=== PATIENT | male | born 1940 | race Caucasian/White ===

== ENCOUNTER → 2019-09-26 14:30 | Outpatient (CLI) | payer MEDICARE, SELFPAY ==
[2019-09-27 08:50] LABS: COVID19 Sendout Not Detected (Not Detect)
== END ==
PROVIDERS: PCP Family Medicine; Visit Provider Nurse Practitioner
DX: Z01.812 Encounter for preprocedural laboratory examination (principal)
CPT/HCPCS: 87635

== ENCOUNTER → 2019-09-29 14:38 | Outpatient (CLI) | payer MEDICARE, SELFPAY ==
--- NOTE | 2019-09-29 15:57 | PM.TREADMILL ---
Cardiac Stress Test Report Referral & Results Date Patient Seen: 09/29/19 Time Patient Seen: 15:58 Requesting provider: Román Flores Indication: syncope and collapse Rest ECG: normal sinus rhythm Procedure Note: Standard Ge protocol, 8:01, 8.8 METS; excellent exercise capacity, SHANA -52%; normal hemodynamic response to exercise; no chest pain or anginal symptoms; lightheadedness at the end of peak exercise with on ECG changes and resolved immediately in recovery, no ST changes, occasional PVCs Impression: normal exercise stress test Please note: Actual ECG tracings can be found in the PACS system.
== END ==
PROVIDERS: PCP Student in an Organized Health Care Education/Training Program; Referring Provider Internal Medicine Cardiovascular Disease; Visit Provider Internal Medicine Cardiovascular Disease
DX: R55 Syncope and collapse (principal); I95.1 Orthostatic hypotension
CPT/HCPCS: 93017

== ENCOUNTER → 2020-09-24 12:58 | Outpatient (CLI) | payer MEDICARE, SELFPAY ==
[2020-09-24 15:53] LABS: COVID19 -Nasal RAPID Negative (Negative)
== END ==
PROVIDERS: PCP Student in an Organized Health Care Education/Training Program; Referring Provider Physician Assistant; Visit Provider Physician Assistant
DX: Z01.812 Encounter for preprocedural laboratory examination (principal); Z20.822 Contact with and (suspected) exposure to COVID-19
CPT/HCPCS: 87635; C9803

== ENCOUNTER 2020-09-25 06:53 | Day surgery (SDC) | payer MEDICARE, SELFPAY ==
[2020-09-25 07:18] VITALS: BP 163/90; PULSE 68; RESP 16; TEMP 36.6; O2SAT 96; BMI 25.8
[2020-09-25] MEDS: PROPARACAINE 0.5% OPHTH SOL 2 DROPS EYE-OP (07:20)
[2020-09-25] MEDS: CATARACT EYE COMPOUND (10 DROPS/SYRINGE) 3 DROPS EYE-OP (07:23)
--- NOTE | 2020-09-25 08:27 | PM.PREOP ---
Pre-operative Note Interval Note History & Physical reviewed/Exam performed by Physician: Yes Changes to H&P: No
--- NOTE | 2020-09-25 08:28 | PM.PREOP ---
Pre-operative Note Interval Note History & Physical reviewed/Exam performed by Physician: Yes Changes to H&P: No
--- NOTE | 2020-09-25 08:29 | PM.OP.1 ---
Operative Date/Time/Diagnoses Pre-op diagnosis: Nuclear cataract right eye Procedure & Clinicians Procedure: Cataract Surgery Same procedure as scheduled: Yes Surgeon: Bennie Duggan Anesthesia Type: MAC +/- and Sedation Operative Notes Procedure in detail: Patient brought to the operating suite. Tetracaine drops placed in the right eye. Patient was prepped and draped in sterile manner. Wire lid speculum was placed in the eye. Betadine drops were placed on the eye. This was irrigated. Lidocaine jelly was placed on the eye. A paracentesis port was created with a side-port blade. 0.1 mL 1% preservative free lidocaine was injected into the anterior chamber. The anterior chamber was deepened with viscoelastic. 2.6 mm keratome was used to create a temporal clear corneal incision. Cystotome and Utrata forceps were used to create continuous tear capsulorrhexis. Balanced salt solution was used to hydro dissect the nucleus. The phacoemulsification handpiece was inserted and the nucleus was removed using the stop and chop technique. The irrigation aspiration handpiece was inserted and the remaining cortex was removed. Anterior chamber was deepened with viscoelastic. An Cameron DIB00 intraocular lens with a power of 19.5 was injected into the capsular bag. Irrigation aspiration handpiece was inserted and the remaining viscoelastic was removed. Incision was hydrated with balanced salt solution and found to be leak free with pressure with Weck-Evangelina sponges. 0.1 mL Vigamox injected anterior chamber. 0.3 mL Kenalog 10 mg was injected subconjunctivally. Lid speculum was removed. The patient left the operating room in excellent condition. Complications: none Post-operative Condition: stable Disposition: same day surgery
[2020-09-25] MEDS: LIDOCAINE 2% (GLYDO) 6 ML GEL TOP (08:41)
[2020-09-25] MEDS: MOXIFLOXACIN INJ 4 MG/0.8 ML VIAL 0.5 MG EYE-OP (08:41)
[2020-09-25] MEDS: CHONDROIDTIN/SOD HYALURONATE 1.05 ML SYRINGE INTRAOCULA (08:41)
[2020-09-25] MEDS: TRIAMCINOLONE 50 MG/5 ML VIAL INJ (08:42)
[2020-09-25] MEDS: TETRACAINE 0.5% OPHTH DROPS 4 ML 2 DROPS EYE-OP (08:42)
[2020-09-25] MEDS: BALANCED SALT IRRIG SOLN NO.2 500 ML, EPINEPHrine 1 MG IRR (08:42)
[2020-09-25] MEDS: PHENYLEPHRINE/LIDOCAINE VIAL (OR) 0.2 ML EYE-OP (08:42)
[2020-09-25 09:00] VITALS: BP 153/91; PULSE 62; RESP 14; TEMP 36.1; O2SAT 95
== END 2020-09-25 09:12 | disposition home or self-care (01) ==
PROVIDERS: PCP Student in an Organized Health Care Education/Training Program; Referring Provider Student in an Organized Health Care Education/Training Program; Visit Provider Ophthalmology
PROC: (CPT 66984; principal; 2020-09-25 08:45)
DX: H25.11 Age-related nuclear cataract, right eye (principal)
CPT/HCPCS: 66984; J0171; J2250; J3010; J3301

== ENCOUNTER → 2020-10-15 13:15 | Outpatient (CLI) | payer MEDICARE, SELFPAY ==
[2020-10-15 15:47] LABS: COVID19 -Nasal RAPID Negative (Negative)
== END ==
PROVIDERS: PCP Student in an Organized Health Care Education/Training Program; Referring Provider Physician Assistant; Visit Provider Physician Assistant
DX: Z01.812 Encounter for preprocedural laboratory examination (principal); Z20.822 Contact with and (suspected) exposure to COVID-19
CPT/HCPCS: 87635; C9803

== ENCOUNTER 2020-10-16 08:55 | Day surgery (SDC) | payer MEDICARE, SELFPAY ==
[2020-10-16] MEDS: PROPARACAINE 0.5% OPHTH SOL 2 DROPS EYE-OP (09:29)
[2020-10-16 09:30] VITALS: BP 151/92; PULSE 80; RESP 16; TEMP 36.2; O2SAT 98; BMI 25.4
[2020-10-16] MEDS: CATARACT EYE COMPOUND (10 DROPS/SYRINGE) 3 DROPS EYE-OP (09:40)
--- NOTE | 2020-10-16 09:56 | PM.PREOP ---
Pre-operative Note Interval Note History & Physical reviewed/Exam performed by Physician: Yes Changes to H&P: No
--- NOTE | 2020-10-16 09:56 | PM.OP.1 ---
Operative Date/Time/Diagnoses Pre-op diagnosis: Nuclear Cataract Left eye Post-op diagnosis: same Procedure & Clinicians Same procedure as scheduled: Yes Surgeon: Bennie Duggan Anesthesia Type: MAC +/- and Sedation Operative Notes Procedure in detail: Patient brought to the operating suite. Tetracaine drops placed in the left eye. Patient was prepped and draped in sterile manner. Wire lid speculum was placed in the eye. Betadine drops were placed on the eye. This was irrigated. Lidocaine jelly was placed on the eye. A paracentesis port was created with a side-port blade. 0.1 mL 1% preservative free lidocaine was injected into the anterior chamber. The anterior chamber was deepened with viscoelastic. 2.6 mm keratome was used to create a temporal clear corneal incision. Cystotome and Utrata forceps were used to create continuous tear capsulorrhexis. Balanced salt solution was used to hydro dissect the nucleus. The phacoemulsification handpiece was inserted and the nucleus was removed using the stop and chop technique. The irrigation aspiration handpiece was inserted and the remaining cortex was removed. Anterior chamber was deepened with viscoelastic. An Cameron DIB00 intraocular lens with a power of 17.5 was injected into the capsular bag. Irrigation aspiration handpiece was inserted and the remaining viscoelastic was removed. Incision was hydrated with balanced salt solution and found to be leak free with pressure with Weck-Evangelina sponges. 0.1 mL Vigamox injected anterior chamber. 0.3 mL Kenalog 10 mg was injected subconjunctivally. Lid speculum was removed. The patient left the operating room in excellent condition. Complications: none Post-operative Condition: stable Disposition: same day surgery
[2020-10-16] MEDS: CHONDROIDTIN/SOD HYALURONATE 1.05 ML SYRINGE INTRAOCULA (10:13)
[2020-10-16] MEDS: MOXIFLOXACIN INJ 4 MG/0.8 ML VIAL 0.5 MG EYE-OP (10:13)
[2020-10-16] MEDS: PHENYLEPHRINE/LIDOCAINE VIAL (OR) 0.2 ML EYE-OP (10:13)
[2020-10-16] MEDS: LIDOCAINE 2% (GLYDO) 6 ML GEL TOP (10:13)
[2020-10-16] MEDS: BALANCED SALT IRRIG SOLN NO.2 500 ML, EPINEPHrine 1 MG IRR (10:14)
[2020-10-16] MEDS: TRIAMCINOLONE 50 MG/5 ML VIAL INJ (10:14)
[2020-10-16] MEDS: TETRACAINE 0.5% OPHTH DROPS 4 ML 2 DROPS EYE-OP (10:14)
[2020-10-16 10:31] VITALS: BP 139/82; PULSE 65; RESP 15; TEMP 36.1; O2SAT 97
== END 2020-10-16 10:48 | disposition home or self-care (01) ==
PROVIDERS: PCP Student in an Organized Health Care Education/Training Program; Referring Provider Ophthalmology; Visit Provider Ophthalmology
PROC: (CPT 66984; principal; 2020-10-16 10:45)
DX: H25.12 Age-related nuclear cataract, left eye (principal)
CPT/HCPCS: 66984; J0171; J2250; J3010; J3301

== ENCOUNTER → 2020-10-24 15:34 | Outpatient (CLI) | payer MEDICARE, SELFPAY ==
[2020-10-24 16:40] LABS: BUN Creatinine Ratio 20.8 (6-22); Blood Urea Nitrogen 22 mg/dL (9-20); Calcium 9.5 mg/dL (8.4-10.2); Carbon Dioxide 29 mmol/L (22-32); Chloride 104 mmol/L (98-107); Creatine Kinase 177 U/L (55-170); Estimated Glomerular Filt Rate > 60.0 mL/min (>60); Glucose 101 mg/dL (80-110); Magnesium 2.3 mg/dL (1.6-2.3); Potassium 4.4 mmol/L (3.4-5.1); Sodium 142 mmol/L (137-145)
[2020-10-24 16:54] LABS: HEMOLYSIS 21 (0-50)
== END ==
PROVIDERS: PCP Student in an Organized Health Care Education/Training Program; Referring Provider Student in an Organized Health Care Education/Training Program; Visit Provider Student in an Organized Health Care Education/Training Program
DX: R25.2 Cramp and spasm (principal); R55 Syncope and collapse
CPT/HCPCS: 36415; 80048; 82550; 83735

== ENCOUNTER → 2020-12-10 11:53 | Outpatient (CLI) | payer MEDICARE, SELFPAY ==
[2020-12-10 13:19] LABS: COVID19 -Nasal RAPID Negative (Negative)
== END ==
PROVIDERS: PCP Student in an Organized Health Care Education/Training Program; Referring Provider Nurse Practitioner Family; Visit Provider Nurse Practitioner Family
DX: Z01.812 Encounter for preprocedural laboratory examination (principal); Z20.822 Contact with and (suspected) exposure to COVID-19
CPT/HCPCS: 87635; C9803

== ENCOUNTER 2020-12-11 11:29 | Day surgery (SDC) | payer MEDICARE, SELFPAY ==
[2020-12-11 11:46] VITALS: BP 149/92; PULSE 78; RESP 16; TEMP 36.6; O2SAT 100; BMI 26.5
--- NOTE | 2020-12-11 12:13 | PM.PREOP ---
Pre-operative Note Interval Note History & Physical reviewed/Exam performed by Physician: Yes Changes to H&P: No
--- NOTE | 2020-12-11 12:13 | PM.OP.1 ---
Operative Date/Time/Diagnoses Pre-op diagnosis: Retained lens fragment left eye Post-op diagnosis: same Procedure & Clinicians Same procedure as scheduled: Yes Surgeon: Bennie Duggan Anesthesia Type: MAC +/- and Sedation Operative Notes Procedure in detail: Patient brought to the operating suite. Tetracaine drops placed in the left eye. Patient was prepped and draped in sterile manner. Wire lid speculum was placed in the eye. Betadine drops were placed on the eye. This was irrigated. Lidocaine jelly was placed on the eye. A paracentesis port was created with a side-port blade. The anterior chamber was deepened with viscoelastic. 2.6 mm keratome was used to create a temporal clear corneal incision. Irrigation aspiration handpiece was inserted and the lens fragment was removed. Incision was hydrated with balanced salt solution and found to be leak free with pressure with Weck-Evangelina sponges. 0.1 mL Vigamox injected anterior chamber. 0.1 mL Kenalog 10 mg was injected subconjunctivally. Lid speculum was removed. The patient left the operating room in excellent condition. Complications: none Post-operative Condition: stable Disposition: same day surgery
[2020-12-11] MEDS: MOXIFLOXACIN INJ 4 MG/0.8 ML VIAL 0.5 MG EYE-OP (12:41)
[2020-12-11] MEDS: TRIAMCINOLONE 50 MG/5 ML VIAL INJ (12:41)
[2020-12-11] MEDS: BALANCED SALT IRRIG SOLN NO.2 500 ML, EPINEPHrine 1 MG IRR (12:41)
[2020-12-11] MEDS: TETRACAINE 0.5% OPHTH DROPS 4 ML 2 DROPS EYE-OP (12:42)
[2020-12-11] MEDS: HYALURONATE SODIUM 30 MG-10 MG/ML SYRINGES 1 BOX INTRAOCULA (12:42)
[2020-12-11] MEDS: LIDOCAINE 2% (GLYDO) 6 ML GEL TOP (12:44)
[2020-12-11 12:53] VITALS: BP 118/79; PULSE 72; RESP 16; TEMP 36.6; O2SAT 95
== END 2020-12-11 13:05 | disposition home or self-care (01) ==
PROVIDERS: PCP Student in an Organized Health Care Education/Training Program; Referring Provider Ophthalmology; Visit Provider Ophthalmology
PROC: (CPT 66840; principal; 2020-12-11 13:15)
DX: H59.022 Cataract (lens) fragments in eye following cataract surgery, left eye (principal)
CPT/HCPCS: 66840; J0171; J2250; J3010; J3301

== ENCOUNTER 2023-08-13 13:46 | Emergency (ER) | payer MEDICARE, SELFPAY ==
[2023-08-13 13:48] VITALS: BP 129/76; PULSE 91; RESP 14; TEMP 36.9; O2SAT 95; BMI 26.5
--- NOTE | 2023-08-13 13:55 | DI.RAD.S_ITS ---
PROCEDURE: XR ELBOW RT MIN 3V INDICATIONS: fall,elbow injury TECHNIQUE: 3 views of the elbow were acquired. COMPARISON: None. FINDINGS: Bones: No fractures or dislocations. No suspicious bony lesions. Soft tissues: No elbow joint effusion. No suspicious soft tissue calcifications. IMPRESSION: No visualized acute fracture or dislocation. However, if clinical concern and/or pain persist, short interval imaging followup in 7-10 days is recommended, as occult injury cannot be definitively excluded. Dictated by: Minerva Torres M.D. on 08/13/2023 at 14:36 Approved by: Minerva Torres M.D. on 08/13/2023 at 14:36
--- NOTE | 2023-08-13 14:05 | ED.FALL ---
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 He was reporting right elbow pain as well as hitting his right eye against the floor. He had not lose conscious. He had not report any slurred speech, facial drooping, nausea, vomiting, weakness, or any other concerning signs or symptoms. Denies any numbness. Related Data Previous Rx's Medication Instructions Recorded cyclobenzaprine 5 mg tablet 5 mg PO ONCE PM PRN muscle spasm 07/28/23 #30 tabs escitalopram oxalate 10 mg tablet 10 mg PO DAILY #90 tabs 07/28/23 Allergies Allergy/AdvReac Type Severity Reaction Status Date / Time shellfish derived Allergy Severe anaphylatic Verified 08/13/23 14:00 [SHELLFISH DERIVED] Review of Systems <Miguel Foss PA-C - Last Filed: 08/13/23 14:56> Review of Systems Narrative: GENERAL: Denies chills, fatigue, malaise, fever, sweats. HEENT: Reports right eye orbit pain Denies sinus pain, ear pain, sore throat, difficulty swallowing, dizziness. RESPIRATORY: Denies dyspnea, cough, wheezing, hemoptysis, sputum. CARDIOVASCULAR: Denies chest pain, palpitations, orthopnea, edema, GASTROINTESTINAL: Denies nausea, vomiting, abdominal pain, diarrhea, constipation, melena. : Denies dysuria, frequency, incontinence, hematuria, urinary retention. MUSCULOSKELETAL: Reports right elbow pain SKIN: Denies rash, skin lesions, or other NEUROLOGIC: Denies weakness, headache, numbness, change in speech, confusion, seizures, incoordination. PSYCHIATRIC: No concerning psychosocial issues. 12 point review of systems is negative except for those stated above Patient History <Miguel Foss PA-C - Last Filed: 08/13/23 14:56> Medical History Depression Tear of meniscus of knee Inguinal hernia Surgical History Hx of tonsillectomy Social History household members: spouse Smoking Status: Former smoker alcohol intake: current Smoking Status: Former smoker alcohol intake frequency: holidays/special occasions only Substance Use Type: does not use Exam <JOAQUIN Zhang Last Filed: 08/13/23 14:56> Narrative Exam Narrative: GENERAL: Well-developed patient, in mild distress. HEAD: Atraumatic. Normocephalic. EYES: Pupils equal round and reactive. Extraocular motions intact. No scleral icterus. No injection or drainage. Some ecchymosis around the right eye ENT: Nose without bleeding, purulent drainage. Throat without erythema, tonsillar hypertrophy or exudate. Airway patent. NECK: Trachea midline. Non tender EXTREMITIES: Mild tenderness to palpation to the generalized right elbow NEURO: AOx3. Cranial nerves 2-12 intact SKIN: No rash or erythema of visible areas Initial Vital Signs Initial Vital Signs: Vital Signs Temperature 98.5 F 08/13/23 13:48 Pulse Rate 91 H 08/13/23 13:48 Respiratory Rate 14 08/13/23 13:48 Blood Pressure 129/76 08/13/23 13:48 Pulse Oximetry 95 08/13/23 13:48 Oxygen Delivery Method Room Air 08/13/23 13:48 <Zhane John DO - Last Filed: 08/15/23 19:14> Initial Vital Signs Initial Vital Signs: Vital Signs Temperature 98.5 F 08/13/23 13:48 Pulse Rate 91 H 08/13/23 13:48 Respiratory Rate 14 08/13/23 13:48 Blood Pressure 129/76 08/13/23 13:48 Pulse Oximetry 95 08/13/23 13:48 Oxygen Delivery Method Room Air 08/13/23 13:48 Course <Miguel Foss PA-C - Last Filed: 08/13/23 14:56> Orders Ordered: ED Orders 08/13/23 13:55 XR elbow RT min 3V Stat Vital Signs Vital signs: Vital Signs - 8 hr 08/13/23 13:48 08/13/23 15:00 Temperature 98.5 F Pulse Rate 91 H 88 Respiratory Rate 14 16 Blood Pressure 129/76 121/75 Pulse Oximetry 95 96 Oxygen Delivery Method Room Air Room Air <DO Deepika Posadas Last Filed: 08/15/23 19:14> Orders Ordered: ED Orders 08/13/23 13:55 XR elbow RT min 3V Stat Vital Signs Vital signs: Vital Signs - 8 hr 08/13/23 13:48 08/13/23 15:00 Temperature 98.5 F Pulse Rate 91 H 88 Respiratory Rate 14 16 Blood Pressure 129/76 121/75 Pulse Oximetry 95 96 Oxygen Delivery Method Room Air Room Air MDM - Fall <Miguel Foss PA-C - Last Filed: 08/13/23 14:56> Imaging Data Extremity x-ray #1: Radiologist's Impression: [address] [address] XRay Report Signed Patient: Olayinka Mclean MR#: [id number] : 1940 Acct:[id number] Age/Sex: 83 / M Date of Service: 08/13/23 Loc: ED Accession Number: [id number] Procedure: XR elbow RT min 3V Ordering Provider: Zhane John D.O. PROCEDURE: XR ELBOW RT MIN 3V INDICATIONS: fall,elbow injury TECHNIQUE: 3 views of the elbow were acquired. COMPARISON: None. FINDINGS: Bones: No fractures or dislocations. No suspicious bony lesions. Soft tissues: No elbow joint effusion. No suspicious soft tissue calcifications. IMPRESSION: No visualized acute fracture or dislocation. However, if clinical concern and/or pain persist, short interval imaging followup in 7-10 days is recommended, as occult injury cannot be definitively excluded. Dictated by: Minerva Torres M.D. on 08/13/2023 at 14:36 Approved by: Minerva Torres M.D. on 08/13/2023 at 14:36 [facility] Narrative Medical decision making narrative: ED course: This is a 83-year-old male presents to the emergency department due to mechanical ground level fall. Complaining of right elbow pain and x-ray was negative, recommend supportive care. He also did hit his head but did not lose conscious, is not on blood thinners, and had a completely normal neuro exam. Shared decision-making utilized and no head CT ordered. He had no surrounding bony tenderness around his right eye and no CT maxillofacial ordered. CC: Mechanical ground level fall Complicating co-morbidities: None Data collected from: Previous notes Medical records reviewed: Patient was not been to this ED in the past Differential considered, but not limited to: Intracranial bleed, fracture Exam documented above, pertinent findings include: Unremarkable neuro exam, right elbow tenderness to palpation but otherwise unremarkable Lab Test results independently reviewed as above. Pertinent findings: None obtained Imaging studies independently reviewed: Right elbow x-ray negative Scores Used: None MIPS Elements: None Consultations: None Treatments: None Re-evaluations: None Discussion: Discussed plan with the patient was comfortable with the plan Diagnosis: Elbow contusion Disposition: see below, along with detailed discharge instructions that have been reviewed with patient as well as indications for ED re-evaluation and additional outpatient follow up Discharge Plan Departure Patient Disposition: Home Clinical Impression: Contusion of elbow Activity Restrictions/Additional Instructions: Thank you for coming to the [facility] Emergency Department today. As we discussed your right elbow x-ray was negative for fractures. Please use ice as needed to help with the pain. Your neuro exam was also very reassuring. I suspect this is a routine ?black eye? that you have rather than any kind of intracranial bleed. Please return to the emergency department if you develop any slurred speech, weakness, numbness, nausea, vomiting, or any other concerning signs or symptoms. I hope you feel better soon. Please follow up with your primary care provider within a week if your symptoms continue. If you do not have a primary care provider please contact the [facility] Resource line at [phone]. They will ask some questions about your medical history and help you get set up with a provider in the community. Prescriptions: No Action cyclobenzaprine 5 mg tablet 5 mg PO ONCE PM PRN (Reason: muscle spasm) Qty: 30 3RF escitalopram oxalate 10 mg tablet 10 mg PO DAILY Qty: 90 2RF Referrals: Quan New DO [Primary Care Provider] - Stand Alone Forms: Patient Portal/API ED Sign-out <Zhane John DO - Last Filed: 08/15/23 19:14> Cosign ED Attending Chris Attestation: I was immediately available in the department for consultation.
[2023-08-13 15:00] VITALS: BP 121/75; PULSE 88; RESP 16; O2SAT 96
== END 2023-08-13 15:01 | disposition home or self-care (01) ==
PROVIDERS: Emergency Provider Physician Assistant Medical; PCP Family Medicine
DX: S50.01XA Contusion of right elbow, initial encounter (principal); S05.91XA Unspecified injury of right eye and orbit, initial encounter; S09.90XA Unspecified injury of head, initial encounter; W18.00XA Striking against unspecified object with subsequent fall, initial encounter
CPT/HCPCS: 73080; 99281; 99283

== ENCOUNTER → 2023-10-16 15:00 | Outpatient (CLI) | payer MEDICARE, SELFPAY ==
[2023-10-16 16:08] LABS: Add Manual Diff / Slide Review NO; Basophils Absolute Auto 0 /uL (0-100); Basophils Percent Auto 0.7 % (0-2); Eosinophils Absolute Auto 200 /uL (0-450); Eosinophils Percent Auto 3.1 % (2-4); Hematocrit 40.7 % (41-53); Hemoglobin 13.9 g/dL (13.5-17.5); Lymphocytes Absolute Auto 2300 /uL (1100-4500); Lymphocytes Percent Auto 34.5 % (25-40); Mean Corpuscular Hemoglobin 35.4 PG (26-34); Mean Corpuscular Volume 104.2 fL (80-100); Monocytes Absolute Auto 1100 /uL (0-900); Monocytes Percent Auto 16.3 % (3-14); Neutrophils Absolute Auto 3100 /uL (1500-7000); Neutrophils Percent Auto 45.4 % (50-75); Platelet Count 210 X10^3/uL (150-400); Red Blood Cell Count 3.91 X10^6/uL (4.5-5.9); Red Cell Distribution Width 15.8 % (11.6-14.8); White Blood Cell Count 6.7 X10^3/uL (4.5-11.0)
[2023-10-16 16:14] LABS: HEMOLYSIS 19 (0-50)
[2023-10-16 16:21] LABS: Alanine Aminotransferase 67 IU/L (<50); Albumin 4.6 g/dL (3.5-5.0); Albumin Globulin Ratio 1.4 (1.0-2.8); Alkaline Phosphatase 48 U/L (38-126); Aspartate Aminotransferase 51 IU/L (17-59); BUN Creatinine Ratio 15.5 (6-22); Bilirubin Total 1.2 mg/dL (0.2-1.3); Blood Urea Nitrogen 18 mg/dL (9-20); Calcium 9.2 mg/dL (8.4-10.2); Carbon Dioxide 29 mmol/L (22-32); Chloride 103 mmol/L (98-107); Estimated Glomerular Filt Rate > 60 mL/min (>60); Globulin 3.2 g/dL (1.7-4.1); Glucose 80 mg/dL (80-110); Potassium 4.6 mmol/L (3.4-5.1); Sodium 138 mmol/L (137-145); Total Protein 7.8 g/dL (6.3-8.2)
[2023-10-16 17:26] LABS: Prostate Specific Antigen Scrn 1.73 ng/mL (0.1-4.0)
== END ==
PROVIDERS: PCP Family Medicine; Referring Provider Family Medicine; Visit Provider Family Medicine
DX: Z12.5 Encounter for screening for malignant neoplasm of prostate (principal); F32.A Depression, unspecified; R25.2 Cramp and spasm
CPT/HCPCS: 36415; 80053; 85025; G0103

== ENCOUNTER 2023-11-15 13:23 | Emergency (ER) | payer MEDICARE, SELFPAY ==
[2023-11-15] VITALS (13 sets, daily range): BP systolic 124–143; BP diastolic 86–106; PULSE 67–88; RESP 12–23; TEMP 36.7; O2SAT 92–97; BMI 26.5
--- NOTE | 2023-11-15 13:36 | DI.RAD.S_ITS ---
PROCEDURE: XR CHEST 1V INDICATIONS: Possible stroke TECHNIQUE: One view of the chest was acquired. COMPARISON: None. FINDINGS: Surgical changes and devices: None. Lungs and pleura: Lungs are clear. No pleural effusions or pneumothorax. Mediastinum: Mediastinal contours appear normal. Heart size is normal. Bones and chest wall: No suspicious bony lesions. Overlying soft tissues appear unremarkable. IMPRESSION: No acute cardiopulmonary abnormality is seen. Dictated by: Jackelin Patel M.D. on 11/15/2023 at 13:27 Approved by: Jackelin Patel M.D. on 11/15/2023 at 13:27
--- NOTE | 2023-11-15 13:37 | EKG_ITS ---
[address] [address] Test Date: 2023-11-15 Pat Name: Olayinka Mclean Department: Room: Gender: Male Rn Clinical Appeals: VIK : 1940 Requested By: Order Number: [id number] Reading MD: Davey Richard MD Measurements Intervals Crystal Rate: 88 P: 57 RI: 166 QRS: 22 QRSD: 94 T: 27 QT: 392 QTc: 474 Interpretive Statements Normal sinus rhythm Electronically Signed On 11-16-2023 8:18:57 PDT by Davey Richard MD
--- NOTE | 2023-11-15 13:37 | DI.CT.S_ITS ---
PROCEDURE: CT ANGIO HEAD AND NECK INDICATIONS: htn/balance concerns TECHNIQUE: After the administration of intravenous contrast, 1 mm thick sections acquired from the aortic arch through the [place] of [place]. 3-dimensional jkkuepr-nohhzapub-dvawsqyljy (MIP) and/or volume rendering reformats were acquired of the central intracranial vasculature and neck separately. For radiation dose reduction, the following was used: automated exposure control, adjustment of mA and/or kV according to patient size. COMPARISON: None. FINDINGS: Image quality: Diagnostic. BRAIN: CSF spaces: Ventricles are normal in size and shape. Basal cisterns are patent. No extra-axial fluid collections. Brain: No significant abnormality of the brain can be seen. Skull and face: Calvarium and facial bones appear intact, without suspicious lesions. Orbits appear normal. Sinuses: Sinuses and mastoids are clear. HEAD CT ANGIOGRAPHY: Anterior circulation: Intracranial internal carotid arteries are normal in size and flow. The flow within the paired anterior cerebral arteries is normal and symmetric. The flow within the middle cerebral arteries is normal and symmetric. The anterior communicating artery is seen. No aneurysms are seen. Posterior circulation: Visualized portions of the vertebral arteries demonstrate normal caliber, and join to form a normal appearing basilar artery. Flow within the posterior cerebral arteries is normal and symmetric. No aneurysms are seen. NECK CT ANGIOGRAPHY: Carotid system: The great vessels demonstrate a conventional anatomy as they arise from the aortic arch. The origins of the common carotid arteries appear patent. The common carotid arteries demonstrate normal caliber and courses. The bifurcation regions are both widely patent. The internal carotid arteries demonstrate normal calibers and courses. Posterior circulation: The origins of the vertebral arteries both appear widely patent. The more superior extracranial portions of both vertebral arteries also demonstrate normal courses and calibers. They join to form a normal appearing basilar artery. Soft tissues: Visualized neck soft tissues demonstrate no suspicious abnormalities. Bones: No suspicious bony lesions. Visualized cervical spine appears normally aligned. IMPRESSION: No significant intracranial arterial abnormality is seen. No significant abnormality is seen within the arteries of the neck. Left apical pulmonary nodule which is mildly suspicious. Recommend follow-up chest CT in 6 months of no priors can be found to document stability. Any quantitative measurements of stenosis were performed using NASCET criteria. Dictated by: Jackelin Patel M.D. on 11/15/2023 at 13:40 Approved by: Jackelin Patel M.D. on 11/15/2023 at 13:45
--- NOTE | 2023-11-15 13:37 | DI.CT.S_ITS ---
PROCEDURE: CT HEAD/BRAIN WO CON INDICATIONS: htn/balance concerns TECHNIQUE: Noncontrast 4.5 mm thick angled axial sections acquired from the foramen magnum to the vertex, with coronal and sagittal reformats. For radiation dose reduction, the following was used: automated exposure control, adjustment of mA and/or kV according to patient size. COMPARISON: None. FINDINGS: Image quality: Diagnostic. CSF spaces: Basal cisterns are patent. No extra-axial fluid collections. The ventricles are symmetric in size and shape. Brain: No intracranial bleeds or masses. There is cerebral volume loss for age, with resultant ventricular and sulcal prominence. There are periventricular and deep white matter chronic small vessel ischemic changes. There is intracranial internal carotid artery atherosclerosis. Skull and face: Calvarium and visualized facial bones appear intact, without suspicious lesions. Sinuses: Visualized sinuses and mastoids are clear. IMPRESSION: No acute intracranial pathology. Dictated by: Jackelin Patel M.D. on 11/15/2023 at 13:39 Approved by: Jackelin Patel M.D. on 11/15/2023 at 13:40
[2023-11-15 13:47] LABS: Add Manual Diff / Slide Review NO; Basophils Absolute Auto 100 /uL (0-100); Basophils Percent Auto 0.8 % (0-2); Eosinophils Absolute Auto 200 /uL (0-450); Eosinophils Percent Auto 3.1 % (2-4); Hematocrit 40.2 % (41-53); Hemoglobin 13.8 g/dL (13.5-17.5); Lymphocytes Absolute Auto 2500 /uL (1100-4500); Mean Corpuscular HGB Conc 34.3 % (30-36); Mean Corpuscular Hemoglobin 35.4 PG (26-34); Mean Corpuscular Volume 103.1 fL (80-100); Monocytes Absolute Auto 1100 /uL (0-900); Monocytes Percent Auto 16.7 % (3-14); Neutrophils Absolute Auto 2500 /uL (1500-7000); Neutrophils Percent Auto 39.4 % (50-75); Platelet Count 202 X10^3/uL (150-400); Red Cell Distribution Width 15.5 % (11.6-14.8); White Blood Cell Count 6.3 X10^3/uL (4.5-11.0)
[2023-11-15 13:48] LABS: Prothrombin Time 11.1 SECONDS (9.4-12.5)
[2023-11-15 13:51] LABS: PTT Partial Thromboplastin Tim 30 SECONDS (25.1-36.5)
[2023-11-15 13:52] LABS: Alanine Aminotransferase 73 IU/L (<50); Albumin 4.6 g/dL (3.5-5.0); Albumin Globulin Ratio 1.6 (1.0-2.8); Alkaline Phosphatase 45 U/L (38-126); Aspartate Aminotransferase 55 IU/L (17-59); BUN Creatinine Ratio 13.3 (6-22); Bilirubin Total 1.3 mg/dL (0.2-1.3); Blood Urea Nitrogen 15 mg/dL (9-20); Calcium 9.5 mg/dL (8.4-10.2); Carbon Dioxide 26 mmol/L (22-32); Chloride 104 mmol/L (98-107); Creatine Kinase 137 U/L (55-170); Estimated Glomerular Filt Rate > 60 mL/min (>60); Globulin 2.9 g/dL (1.7-4.1); Glucose 99 mg/dL (80-110); HEMOLYSIS < 15 (0-50); Magnesium 2.3 mg/dL (1.6-2.3); Potassium 4.3 mmol/L (3.4-5.1); Sodium 137 mmol/L (137-145); Total Protein 7.5 g/dL (6.3-8.2)
[2023-11-15 14:03] LABS: Troponin I < 0.012 ng/mL (0.01-0.034)
--- NOTE | 2023-11-15 14:34 | ED.NEUROSD ---
HPI - Neuro Symptoms/Deficit General Chief Complaint: Neuro Symptoms/Deficit Stated Complaint: High blood pressure , shaky,Feels something is off Time Seen by Provider: 11/15/23 13:35 Source: patient Mode of arrival: Ambulatory History of Present Illness HPI Narrative: Patient is a 83-year-old male who reports he has no chronic illnesses but PCP notes do report he is some chronic dizziness presenting today with unstable gait. He reports that he woke up last night to urinate and felt like he was unstable on his feet but made it to the bathroom and back without difficulty. He feels like both of his feet are pretty heavy maybe his right more than his left. Nursing staff notices that he does have have some ataxia while ambulating into the emergency department. He denies any chest pain palpitations or syncopal episodes. He has no prior history of TIA or CVA. He is noted of some right facial droop but he reports is chronic. Was previously seen for elevated ALT but denies significant alcohol use. On Anticoagulants: No Related Data Previous Rx's Medication Instructions Recorded cyclobenzaprine 5 mg tablet 5 mg PO ONCE PM PRN muscle spasm 07/28/23 #30 tabs escitalopram oxalate 10 mg tablet 10 mg PO DAILY #90 tabs 07/28/23 Allergies Allergy/AdvReac Type Severity Reaction Status Date / Time shellfish derived Allergy Severe anaphylatic Verified 10/29/23 15:33 [SHELLFISH DERIVED] Review of Systems Hematologic/Lymphatic On Anticoagulants: No Patient History Medical History Depression Tear of meniscus of knee Inguinal hernia Surgical History Hx of tonsillectomy Social History household members: spouse Smoking Status: Never smoker alcohol intake: current Smoking Status: Never smoker alcohol intake frequency: holidays/special occasions only Substance Use Type: does not use Exam Initial Vital Signs Initial Vital Signs: Vital Signs Temperature 98.1 F 11/15/23 13:26 Pulse Rate 86 11/15/23 13:26 Respiratory Rate 16 11/15/23 13:26 Blood Pressure 143/106 H 11/15/23 13:26 Pulse Oximetry 93 11/15/23 13:26 Oxygen Delivery Method Room Air 11/15/23 13:26 GENERAL: Alert well-appearing 83-year-old male and in no acute distress. HEENT: Head atraumatic,EOMI, pupils reactive, mild right facial droop, moist mucous membranes CARDIOVASCULAR: Regular rate and rhythm without murmurs, rubs or gallops. RESPIRATORY: Breath sounds equal bilaterally, no wheezes rales or rhonchi. ABDOMEN: Soft, nontender. Normoactive bowel sounds all 4 quadrants. No guarding or rebound. EXTREMITIES: Normal range of motion, no clubbing or edema. Neurovascularly intact NEUROLOGICAL: Alert and oriented x4.Normal gait and speech. Cranial nerves II through XII grossly intact. Good [id number], good tmwl-ml-lesu, strength equal bilaterally, no dysarthria or aphasia, sensation in tact to soft touch bilaterally, no visual changes, no facial droop SKIN: Warm, dry, no laceration, no petechiae, no rashes or lesions. Scores NIH Stroke Scale Level of Conciousness: Alert, keenly responsive Ask month/age: Answers both questions correctly. Open/close eyes, close hand: Performs both tasks correctly Best gaze horizontal: Normal Visual cabrera: No visual loss Facial palsy: Normal symetrical movement Left arm drift: No drift for full 10 sec Right arm drift: No drift for full 10 sec Left leg drift: No drift for full 5 sec Right leg drift: No drift for full 5 sec Limb ataxia: Absent Sensory on face/arms/legs: Normal, no sensory loss Best language: No aphasia, normal Dysarthria: Normal Extinction or inattention: No abnormality Total NIH Stroke scale score: 0 Course Orders Ordered: ED Orders 11/15/23 13:34 Complete Blood Count AUTO DIFF Stat Comprehensive Metabolic Panel Stat Magnesium Stat PTT Partial Thromboplastin Jose Cruz Stat Prothrombin Time INR Stat Troponin & CK Cardiac Panel Stat 11/15/23 13:36 XR chest 1V Stat EKG-12 Lead Stat 11/15/23 13:37 CT angio head and neck Stat CT head/brain wo con Stat 11/15/23 15:06 Urine Drug Screen, Rapid Stat Discontinued Medications Aspirin (Aspirin 81 Mg Chew Tab) 324 mg PO NOW ONE Stop: 11/15/23 15:40 Last Admin: 11/15/23 15:50 Dose: 324 mg Documented By: ROHIT Ondansetron HCl (Ondansetron 4 Mg/2 Ml Inj) 4 mg IV NOW PRN PRN Reason: Nausea And Vomiting Ondansetron HCl (Ondansetron 4 Mg Odt) 4 mg SL NOW PRN PRN Reason: Nausea And Vomiting Vital Signs Vital signs: Vital Signs - 8 hr 11/15/23 13:26 11/15/23 13:30 11/15/23 13:30 Temperature 98.1 F Pulse Rate 86 88 Respiratory Rate 16 Blood Pressure 143/106 H 143/106 H Pulse Oximetry 93 Oxygen Delivery Method Room Air 11/15/23 13:45 11/15/23 14:00 11/15/23 14:15 Temperature Pulse Rate 82 78 72 Respiratory Rate 23 13 12 Blood Pressure Pulse Oximetry 94 96 93 Oxygen Delivery Method 11/15/23 14:30 11/15/23 14:45 11/15/23 15:00 Temperature Pulse Rate 67 71 71 Respiratory Rate 13 15 16 Blood Pressure Pulse Oximetry 92 92 92 Oxygen Delivery Method 11/15/23 15:15 11/15/23 15:45 11/15/23 15:50 Temperature Pulse Rate 67 69 73 Respiratory Rate 14 16 Blood Pressure Pulse Oximetry 95 95 97 Oxygen Delivery Method 11/15/23 15:52 11/15/23 15:53 Temperature Pulse Rate Respiratory Rate Blood Pressure 124/86 124/86 Pulse Oximetry Oxygen Delivery Method MDM - Neuro Symptoms/Deficit Lab Data 11/15/23 13:34 11/15/23 13:34 Labs: Lab Results 11/15/23 11/15/23 Range/Units 13:34 15:06 WBC 6.3 (4.5-11.0) X10^3/uL RBC 3.90 L (4.5-5.9) X10^6/uL Hgb 13.8 (13.5-17.5) g/dL Hct 40.2 L (41-53) % MCV 103.1 H (80-100) fL MCH 35.4 H (26-34) PG MCHC 34.3 (30-36) % RDW 15.5 H (11.6-14.8) % Plt Count 202 (150-400) X10^3/uL Neut % (Auto) 39.4 L (50-75) % Lymph % (Auto) 40.0 (25-40) % [place] % (Auto) 16.7 H (3-14) % Eos % (Auto) 3.1 (2-4) % Baso % (Auto) 0.8 (0-2) % Neut # (Auto) 2500 (5332-4319) /uL Lymph # (Auto) 2500 (1242-8435) /uL [place] # (Auto) 1100 H (0-900) /uL Eos # (Auto) 200 (0-450) /uL Baso # (Auto) 100 (0-100) /uL PT 11.1 (9.4-12.5) SECONDS INR 1.0 (0.9-1.3) APTT 30 (25.1-36.5) SECONDS Sodium 137 (137-145) mmol/L Potassium 4.3 (3.4-5.1) mmol/L Chloride 104 (98-107) mmol/L Carbon Dioxide 26 (22-32) mmol/L BUN 15 (9-20) mg/dL Creatinine 1.13 (0.66-1.25) mg/dL Estimated GFR > 60 (>60) mL/min BUN/Creatinine Ratio 13.3 (6-22) Glucose 99 (80-110) mg/dL Calcium 9.5 (8.4-10.2) mg/dL Magnesium 2.3 (1.6-2.3) mg/dL Total Bilirubin 1.3 (0.2-1.3) mg/dL AST 55 (17-59) IU/L ALT 73 H (<50) IU/L Alkaline Phosphatase 45 (38-126) U/L Total Creatine Kinase 137 (55-170) U/L Troponin I < 0.012 (0.01-0.034) ng/mL Total Protein 7.5 (6.3-8.2) g/dL Albumin 4.6 (3.5-5.0) g/dL Globulin 2.9 (1.7-4.1) g/dL Albumin/Globulin Ratio 1.6 (1.0-2.8) U Opiates 300ng/mL cut Negative (Negative) Ur Oxycodone Screen Negative (Negative) Urine Methadone Screen Negative (Negative) Ur Barbiturates Screen Negative (Negative) U Tricyclic Antidepress Positive H (Negative) Ur Phencyclidine Scrn Negative (Negative) Ur Amphetamines Screen Negative (Negative) U Methamphetamines Scrn Negative (Negative) Ur MDMA Scrn (Ecstasy) Negative (Negative) U Benzodiazepines Scrn Negative (Negative) Urine Cocaine Screen Negative (Negative) U Marijuana (THC) Screen Positive H (Negative) Urine pH Normal (Normal) Urine Specific [place] Normal (Normal) Ur Creatinine Normal (Normal) Urine Dip Bedside Urine Glucose Negative Bedside Urine Bilirubin - Negative Bedside Urine Ketone - Negative Urine Specific [place] 1.010 Bedside Urine Occult Blood - Negative Bedside Urine pH 6.5 Bedside Urine Protein - Negative Bedside Urine Urobilinogen - Negative Bedside Urine Nitrite - Negative Bedside Urine Leukocytes - Negative Esterase Imaging Data Chest x-ray: Radiologist's Impression: PROCEDURE: XR CHEST 1V INDICATIONS: Possible stroke TECHNIQUE: One view of the chest was acquired. COMPARISON: None. FINDINGS: Surgical changes and devices: None. Lungs and pleura: Lungs are clear. No pleural effusions or pneumothorax. Mediastinum: Mediastinal contours appear normal. Heart size is normal. Bones and chest wall: No suspicious bony lesions. Overlying soft tissues appear unremarkable. IMPRESSION: No acute cardiopulmonary abnormality is seen. Dictated by: Jackelin Patel M.D. on 11/15/2023 at 13:27 CT scan - head: Radiologist's Impression: PROCEDURE: CT HEAD/BRAIN WO CON INDICATIONS: htn/balance concerns TECHNIQUE: Noncontrast 4.5 mm thick angled axial sections acquired from the foramen magnum to the vertex, with coronal and sagittal reformats. For radiation dose reduction, the following was used: automated exposure control, adjustment of mA and/or kV according to patient size. COMPARISON: None. FINDINGS: Image quality: Diagnostic. CSF spaces: Basal cisterns are patent. No extra-axial fluid collections. The ventricles are symmetric in size and shape. Brain: No intracranial bleeds or masses. There is cerebral volume loss for age, with resultant ventricular and sulcal prominence. There are periventricular and deep white matter chronic small vessel ischemic changes. There is intracranial internal carotid artery atherosclerosis. Skull and face: Calvarium and visualized facial bones appear intact, without suspicious lesions. Sinuses: Visualized sinuses and mastoids are clear. IMPRESSION: No acute intracranial pathology. Dictated by: Jackelin Patel M.D. on 11/15/2023 at 13:3 CTA - brain/neck: Radiologist's Impression: PROCEDURE: CT ANGIO HEAD AND NECK INDICATIONS: htn/balance concerns TECHNIQUE: After the administration of intravenous contrast, 1 mm thick sections acquired from the aortic arch through the [place] of [place]. 3-dimensional wsqwyon-eajyozvtj-hqkvhfsisy (MIP) and/or volume rendering reformats were acquired of the central intracranial vasculature and neck separately. For radiation dose reduction, the following was used: automated exposure control, adjustment of mA and/or kV according to patient size. COMPARISON: None. FINDINGS: Image quality: Diagnostic. BRAIN: CSF spaces: Ventricles are normal in size and shape. Basal cisterns are patent. No extra-axial fluid collections. Brain: No significant abnormality of the brain can be seen. Skull and face: Calvarium and facial bones appear intact, without suspicious lesions. Orbits appear normal. Sinuses: Sinuses and mastoids are clear. HEAD CT ANGIOGRAPHY: Anterior circulation: Intracranial internal carotid arteries are normal in size and flow. The flow within the paired anterior cerebral arteries is normal and symmetric. The flow within the middle cerebral arteries is normal and symmetric. The anterior communicating artery is seen. No aneurysms are seen. Posterior circulation: Visualized portions of the vertebral arteries demonstrate normal caliber, and join to form a normal appearing basilar artery. Flow within the posterior cerebral arteries is normal and symmetric. No aneurysms are seen. NECK CT ANGIOGRAPHY: Carotid system: The great vessels demonstrate a conventional anatomy as they arise from the aortic arch. The origins of the common carotid arteries appear patent. The common carotid arteries demonstrate normal caliber and courses. The bifurcation regions are both widely patent. The internal carotid arteries demonstrate normal calibers and courses. Posterior circulation: The origins of the vertebral arteries both appear widely patent. The more superior extracranial portions of both vertebral arteries also demonstrate normal courses and calibers. They join to form a normal appearing basilar artery. Soft tissues: Visualized neck soft tissues demonstrate no suspicious abnormalities. Bones: No suspicious bony lesions. Visualized cervical spine appears normally aligned. IMPRESSION: No significant intracranial arterial abnormality is seen. No significant abnormality is seen within the arteries of the neck. Left apical pulmonary nodule which is mildly suspicious. Recommend follow-up chest CT in 6 months of no priors can be found to document stability. Any quantitative measurements of stenosis were performed using NASCET criteria. Dictated by: Jackelin Patel M.D. on 11/15/2023 at 13:40 ECG Data Attestation: I personally reviewed and interpreted this ECG as follows: Prior ECG tracings: available for review Interpretation: Normal sinus rhythm rate 88 UT interval 166 QRS [address] changes no T-wave inversions MDM Narrative Medical decision making narrative: Patient 83-year-old male presenting today with some difficulty with ambulation upon further questioning he states that he took half an edible last night which he never does. When he got up in the middle of the night difficulty ambulating it continued throughout the morning but it has now completely resolved. He has chronic right facial droop. He has no risk factors accept for age Imaging has been reviewed no intracranial hemorrhage or large vessel occlusion EKG does not show any ischemia or arrhythmia Blood work has been reviewed overall reassuring WBC 6.3 hemoglobin 13.8 hematocrit 40.2 platelets 202, sodium 1 7 potassium 4.3 chloride 104 carbon dioxide 26 BUN 15 creatinine 1.1 glucose 99, AST 55 previously 51 ALT 73 previously 67 alk-phos 45 troponin negative Patient had some difficulty ambulating felt a little lightheaded last evening initially thought to be CVA or TIA however he has NIH stroke score of 1 for chronic right facial droop he has no ataxia. I evaluated his ambulation myself at bedside he ambulated the room without any sort of imbalance or ataxia. I do suspect that his symptoms may due to his marijuana edible which is positive in his drug screen. He has an appointment with his primary care provider this week I do strongly recommend outpatient follow-up which may include MRI and an echocardiogram. We initially discussed observation however with forthcoming of marijuana edible I think this may explain his symptoms [place] Prehospital Stroke Severity Scale (CP-SSS) from [facility] [email or web address] on 11/15/2023 All calculations should be rechecked by clinician prior to use RESULT SUMMARY: 0 points LVO and NIHSS >=5 less likely. INPUTS: Conjugate gaze deviation ?> 0 = No Ask patient age and current month ?> 0 = Both correct Ask patient to close eyes and open/close hand ?> 0 = Follows both commands Instruct patient to hold arm (either or both) up for 10 seconds ?> 0 = Can do ABCD<sup>2</sup> Score for TIA from [email or web address] on 11/15/2023 All calculations should be rechecked by clinician prior to use RESULT SUMMARY: 3 points Per the validation study, 0-3 points: Low Risk
2-Day Stroke Risk: 1.0%
7-Day Stroke Risk: 1.2%
90-Day Stroke Risk: 3.1% INPUTS: Age >=60 years ?> 1 = Yes BP >=140/90 mmHg ?> 1 = Yes Clinical features of the TIA ?> 0 = Other symptoms Duration of symptoms ?> 1 = 10-59 minutes History of diabetes ?> 0 = No Discharge Plan Departure Patient Disposition: Home Clinical Impression: Adverse drug reaction Instructions: DI for Transient Ischemic Attack Activity Restrictions/Additional Instructions: *You have been diagnosed with drug reaction *What to do: At this time I do think some symptom maybe related to the marijuana. However I do recoomend you get an outpatient MRI and echo with your pcp *Continue to take medications as directed Aspirin 81 mg daily *Follow up with your primary care provider in 2-3 days or call [phone] *Return to ER if you should have recurrent inability to walk numbness tingling weakness difficulty speaking visual loss or changes or any new, worsening or concerning symptoms Prescriptions: No Action cyclobenzaprine 5 mg tablet 5 mg PO ONCE PM PRN (Reason: muscle spasm) Qty: 30 3RF escitalopram oxalate 10 mg tablet 10 mg PO DAILY Qty: 90 2RF Referrals: Quan New DO [Primary Care Provider] - Stand Alone Forms: Patient Portal/API
[2023-11-15 15:22] LABS: UR Morphine/Opiate cutoff 300 Negative (Negative); Ur Creatinine Normal (Normal); Ur Specific Gravity Normal (Normal); Urine Amphetamines Negative (Negative); Urine Barbiturates Negative (Negative); Urine Benzodiazepines Negative (Negative); Urine Cocaine Negative (Negative); Urine MDMA Negative (Negative); Urine Methadone Negative (Negative); Urine Methamphetamines Negative (Negative); Urine Oxycodone Negative (Negative); Urine Phencyclidine Negative (Negative); Urine Tetrahydrocannabinol Positive (Negative); Urine Tricyclic Antidepressant Positive (Negative); Urine pH Normal (Normal)
[2023-11-15] MEDS: ASPIRIN 81 MG CHEW TAB 324 MG PO (15:50)
== END 2023-11-15 15:57 | disposition home or self-care (01) ==
PROVIDERS: Emergency Provider Emergency Medicine; PCP Family Medicine
DX: R29.810 Facial weakness (principal); I10 Essential (primary) hypertension; T50.905A Adverse effect of unspecified drugs, medicaments and biological substances, initial encounter
CPT/HCPCS: 36415; 70450; 70496; 70498; 71045; 80053; 80305; 81003; 82550; 83735; 84484; 85025; 85610; 85730; 93005; 99285; Q9967

== ENCOUNTER 2023-11-16 07:36 | Inpatient (IN) | payer MEDICARE, SELFPAY ==
[2023-11-16] VITALS (13 sets, daily range): BP systolic 146–182; BP diastolic 85–101; PULSE 65–81; RESP 18–23; TEMP 36.2–37; O2SAT 93–98; BMI 26.5
--- NOTE | 2023-11-16 07:46 | DI.MRI.S_ITS ---
PROCEDURE: MR HEAD/BRAIN WO CON INDICATIONS: ataxia TECHNIQUE: Non-contrast axial T1 spin echo, axial T2 fast spin echo, sagittal and axial FLAIR, coronal T2 fast spin echo, axial gradient echo, axial diffusion and ADC through the brain. COMPARISON: [facility], CT, CT ANGIO HEAD AND NECK, 11/15/2023, 13:47. [facility], CT, CT HEAD/BRAIN WO CON, 11/15/2023, 13:47. [facility], CT, CT HEAD/BRAIN WO CON, 11/16/2023, 8:00. FINDINGS: Image quality: Excellent. CSF spaces: Ventricles appear symmetric in size and shape. Basal cisterns are patent. No extra-axial fluid collections. Brain: No intracranial bleeds or mass effects. There is cerebral volume loss for age. There are relatively mild, age-appropriate periventricular and deep white matter chronic small vessel ischemic changes. Brainstem appears normal. Diffusion-weighted images show acute infarct involving the left basal ganglia. Reference diffusion axial images 60 through 63 of series 5. There is associated cytotoxic edema noted on the T2 FLAIR images. No chronic ischemic insults. Normal intravascular flow voids are present. Skull and face: Calvarial bone marrow is normal in signal. Orbits are normal. Sinuses: Sinuses and mastoids are clear. IMPRESSION: 1. 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 2. Age-related volume loss and relatively mild, age-appropriate small-vessel ischemic change. Dictated by: Shan Sadler M.D. on 11/16/2023 at 11:10 Approved by: Shan Sadler M.D. on 11/16/2023 at 11:14
--- NOTE | 2023-11-16 07:46 | EKG_ITS ---
[address] [address] [address] [address] Test Date: 2023-11-16 Pat Name: Olayinka Mclean Department: Room: Gender: Male Personal Care Service Provider: LAUREN : 1940 Requested By: Order Number: [id number] Reading MD: Davey Richard MD Measurements Intervals [place] Rate: 74 P: 46 MS: 178 QRS: 12 QRSD: 98 T: 31 QT: 420 QTc: 466 Interpretive Statements Normal sinus rhythm Electronically Signed On 11-16-2023 8:19:43 PDT by Davey Richard MD
--- NOTE | 2023-11-16 07:46 | DI.CT.S_ITS ---
PROCEDURE: CT HEAD/BRAIN WO CON INDICATIONS: weakness ataxia TECHNIQUE: Noncontrast 4.5 mm thick angled axial sections acquired from the foramen magnum to the vertex, with coronal and sagittal reformats. For radiation dose reduction, the following was used: automated exposure control, adjustment of mA and/or kV according to patient size. COMPARISON: [facility], CT, CT HEAD/BRAIN WO CON, 11/15/2023, 13:47. FINDINGS: Image quality: Diagnostic. CSF spaces: Basal cisterns are patent. No extra-axial fluid collections. Ventricles are normal in size and shape. Brain: No midline shift. No intracranial masses or hemorrhage. [place]-white matter interface is normal. Skull and face: Calvarium and visualized facial bones are intact, without suspicious lesions. Sinuses: Visualized sinuses and mastoids are clear. IMPRESSION: No acute intracranial pathology. Dictated by: Shan Sadler M.D. on 11/16/2023 at 9:07 Approved by: Shan Sadelr M.D. on 11/16/2023 at 9:07
--- NOTE | 2023-11-16 07:46 | DI.RAD.S_ITS ---
PROCEDURE: XR CHEST 1V INDICATIONS: stroke TECHNIQUE: One view of the chest was acquired. COMPARISON: [facility], CR, XR CHEST 1V, 11/15/2023, 13:44. FINDINGS: Surgical changes and devices: None. Lungs and pleura: Lungs are clear. No pleural effusions or pneumothorax. Mediastinum: Mediastinal contours appear normal. Heart size is normal. Bones and chest wall: No suspicious bony lesions. Overlying soft tissues appear unremarkable. IMPRESSION: No acute cardiopulmonary abnormality is seen. Dictated by: Shan Sadler M.D. on 11/16/2023 at 9:05 Approved by: Shan Sadler M.D. on 11/16/2023 at 9:06
--- NOTE | 2023-11-16 07:52 | ED_ITS ---
HPI - Neuro Symptoms/Deficit General Chief Complaint: Neuro Symptoms/Deficit Stated Complaint: Worsening weakness, TIA yesterday Time Seen by Provider: 11/16/23 07:45 Source: patient and EMS Mode of arrival: EMS History of Present Illness HPI Narrative: Patient is 83-year-old male who presents today with ataxia. I actually saw and evaluated him yesterday for the same however his ataxia improved we thought it might be due to a marijuana gummy which he took for the 1st time however he went home and was able to get through dinner and all the nightly routines. He woke up again in the middle of the night she is the restroom any difficulty walking. It is with both legs but more the right than the left he has no weakness numbness or tingling no speech difficulty vision difficulty or weakness. On exam he has obvious ataxia and requires assistance. He denies falling. On Anticoagulants: No Related Data Previous Rx's Medication Instructions Recorded cyclobenzaprine 5 mg tablet 5 mg PO ONCE PM PRN muscle spasm 07/28/23 #30 tabs escitalopram oxalate 10 mg tablet 10 mg PO DAILY #90 tabs 07/28/23 Allergies Allergy/AdvReac Type Severity Reaction Status Date / Time shellfish derived Allergy Severe anaphylatic Verified 10/29/23 15:33 [SHELLFISH DERIVED] Review of Systems Hematologic/Lymphatic On Anticoagulants: No Patient History Medical History Depression Tear of meniscus of knee Inguinal hernia Surgical History Hx of tonsillectomy Social History household members: spouse Smoking Status: Former smoker alcohol intake: current Smoking Status: Never smoker alcohol intake frequency: holidays/special occasions only Substance Use Type: does not use Exam Initial Vital Signs Initial Vital Signs: Vital Signs Temperature 98.6 F 11/16/23 07:44 Pulse Rate 80 11/16/23 07:44 Respiratory Rate 18 11/16/23 07:44 Blood Pressure 182/101 H 11/16/23 07:44 Pulse Oximetry 97 11/16/23 07:44 Oxygen Delivery Method Room Air 11/16/23 07:44 GENERAL: Alert very pleasant 83-year-old male and in no acute distress. HEENT: Head atraumatic,EOMI, pupils reactive, face symmetric, moist mucous membranes CARDIOVASCULAR: Regular rate and rhythm without murmurs, rubs or gallops. RESPIRATORY: Breath sounds equal bilaterally, no wheezes rales or rhonchi. ABDOMEN: Soft, nontender. Normoactive bowel sounds all 4 quadrants. No guarding or rebound. EXTREMITIES: Normal range of motion, no clubbing or edema. Neurovascularly intact NEUROLOGICAL: Alert and oriented x4. Abnormal gait and speech. Cranial nerves II through XII grossly intact. Good [id number], good [id number], strength equal bilaterally, no dysarthria or aphasia, sensation in tact to soft touch bilaterally, no visual changes, no facial droop SKIN: Warm, dry, no laceration, no petechiae, no rashes or lesions. Scores NIH Stroke Scale Level of Conciousness: Alert, keenly responsive Ask month/age: Answers both questions correctly. Open/close eyes, close hand: Performs both tasks correctly Best gaze horizontal: Normal Visual cabrera: No visual loss Facial palsy: Minor paralysis, flattened nasolabial fold, asymmetry on smiling (chronic mild right facial droop) Left arm drift: No drift for full 10 sec Right arm drift: No drift for full 10 sec Left leg drift: No drift for full 5 sec Right leg drift: No drift for full 5 sec Limb ataxia: Absent Sensory on face/arms/legs: Normal, no sensory loss Best language: No aphasia, normal Dysarthria: Normal Extinction or inattention: No abnormality Total NIH Stroke scale score: 1 Course Orders Ordered: ED Orders 11/16/23 07:35 C-Reactive Protein Quant Urgent Complete Blood Count AUTO DIFF Stat Comprehensive Metabolic Panel Stat Erythrocyte Sedimentation Rate Urgent Lipase Stat Magnesium Urgent TSH w/ Reflex to FT4 Routine Troponin & CK Cardiac Panel Stat Vitamin B12 Reflex MMA if <400 Urgent 11/16/23 07:46 CT head/brain wo con Stat MR head/brain wo con Stat XR chest 1V Stat EKG-12 Lead Stat 11/16/23 08:33 Consult to Speech Therapy Evaluate & Treat 11/16/23 09:08 Consult to Occupational Therapy Evaluate & Treat Consult to Physical Therapy Evaluate & Treat 11/17/23 05:00 Complete Blood Count AUTO DIFF DAILY Comprehensive Metabolic Panel DAILY Hemoglobin A1C% w Est Avg Glu Routine Magnesium DAILY 11/18/23 05:00 Complete Blood Count AUTO DIFF DAILY Comprehensive Metabolic Panel DAILY Magnesium DAILY 11/19/23 05:00 Complete Blood Count AUTO DIFF DAILY Comprehensive Metabolic Panel DAILY Magnesium DAILY Acetaminophen (Acetaminophen 325 Mg Tablet) 650 mg PO Q6H PRN PRN Reason: Fever/Mild Pain (1-3) Enoxaparin Sodium (Enoxaparin 40 Mg/0.4 Ml Syringe) 40 mg SUBCUT DAILY IRVIN Sodium Chloride (Normal Saline 0.9%) 1,000 mls @ 75 mls/hr IV CONT IRVIN Naloxone HCl (Naloxone 0.4 Mg/Ml Vial) 0.2 mg IV Q2MIN PRN PRN Reason: Opiate Reversal Ondansetron HCl (Ondansetron 4 Mg Odt) 4 mg PO Q8HR PRN PRN Reason: Nausea And Vomiting Discontinued Medications Aspirin (Aspirin 81 Mg Chew Tab) 324 mg PO NOW ONE Stop: 11/16/23 07:47 Last Admin: 11/16/23 08:06 Dose: 324 mg Vital Signs Vital signs: Vital Signs - 8 hr 11/16/23 07:44 11/16/23 07:45 11/16/23 08:15 Temperature 98.6 F Pulse Rate 80 72 79 Respiratory Rate 18 18 18 Blood Pressure 182/101 H 182/101 H 156/92 H Pulse Oximetry 97 96 97 Oxygen Delivery Method Room Air Room Air Room Air 11/16/23 08:22 11/16/23 08:30 11/16/23 08:43 Temperature Pulse Rate 81 79 Respiratory Rate 20 23 Blood Pressure 164/88 H Pulse Oximetry 96 94 Oxygen Delivery Method 11/16/23 08:43 Temperature Pulse Rate 71 Respiratory Rate 22 Blood Pressure Pulse Oximetry 96 Oxygen Delivery Method MDM - Neuro Symptoms/Deficit Lab Data 11/16/23 07:35 11/16/23 07:35 Labs: Lab Results 11/16/23 Range/Units 07:35 WBC 5.7 (4.5-11.0) X10^3/uL RBC 3.84 L (4.5-5.9) X10^6/uL Hgb 13.8 (13.5-17.5) g/dL Hct 39.8 L (41-53) % MCV 103.7 H (80-100) fL MCH 35.9 H (26-34) PG MCHC 34.7 (30-36) % RDW 15.4 H (11.6-14.8) % Plt Count 190 (150-400) X10^3/uL Neut % (Auto) 33.2 L (50-75) % Lymph % (Auto) 46.4 H (25-40) % [place] % (Auto) 14.1 H (3-14) % Eos % (Auto) 5.5 H (2-4) % Baso % (Auto) 0.8 (0-2) % Neut # (Auto) 1900 (4091-0246) /uL Lymph # (Auto) 2600 (5872-5940) /uL [place] # (Auto) 800 (0-900) /uL Eos # (Auto) 300 (0-450) /uL Baso # (Auto) 0 (0-100) /uL ESR 11 (0-15) MM/HR Sodium 138 (137-145) mmol/L Potassium 4.3 (3.4-5.1) mmol/L Chloride 104 (98-107) mmol/L Carbon Dioxide 27 (22-32) mmol/L BUN 16 (9-20) mg/dL Creatinine 1.10 (0.66-1.25) mg/dL Estimated GFR > 60 (>60) mL/min BUN/Creatinine Ratio 14.5 (6-22) Glucose 113 H (80-110) mg/dL Calcium 9.2 (8.4-10.2) mg/dL Magnesium 2.5 H (1.6-2.3) mg/dL Total Bilirubin 1.1 (0.2-1.3) mg/dL AST 54 (17-59) IU/L ALT 71 H (<50) IU/L Alkaline Phosphatase 49 (38-126) U/L Total Creatine Kinase 144 (55-170) U/L Troponin I < 0.012 (0.01-0.034) ng/mL C-Reactive Protein < 0.5 (<1.0) mg/dL Total Protein 7.2 (6.3-8.2) g/dL Albumin 4.4 (3.5-5.0) g/dL Globulin 2.8 (1.7-4.1) g/dL Albumin/Globulin Ratio 1.6 (1.0-2.8) Lipase 179 (23-300) U/L Vitamin B12 872 (239-931) pg/mL Imaging Data CT scan - head: Radiologist's Impression: PROCEDURE: CT HEAD/BRAIN WO CON INDICATIONS: weakness ataxia TECHNIQUE: Noncontrast 4.5 mm thick angled axial sections acquired from the foramen magnum to the vertex, with coronal and sagittal reformats. For radiation dose reduction, the following was used: automated exposure control, adjustment of mA and/or kV according to patient size. COMPARISON: [facility], CT, CT HEAD/BRAIN WO CON, 11/15/2023, 13:47. FINDINGS: Image quality: Diagnostic. CSF spaces: Basal cisterns are patent. No extra-axial fluid collections. Ventricles are normal in size and shape. Brain: No midline shift. No intracranial masses or hemorrhage. Roa-white matter interface is normal. Skull and face: Calvarium and visualized facial bones are intact, without suspicious lesions. Sinuses: Visualized sinuses and mastoids are clear. IMPRESSION: No acute intracranial pathology. Dictated by: Shan Sadler M.D. on 11/16/2023 at 9:07 Chest x-ray: Radiologist's Impression: PROCEDURE: XR CHEST 1V INDICATIONS: stroke TECHNIQUE: One view of the chest was acquired. COMPARISON: [facility], CR, XR CHEST 1V, 11/15/2023, 13:44. FINDINGS: Surgical changes and devices: None. Lungs and pleura: Lungs are clear. No pleural effusions or pneumothorax. Mediastinum: Mediastinal contours appear normal. Heart size is normal. Bones and chest wall: No suspicious bony lesions. Overlying soft tissues appear unremarkable. IMPRESSION: No acute cardiopulmonary abnormality is seen. Dictated by: Shan Sadler M.D. 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 Pertinent findings: WBC 5.7, hemoglobin 13.8 hematocrit 39.8, platelets 190, sodium 138 potassium 4.3 chloride 104 carbon dioxide 27 BUN 16 creatinine 1.1 glucose 113, Mag is 2.5 ALT 71 previously 73 AST 54 troponin Independently reviewed EKG as above sinus rhythm no arrhythmia no ischemia Imaging studies independently reviewed: Head CT negative for intracranial hemorrhage CT head and neck angio was done yesterday and is negative, chest x- ray is negative Consultations: Dr. Bryant accepts to observation Treatments: Aspirin, coughed afterwards says that is normal Re-evaluations: [ ] Discussion: Patient does have isolated ataxia. MRI is scheduled for 01 11. Suspect possible CVA. Initially thought patient had swallowing issues as well as ataxia however that is chronic. Blood work is overall reassuring chronically elevated ALT for an unknown reason. He is very unsteady on his feet an unstable. Patient is not a candidate for TNK he was not a candidate yesterday either. Last known well is really unknown and he has no large vessel occlusion. Discharge Plan Departure Patient Disposition: Admitted as Observation Clinical Impression: Ataxia Admit Date/Time: 11/16/23 08:45 Admit Provider: Pierre Moreno
[2023-11-16 07:53] LABS: Add Manual Diff / Slide Review NO; Basophils Absolute Auto 0 /uL (0-100); Basophils Percent Auto 0.8 % (0-2); Eosinophils Absolute Auto 300 /uL (0-450); Eosinophils Percent Auto 5.5 % (2-4); Hematocrit 39.8 % (41-53); Hemoglobin 13.8 g/dL (13.5-17.5); Lymphocytes Absolute Auto 2600 /uL (1100-4500); Lymphocytes Percent Auto 46.4 % (25-40); Mean Corpuscular HGB Conc 34.7 % (30-36); Mean Corpuscular Hemoglobin 35.9 PG (26-34); Mean Corpuscular Volume 103.7 fL (80-100); Monocytes Absolute Auto 800 /uL (0-900); Monocytes Percent Auto 14.1 % (3-14); Neutrophils Absolute Auto 1900 /uL (1500-7000); Neutrophils Percent Auto 33.2 % (50-75); Platelet Count 190 X10^3/uL (150-400); Red Blood Cell Count 3.84 X10^6/uL (4.5-5.9); Red Cell Distribution Width 15.4 % (11.6-14.8); White Blood Cell Count 5.7 X10^3/uL (4.5-11.0)
[2023-11-16 07:59] LABS: Alanine Aminotransferase 71 IU/L (<50); Albumin 4.4 g/dL (3.5-5.0); Albumin Globulin Ratio 1.6 (1.0-2.8); Alkaline Phosphatase 49 U/L (38-126); Aspartate Aminotransferase 54 IU/L (17-59); BUN Creatinine Ratio 14.5 (6-22); Bilirubin Total 1.1 mg/dL (0.2-1.3); Blood Urea Nitrogen 16 mg/dL (9-20); Calcium 9.2 mg/dL (8.4-10.2); Carbon Dioxide 27 mmol/L (22-32); Chloride 104 mmol/L (98-107); Creatine Kinase 144 U/L (55-170); Estimated Glomerular Filt Rate > 60 mL/min (>60); Globulin 2.8 g/dL (1.7-4.1); Glucose 113 mg/dL (80-110); HEMOLYSIS < 15 (0-50); Lipase 179 U/L (23-300); Potassium 4.3 mmol/L (3.4-5.1); Sodium 138 mmol/L (137-145); Total Protein 7.2 g/dL (6.3-8.2)
[2023-11-16] MEDS: ASPIRIN 81 MG CHEW TAB 324 MG PO (08:06)
[2023-11-16 08:10] LABS: Troponin I < 0.012 ng/mL (0.01-0.034)
--- NOTE | 2023-11-16 08:26 | PC.NURSE ---
pt has chronic spasmotic dysphonia. had chewable baby asa. started to cough shortly after. Pt then reported to me that he has that condition. States he gets botox injections every [address] Keith aware.
[2023-11-16 09:00] LABS: Magnesium 2.5 mg/dL (1.6-2.3)
[2023-11-16 09:03] LABS: C-Reactive Protein Quant < 0.5 mg/dL (<1.0)
[2023-11-16 09:12] LABS: Erythrocyte Sedimentation Rate 11 MM/HR (0-15)
[2023-11-16 09:50] LABS: Vitamin B12 Reflex MMA if <400 872 pg/mL (239-931)
--- NOTE | 2023-11-16 11:40 | SLP.IPNOTE ---
FACILITY REHAB DIRECTOR attempted to initiate eval at 11:30am. Pt was being evaluated by OT/PT. FACILITY REHAB DIRECTOR team will re-attempt later in the day.
--- NOTE | 2023-11-16 11:49 | OT.IP.EVAL ---
Past Medical History (Last Reviewed 07/28/23 @ 13:43 by Quan New DO) Depression Inguinal hernia Tear of meniscus of knee Surgical History (Last Reviewed 07/28/23 @ 13:43 by Quan New DO) Hx of tonsillectomy Occupational Therapy Inpatient Evaluation/Re-Eval M1 PT/OT-IP Prior Functional Status Start: 11/16/23 10:34 Freq: NEEDED Status: Active Protocol: Document 11/16/23 12:31 CGR (Rec: 11/16/23 12:41 CGR [id number]) Medical Review Prior Functional Status Medical History Reviewed Yes Diet/Fluid Consistency Regular Communication WNLs Mobility and Gait Ind without AD Activities of Daily Living and IADL's Ind for all ADLs and IADLs except that pt has a mold cleaner that comes in once every other week. Social History Household Members none Living Arrangements House Number of Floors (Floors) Two Floors Number of Stairs To Enter/Railing? No steps to enter and a flight of steps inside, partial B rails and partial right rail assending. Home Environment Standard Height Toilet,Walk in Shower Home Equipment Shower Seat without Backrest, Hand Held Shower Employment Status Retired Additional Social History Comment Pt states his partner of 36 years in the last year and he is strugging with the adjustment. M2 OT-IP Current Condition Start: 11/16/23 12:31 Freq: Status: Active Protocol: Document 11/16/23 12:31 CGR (Rec: 11/16/23 12:41 CGR [id number]) Occupational Therapy Current Condition Current Condition Evaluation Date 11/16/23 Treatment Diagnosis MRI: Acute lacunar infarction, left basal ganglia, feet feel heavy Diagnosis Onset Date 11/16/23 M3 OT- IP Subjective and Pain Start: 11/16/23 12:31 Freq: Status: Active Protocol: Document 11/16/23 12:31 CGR (Rec: 11/16/23 12:41 R [id number]) OT- Subjective Occupational Therapy Visit Type Type Initial Evaluation Visit Start Time 11:26 Visit Stop Time 11:49 Notes Partial co-eval with P.T. OT Pain Assessment Pain When Pain Assessed At Rest Pain Present Pain Present Denied Pain M4 OT- IP ADL's Start: 11/16/23 12:31 Freq: Status: Active Protocol: Document 11/16/23 12:31 CGR (Rec: 11/16/23 12:41 CGR [id number]) OT [id number] Comments OT Self-Feeding Comments not meal time OT ADL-Grooming Comments OT Grooming Comments pt declined, performed this AM OT ADL-Oral Care Comments Oral Care Comments pt declined, performed this AM OT ADL-Dressing General Eval Lower Body Dressing Ability Independent Areas Needing Assistance Socks OT ADL-Toileting General Evaluation Toileting Ability Independent Comments OT Toileting Comments simulated seated on toilet OT ADL-Bathing Comments OT Bathing Comments not performed M5 OT- IP IADL's Start: 11/16/23 12:31 Freq: Status: Active Protocol: Document 11/16/23 12:31 CGR (Rec: 11/16/23 12:41 CGR [id number]) OT-Instrumental Activities of Daily Living Deficits IADL Deficits Identified No Deficits Home Safety Awareness Awareness of Need for Assistance at Home Good Awareness Ability to Problem Solve Emergency Able to Problem Solve Situations Medication Management Medication Management No Deficits Identified Money Management Money Management No Deficits Identified Meal Preparation Meal Preparation No Deficits Identified Tie Hacker Tie Hacker No Deficits Identified Driving Driving Comments 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 M6 OT- IP Functional Cognition Start: 11/16/23 12:31 Freq: Status: Active Protocol: Document 11/16/23 12:31 CGR (Rec: 11/16/23 12:41 CGR [id number]) Cognitive Factors Limiting Selfcare Function Cognitive Ability Level of Alertness Alert Patient Orientation Name,Age,Birthday,Month,Date, Year,Day of Week,Place, Situation Attention Span Ability Capable of Focused Attention, Capable of Sustained Attention Ability to Follow Commands Able to Follow Multi-Step Commands OT- Vision and Hearing OT- Hearing Assessment OT- Hearing Assessment Hearing Impaired,Left Ear Impaired,Use of Hearing Aids OT- Vision Assessment Vision History Cataracts Visual Acuity WFL Visual Attentiveness WFL Occular Pursuits WFL Visual Convergence WFL Vision Assessment Comments Pt has had cateract sx and now wears glasses to drive. M7 OT- IP Mobility and Balance Start: 11/16/23 12:31 Freq: Status: Active Protocol: Document 11/16/23 12:31 CGR (Rec: 11/16/23 12:41 CGR [id number]) OT- Bed Mobility Assessment Supine to Sit Supine to Sit Assist Independent Scooting Scooting to Edge of Bed Independent OT-Transfer Assessment Sit to and From Stand Sit to and from Stand Independent Transfers Transfer Ability Independent Technique Transfer Destination Bed,Chair Transfer Technique Stand Step Pivot Devices Transfer Assistive Devices Gait Belt Comments Mobility Comments Pt ambulated in the room and out of the room. Noted tripping on R foot with stairs . OT- Gait Assessment Gait Gait Assistance Required: Independent Assistive Devices Assistive Device Gait Belt OT- Balance Assessment Sitting Balance and Reactions Static Sitting Balance Ability Normal Dynamic Sitting Balance Ability Normal M8 OT- IP Objective Assessments Start: 11/16/23 12:31 Freq: Status: Active Protocol: Document 11/16/23 12:31 CGR (Rec: 11/16/23 12:41 CGR [id number]) OT Gross Range of Motion Upper Extremity Range of Motion Assessment Within Functional Limits OT Strength Upper Extremity Strength Assessment Within Functional Limits Comments Strength Comments Pt with slight RUE drift with tested but self corrected quickly. OT- Coordination Assessment Upper Extremity Finger to Nose Test Within Functional Limits Finger Tapping Test Within Functional Limits OT-Muscle Tone Assessment Muscle Tone WNL Yes OT Sensation Assessment Edema Edema Absent M9 OT- IP Assessment and Plan Start: 11/16/23 12:31 Freq: Status: Active Protocol: Document 11/16/23 12:31 CGR (Rec: 11/16/23 12:41 CGR [id number]) OT Summary Assessment and Plan Potential Rehabilitation Potential Excellent Analytic Complexity at Evaluation Low Summary Progress Towards Goals Goals Met Assessment Summary Pt presents as a low complexity evaluation s/p admit for CVA. MRI shows Acute lacunar infarction involving the left basal ganglia which aligns with the R sided drift and slight trip on the stairs when lifting the RLE. Pt is functional for all ADLs at this time. Recommend continued P.T. services for balance. No further OT needs. Frequency of Treatment Frequency Of Treatment Discharge Discharge Recommendations OT Discharge Recommendations Home,Outpatient PT Transportation Needs at Discharge Private Vehicle
--- NOTE | 2023-11-16 12:01 | PT.IIE ---
Surgical History (Last Reviewed 07/28/23 @ 13:43 by Quan New DO) Hx of tonsillectomy Medical History (Last Reviewed 07/28/23 @ 13:43 by Quan New DO) Depression Inguinal hernia Tear of meniscus of knee Physical Therapy Inpatient Evaluation/Re-Eval M1 PT/OT-IP Prior Functional Status Start: 11/16/23 10:34 Freq: NEEDED Status: Active Protocol: Document 11/16/23 11:25 MB (Rec: 11/16/23 11:53 MB [id number]) Medical Review Prior Functional Status Medical History Reviewed Yes Diet/Fluid Consistency Regular Communication WNLs Mobility and Gait I Activities of Daily Living and IADL's I Social History Household Members none Living Arrangements House Number of Floors (Floors) Two Floors Number of Stairs To Enter/Railing? No steps to enter and steps inside, partial B rails and partial right rail Home Environment Standard Height Toilet,Walk in Shower Home Equipment Shower Seat without Backrest, Hand Held Shower Employment Status Retired M2 PT-IP Current Condition Start: 11/16/23 10:34 Freq: NEEDED Status: Active Protocol: Document 11/16/23 11:25 MB (Rec: 11/16/23 11:53 MB [id number]) Physical Therapy Current Condition Current Condition Evaluation Date 11/16/23 Treatment Diagnosis CVA M3 PT-IP Subjective Start: 11/16/23 10:34 Freq: NEEDED Status: Active Protocol: Document 11/16/23 11:25 MB (Rec: 11/16/23 11:53 MB [id number]) Subjective Physical Therapy Visit Type Type Initial Evaluation Visit Start Time 11:25 Visit Stop Time 11:46 Number of MANAGER ASSET Visits 0 Physical Therapy Visit Comments Patient Comments Pt reports history of vasovagal syndrome and feelings that his legs were heavy and not right, more on the right side. Therapy Pain Assessment Pain When Pain Assessed At Rest Pain Present Pain Present Denied Pain M4 PT-IP Mobility and Gait Start: 11/16/23 10:34 Freq: NEEDED Status: Active Protocol: Document 11/16/23 11:25 MB (Rec: 11/16/23 11:53 MB [id number]) PT-Bed Mobility Assessment Rolling Type of Rolling Roll to Right Level of Assist Standby Assistance Supine to Sit Supine to Sit Standby Assistance,1 Person Assistance,Bedrails Scooting Scooting to Edge of Bed Standby Assistance PT-Transfer Assessment Sit to and From Stand Sit to and from Stand Contact Guard Assistance,1 Person Assistance,Use of Upper Extremities Equipment Transfer Assistive Device Gait Belt Orthotic/Prosthetic Devices or Brace: No Transfer Ability Level of Assist Contact Guard Assistance Comments Mobility Comments Orthostatic assessment with BP and HR in RUE: supine 164/94, 70; standing 140/87, 82; standing 1' 161/96, 79. Pt denies dizzines when up Gait Assessment Gait Gait Assistance Required: Contact Guard Assist Distance (Feet) 100 Able to Maintain Weight Bearing Status Yes During Gait Assistive Devices Assistive Device Gait Belt Orthotic/Prosthetic Devices or Brace: No Gait Deviations General Gait Pattern Decreased Feet Clearance Factors Limiting Gait Function Factors Limiting Gait Function Incoordination Comments Gait Comments Pt presents with hesitation with starting gait and mild challenge changing gait speed, pt gait trains 100'x2 with CGA and assistance at gait belt Stair Climbing Assessment Evaluation Level of Assist On Stairs Contact Guard Assistance Devices Stair Climbing Assistive Devices Left Railing,Right Railing Technique/Endurance Stair Climbing Direction Ascend and Descend Stair Climbing Technique Step Over Step Number of Steps Climbed 3 Query Text: Stair Climbing Set # Repetitions (reps) 1 Comments Stair Climbing Comments Pt scuffs right foot against step x1, self-corrects. Pt reports that right leg feels a little heavier and off compared to the left PT-Balance Assessment Sitting Balance and Reactions Static Sitting Balance Ability Normal Dynamic Sitting Balance Ability Normal Standing Balance and Reactions Static Standing Balance Ability Good Dynamic Standing Balance Ability Good Device Used None M5 PT-IP Objective Assessments Start: 11/16/23 10:34 Freq: NEEDED Status: Active Protocol: Document 11/16/23 11:25 MB (Rec: 11/16/23 12:01 MB [id number]) Orientation Orientation/Cognition Level of Alertness Alert Orientation Name,Age,Birthday,Month,Year, Place,Situation Language Function Ability No Deficits Noted Safety Awareness Understands Safety Issues Memory Description No Deficits Noted Gross Range of Motion Upper Extremity ROM Impairments Defer to OT, right arm does not swing as much with gait Lower Extremity ROM Assessment Within Functional Limits Strength Lower Extremity Strength Assessment Within Functional Limits Comments Strength Comments B LEs, strength is 5/5 in hip flexion, knee extension, ankle DF and great toe extension on evaluation date Coordination Assessment Assessment Foot Tapping Test Normal Performance Heel on Vo Test Normal Performance Coordination Comments Defer UEs to OT Sensation Assessment Sensation Gross Sensation WNL Comments Sensation Comments Defer UEs to OT Muscle Tone Muscle Tone WNL Yes M6 PT-IP Treatment Start: 11/16/23 10:34 Freq: NEEDED Status: Active Protocol: Document 11/16/23 11:25 MB (Rec: 11/16/23 12:01 MB [id number]) Physical Therapy Treatment Education Education Provided Safety M7 PT-IP Assessment and Plan Start: 11/16/23 10:34 Freq: NEEDED Status: Active Protocol: Document 11/16/23 11:25 MB (Rec: 11/16/23 12:01 MB [id number]) PT Summary Assessment and Plan Potential Rehabilitation Potential Excellent Status of Condition at Evaluation Evolving Summary Impairments Balance,Bed Mobility,Transfers ,Gait Progress Towards Goals Progressing Toward Goals Assessment Summary Pt is an 83 y/o male presenting with mild impairments in gait and stair training today, mild balance impairment. Recommend FGA balance test next treatment date and further gait and stair training and OPPT at d/c at current level. Pt just found to have stroke after PT assessment and so monitor any progression. Goals Bed Mobility Goal Independent Transfer Goal Independent Gait Goal Independent Gait Distance 100 Other Goals Pt will ascend and descend 6 steps with rail and mod I. Pt will perform WNLs on FGA to decrease fall risk. Days to Meet Goals 3 Frequency of Treatment Frequency Of Treatment Once a Day Treatment Plan Physical Therapy Treatment Plan Bed Mobility Training,Transfer Training,Gait Training, Therapeutic Exercise,Balance Retraining,Discharge Planning, Hot or Cold Pack,Neuromuscular Re-ed,Coordination Retraining Precautions Other Precautions Fall risk Weight Bearing Status Weight Bearing Status Weight Bear as Tolerated Recommendations To Nursing Amount of Assist Needed 1 Person Assist Discharge Recommendations PT Discharge Recommendations Home,Outpatient PT Transportation Needs at Discharge Private Vehicle
[2023-11-16] MEDS: ENOXAPARIN 40 MG/0.4 ML SYRINGE SUBCUT (12:15)
[2023-11-16] MEDS: SODIUM CHLORIDE 0.9% 1,000 ML 75 ML IV (12:19)
[2023-11-16 12:24] LABS: TSH w/ Reflex to FT4 2.74 uIU/mL (0.47-4.68)
--- NOTE | 2023-11-16 14:27 | ST.IPCSEOM ---
Visit Care Team Role Provider Type Quan New DO Primary Care Provider Physician Specialty: Family Practice Address: [address] [place] [address], [id number] Email: [email or web address] Darlyn Keith DO Emergency Provider Physician Specialty: Emergency Medicine Address: [address] [place] [address], [address] Email: [email or web address] Pierre Moreno DO Admit Provider Physician Attending Provider Specialty: Internal Medicine Address: [address] [place] [address], [address] Email: [email or web address] Past Medical History (Last Reviewed 07/28/23 @ 13:43 by Quan New DO) Depression (Medical) Inguinal hernia (Medical) repaired Tear of meniscus of knee (Medical) repaired Speech-Language Pathology 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 Pierre Moreno Reason for Referral CVA involving L basal ganglia Reported by Patient/Caregiver Pain/Discomfort No Other Symptoms Difficulty swallowing pills Comment RN reported isolated incident of difficulty with swallowing a large pill with liquid wash. Current Diet NPO Baseline Feeding Method Independent in self-feeding Results Pt presented with the following PO trials: thin liquids, puree, and regular textures. He demonstrated functional mastication with timely oral transit and complete oral clearance. Pharyngeal swallow appears prompt. No overt s/sx of aspiration with provided consistencies. Pt completed consecutive sips of thin liquids via cup and straw without any concerns. Pt presents with oropharyngeal swallow function within normal limits. Aspiration risk appears low. Recommend regular texture diet, thin liquids, and meds whole with liquid wash as tolerated. No further DRILL OPERATOR PNEUMATIC services indicated for dysphagia. Please re-consult if new concerns. RN and MD notified of assessment results and recommendations. The IDDSI Framework Protocol: IDDSI.1 Objective Assessment Mental Status Alert,Responsive,Cooperative Oral Integrity WFL Dentition Within normal limits Lip Function Within normal limits Observation of Lips at Rest Symmetrical Pucker Within normal limits Lip Retraction Within normal limits Alternating Pucker/Lip Retraction Within normal limits Tongue Function Within normal limits Observations of Tongue at Rest Within normal limits Tongue Protrusion Within normal limits Tongue Retraction Within normal limits Tongue Lateralization Within normal limits Jaw Function Within normal limits Observation of Jaw at Rest Within normal limits Jaw Opening Within normal limits Jaw Closing Within normal limits Jaw Lateralization Within normal limits Jaw Protrusion Within normal limits Jaw Retraction Within normal limits Hard/Soft Palate Function Within normal limits Observations of Hard/Soft Palate Within normal limits Respiratory Sufficiency Within normal limits The IDDSI Framework Protocol: IDDSI.1 Findings Swallowing Function Within normal limits Severity of Swallow Impairment Within normal limits Prognosis Good Impact on Safety and Functioning No limitations Recommendations Instrumental Assessment No Swallowing Treatment No Recommended Solids Regular (IDDSI 7) Recommended Liquids Thin (IDDSI 0) Medication Recommendations Whole Discharge Recommendations Home Education Patient/Caregiver Education Described results of evaluation,Patient expressed understanding of evaluation
--- NOTE | 2023-11-16 14:28 | ST.IPSLE ---
Visit Care Team Role Provider Type Quan New DO Primary Care Provider Physician Specialty: Family Practice Address: [address] [place] [address], [phone] Email: Darlyn Keith DO Emergency Provider Physician Specialty: Emergency Medicine Address: [address] [place] [address], [address] Email: [email or web address] Pierre Moreno DO Admit Provider Physician Attending Provider Specialty: Internal Medicine Address: [address] [place] [address], [address] Email: [email or web address] Past Medical History (Last Reviewed 07/28/23 @ 13:43 by Quan New DO) Depression (Medical) Inguinal hernia (Medical) repaired Tear of meniscus of knee (Medical) repaired Speech-Language Pathology Speech/Language Eval RADAR TESTER Adult Cognitive Linguistic Eval Start: 11/16/23 13:23 Freq: Status: Active Protocol: Document 11/16/23 13:24 SS (Rec: 11/16/23 13:45 SS [id number]) Adult Cognitive Linguistic Evaluation Session Time Visit Start Time 12:45 Visit Stop Time 13:00 Total Visit Minutes 15 Visit Information Visit Number Initial Evaluation Referral Referring Provider Dr. Pierre Moreno Reason for Referral CVA involving L basal ganglia Setting Assessment Location Acute Care Visit Type Note Type Initial evaluation Patient Information Identification Type Name Patient History Patient is an 83-year-old male who was referred to for evaluation/treatment of speech /language/cognition and swallowing function after he presented to the ED with ataxia in both legs, affecting the right more than the left. Medical history includes depression, tear of meniscus of knee, and inguinal hernia. Per ED H&P, Patient is 83- year-old male who presents today with ataxia. I actually saw and evaluated him yesterday for the same however his ataxia improved we thought it might be due to a marijuana gummy which he took for the 1st time however he went home and was able to get through dinner and all the nightly routines. He woke up again in the middle of the night she is the restroom any difficulty walking. It is with both legs but more the right than the left he has no weakness numbness or tingling no speech difficulty vision difficulty or weakness. On exam he has obvious ataxia and requires assistance. He denies falling. 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 Pt denied changes in speech, language, voice, cognition, and swallowing since CVA. Education Level College Degree Occupation Status Retired Hearing Hearing Level Normal Vision Vision Status Not Impaired Previous Therapy Previous Speech-Language Therapy No Formal Assessment Standardized Test/Screener Type [facility] Mental Status ([facility]) Administration Complete Results The [facility] Mental Status (UMS) Examination was used to obtain information regarding the patient?s cognitive abilities. The SLUMS consists of ten questions that assess delayed recall, verbal fluency, comprehension, calculations, attention, working memory, and orientation. A scored is calculated from a possible 30 points. Scores fall in one of three ranges describing a patient?s level of impairment based upon level of education. Patients who have completed high school are expected to score slightly higher on this test than those who have not. For someone with a high school education, WNL is 27-30. The SLUMS was completed on this date. Subtest scores are as follows: Orientation: 3/3 Immediate Recall: 5/5 (not calculated in total score) Numeric Calculation: 3/3 Divergent Namin/3 (total of 21) Delayed Recall: 4/5 Attention/Registration with Digit Span: 2/2 Clock Drawing (Visuospatial & Executive Functioning): 4/4 Geometric Figures: 2/2 Short Story (memory/recall): 8 /8 Total Score: 29/30 Pt demonstrated within normal limits cognitive-communication function. Skilled RADAR TESTER services targeting cognitive- communication are not warranted at this time. Please re-consult if change in function. RN and MD notified of assessment results and recommendations. Findings/Results Language Function Within normal limits Cognitive Function Within normal limits Prognosis Prognosis Good Based on Cognitive status Plan of Care Speech-Language Treatment No Patient/Caregiver Education Described results of evaluation,Patient expressed understanding of evaluation Discharge Recommendations Home
--- NOTE | 2023-11-16 15:51 | P.HP_ITS ---
History of Present Illness History of Present Illness Date Patient Seen: 11/16/23 Time Patient Seen: 12:10 Chief complaint: Worsening weakness, TIA yesterday Narrative: This is an 83 year old male with PMH of depression who presented yesterday with Right sided weakness and imbalance. Had taken a CBD gummy the prior evening, and improved so the though it was related to that. He had recurrence of imbalance, weakness, and possible R facial droop so returned to the ER. He had not improved back to baseline totally after his initial symptoms he thinks. He has been hypertensive as an outpatient but not requiring medication. He has a follow up for later this week with PCP for futher BP monitoring. In the ER he was hypertensive, but the remainder of his vitals were unremarkable. Lab evaluation was notable for macrocytosis, with normal TSH, B12, ESR/CRP and normal troponin. He was admitted for further evaluation. MR performed shortly after admission which showed a L basal ganglia infarct. [facility] Medical History Depression Tear of meniscus of knee Inguinal hernia Surgical History Hx of tonsillectomy Social History household members: none Smoking Status: Former smoker alcohol intake: current Meds Home Medications and Allergies Home Medications Medication Instructions Recorded Confirmed Type cyclobenzaprine 5 mg tablet 5 mg PO ONCE PM PRN muscle spasm 07/28/23 11/16/23 Rx #30 tabs escitalopram oxalate 10 mg tablet 10 mg PO DAILY #90 tabs 07/28/23 10/29/23 Rx Allergies Allergy/AdvReac Type Severity Reaction Status Date / Time shellfish derived Allergy Severe anaphylatic Verified 10/29/23 15:33 [SHELLFISH DERIVED] Review of Systems Review of Systems Narrative: All other systems reviewed with the patient and are negative unless otherwise stated. Exam Vital Signs (past 8 hours): - 11/16/23 08:15 11/16/23 08:22 11/16/23 08:30 Temperature Pulse Rate 79 81 79 Respiratory Rate 18 20 23 Blood Pressure 156/92 H Pulse Oximetry 97 96 94 Oxygen Delivery Method Room Air Oxygen Flow Rate 11/16/23 08:43 11/16/23 08:43 11/16/23 09:00 Temperature Pulse Rate 71 65 Respiratory Rate 22 20 Blood Pressure 164/88 H Pulse Oximetry 96 93 Oxygen Delivery Method Oxygen Flow Rate 11/16/23 09:00 11/16/23 09:20 11/16/23 09:30 Temperature 97.5 F L Pulse Rate 71 Respiratory Rate 18 Blood Pressure 153/86 H 146/88 H Pulse Oximetry 98 95 Oxygen Delivery Method Room Air Oxygen Flow Rate 0 11/16/23 13:25 Temperature 97.5 F L Pulse Rate 76 Respiratory Rate 20 Blood Pressure 153/93 H Pulse Oximetry 96 Oxygen Delivery Method Oxygen Flow Rate 0 Oxygen Delivery Method Room Air Oxygen Flow Rate 0 Narrative Exam Narrative: General:? Patient is well developed and well nourished, in no distress at this time. HEENT:? Normocephalic, atraumatic, extraocular muscles intact, oral pharynx is clear and mucous membranes are moist. Neck: supple and symmetric, trachea is midline, no cervical adenopathy. Negative for JVD Chest:? Normal AP diameter and contour without kyphoscoliosis, no tachypnea, equal chest rise bilaterally. Lungs:? CTA b/l no wheezing rhonchi or rales. Cardio:?RRR no m/r/g. Abdomen: S NT ND. No CVA tenderness. Musculoskeletal:? Muscle strength and tone are equal within normal limits, no deformity. Extremities: No edema or joint effusions. No cyanosis or clubbing. Skin:? Pale,? Warm to touch,dry and intact without rashes, ulcerations or petechiae.? Neuro:? Alert and orientated x3,? sensation to touch intact in all extremities, no gross deficits noted of cranial nerves. Psych:? Patient has a well-kept appearance, appropriate affect, mental status attitude thought context and judgment are appropriate for age. Objective ECG Impression: Normal sinus rhythm, no acute ischemia as interpreted by me Labs 11/16/23 07:35 11/16/23 07:35 Labs: Laboratory Results - last 24 hr 11/16/23 07:35 WBC 5.7 RBC 3.84 L Hgb 13.8 Hct 39.8 L MCV 103.7 H MCH 35.9 H MCHC 34.7 RDW 15.4 H Plt Count 190 Neut % (Auto) 33.2 L Lymph % (Auto) 46.4 H [place] % (Auto) 14.1 H Eos % (Auto) 5.5 H Baso % (Auto) 0.8 Neut # (Auto) 1900 Lymph # (Auto) 2600 [place] # (Auto) 800 Eos # (Auto) 300 Baso # (Auto) 0 ESR 11 Sodium 138 Potassium 4.3 Chloride 104 Carbon Dioxide 27 BUN 16 Creatinine 1.10 Estimated GFR > 60 BUN/Creatinine Ratio 14.5 Glucose 113 H Calcium 9.2 Magnesium 2.5 H Total Bilirubin 1.1 AST 54 ALT 71 H Alkaline Phosphatase 49 Total Creatine Kinase 144 Troponin I < 0.012 C-Reactive Protein < 0.5 Total Protein 7.2 Albumin 4.4 Globulin 2.8 Albumin/Globulin Ratio 1.6 Lipase 179 Vitamin B12 872 TSH 2.74 Assessment & Plan Assessment & Plan narrative: 1. CVA, acute, present on admission - continue monitoring with tele, though no prior hx of afib - MR showing L basal ganglia infarct - some waxing and waning symptoms, will continue to monitor. - PT/OT/APPAREL CUTTER evaluations ordered. - ESR and CRP unremarkable - given NIH <5, start DAPT with plavix load as well. Start statin therapy. - A1c and lipid panel ordered, TSH normal. 2., hypertension - continue to monitor, will likely need to initiate antihypertensive therapy. 3. Macrocytosis - b12 level normal. - continue outpatient workup, was reportedly started on oral supplementation after PCP recommendations. 4. Depression - continue home escitalopram Code: Full, surrogate is patient's sister DVT: Lovenox daily I have utilized all available immediate resources to obtain, update, or review the patient's current medications. Dispo: patient admitted under inpatient status. Unclear if will be able to discharge home or possible SNF, will have PT/OT evaluations. Additional history obtained via discussions with the ER provider. These discussions contributed to the creation of the above assessment and plan. I have reviewed patient's presenting documentation, labs, and imaging personally. Update: after arrival to the hospital floor, patient had worsening symptoms with NIH increasing from 0-1 to approx 5. He developed R numbness, weakness, facial droop and slurred speech though he still is able to keep his R arm and leg elevated. Have consulted tele-stroke service to ensure no acute interventions including tnk or thrombectomy recommended. Discussed with telestroke provider and currently awaiting image review. Xin held current plavix load pending above evaluation. Time-Based Coding :: [TOTAL MINUTES] spent with patient and on the chart (including review of chart, obtaining history, exam, reviewing outside data, placing orders, documenting exam and treatment plan, and counseling patient) on [DATE]. Quality MIPS - Admit I confirm the patient?s Advance Care Plan is present, Code status is documented, Surrogate decision maker is in patient?s record [If Yes, STOP here]: Yes
--- NOTE | 2023-11-16 16:20 | PC.NURSE ---
Patient arrives from ED at about 0930 this a.m. He is A&OX4, VSS, afebrile on RA. He has mild weakness in R hand he states when he writes with a pen, he can feel weakness in his R hand. R hand grasp only slightly weaker than left initially. He is able to walk up and down hankins with PT today with SBA and slight R LE weakness. He initially denies numbness to extremities, and denies dizziness. He is evaluated by PADDED BOX SEWER at bedside and cleared for diet with regular texture and thin liquids. At approximately 1500 patient states weakness increased to R hand, and drops a drink he reached for. At 1603 patient is assisted back to chair and noted RLE numbness and increased weakness dragging right leg and MD notified of NIH increase to 5. Patient had felt like words were slightly slurred and tingling/weakness around R side of his mouth.Md evaluated patient at bedside and discussed plan of care with neurologist. At 1630 he states numbness had resolved and RLE without drift and noted only slightly weak.
--- NOTE | 2023-11-16 16:34 | PC.NURSE ---
patient states MD [facility] office would have a copy of advance directives.
[2023-11-16] MEDS: CYCLOBENZAPRINE 10 MG TABLET PO (21:40)
[2023-11-16] MEDS: ATORVASTATIN 20 MG TABLET 80 MG PO (21:41)
[2023-11-17] VITALS (10 sets, daily range): BP systolic 144–172; BP diastolic 77–93; PULSE 75–82; RESP 15–17; TEMP 36.1–36.6; O2SAT 92–97
--- NOTE | 2023-11-17 00:11 | PC.NURSE ---
Addendum entered by Moni Bennett R.N. 11/17/23 06:59: 0645 update: Patient reports increased difficulty with speech and generalized weakness, still able to lift arms & legs although drifting. Patient remains AxOx4, states that his tongue feels heavier when speaking. Denies pain. Pupils are equal & reactive. BP: 166/90, HR 82, O2 95% on RA. Symptoms appear to wax and wane throughout the night. Notfied MD Jolly of findings, continuing to monitor. Addendum entered by Moni Bennett R.N. 11/17/23 03:15: 0300 assessment: Patient reports right-sided weakness similar to before, still able to lift up right arm & leg although there is a drift. Patient is AxOx4, VSS, denies pain other than chronic leg spasms. B. MD Jolly notified, continuing to monitor. Original Note: shake maker: 2100 assessment: Patient is AxOx4, NIH: 1 (ataxia in RUE), VSS. Patient reports feeling weaker on right side although able to lift up right arm & leg w/o drifting. Denies pain, dizziness, nausea, or SOB. Cont tele in place showing NSR. Flexeril given for leg spasms. 0000 assessment: Patient reports feeling numbness in left foot & leg, although can still feel sensation. Able to wiggle toes and raise left leg without drifting. Patient states that his right-sided weakness has improved. Otherwise no changes noted. Notified MD Jolly, continuing to monitor. Patient is oriented to call-light, plan of care ongoing.
[2023-11-17] MEDS: SODIUM CHLORIDE 0.9% 1,000 ML 75 ML IV (00:35)
[2023-11-17 05:06] LABS: Add Manual Diff / Slide Review NO; Basophils Absolute Auto 0 /uL (0-100); Basophils Percent Auto 0.6 % (0-2); Eosinophils Absolute Auto 200 /uL (0-450); Eosinophils Percent Auto 4.3 % (2-4); Hemoglobin 12.7 g/dL (13.5-17.5); Lymphocytes Absolute Auto 1700 /uL (1100-4500); Lymphocytes Percent Auto 31.2 % (25-40); Mean Corpuscular HGB Conc 34.3 % (30-36); Mean Corpuscular Hemoglobin 35.5 PG (26-34); Mean Corpuscular Volume 103.7 fL (80-100); Monocytes Absolute Auto 800 /uL (0-900); Monocytes Percent Auto 14.6 % (3-14); Neutrophils Absolute Auto 2700 /uL (1500-7000); Neutrophils Percent Auto 49.3 % (50-75); Platelet Count 184 X10^3/uL (150-400); Red Blood Cell Count 3.57 X10^6/uL (4.5-5.9); Red Cell Distribution Width 15.4 % (11.6-14.8); White Blood Cell Count 5.6 X10^3/uL (4.5-11.0)
[2023-11-17 05:19] LABS: Alanine Aminotransferase 72 IU/L (<50); Albumin 3.9 g/dL (3.5-5.0); Albumin Globulin Ratio 1.6 (1.0-2.8); Alkaline Phosphatase 45 U/L (38-126); Aspartate Aminotransferase 56 IU/L (17-59); BUN Creatinine Ratio 16.5 (6-22); Bilirubin Total 1.2 mg/dL (0.2-1.3); Blood Urea Nitrogen 17 mg/dL (9-20); Calcium 8.5 mg/dL (8.4-10.2); Carbon Dioxide 23 mmol/L (22-32); Chloride 108 mmol/L (98-107); Cholesterol 182 mg/dL (140-199); Estimated Glomerular Filt Rate > 60 mL/min (>60); Globulin 2.5 g/dL (1.7-4.1); Glucose 102 mg/dL (80-110); HDL Cholesterol 41 mg/dL (40-60); HEMOLYSIS < 15 (0-50); LDL Cholesterol Calculated 101 mg/dL (<100); Magnesium 2.4 mg/dL (1.6-2.3); Sodium 136 mmol/L (137-145); Total Protein 6.4 g/dL (6.3-8.2); Triglycerides 201 mg/dL (35-150)
[2023-11-17 05:53] LABS: Hemoglobin A1C% w Est Avg Glu 5.6 % (4.0-6.0)
--- NOTE | 2023-11-17 09:00 | PT.IPTN ---
Current Diagnoses Cerebral infarction, unspecified (11/16/23) Physical Therapy Treatment Note M2 PT-IP Current Condition Start: 11/16/23 10:34 Freq: NEEDED Status: Active Protocol: Document 11/16/23 11:25 MB (Rec: 11/16/23 11:53 MB [id number]) Physical Therapy Current Condition Current Condition Evaluation Date 11/16/23 Treatment Diagnosis CVA M3 PT-IP Subjective Start: 11/16/23 10:34 Freq: NEEDED Status: Active Protocol: Document 11/17/23 09:40 TS (Rec: 11/17/23 09:55 TS [id number]) Subjective Physical Therapy Visit Type Type Treatment Note Visit Start Time 09:00 Visit Stop Time 09:38 Number of ADHESIVE SPRAYER Visits 1 Physical Therapy Visit Comments Patient Comments Pt found resting in bed, reports increased R sided weakness this morning and is having more difficulty with mobility. Pt is agreeable to PT. M4 PT-IP Mobility and Gait Start: 11/16/23 10:34 Freq: NEEDED Status: Active Protocol: Document 11/17/23 09:40 TS (Rec: 11/17/23 09:55 TS [id number]) PT-Bed Mobility Assessment Supine to Sit Supine to Sit Contact Guard Assistance,1 Person Assistance,Bedrails Sit to Supine Sit to Supine Minimal Assistance,1 Person Assistance Scooting Scooting to Edge of Bed Contact Guard Assistance PT-Transfer Assessment Sit to and From Stand Sit to and from Stand Moderate Assistance,1 Person Assistance Equipment Transfer Assistive Device Gait Belt,Front Wheeled Walker Orthotic/Prosthetic Devices or Brace: No Transfers Transfer Destination Bed,Chair Transfer Technique Stand Step Pivot Transfer Ability Level of Assist Minimal Assistance,1 Person Assistance Comments Mobility Comments Supine to sit HOB elevated 45D CGA, pt is somewhat neglectful of R hand, requires cues to push on bed. STS from bed with FWW ModA with cues for BUE support pushing from EOB. He ambulated ~5' with slow step to gait and some buckling on R side, pt fatigues quickly and requires to sit on end of bed. Chair was brought closer to pt. He performed stand step pivot to chair Chris with FWW. Pt sat in chair, requested back to bed. Stand step pivot to chair with Chris and cues for sequencing. Sit to supine into bed Chris for RLE. Pt was left in bed, all needs met. Gait Assessment Gait Gait Assistance Required: Minimum Assistance,1 Person Assist Distance (Feet) 8 Able to Maintain Weight Bearing Status Yes During Gait Assistive Devices Assistive Device Gait Belt,Front Wheeled Walker Gait Deviations General Gait Pattern Antalgic,Decreased Stride Length,Decreased Feet Clearance,Step-to Gait Factors Limiting Gait Function Factors Limiting Gait Function Decreased Activity Tolerance, Decreased Strength,Poor Balance,Poor Safety Awareness PT-Balance Assessment Sitting Balance and Reactions Static Sitting Balance Ability Normal Dynamic Sitting Balance Ability Normal Standing Balance and Reactions Static Standing Balance Ability Good Dynamic Standing Balance Ability Good Device Used None M5 PT-IP Objective Assessments Start: 11/16/23 10:34 Freq: NEEDED Status: Active Protocol: Document 11/16/23 11:25 MB (Rec: 11/16/23 12:01 MB [id number]) Orientation Orientation/Cognition Level of Alertness Alert Orientation Name,Age,Birthday,Month,Year, Place,Situation Language Function Ability No Deficits Noted Safety Awareness Understands Safety Issues Memory Description No Deficits Noted Gross Range of Motion Upper Extremity ROM Impairments Defer to OT, right arm does not swing as much with gait Lower Extremity ROM Assessment Within Functional Limits Strength Lower Extremity Strength Assessment Within Functional Limits Comments Strength Comments B LEs, strength is 5/5 in hip flexion, knee extension, ankle DF and great toe extension on evaluation date Coordination Assessment Assessment Foot Tapping Test Normal Performance Heel on Vo Test Normal Performance Coordination Comments Defer UEs to OT Sensation Assessment Sensation Gross Sensation WNL Comments Sensation Comments Defer UEs to OT Muscle Tone Muscle Tone WNL Yes M6 PT-IP Treatment Start: 11/16/23 10:34 Freq: NEEDED Status: Active Protocol: Document 11/17/23 09:40 TS (Rec: 11/17/23 09:55 [id number]) Physical Therapy Treatment Education Education Provided Safety M7 PT-IP Assessment and Plan Start: 11/16/23 10:34 Freq: NEEDED Status: Active Protocol: Document 11/17/23 09:40 TS (Rec: 11/17/23 09:55 [id number]) PT Summary Assessment and Plan Potential Rehabilitation Potential Fair Summary Impairments Balance,Bed Mobility,Transfers ,Gait Progress Towards Goals Slow Progress due to Medical Issues,Slow Progress due to Activity Tolerance Assessment Summary Fantasma is making slow progress with his mobility this session . He is having increased weakness on his R side this morning. He ambulates ~5' with difficulty. He has some buckling in RLE and he quickly fatigues with gait. He requires ModA for STS from chair and bed. PT is recommending SNF vs Acute rehab at this time to improve strength and activity tolerance before d/c home. Goals Bed Mobility Goal Independent Transfer Goal Independent Gait Goal Independent Gait Distance 100 Other Goals Pt will ascend and descend 6 steps with rail and mod I. Pt will perform WNLs on FGA to decrease fall risk. Days to Meet Goals 3 Frequency of Treatment Frequency Of Treatment Once a Day Treatment Plan Physical Therapy Treatment Plan Bed Mobility Training,Transfer Training,Gait Training, Therapeutic Exercise,Balance Retraining,Discharge Planning, Hot or Cold Pack,Neuromuscular Re-ed,Coordination Retraining Precautions Other Precautions Fall risk Weight Bearing Status Weight Bearing Status Weight Bear as Tolerated Recommendations To Nursing Amount of Assist Needed 1 Person Assist Discharge Recommendations PT Discharge Recommendations SNF vs Acute Rehab Transportation Needs at Discharge Private Vehicle
[2023-11-17] MEDS: ENOXAPARIN 40 MG/0.4 ML SYRINGE SUBCUT (09:30)
[2023-11-17] MEDS: ESCITALOPRAM 10 MG TABLET PO (09:40)
[2023-11-17] MEDS: ASPIRIN EC 81 MG TABLET PO (09:50)
--- NOTE | 2023-11-17 12:28 | CM.DANOTE ---
DCP Assessment Note: Pt is a 83yo male, resident [facility], is admitted for ataxia, r/o TIA. Pt lives in an apartment, alone. Pt's Primary Care Provider is Dr. Quan New and insurance is [employer] ([facility]). Reviewed chart and team rounds for pt's medical status and initial discharge needs. DCP met w/patient at bedside; introduced self and role. Present in the room is pt's friends who are local, Fabio and Vangie. Per pt, they have been added as pt's emergency contacts. Patient was found in bed, alert and oriented, cooperative with assessment. Pt confirmed living situation, independent baseline. Pt expressed preference in a SNF in [place] who is in network of insurance. Pt has no hx of SNF Rehab. Pt agreeable to working with therapies and following their recommendations. DCP gave list from [place] website of SNF Rehabs who are in-network for pt and friends to review, DCP will return for pt preference. DCP called Julissa Den[facility] and [facility] to confirm contracted with pt's insurance, confirmed that pt's insurance is contracted (still need auth) and they have available male beds at this time. Plan: Awaiting final OT recommendation, Anticipating SNF Rehab referral. CM team will follow closely for coordination of discharge plans. ISRRAEL Varghese Discharge Planning/Care Management CM Discharge Assessment Start: 11/17/23 12:26 Freq: Status: Active Protocol: Document 11/17/23 12:26 MW (Rec: 11/17/23 12:28 MW [id number]) Discharge Planning Assessment Assigned Production Zone Leader STANTON Gomez DPFABIOLA/Assigned Designee Name Kenyetta Rivera, Sister ([place] ) Contact Information [phone] Advance Directives? Yes Advance Directives on File No History Provided By Patient Has Patient been admitted in last 30 No days? Prior Living Arrangements House Household Members none Type of transporation used prior to Drives own vehicle admit Independent with ADL's Yes Is patient alert and oriented? Yes Caregiver for Another No Patient/Family Preference Residential Facility Comment PT recommending SNF Rehab. Barriers to Discharge No Discharge Plan Residential Facility Referrals Initiated Residential Whiteboard Updated in Patient Room with Yes name and ext. # of Production Zone Leader Comment [phone] Please Provide Date Initial DC 11/17/23 Assessment Was Performed Next Review Type Continued Stay Review
--- NOTE | 2023-11-17 14:00 | OT.IPRE ---
Current Diagnoses Cerebral infarction, unspecified (11/16/23) Past Medical History (Last Reviewed 07/28/23 @ 13:43 by Quan New DO) Depression Inguinal hernia Tear of meniscus of knee Surgical History (Last Reviewed 07/28/23 @ 13:43 by Quan New DO) Hx of tonsillectomy Occupational Therapy Inpatient Evaluation/Re-Eval M1 PT/OT-IP Prior Functional Status Start: 11/16/23 12:31 Freq: NEEDED Status: Active Protocol: Document 11/17/23 14:01 [facility] (Rec: 11/17/23 14:16 [facility] [id number]) Medical Review Prior Functional Status Medical History Reviewed Yes Diet/Fluid Consistency Regular Communication WNLs Mobility and Gait Ind without AD Activities of Daily Living and IADL's Ind for all ADLs and IADLs except that pt has a kettle cleaner that comes in once every other week. Social History Household Members none Living Arrangements House Number of Floors (Floors) Two Floors Number of Stairs To Enter/Railing? No steps to enter and a flight of steps inside, partial B rails and partial right rail ascending. Home Environment Standard Height Toilet,Walk in Shower Home Equipment Shower Seat without Backrest, Hand Held Shower Employment Status Retired Additional Social History Comment Pt states his partner of 36 years in the last year and he is struggling with the adjustment. M2 OT-IP Current Condition Start: 11/16/23 12:31 Freq: Status: Active Protocol: Document 11/17/23 14:01 [facility] (Rec: 11/17/23 14:16 [facility] [id number]) Occupational Therapy Current Condition Current Condition Evaluation Date 11/17/23 Treatment Diagnosis MRI: Acute lacunar infarction, left basal ganglia, feet feel heavy Diagnosis Onset Date 11/16/23 M3 OT- IP Subjective and Pain Start: 11/16/23 12:31 Freq: Status: Active Protocol: Document 11/17/23 14:01 [facility] (Rec: 11/17/23 14:16 [facility] [id number]) OT- Subjective Occupational Therapy Visit Type Type Re-Evaluation Visit Start Time 13:05 Visit Stop Time 14:00 Occupational Therapy Visit Comments Patient Comments Pt having more difficulty with right sided weakness and OT eval orders received to re- eval as pt condition seems to have evolved. OT Pain Assessment Pain When Pain Assessed At Rest Pain Present Pain Present Denied Pain M4 OT- IP ADL's Start: 11/16/23 12:31 Freq: Status: Active Protocol: Document 11/17/23 14:01 [facility] (Rec: 11/17/23 14:16 [facility] [id number]) OT [id number] Comments OT Self-Feeding Comments Pt not able to eat with his right hand and having to use his left hand. Called the kitchen to request large handled utensils for pt to use . OT ADL-Grooming Comments OT Grooming Comments Not performed. OT ADL-Oral Care Comments Oral Care Comments Not performed. OT ADL-Dressing General Eval Lower Body Dressing Ability Maximum Assistance Areas Needing Assistance Socks Comments OT Dressing Comments Pt having difficulty to grasp his socks with his right hand and needing hand over hand assist so able to use his right hand to assist to radha his socks while sitting on the edge of the bed. OT ADL-Toileting Comments OT Toileting Comments NOt performed. OT ADL-Bathing Comments OT Bathing Comments Pt will need assist. M5 OT- IP IADL's Start: 11/16/23 12:31 Freq: Status: Active Protocol: Document 11/17/23 14:01 [facility] (Rec: 11/17/23 14:16 [facility] [id number]) OT-Instrumental Activities of Daily Living Home Safety Awareness Awareness of Need for Assistance at Home Good Awareness Ability to Problem Solve Emergency Able to Problem Solve Situations Driving Driving Concerns Identified Regarding Safety M6 OT- IP Functional Cognition Start: 11/16/23 12:31 Freq: Status: Active Protocol: Document 11/17/23 14:01 [facility] (Rec: 11/17/23 14:16 [facility] [id number]) Cognitive Factors Limiting Selfcare Function Cognitive Ability Level of Alertness Alert Patient Orientation Name,Age,Birthday,Month,Date, Year,Day of Week,Place, Situation Attention Span Ability Capable of Focused Attention, Capable of Sustained Attention Ability to Follow Commands Able to Follow Multi-Step Commands Cognitive Tests SLUMS Pt scored 30/30 which implies normal for cognition. Cognitive Comments Cognitive Assessment Comments Pt having occasional difficulty with word finding and motor planning needs for RUE and RLE. Pt realizes even though he is thinking well that physically he would be be safe to drive at this time. OT- Vision and Hearing OT- Hearing Assessment OT- Hearing Assessment Hearing Impaired,Left Ear Impaired,Use of Hearing Aids OT- Vision Assessment Vision History Cataracts Visual Acuity WFL Visual Attentiveness WFL Occular Pursuits WFL Visual Convergence WFL Visual Whitney WFL Vision Assessment Comments Pt has had cateract sx and now wears glasses to drive. M7 OT- IP Mobility and Balance Start: 11/16/23 12:31 Freq: Status: Active Protocol: Document 11/17/23 14:01 [facility] (Rec: 11/17/23 14:16 [facility] [id number]) OT- Bed Mobility Assessment Supine to Sit Supine to Sit Assist Minimal Assistance Scooting Scooting to Edge of Bed Minimal Assistance OT-Transfer Assessment Comments Mobility Comments CAMILLA to help incorporate use of right hand for bed mobility needs. Pt has right neglect and decreased proprirocption of his right side at this time in addition to increased weakness. OT- Balance Assessment Sitting Balance and Reactions Static Sitting Balance Ability Good Dynamic Sitting Balance Ability Fair M8 OT- IP Objective Assessments Start: 11/16/23 12:31 Freq: Status: Active Protocol: Document 11/17/23 14:01 [facility] (Rec: 11/17/23 14:16 [facility] [id number]) OT Gross Range of Motion Upper Extremity Range of Motion Assessment Right Impaired OT Strength Upper Extremity Strength Assessment Right Impaired Shoulder 3- Elbow 4- Forearm 4- Wrist 4- Hand 3+ Comments Strength Comments Pt having difficulty with motor control. OT- Coordination Assessment Upper Extremity Finger to Nose Test Right UE Impaired Finger Tapping Test Right UE Impaired Comments Coordination Comments Pt not able to picking crew supervisor objects or use of utensils to eat at this time. Able to issue pt theraputty to work on santa's helper and coordination. OT Sensation Assessment Comments Summary Comments INtact for light touch. M9 OT- IP Assessment and Plan Start: 11/16/23 12:31 Freq: Status: Active Protocol: Document 11/17/23 14:01 [facility] (Rec: 11/17/23 14:16 [facility] [id number]) OT Summary Assessment and Plan Potential Rehabilitation Potential Excellent Analytic Complexity at Evaluation Low Summary OT Impairments Range of Motion,Strength, Balance,Coordination, Functional Mobility,Self- Feeding,Grooming,Dressing, Toileting,Bathing,Toilet Transfers,Shower Transfers, Activity Tolerance Progress Towards Goals Slow Progress due to Medical Issues,Slow Progress due to Activity Tolerance Assessment Summary Pt's condition has evolved since OT eval resulting in RUE /RLE weakness and decreased control, decreased balance, strength, and activity tolerance. Pt still cognitively intact and scored 30/30 on the SLUMS. Pt is an excellent candidate for acute rehab at this time. Goal all based on incorporating, smooth , controlled movements with RUE/RLE. Goals Self-Feeding Goal Independent Grooming Goal Independent Dressing Goal Independent Toileting Goal Independent Bathing Goal Independent Toilet Transfer Goal Independent Shower Transfer Goal Independent Days to Meet Goals 40 Frequency of Treatment Other frequency 5x/week Treatment Plan OT Treatment Plan ADL Training,Functional Mobility,Neuromuscular Re- education,Therapeutic Exercises,Patient/Family Education,Discharge Planning Discharge Recommendations OT Discharge Recommendations Acute Rehab Transportation Needs at Discharge Private Vehicle,Wheelchair/ Cabulance
--- NOTE | 2023-11-17 15:38 | P.PN_ITS ---
Subjective Subjective Interval history: 83 M admitted with a left basal ganglia stroke. Had waxing and waning stroke symptoms overnight. Discussed with telestroke and no interventions recommended at this time. Continue asa only (no plavix given increased NIH). This morning patient has diminished movement of his R arm and leg, no numbness, and speech is intermittently improved. Exam Vital Signs (past 8 hours): - 11/17/23 08:00 11/17/23 09:00 11/17/23 12:00 Temperature 97.3 F L 97.8 F Pulse Rate 76 77 Respiratory Rate 16 15 Blood Pressure 144/77 H 157/77 H Pulse Oximetry 92 92 96 Oxygen Delivery Method Room Air Oxygen Flow Rate 0 0 11/17/23 13:00 Temperature Pulse Rate Respiratory Rate Blood Pressure Pulse Oximetry 96 Oxygen Delivery Method Room Air Oxygen Flow Rate Oxygen Delivery Method Room Air Oxygen Flow Rate 0 Narrative Exam Narrative: General:? Patient is well developed and well nourished, in no distress at this time. HEENT:? Normocephalic, atraumatic, extraocular muscles intact, oral pharynx is clear and mucous membranes are moist. Neck: supple and symmetric, trachea is midline, no cervical adenopathy. Negative for JVD Chest:? Normal AP diameter and contour without kyphoscoliosis, no tachypnea, equal chest rise bilaterally. Lungs:? CTA b/l no wheezing rhonchi or rales. Cardio:?RRR no m/r/g. Abdomen: S NT ND. No CVA tenderness. Musculoskeletal:? Muscle strength and tone are equal within normal limits, no deformity. Extremities: No edema or joint effusions. No cyanosis or clubbing. Skin:? Pale,? Warm to touch,dry and intact without rashes, ulcerations or petechiae.? Neuro:? Alert and orientated x3,? sensation to touch intact in all extremities, no gross deficits noted of cranial nerves. Mild R facial droop with smile only, mild dysarthria, R arm and R leg +4/5 strength, much weaker compared to yesterday on admit Psych:? Patient has a well-kept appearance, appropriate affect, mental status attitude thought context and judgment are appropriate for age. Objective Labs 11/17/23 04:22 11/17/23 04:22 Labs: Laboratory Results - last 24 hr 11/17/23 04:22 WBC 5.6 RBC 3.57 L Hgb 12.7 L Hct 37.0 L MCV 103.7 H MCH 35.5 H MCHC 34.3 RDW 15.4 H Plt Count 184 Neut % (Auto) 49.3 L Lymph % (Auto) 31.2 Emmons % (Auto) 14.6 H Eos % (Auto) 4.3 H Baso % (Auto) 0.6 Neut # (Auto) 2700 Lymph # (Auto) 1700 Emmons # (Auto) 800 Eos # (Auto) 200 Baso # (Auto) 0 Sodium 136 L Potassium 4.0 Chloride 108 H Carbon Dioxide 23 BUN 17 Creatinine 1.03 Estimated GFR > 60 BUN/Creatinine Ratio 16.5 Glucose 102 Hemoglobin A1c 5.6 Calcium 8.5 Magnesium 2.4 H Total Bilirubin 1.2 AST 56 ALT 72 H Alkaline Phosphatase 45 Total Protein 6.4 Albumin 3.9 Globulin 2.5 Albumin/Globulin Ratio 1.6 Triglycerides 201 H Cholesterol 182 LDL Cholesterol, Calc 101 H HDL Cholesterol 41 PFSH Medical History Depression Tear of meniscus of knee Inguinal hernia Surgical History Hx of tonsillectomy Social History household members: none Smoking Status: Former smoker alcohol intake: current Assessment & Plan Assessment & Plan narrative: 1. CVA, acute, present on admission - continue monitoring with tele, though no prior hx of afib and has had multiple prior holters without arrythmia noted. - MR showing L basal ganglia infarct - some worsening overnight, discussed with telestroke and recommended only asa and statin, no acute interventions (thrombectomy or tnk) recommended. 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 Ideally would attempt acute rehab if he can qualify. - ESR and CRP unremarkable - A1c 5.6%. and lipid panel with TG 201, TC 182, LDL 101 and HDL 41. TSH normal. Started on statin therapy. 2., hypertension - continue to monitor, with waxing and waning symptoms neurology recommended slow initiation of antihypertensive and longer permissive HTN for now. If stable symptoms for 24 hours can start antihypertensives. 3. Macrocytosis - b12 level normal. - continue outpatient workup, was reportedly started on oral supplementation after PCP recommendations. 4. Depression - continue home escitalopram Code: Full, surrogate is patient's sister DVT: Lovenox daily I have utilized all available immediate resources to obtain, update, or review the patient's current medications. Dispo: patient admitted under inpatient status. Ideally discharge to acute rehab vs SNF. Additional history obtained via discussions with the telestroke provider. These discussions contributed to the creation of the above assessment and plan. I have reviewed patient's documentation, labs, and imaging personally. Time-Based Coding :: [TOTAL MINUTES] spent with patient and on the chart (including review of chart, obtaining history, exam, reviewing outside data, placing orders, documenting exam and treatment plan, and counseling patient) on [DATE].
--- NOTE | 2023-11-17 18:07 | ST.IPDYTX ---
Visit Care Team Role Provider Type Quan New DO Primary Care Provider Physician Specialty: Family Practice Address: [address] [place] [address], [address] Email: [email or web address] DO Emergency Provider Physician Specialty: Emergency Medicine Address: [address] [place] [address], [address] Email: [email or web address] DO Admit Provider Physician Attending Provider Specialty: Internal Medicine Address: [address] [place] [address], [address] Email: [email or web address] DISTRIBUTOR Dysphagia Treatment BILL DISTRIBUTOR Dysphagia Treatment Start: 11/17/23 16:10 Freq: Status: Active Protocol: Document 11/16/23 16:11 SS (Rec: 11/17/23 18:06 SS [id number]) Dysphagia Treatment Session Time Visit Start Time 11:30 Visit Stop Time 12:01 Total Visit Minutes 31 Visit Information Visit Number 1 Setting Assessment Location Acute Care Visit Type Note Type Treatment Note Next Note Type Next Note Type Treatment Note Patient Information Identification Type Name Subjective Observations Per RN report, change in medical status noted since initial evaluation yesterday, including increased difficulty with speech and generalized weakness. Additionally, RN reported pt had demonstrated overt s/sx of aspiration inconsistently with intake of thin liquids as well as solids on this date. Pt reclined in bed upon BILL DISTRIBUTOR arrival and agreeable to treatment session . Speech and cognitive- communication informally noted to be at baseline. The IDDSI Framework Protocol: IDDSI.1 Assessment Patient Response to Treatment Good Rehab Potential Good Assessment of Improvement BILL DISTRIBUTOR facilitated discussion re: pt's observations in regards to swallowing function. Pt expressed intermittant coughing with thin liquids and solids during breakfast, though also expressed he had been reclined in bed, rather than upright. Cranial nerve exam completed with some change noted to function, though sensation intact b/l. Results indicate oral structures and functions were mildly impaired with right- sided muscle weakness and WFL coordination of the tongue in depression and retraction tasks. A mild left-sided facial droop was also observed at rest and in lip protrusion tasks. He was able to symmetrically puff his cheeks and demonstrated complete lip closure in lip protrusion and closure tasks. Range of motion of the jaw was within normal limits for rapid open and closure, but mild deviation to the left was noted when he was asked to lateralize his jaw. The pt was provided with the following consistencies: thin liquids, puree, minced and moist, and regular textures. Pt passed the 3 ounce water test. He completed single and sequential sips of thin liquids via cup and straw without any concerns. He demonstrated functional mastication with timely oral transit and complete oral clearance. Pharyngeal swallow appears prompt. No overt s/sx of aspiration with puree and regular textures, though immediate post-swallow prolonged cough noted with minced and moist texture. Aspiration risk appears moderate given intermittent overt s/sx of aspiration likely related to fluctuation in overall medical condition at this time. Recommend minced and moist texture diet, thin liquids, and meds whole with liquid wash as tolerated. Explained that patient continues to be at an overall risk of development of PNA d/t his multiple medical diagnoses, number of medications, overt s/sx of aspiration, difficulty with motor control/coordination for oral care, and compromised immune system/health status. Educated patient re: recommended safe swallow precautions to reduce the risk of aspiration, including small bites/sips, slow rate, upright positioning during PO intake, and completing oral care TID to minimize colonization of bacteria in oral cavity and promote oral hygiene. Pt expressed understanding of education and is agreeable to recommendations. If no clinical improvements are made, strongly recommend MBSS in house to further assess swallow pathophysiology . RN and MD notified of recommendations and expressed understanding. Recommendations Recommendations Downgrade Diet Order Liquids Order Thin (IDDSI 0) Diet Order Minced & Moist (IDDSI 5) Medication Recommendations Whole,One at a Time Additional Dietary Needs Single Sips,Controlled Sips Aspiration Precautions Recommended Precautions Upright at 90 Degrees,Small Bites/Sips Treatment Plan Placement Recommendation after Discharge [facility] Facility, Inpatient Rehab Facility Appropriate for Continued Therapy Yes Dysphagia Goals STG 1: Patient will utilize safe swallowing strategies in 90% of opportunities with minimal verbal cues in order to consume safest and least restrictive diet. STG 2: Patient will tolerate IDDSI 5 with no clinical s/sx of aspiration in 100% of opportunities in order to consume least restrictive diet texture. STG 3: Patient will tolerate thin liquids with no overt s/ sx of aspiration in 100% of opportunities in order to consume least restrictive diet texture. STG 4: Patient will complete MBSS to further assess swallowing pathophysiology and next steps in POC. LTG: Patient will tolerate safest and most efficient diet with no clinical s/sx of aspiration or dysphagia in 100 % of opportunities in order to consume least restrictive diet and enahnce overall comfort during functional eating and drinking.
--- NOTE | 2023-11-17 18:07 | ST.IPDYTX ---
Visit Care Team Role Provider Type Quan New DO Primary Care Provider Physician Specialty: Family Practice Address: [address] [place] [address], [address] Email: [email or web address] Darlyn Keith DO Emergency Provider Physician Specialty: Emergency Medicine Address: [address] [place] [address], [address] Email: [email or web address] Admit Provider Physician Attending Provider Specialty: Internal Medicine Address: [address] [place] [address], [address] Email: [email or web address] [email or web address] MATERNAL CHILD Dysphagia Treatment REGISTERED NURSE MATERNAL CHILD Dysphagia Treatment Start: 11/17/23 16:10 Freq: Status: Active Protocol: Document 11/16/23 16:11 SS (Rec: 11/17/23 18:06 SS [id number]) Dysphagia Treatment Session Time Visit Start Time 11:30 Visit Stop Time 12:01 Total Visit Minutes 31 Visit Information Visit Number 1 Setting Assessment Location Acute Care Visit Type Note Type Treatment Note Next Note Type Next Note Type Treatment Note Patient Information Identification Type Name Subjective Observations Per RN report, change in medical status noted since initial evaluation yesterday, including increased difficulty with speech and generalized weakness. Additionally, RN reported pt had demonstrated overt s/sx of aspiration inconsistently with intake of thin liquids as well as solids on this date. Pt reclined in bed upon REGISTERED NURSE MATERNAL CHILD arrival and agreeable to treatment session . Speech and cognitive- communication informally noted to be at baseline. The IDDSI Framework Protocol: IDDSI.1 Assessment Patient Response to Treatment Good Rehab Potential Good Assessment of Improvement REGISTERED NURSE MATERNAL CHILD facilitated discussion re: pt's observations in regards to swallowing function. Pt expressed intermittant coughing with thin liquids and solids during breakfast, though also expressed he had been reclined in bed, rather than upright. Cranial nerve exam completed with some change noted to function, though sensation intact b/l. Results indicate oral structures and functions were mildly impaired with right- sided muscle weakness and WFL coordination of the tongue in depression and retraction tasks. A mild left-sided facial droop was also observed at rest and in lip protrusion tasks. He was able to symmetrically puff his cheeks and demonstrated complete lip closure in lip protrusion and closure tasks. Range of motion of the jaw was within normal limits for rapid open and closure, but mild deviation to the left was noted when he was asked to lateralize his jaw. The pt was provided with the following consistencies: thin liquids, puree, minced and moist, and regular textures. Pt passed the 3 ounce water test. He completed single and sequential sips of thin liquids via cup and straw without any concerns. He demonstrated functional mastication with timely oral transit and complete oral clearance. Pharyngeal swallow appears prompt. No overt s/sx of aspiration with puree and regular textures, though immediate post-swallow prolonged cough noted with minced and moist texture. Aspiration risk appears moderate given intermittent overt s/sx of aspiration likely related to fluctuation in overall medical condition at this time. Recommend minced and moist texture diet, thin liquids, and meds whole with liquid wash as tolerated. Explained that patient continues to be at an overall risk of development of PNA d/t his multiple medical diagnoses, number of medications, overt s/sx of aspiration, difficulty with motor control/coordination for oral care, and compromised immune system/health status. Educated patient re: recommended safe swallow precautions to reduce the risk of aspiration, including small bites/sips, slow rate, upright positioning during PO intake, and completing oral care TID to minimize colonization of bacteria in oral cavity and promote oral hygiene. Pt expressed understanding of education and is agreeable to recommendations. If no clinical improvements are made, strongly recommend MBSS in house to further assess swallow pathophysiology . RN and MD notified of recommendations and expressed understanding. Recommendations Recommendations Downgrade Diet Order Liquids Order Thin (IDDSI 0) Diet Order Minced & Moist (IDDSI 5) Medication Recommendations Whole,One at a Time Additional Dietary Needs Single Sips,Controlled Sips Aspiration Precautions Recommended Precautions Upright at 90 Degrees,Small Bites/Sips Treatment Plan Placement Recommendation after Discharge [facility] Facility, Inpatient Rehab Facility Appropriate for Continued Therapy Yes Dysphagia Goals STG 1: Patient will utilize safe swallowing strategies in 90% of opportunities with minimal verbal cues in order to consume safest and least restrictive diet. STG 2: Patient will tolerate IDDSI 5 with no clinical s/sx of aspiration in 100% of opportunities in order to consume least restrictive diet texture. STG 3: Patient will tolerate thin liquids with no overt s/ sx of aspiration in 100% of opportunities in order to consume least restrictive diet texture. STG 4: Patient will complete MBSS to further assess swallowing pathophysiology and next steps in POC. LTG: Patient will tolerate safest and most efficient diet with no clinical s/sx of aspiration or dysphagia in 100 % of opportunities in order to consume least restrictive diet and enahnce overall comfort during functional eating and drinking.
[2023-11-17] MEDS: ATORVASTATIN 20 MG TABLET 80 MG PO (20:19)
[2023-11-17] MEDS: SODIUM CHLORIDE 0.9% FLUSH 10 ML IV (20:20)
[2023-11-17] MEDS: TRAZODONE 50 MG TABLET PO (20:20)
[2023-11-17] MEDS: CYCLOBENZAPRINE 10 MG TABLET 5 MG PO (20:23)
[2023-11-17] MEDS: ACETAMINOPHEN 325 MG TABLET 650 MG PO (23:08)
[2023-11-18] VITALS (8 sets, daily range): BP systolic 122–163; BP diastolic 70–93; PULSE 76–87; RESP 16–19; TEMP 35.9–36.4; O2SAT 93–96
--- NOTE | 2023-11-18 03:43 | PC.NURSE ---
Addendum entered by Bindu Millan R.N. 11/18/23 05:30: Patient is snoring, HR 72 SR, SpO2 >92% RA. Will allow to sleep and keep monitoring. Bed alarm on. Original Note: Head Cleaning Porter Note-At beginning of shift patient was A/Ox4, speech slightly slurred, RUE and RLE extremity weakness unchanged from previous. Trazadone and Flexaril given at HS. At 2300, patient was still awake having muscle spasms to RUE, no change in strength, Tylenol given for pain. At 0310, patient woke disoriented attempting to get out of bed. Unable to state name, age, place. Did recognize this RN as his nurse. ROSS. Slight Lt facial droop noted. Strength to arms and legs unchanged, although, he is fatigued. BP 163/93, HR 80s SR, CBG 94. On-danuta Hospitalist notified, orders received to monitor for 2 hours, if symptoms don't resolve, obtain CT without contrast.
[2023-11-18 04:00] LABS: Add Manual Diff / Slide Review NO; Basophils Absolute Auto 0 /uL (0-100); Basophils Percent Auto 0.5 % (0-2); Eosinophils Absolute Auto 300 /uL (0-450); Eosinophils Percent Auto 3.2 % (2-4); Hemoglobin 12.9 g/dL (13.5-17.5); Lymphocytes Absolute Auto 2000 /uL (1100-4500); Lymphocytes Percent Auto 24.6 % (25-40); Mean Corpuscular HGB Conc 34.9 % (30-36); Mean Corpuscular Hemoglobin 35.8 PG (26-34); Mean Corpuscular Volume 102.8 fL (80-100); Monocytes Absolute Auto 1100 /uL (0-900); Monocytes Percent Auto 14.3 % (3-14); Neutrophils Absolute Auto 4600 /uL (1500-7000); Neutrophils Percent Auto 57.4 % (50-75); Platelet Count 183 X10^3/uL (150-400); Red Cell Distribution Width 15.5 % (11.6-14.8); White Blood Cell Count 7.9 X10^3/uL (4.5-11.0)
[2023-11-18 04:17] LABS: Alanine Aminotransferase 80 IU/L (<50); Albumin 4.1 g/dL (3.5-5.0); Albumin Globulin Ratio 1.6 (1.0-2.8); Alkaline Phosphatase 43 U/L (38-126); Aspartate Aminotransferase 78 IU/L (17-59); BUN Creatinine Ratio 13.8 (6-22); Bilirubin Total 2.2 mg/dL (0.2-1.3); Blood Urea Nitrogen 13 mg/dL (9-20); Calcium 8.7 mg/dL (8.4-10.2); Carbon Dioxide 23 mmol/L (22-32); Chloride 107 mmol/L (98-107); Estimated Glomerular Filt Rate > 60 mL/min (>60); Globulin 2.6 g/dL (1.7-4.1); Glucose 102 mg/dL (80-110); HEMOLYSIS < 15 (0-50); Magnesium 2.2 mg/dL (1.6-2.3); Potassium 3.8 mmol/L (3.4-5.1); Sodium 136 mmol/L (137-145); Total Protein 6.7 g/dL (6.3-8.2)
--- NOTE | 2023-11-18 09:07 | OT.IP.TRT ---
Current Diagnoses Cerebral infarction, unspecified (11/16/23) Occupational Therapy Treatment Note M2 OT-IP Current Condition Start: 11/16/23 12:31 Freq: Status: Active Protocol: Document 11/17/23 14:01 [facility] (Rec: 11/17/23 14:16 [facility] [id number]) Occupational Therapy Current Condition Current Condition Evaluation Date 11/17/23 Treatment Diagnosis MRI: Acute lacunar infarction, left basal ganglia, feet feel heavy Diagnosis Onset Date 11/16/23 M3 OT- IP Subjective and Pain Start: 11/16/23 12:31 Freq: Status: Active Protocol: Document 11/18/23 09:07 [facility] (Rec: 11/18/23 09:17 [facility] [id number]) OT- Subjective Occupational Therapy Visit Type Type Treatment Note Visit Start Time 08:43 Visit Stop Time 09:07 Occupational Therapy Visit Comments Patient Comments Pt states had an episode last night that he was disorientated and trying to get out of bed and did not known his name, age, or place and that his right UE/LE were weaker than earlier. Pt agreed to redo the SLUMs and reassess his RUE. OT Pain Assessment Pain When Pain Assessed At Rest Pain Present Pain Present Denied Pain M6 OT- IP Functional Cognition Start: 11/16/23 12:31 Freq: Status: Active Protocol: Document 11/18/23 09:07 [facility] (Rec: 11/18/23 09:17 [facility] [id number]) Cognitive Factors Limiting Selfcare Function Cognitive Ability Level of Alertness Alert Patient Orientation Name,Age,Birthday,Month,Date, Year,Day of Week,Place, Situation Attention Span Ability Capable of Focused Attention, Capable of Sustained Attention Ability to Follow Commands Able to Follow One Step Commands Cognitive Tests SLUMS Pt scored 29/30 and able to recall 4/5 objects after time passed. Item details were changed this time on the assessment as pt able to recall information from yesterday. Cognitive Comments Cognitive Assessment Comments Pt states last night unable to get his words out and this morning appears to to be back to normal per pt cognitively. Sitting Balance and Reactions Static Sitting Balance Ability Good Dynamic Sitting Balance Ability Fair M8 OT- IP Objective Assessments Start: 11/16/23 12:31 Freq: Status: Active Protocol: Document 11/18/23 09:07 [facility] (Rec: 11/18/23 09:17 [facility] [id number]) OT Gross Range of Motion Upper Extremity Range of Motion Assessment Right Impaired OT Strength Upper Extremity Strength Assessment Right Impaired Shoulder 3- Elbow 4- Forearm 4- Wrist 4- Hand 3- Comments Strength Comments Pt's right UE weaker than yesterday and still having decreased motor control. OT- Coordination Assessment Upper Extremity Finger to Nose Test Right UE Impaired Finger Tapping Test Right UE Impaired Comments Coordination Comments Pt not able to use his right hand to eat today. Pt states last night was able to use his right hand with use of large handled utensils to eat but still with some difficulty. Today not able to use his right hand and eating with his left hand due to weakness. M9 OT- IP Assessment and Plan Start: 11/16/23 12:31 Freq: Status: Active Protocol: Document 11/18/23 09:07 [facility] (Rec: 11/18/23 09:17 [facility] [id number]) OT Summary Assessment and Plan Potential Rehabilitation Potential Good Analytic Complexity at Evaluation Low Summary OT Impairments Range of Motion,Strength, Balance,Coordination, Functional Mobility,Self- Feeding,Grooming,Dressing, Toileting,Bathing,Toilet Transfers,Shower Transfers, Activity Tolerance Progress Towards Goals Slow Progress due to Medical Issues Assessment Summary Per pt had an event last night in which he was unable to say his name,age, or place, and having weakness on his right side. Able to reassess pt's cognition and scored 29/30 on the SLUMS versus 30/30 yesterday. Pt having move weakness with RUE today versus yesterday on OT eval. Pending on pt's activity tolerance, pt would benefit from acute rehab versusu SNF. Pt is very motivated and willing to get better. Goals Self-Feeding Goal Independent Grooming Goal Independent Dressing Goal Independent Toileting Goal Independent Bathing Goal Supervision Toilet Transfer Goal Independent Shower Transfer Goal Supervision Days to Meet Goals 40 Frequency of Treatment Other frequency 5x/week Treatment Plan OT Treatment Plan ADL Training,Functional Mobility,Neuromuscular Re- education,Therapeutic Exercises,Patient/Family Education,Discharge Planning Discharge Recommendations OT Discharge Recommendations Acute Rehab,SNF vs Acute Rehab Transportation Needs at Discharge Private Vehicle,Wheelchair/ Cabulance
[2023-11-18] MEDS: ESCITALOPRAM 10 MG TABLET PO (10:11)
[2023-11-18] MEDS: SODIUM CHLORIDE 0.9% FLUSH 10 ML IV ×2 (10:12→21:14)
[2023-11-18] MEDS: ENOXAPARIN 40 MG/0.4 ML SYRINGE SUBCUT (10:12)
[2023-11-18] MEDS: ASPIRIN EC 81 MG TABLET PO (10:12)
--- NOTE | 2023-11-18 11:00 | PT.IPTN ---
Current Diagnoses Cerebral infarction, unspecified (11/16/23) Physical Therapy Treatment Note M2 PT-IP Current Condition Start: 11/16/23 10:34 Freq: NEEDED Status: Active Protocol: Document 11/16/23 11:25 MB (Rec: 11/16/23 11:53 MB [id number]) Physical Therapy Current Condition Current Condition Evaluation Date 11/16/23 Treatment Diagnosis CVA M3 PT-IP Subjective Start: 11/16/23 10:34 Freq: NEEDED Status: Active Protocol: Document 11/18/23 11:00 AB (Rec: 11/18/23 13:34 AB [id number]) Subjective Physical Therapy Visit Type Type Treatment Note Visit Start Time 11:00 Visit Stop Time 11:30 Number of BUILDING CLEANING SUPERVISOR Visits 0 Physical Therapy Visit Comments Patient Comments agreeable to do PT M4 PT-IP Mobility and Gait Start: 11/16/23 10:34 Freq: NEEDED Status: Active Protocol: Document 11/18/23 11:00 AB (Rec: 11/18/23 13:34 AB [id number]) PT-Bed Mobility Assessment Supine to Sit Supine to Sit Moderate Assistance Sit to Supine Sit to Supine Maximum Assistance PT-Transfer Assessment Sit to and From Stand Sit to and from Stand Maximum Assistance,2 Person Assistance,Use of Upper Extremities Comments Mobility Comments pt supine in bed and agreeable to do PT. pt informed PT that he was informed by nursing staff that he might have had another stroke last night. pt completed AAROM RLE. encouraged pt to use LUE and LLE during mobility. pt understood. completed supine to sit mod A and max cues on techniques. pt required increase time to complete. pt requiring min A with intial sitting balance with slight posterior trunk lean. positioned pt on EOB and positioned trunk to center . educated pt on increase body awareness and trunk positioning for balance. completed static sitting balance: with perturbations and reaching hands to PT in different directions. pt requiring CGA for balance and occasional min A to recenter body. Attempted sit to stand x 2 reps but pt unable despite max A provided. call light on to ask for assistance and no response. pt stated that he is feeling slightly lightheaded and wants to lay back in bed and stated that he is getting tired. attempted to scoot pt towards HOB but unable with max A x 1. assisted pt with sit to supine max A and cues. positioned pt in bed max A and also with use of bed controls. call light and table placed within reach. pt stated that he feels better now in supine. nurse informed. PT-Balance Assessment Sitting Balance and Reactions Static Sitting Balance Ability Fair Dynamic Sitting Balance Ability Fair M5 PT-IP Objective Assessments Start: 11/16/23 10:34 Freq: NEEDED Status: Active Protocol: Document 11/16/23 11:25 MB (Rec: 11/16/23 12:01 MB [id number]) Orientation Orientation/Cognition Level of Alertness Alert Orientation Name,Age,Birthday,Month,Year, Place,Situation Language Function Ability No Deficits Noted Safety Awareness Understands Safety Issues Memory Description No Deficits Noted Gross Range of Motion Upper Extremity ROM Impairments Defer to OT, right arm does not swing as much with gait Lower Extremity ROM Assessment Within Functional Limits Strength Lower Extremity Strength Assessment Within Functional Limits Comments Strength Comments B LEs, strength is 5/5 in hip flexion, knee extension, ankle DF and great toe extension on evaluation date Coordination Assessment Assessment Foot Tapping Test Normal Performance Heel on Vo Test Normal Performance Coordination Comments Defer UEs to OT Sensation Assessment Sensation Gross Sensation WNL Comments Sensation Comments Defer UEs to OT Muscle Tone Muscle Tone WNL Yes M6 PT-IP Treatment Start: 11/16/23 10:34 Freq: NEEDED Status: Active Protocol: Document 11/18/23 11:00 AB (Rec: 11/18/23 13:34 AB [id number]) Physical Therapy Treatment Education Education Provided Safety M7 PT-IP Assessment and Plan Start: 11/16/23 10:34 Freq: NEEDED Status: Active Protocol: Document 11/18/23 11:00 AB (Rec: 11/18/23 13:34 AB [id number]) PT Summary Assessment and Plan Potential Rehabilitation Potential Fair Summary Impairments Pain,ROM,Strength,Balance, Coordination,Sensation,Tone, Cognition,Bed Mobility, Transfers,Gait,Activity Tolerance Progress Towards Goals Slow Progress due to Medical Issues,Slow Progress - Other Assessment Summary pt requiring increase assistance today and unable to stand despite max A provided. recommending mechanical lift transfer with nursing staff at this time. pt will require 24/ assist and will benefit from SNF rehab. unable to tolerate much activity today. will continue to assess. Goals Bed Mobility Goal Minimal Assistance Transfer Goal Minimal Assistance,Front Wheeled Walker Gait Goal Minimal Assistance,Front Wheel Walker Gait Distance 25 Other Goals to improve bed mobility, transfers and ambulation using FWW SBA ~ 100 ft Days to Meet Goals 10 Frequency of Treatment Frequency Of Treatment Once a Day Treatment Plan Physical Therapy Treatment Plan Bed Mobility Training,Transfer Training,Gait Training, Therapeutic Exercise,Balance Retraining,Discharge Planning, Hot or Cold Pack,Neuromuscular Re-ed,Coordination Retraining ,Manual Therapy Precautions Other Precautions falls Recommendations To Nursing Amount of Assist Needed Mechanical Lift Discharge Recommendations PT Discharge Recommendations SNF Rehab Transportation Needs at Discharge Wheelchair/Cabulance,Stretcher /Ambulance
--- NOTE | 2023-11-18 15:38 | P.PN_ITS ---
Subjective Subjective Interval history: 83 M admitted with a left basal ganglia stroke. Again he states his weakness is worse today, overnight also noted a couple episodes of involuntary shaking of his right hand that lasted for a couple of seconds. Swallow also worsened with speech whom would like to do a MBS tomorrow. He felt a bit confused this morning, but was able to sleep with the trazodone attempted last night. Exam Vital Signs (past 8 hours): - 11/18/23 08:00 11/18/23 08:00 11/18/23 09:45 Temperature 97.6 F Pulse Rate 76 Respiratory Rate 16 Blood Pressure 151/90 H Pulse Oximetry 93 94 Oxygen Delivery Method Room Air Room Air 11/18/23 12:00 11/18/23 12:00 Temperature 97.4 F L Pulse Rate 83 Respiratory Rate 16 Blood Pressure 154/83 H Pulse Oximetry 94 96 Oxygen Delivery Method Room Air Oxygen Delivery Method Room Air Oxygen Flow Rate 0 Narrative Exam Narrative: General:? Patient is well developed and well nourished, in no distress at this time. HEENT:? Normocephalic, atraumatic, extraocular muscles intact, oral pharynx is clear and mucous membranes are moist. Neck: supple and symmetric, trachea is midline, no cervical adenopathy. Negative for JVD Chest:? Normal AP diameter and contour without kyphoscoliosis, no tachypnea, equal chest rise bilaterally. Lungs:? CTA b/l no wheezing rhonchi or rales. Cardio:?RRR no m/r/g. Abdomen: S NT ND. No CVA tenderness. Musculoskeletal:? Muscle strength and tone are equal within normal limits, no deformity. Extremities: No edema or joint effusions. No cyanosis or clubbing. Skin:? Pale,? Warm to touch,dry and intact without rashes, ulcerations or petechiae.? Neuro:? Alert and orientated x3,? sensation to touch intact in all extremities, no gross deficits noted of cranial nerves. Mild R facial droop with smile only, mild dysarthria, R arm and R leg +4/5 strength, again weaker compared to yesterday on admit Psych:? Patient has a well-kept appearance, appropriate affect, mental status attitude thought context and judgment are appropriate for age. Objective Labs 11/18/23 03:51 11/18/23 03:51 Labs: Laboratory Results - last 24 hr 11/18/23 03:51 WBC 7.9 RBC 3.60 L Hgb 12.9 L Hct 37.0 L MCV 102.8 H MCH 35.8 H MCHC 34.9 RDW 15.5 H Plt Count 183 Neut % (Auto) 57.4 Lymph % (Auto) 24.6 L Giles % (Auto) 14.3 H Eos % (Auto) 3.2 Baso % (Auto) 0.5 Neut # (Auto) 4600 Lymph # (Auto) 2000 Giles # (Auto) 1100 H Eos # (Auto) 300 Baso # (Auto) 0 Sodium 136 L Potassium 3.8 Chloride 107 Carbon Dioxide 23 BUN 13 Creatinine 0.94 Estimated GFR > 60 BUN/Creatinine Ratio 13.8 Glucose 102 Calcium 8.7 Magnesium 2.2 Total Bilirubin 2.2 H AST 78 H ALT 80 H Alkaline Phosphatase 43 Total Protein 6.7 Albumin 4.1 Globulin 2.6 Albumin/Globulin Ratio 1.6 PFSH Medical History Depression Tear of meniscus of knee Inguinal hernia Surgical History Hx of tonsillectomy Social History household members: none Smoking Status: Former smoker alcohol intake: current Assessment & Plan Assessment & Plan narrative: 1. CVA, acute, present on admission with possible metabolic encephalopathy and related focal seizure. - continue monitoring with tele, though no prior hx of afib and has had multiple prior holters without arrythmia noted. - MR showing L basal ganglia infarct - some worsening still, discussed previously with telestroke and recommended only asa and statin, no acute interventions (thrombectomy or tnk) recommended. May be a result of relative hypoperfusion as his BP improves. - PT/OT/[facility] [employer] evaluations will repeat given worsening. Ideally would attempt acute rehab if he can qualify. - ESR and CRP unremarkable - A1c 5.6%. and lipid panel with TG 201, TC 182, LDL 101 and HDL 41. TSH normal. Started on statin therapy. - possible development of small seizure activity on 11/17, if continued worsening repeat CT, started low dose keppra given high likelihood of post stroke focal seizures. - confusion may have been a result of the trazodone for sleep, or in setting of seizure / stroke. Given addition of keppra, will change trazodone to prn given it was quite effective for him. 2., hypertension - continue to monitor, with waxing and waning symptoms neurology recommended slow initiation of antihypertensive and longer permissive HTN for now. If stable symptoms for 24 hours can start antihypertensives. 3. Macrocytosis - b12 level normal. - continue outpatient workup, was reportedly started on oral supplementation after PCP recommendations. 4. Depression - continue home escitalopram 5. Elevated LFT and bilirubin - no abdominal pain, may be medication related, given mild increase continue to follow only. Repeat studies tomorrow. Code: Full, surrogate is patient's sister DVT: Lovenox daily I have utilized all available immediate resources to obtain, update, or review the patient's current medications. Dispo: patient admitted under inpatient status. Ideally discharge to acute rehab vs SNF. Additional history obtained via discussions with bedside staff, case management, PT and OT and [facility] [employer] [facility] teams. These discussions contributed to the creation of the above assessment and plan. I have reviewed patient's documentation, labs, and imaging personally. Time-Based Coding :: [TOTAL MINUTES] spent with patient and on the chart (including review of chart, obtaining history, exam, reviewing outside data, placing orders, documenting exam and treatment plan, and counseling patient) on [DATE].
[2023-11-18] MEDS: levETIRAcetam 250 MG TABLET PO ×2 (15:50→21:13)
--- NOTE | 2023-11-18 15:55 | ST.IPDYTX ---
Visit Care Team Role Provider Type Quan New DO Primary Care Provider Physician Specialty: Family Practice Address: [address] [place] [address], [id number] Email: [email or web address] Darlyn Keith DO Emergency Provider Physician Specialty: Emergency Medicine Address: [address] [place] [address], [id number] Email: [email or web address] Pierre Moreno DO Admit Provider Physician Attending Provider Specialty: Internal Medicine Address: [address] [place] [address], [id number] Email: [email or web address] [employer]VAS WORKER Dysphagia Treatment CAN[employer] WORKER Dysphagia Treatment Start: 11/17/23 16:10 Freq: Status: Active Protocol: Document 11/18/23 14:09 SS (Rec: 11/18/23 14:12 SS [id number]) Dysphagia Treatment Session Time Visit Start Time 01:15 Visit Stop Time 01:45 Total Visit Minutes 30 Visit Information Visit Number 2 Setting Assessment Location Acute Care Visit Type Note Type Treatment Note Next Note Type Next Note Type Treatment Note Patient Information Identification Type Name Subjective Observations Per RN report, change in medical status noted since treatment session yesterday. Pt woke disoriented attempting to get out of bed in middle of the night and was unable to state name, age, place. Additionally, slight L facial droop noted as well as slurred speech. RN reported that pt had no difficulty swallowing pills in puree carrier and s/ sx of aspiration were not observed during breakfast. Pt upright in bed upon CANVAS WORKER arrival and agreeable to treatment session. Per OT treatment note, SLUMS completed with no change indicated from baseline performance. However, mild dysarthria noted via informal observation. Treatment Liquids Trialed Thin (IDDSI 0) Solids Trialed Purred (IDDSI 4),Minced & Moist (IDDSI 5) Administration Type Cup Single Sip,Cup Consecutive Sips,Straw Oral Strategies Upright at 90 degrees, Controlled Bite/Sip Size Pharyngeal Strategies Sitting Upright (90 deg),Small Bites and Sips,Alternate Liquids/Solids Treatment Activities Pt with lunch tray in front of him upon CANVAS WORKER arrival. CANVAS WORKER facilitated discussion re: pt' s observations in regards to swallowing function. Pt reported right-sided dribbling when attempting to eat or drink as well as difficulty feeding self with left arm only given increased weakness on right side. He expressed intermittent coughing with solids during breakfast. He reported he has been completing oral care at least three times daily as well as being careful and only taking small bites/sips while sitting upright. Cranial nerve exam completed with change noted to function though sensation continued to be intact b/l. Mildly- moderately impaired function with right-sided muscle weakness and WFL coordination of the tongue in depression and retraction tasks. Increased left-sided facial droop was observed at rest. Pt was able to symmetrically puff his cheeks and demonstrated complete lip closure in lip protrusion and closure tasks. Range of motion of the jaw continues to be within normal limits for rapid open and closure, but increase deviation to the left during lateralization then previous session. The pt was provided with the following consistencies: thin liquids, puree, and minced and moist textures. He completed single and sequential sips of thin liquids via cup and straw without any concerns, though noted increased effort and need to concentrate during sequential sips as well as sips via straw. Oral phase is characterized by slow bolus manipulation with pt reporting increased effort, though appeared organized. Complete oral clearance. Small amount of labial escape noted with liquids. Pharyngeal phase cannot be assessed at bedside though subjectively appeared effortful and pt required 1-2 swallows per bolus at times. Pt demonstrated inconsistent s /sx of aspiration with both puree and minced and moist textures re: immeidate post- swallow strong coughing. Cough strength is judged to be strong at this time. Aspiration risk appears moderate given intermittent overt s/sx of aspiration with ongoing change to overall medical condition. Recommend continuation of minced and moist texture diet, thin liquids, and meds in puree carrier as tolerated. Reviewed education that he continues to be at an overall increased risk of development of PNA d/t his multiple medical diagnoses, number of medications, overt s/sx of aspiration, difficulty with motor control/coordination for oral care and self-feeding, and compromised immune system/ health status. Reviewed recommended safe swallow precautions to reduce the risk of aspiration. Pt with good ability to consistently implement small bites/sips, slow rate, and upright positioning during PO intake in session. He reports he has been completing oral care TID. Recommended he continue to complete oral care TID with assistance as needed to minimize colonization of bacteria in oral cavity and reduce risk of aspiration PNA. Pt expressed understanding of education and is agreeable to recommendations. Recommend MBSS in house given change to swallowing function to further assess swallowing pathophysiology in order to determine treatment plan. Further goals will be established based on MBSS results. RN and MD notified of recommendations and expressed understanding. Dr. Moreno, hospitalist, placed MBSS order . Notified dignostic imaging on this date, though MBSS may need to be completed in outpatient setting due to scheduling limitations at this time. The IDDSI Framework Protocol: IDDSI.1 Assessment Patient Response to Treatment Good Rehab Potential Good Recommendations Recommendations Continue Current Diet Liquids Order Thin (IDDSI 0) Diet Order Minced & Moist (IDDSI 5) Medication Recommendations Whole in Carrier,One at a Time Additional Dietary Needs Single Sips,No Straws,1:1 Assistance,Encourage to Self- Feed,Reminders to Use Strategies Aspiration Precautions Recommended Precautions Upright at 90 Degrees,Small Bites/Sips,Liquids from Cup Treatment Plan Placement Recommendation after Discharge Custodial Facility, Inpatient Rehab Facility Appropriate for Continued Therapy Yes Therapy Recommendations Recommend MBSS in house to further assess swallow pathophysiology. Pt would benefit from discharge to inpatient rehab setting given good prognosis for improvement and pt motivation to participate in treatment. Dysphagia Goals STG 1: Patient will utilize safe swallowing strategies in 90% of opportunities with minimal verbal cues in order to consume safest and least restrictive diet. STG 2: Patient will tolerate IDDSI 5 with no clinical s/sx of aspiration in 100% of opportunities in order to consume least restrictive diet texture. STG 3: Patient will tolerate thin liquids with no overt s/ sx of aspiration in 100% of opportunities in order to consume least restrictive diet texture. STG 4: Patient will complete MBSS to further assess swallowing pathophysiology and next steps in POC. LTG: Patient will tolerate safest and most efficient diet with no clinical s/sx of aspiration or dysphagia in 100 % of opportunities in order to consume least restrictive diet and enhance overallomfort during functional eating and drinking. Follow Up Plan Will continue to follow up.
[2023-11-18] MEDS: ATORVASTATIN 20 MG TABLET 80 MG PO (21:13)
[2023-11-19] VITALS (12 sets, daily range): BP systolic 112–171; BP diastolic 58–87; PULSE 75–87; RESP 14–20; TEMP 36.1–36.7; O2SAT 93–97
[2023-11-19] MEDS: TRAZODONE 50 MG TABLET PO (00:34)
[2023-11-19 05:07] LABS: Add Manual Diff / Slide Review NO; Basophils Absolute Auto 100 /uL (0-100); Basophils Percent Auto 0.7 % (0-2); Eosinophils Absolute Auto 400 /uL (0-450); Eosinophils Percent Auto 4.7 % (2-4); Hematocrit 38.1 % (41-53); Hemoglobin 13.2 g/dL (13.5-17.5); Lymphocytes Absolute Auto 1900 /uL (1100-4500); Lymphocytes Percent Auto 23.1 % (25-40); Mean Corpuscular HGB Conc 34.6 % (30-36); Mean Corpuscular Hemoglobin 35.8 PG (26-34); Mean Corpuscular Volume 103.5 fL (80-100); Monocytes Absolute Auto 1300 /uL (0-900); Monocytes Percent Auto 15.5 % (3-14); Neutrophils Absolute Auto 4700 /uL (1500-7000); Platelet Count 179 X10^3/uL (150-400); Red Blood Cell Count 3.68 X10^6/uL (4.5-5.9); Red Cell Distribution Width 15.7 % (11.6-14.8); White Blood Cell Count 8.4 X10^3/uL (4.5-11.0)
[2023-11-19 05:15] LABS: Alanine Aminotransferase 79 IU/L (<50); Albumin Globulin Ratio 1.5 (1.0-2.8); Alkaline Phosphatase 41 U/L (38-126); Aspartate Aminotransferase 78 IU/L (17-59); Bilirubin Total 1.9 mg/dL (0.2-1.3); Blood Urea Nitrogen 18 mg/dL (9-20); Calcium 8.9 mg/dL (8.4-10.2); Carbon Dioxide 25 mmol/L (22-32); Chloride 106 mmol/L (98-107); Estimated Glomerular Filt Rate > 60 mL/min (>60); Globulin 2.6 g/dL (1.7-4.1); Glucose 103 mg/dL (80-110); HEMOLYSIS < 15 (0-50); Magnesium 2.3 mg/dL (1.6-2.3); Sodium 136 mmol/L (137-145); Total Protein 6.6 g/dL (6.3-8.2)
[2023-11-19] MEDS: levETIRAcetam 250 MG TABLET PO ×2 (09:01→21:59)
[2023-11-19] MEDS: ESCITALOPRAM 10 MG TABLET PO (09:01)
[2023-11-19] MEDS: ASPIRIN EC 81 MG TABLET PO (09:01)
[2023-11-19] MEDS: ENOXAPARIN 40 MG/0.4 ML SYRINGE SUBCUT (09:01)
[2023-11-19] MEDS: SODIUM CHLORIDE 0.9% FLUSH 10 ML IV ×2 (09:01→22:00)
--- NOTE | 2023-11-19 12:15 | DI.CT.S_ITS ---
PROCEDURE: CT HEAD/BRAIN WO CON INDICATIONS: change in mental status TECHNIQUE: Noncontrast 4.5 mm thick angled axial sections acquired from the foramen magnum to the vertex, with coronal and sagittal reformats. For radiation dose reduction, the following was used: automated exposure control, adjustment of mA and/or kV according to patient size. COMPARISON: [facility], CT, CT HEAD/BRAIN WO CON, 11/16/2023, 8:00. [facility], CT, CT HEAD/BRAIN WO CON, 11/15/2023, 13:47. [facility], CT, CT ANGIO HEAD AND NECK, 11/15/2023, 13:47. [facility], MR, MR HEAD/BRAIN WO CON, 11/16/2023, 10:41. FINDINGS: Image quality: Diagnostic. CSF spaces: Basal cisterns are patent. No extra-axial fluid collections. The ventricles are symmetric in size and shape. Brain: There is a developing infarction within the left right lobe deep white matter, continuing into the left basal ganglia. No findings of hemorrhagic transformation can be seen. No intracranial masses. There is cerebral volume loss for age, with resultant ventricular and sulcal prominence. There are periventricular and deep white matter chronic small vessel ischemic changes. There is intracranial internal carotid artery atherosclerosis. Skull and face: Calvarium and visualized facial bones appear intact, without suspicious lesions. Sinuses: Visualized sinuses and mastoids are clear. IMPRESSION: Developing left-sided infarction. No hemorrhagic transformation can be seen. Dictated by: Ad Hayden M.D. on 11/19/2023 at 12:53 Approved by: Ad Hayden M.D. on 11/19/2023 at 12:54
--- NOTE | 2023-11-19 12:18 | PC.NURSE ---
Pt asked staff Am I going to today? This RN went to the provider right away who ordered a head CT w/o contrast.
--- NOTE | 2023-11-19 13:01 | SLP.IPNOTE ---
Treatment session attempted in the afternoon. Spoke with RN who reported change in overall condition as well as consistent coughing with thin liquids. Pt is now NPO per RN orders given decline with swallowing function with head CT ordered. Pt minimally responsive with decreased alertness noted, and session not attempted further. MBSS scheduled in-house for Thursday (11/22) at 11:00 am, which is the earliest availability. Will follow-up tomorrow pending pt status and head CT results.
--- NOTE | 2023-11-19 13:49 | CM.DPC ---
DCP Acute Rehab vs SNF Cont: Per MD, pt seems to have reversed in his progress and not improving as anticipated and CT of his brain obtained and no current bleed or medical concerns with his imaging at this time. anticipates pt likely here through the weekend if swallow test still needed and not available until Thu. ST recommending MBS which is not available until Thu11/23/23. PT/OT hopeful pt can tolerate Acute Rehab. SW spoke to pt bedside and he is able to respond appropriately and his preference remains Acute Rehab if his insurance will auth. Pt confirms his sister Kenyetta and his niece are flying in this afternoon from [place] to be bedside and assist with d/c planning. SW called [facility] Acute admissions Danielle and she confirms that currently their next available bed is 11/22 but that she could submit for insurance auth by tomorrow Thursday if pt to be here through the weekend. SW called [facility] Acute admissions and they confirm that they also are having some staffing (COVID+) issues and therefore likely no bed for a few days as well but willing to review in case something opens sooner. ADRIEN Silvestre faxed new referral for review. SW left msg for Danielle at [facility] to see if any further therapy notes or prog notes needed towards submitting auth. Plan: SW to follow closely for pt's family to arrive bedside this evening for assist in coordinating d/c plan and confirmation if [facility] is submitting auth before the weekend and backup plan of SNF ([facility] or [facility]) if Acute not an option but would need to submit for SNF auth before the weekend. STANTON Gorman
--- NOTE | 2023-11-19 14:13 | PT.IPTN ---
Current Diagnoses Cerebral infarction, unspecified (11/16/23) Physical Therapy Treatment Note M2 PT-IP Current Condition Start: 11/16/23 10:34 Freq: NEEDED Status: Active Protocol: Document 11/16/23 11:25 MB (Rec: 11/16/23 11:53 MB [id number]) Physical Therapy Current Condition Current Condition Evaluation Date 11/16/23 Treatment Diagnosis CVA M3 PT-IP Subjective Start: 11/16/23 10:34 Freq: NEEDED Status: Active Protocol: Document 11/19/23 14:44 TS (Rec: 11/19/23 14:58 TS [id number]) Subjective Physical Therapy Visit Type Type Treatment Note Visit Start Time 14:13 Visit Stop Time 14:43 Number of [employer] Visits 1 Physical Therapy Visit Comments Patient Comments Pt found resting in bed, has slurred speech, R side is weaker today. Pt is agreeable to PT. M4 PT-IP Mobility and Gait Start: 11/16/23 10:34 Freq: NEEDED Status: Active Protocol: Document 11/19/23 14:44 TS (Rec: 11/19/23 14:58 TS [id number]) PT-Bed Mobility Assessment Rolling Level of Assist Maximal Assistance,1 Person Assistance Supine to Sit Supine to Sit Maximum Assistance,2 Person Assistance Sit to Supine Sit to Supine Maximum Assistance,2 Person Assistance Scooting Scooting to Edge of Bed Moderate Assistance Scooting Up and Down in Bed Maximum Assistance PT-Transfer Assessment Comments Mobility Comments Pt performed logroll to R side with MaxA x1. Supine to sit MaxA x2, pt cued for pushing through LUE. Pt sat EOB, performed knee flex/ext with PROM on R side and practiced sitting balance. Pt initially agreed to attempt standing but he felt too fatigued and requested back to bed. Pt was brought back to bed MaxA x2. Pt was left in bed, all needs met, nursing in room. PT-Balance Assessment Sitting Balance and Reactions Static Sitting Balance Ability Fair Dynamic Sitting Balance Ability Poor Comments Other Balance Tests/Deviations/Treatment Pt maintained sitting balance : CGA/Chris, cues provided for RUE support. M5 PT-IP Objective Assessments Start: 11/16/23 10:34 Freq: NEEDED Status: Active Protocol: Document 11/16/23 11:25 MB (Rec: 11/16/23 12:01 MB [id number]) Orientation Orientation/Cognition Level of Alertness Alert Orientation Name,Age,Birthday,Month,Year, Place,Situation Language Function Ability No Deficits Noted Safety Awareness Understands Safety Issues Memory Description No Deficits Noted Gross Range of Motion Upper Extremity ROM Impairments Defer to OT, right arm does not swing as much with gait Lower Extremity ROM Assessment Within Functional Limits Strength Lower Extremity Strength Assessment Within Functional Limits Comments Strength Comments B LEs, strength is 5/5 in hip flexion, knee extension, ankle DF and great toe extension on evaluation date Coordination Assessment Assessment Foot Tapping Test Normal Performance Heel on Vo Test Normal Performance Coordination Comments Defer UEs to OT Sensation Assessment Sensation Gross Sensation WNL Comments Sensation Comments Defer UEs to OT Muscle Tone Muscle Tone WNL Yes M6 PT-IP Treatment Start: 11/16/23 10:34 Freq: NEEDED Status: Active Protocol: Document 11/19/23 14:44 TS (Rec: 11/19/23 14:58 TS [id number]) Physical Therapy Treatment Education Education Provided Safety M7 PT-IP Assessment and Plan Start: 11/16/23 10:34 Freq: NEEDED Status: Active Protocol: Document 11/19/23 14:44 TS (Rec: 11/19/23 14:58 [id number]) PT Summary Assessment and Plan Potential Rehabilitation Potential Fair Summary Impairments Pain,ROM,Strength,Balance, Coordination,Sensation,Tone, Cognition,Bed Mobility, Transfers,Gait,Activity Tolerance Progress Towards Goals Slow Progress due to Medical Issues,Slow Progress - Other Assessment Summary Fantasma is making slow progress with his mobility. He is MaxA for all bed mobility with max cues. He maintains sitting balance and midline EOB with CGA/Chris. R side continues to be weak with very little movement. PT is recommending SNF rehab at this time. Goals Bed Mobility Goal Minimal Assistance Transfer Goal Minimal Assistance,Front Wheeled Walker Gait Goal Minimal Assistance,Front Wheel Walker Gait Distance 25 Other Goals to improve bed mobility, transfers and ambulation using FWW SBA ~ 100 ft Days to Meet Goals 10 Frequency of Treatment Frequency Of Treatment Once a Day Treatment Plan Physical Therapy Treatment Plan Bed Mobility Training,Transfer Training,Gait Training, Therapeutic Exercise,Balance Retraining,Discharge Planning, Hot or Cold Pack,Neuromuscular Re-ed,Coordination Retraining ,Manual Therapy Precautions Other Precautions falls Weight Bearing Status Weight Bearing Status Weight Bear as Tolerated Recommendations To Nursing Amount of Assist Needed Mechanical Lift Discharge Recommendations PT Discharge Recommendations SNF Rehab Transportation Needs at Discharge Stretcher/Ambulance
--- NOTE | 2023-11-19 14:18 | PM.PN.1 ---
Subjective Subjective Interval history: 83 M admitted with a left basal ganglia stroke. Again he states his weakness is worse today, no shaking was noted. He is more tired. Today his face is more affected, had has even worse weakness of his R side. He told the nurses he felt like he wasn't going to make it. Given continued decline ordered CT head to rule out hemorrhagic conversion, but nothing noted. No OPTICAL INSTRUMENT ASSEMBLY SUPERVISOR available today, they would like to review swallow but not available until thursday. May qualify for acute rehab, but also not available until Thursday. Exam Vital Signs (past 8 hours): - 11/19/23 08:00 11/19/23 09:00 11/19/23 12:20 Temperature 97.4 F L 98.1 F Pulse Rate 75 79 Respiratory Rate 14 18 Blood Pressure 137/77 171/58 H Pulse Oximetry 95 94 93 Oxygen Delivery Method Room Air Oxygen Flow Rate 0 0 11/19/23 13:22 Temperature Pulse Rate Respiratory Rate Blood Pressure Pulse Oximetry 93 Oxygen Delivery Method Room Air Oxygen Flow Rate 0 Oxygen Delivery Method Room Air Oxygen Flow Rate 0 Narrative Exam Narrative: General:? Patient is well developed and well nourished, in no distress at this time. HEENT:? Normocephalic, atraumatic, extraocular muscles intact, oral pharynx is clear and mucous membranes are moist. Neck: supple and symmetric, trachea is midline, no cervical adenopathy. Negative for JVD Chest:? Normal AP diameter and contour without kyphoscoliosis, no tachypnea, equal chest rise bilaterally. Lungs:? CTA b/l no wheezing rhonchi or rales. Cardio:?RRR no m/r/g. Abdomen: S NT ND. No CVA tenderness. Musculoskeletal:? Muscle strength and tone are equal within normal limits, no deformity. Extremities: No edema or joint effusions. No cyanosis or clubbing. Skin:? Pale,? Warm to touch,dry and intact without rashes, ulcerations or petechiae.? Neuro:? Alert and orientated x3,? sensation to touch intact in all extremities, no gross deficits noted of cranial nerves. Mild R facial droop with smile only, mild dysarthria, R arm and R leg now 2-3/5 strength, again weaker compared to yesterday Psych:? Patient has a well-kept appearance, appropriate affect, mental status attitude thought context and judgment are appropriate for age. Objective Labs 11/19/23 04:38 11/19/23 04:38 Labs: Laboratory Results - last 24 hr 11/19/23 04:38 WBC 8.4 RBC 3.68 L Hgb 13.2 L Hct 38.1 L MCV 103.5 H MCH 35.8 H MCHC 34.6 RDW 15.7 H Plt Count 179 Neut % (Auto) 56.0 Lymph % (Auto) 23.1 L [place] % (Auto) 15.5 H Eos % (Auto) 4.7 H Baso % (Auto) 0.7 Neut # (Auto) 4700 Lymph # (Auto) 1900 [place] # (Auto) 1300 H Eos # (Auto) 400 Baso # (Auto) 100 Sodium 136 L Potassium 4.0 Chloride 106 Carbon Dioxide 25 BUN 18 Creatinine 1.06 Estimated GFR > 60 BUN/Creatinine Ratio 17.0 Glucose 103 Calcium 8.9 Magnesium 2.3 Total Bilirubin 1.9 H AST 78 H ALT 79 H Alkaline Phosphatase 41 Total Protein 6.6 Albumin 4.0 Globulin 2.6 Albumin/Globulin Ratio 1.5 PFSH Medical History Depression Tear of meniscus of knee Inguinal hernia Surgical History Hx of tonsillectomy Social History household members: none Smoking Status: Former smoker alcohol intake: current Assessment & Plan Assessment & Plan narrative: 1. CVA, acute, present on admission with possible metabolic encephalopathy and related focal seizure. - continue monitoring with tele, though no prior hx of afib and has had multiple prior holters without arrythmia noted. - MR showing an acute L basal ganglia infarct - Continues to decline nearly every morning since admission. Checked CT head this AM to rule out hemorrage which was negative but now showed his developing stroke. Swallow also worsening and OPTICAL INSTRUMENT ASSEMBLY SUPERVISOR would like to perform an MBS but not available until 11/22. - PT/OT/OPTICAL INSTRUMENT ASSEMBLY SUPERVISOR evaluations will repeat given worsening. Ideally would attempt acute rehab if he can qualify. - ESR and CRP unremarkable - A1c 5.6%. and lipid panel with TG 201, TC 182, LDL 101 and HDL 41. TSH normal. Started on statin therapy. - possible development of small seizure activity on 11/17. started low dose keppra given high likelihood of post stroke focal seizures. - confusion may have been a result of the trazodone for sleep, or in setting of seizure / stroke. He was quite tired this AM, changed to PRN, will reduce dose to 25 mg from 50 mg. 2., hypertension - continue to monitor, with waxing and waning symptoms neurology recommended slow initiation of antihypertensive and longer permissive HTN for now. If stable symptoms for 24 hours can start antihypertensives. 3. Macrocytosis - b12 level normal. - continue outpatient workup, was reportedly started on oral supplementation after PCP recommendations. 4. Depression - continue home escitalopram 5. Elevated LFT and bilirubin - no abdominal pain, may be medication related, given mild increase continue to follow only. Repeat studies tomorrow again but slight improvement today. Code: Full, surrogate is patient's sister DVT: Lovenox daily I have utilized all available immediate resources to obtain, update, or review the patient's current medications. Dispo: patient admitted under inpatient status. Ideally discharge to acute rehab vs SNF, likely in several more days. No barium swallow ability until Wednesday 11/22. Additional history obtained via discussions with bedside staff, case management, PT and OT teams. These discussions contributed to the creation of the above assessment and plan. I have reviewed patient's documentation, labs, and imaging personally. Time-Based Coding :: [TOTAL MINUTES] spent with patient and on the chart (including review of chart, obtaining history, exam, reviewing outside data, placing orders, documenting exam and treatment plan, and counseling patient) on [DATE].
--- NOTE | 2023-11-19 14:43 | OT.IP.TRT ---
Current Diagnoses Cerebral infarction, unspecified (11/16/23) Occupational Therapy Treatment Note M2 OT-IP Current Condition Start: 11/16/23 12:31 Freq: Status: Active Protocol: Document 11/17/23 14:01 [facility] (Rec: 11/17/23 14:16 [facility] [id number]) Occupational Therapy Current Condition Current Condition Evaluation Date 11/17/23 Treatment Diagnosis MRI: Acute lacunar infarction, left basal ganglia, feet feel heavy Diagnosis Onset Date 11/16/23 M3 OT- IP Subjective and Pain Start: 11/16/23 12:31 Freq: Status: Active Protocol: Document 11/19/23 14:49 [facility] (Rec: 11/19/23 15:03 [facility] [id number]) OT- Subjective Occupational Therapy Visit Type Type Treatment Note Visit Start Time 14:13 Visit Stop Time 14:43 Occupational Therapy Visit Comments Patient Comments Pt agreeable to try to sit to the edge of the bed. Patient/Caregiver Goals To get better. M5 OT- IP IADL's Start: 11/16/23 12:31 Freq: Status: Active Protocol: Document 11/17/23 14:01 [facility] (Rec: 11/17/23 14:16 [facility] [id number]) OT-Instrumental Activities of Daily Living Home Safety Awareness Awareness of Need for Assistance at Home Good Awareness Ability to Problem Solve Emergency Able to Problem Solve Situations Driving Driving Concerns Identified Regarding Safety M6 OT- IP Functional Cognition Start: 11/16/23 12:31 Freq: Status: Active Protocol: Document 11/19/23 14:49 [facility] (Rec: 11/19/23 15:03 [facility] [id number]) Cognitive Factors Limiting Selfcare Function Cognitive Ability Level of Alertness Alert Patient Orientation Name,Age,Birthday,Month,Date, Year,Day of Week,Place, Situation Attention Span Ability Capable of Focused Attention, Capable of Sustained Attention Ability to Follow Commands Able to Follow One Step Commands Cognitive Comments Cognitive Assessment Comments Pt able to follow commands well and participate well. Pt still able to recall SLUMS questions from the past 2 days . M7 OT- IP Mobility and Balance Start: 11/16/23 12:31 Freq: Status: Active Protocol: Document 11/19/23 14:49 [facility] (Rec: 11/19/23 15:03 [facility] [id number]) OT- Bed Mobility Assessment Supine to Sit Supine to Sit Assist Maximum Assistance,2 Person Assistance Sit to Supine Sit to Supine Assist Total Assistance,2 Person Assistance OT-Transfer Assessment Comments Mobility Comments BP supine 118/68, sitting 130/ 76 and 122/82. MAX AX 2 assist to help get his trunk upright . MAX AX 2 to assist to scoot forwards. OT- Balance Assessment Sitting Balance and Reactions Static Sitting Balance Ability Poor Dynamic Sitting Balance Ability Poor Comments Other Balance Tests/Deviations/Treatment Pt able to sit to midline : after set-up and [place] for balance and to hold his right hand in place on the bed. M8 OT- IP Objective Assessments Start: 11/16/23 12:31 Freq: Status: Active Protocol: Document 11/19/23 14:49 [facility] (Rec: 11/19/23 15:03 [facility] [id number]) OT Gross Range of Motion Upper Extremity Range of Motion Assessment Right Impaired OT Strength Upper Extremity Strength Assessment Right Impaired Shoulder 1 Elbow 1+ Forearm 1 Wrist 0 Hand 0 Comments Strength Comments Pt increased weakness in his RUE today. OT Sensation Assessment Comments Summary Comments Decreased sensation at his right shoulder and right hand. M9 OT- IP Assessment and Plan Start: 11/16/23 12:31 Freq: Status: Active Protocol: Document 11/19/23 14:49 [facility] (Rec: 11/19/23 15:03 [facility] [id number]) OT Summary Assessment and Plan Potential Rehabilitation Potential Good Analytic Complexity at Evaluation Moderate Summary OT Impairments Range of Motion,Strength, Balance,Coordination, Functional Mobility,Self- Feeding,Grooming,Dressing, Toileting,Bathing,Toilet Transfers,Shower Transfers, Activity Tolerance Progress Towards Goals Slow Progress due to Medical Issues Assessment Summary Pt per CT scan developing left sided infarction. Noted increased weakness on right side trace movement RUE. Decreased sensation in his right shoulder and hand. Pt hopefully able to do acute rehab but at this time decreased activity tolerance, and function for right side for RUE/RLE. At this time skilled rehab may be more appropriate , continue to follow and assess. Goals Self-Feeding Goal Independent Grooming Goal Independent Dressing Goal Minimal Assistance Toileting Goal Minimal Assistance Bathing Goal Moderate Assistance Toilet Transfer Goal Minimal Assistance Shower Transfer Goal Moderate Assistance Days to Meet Goals 30 Frequency of Treatment Other frequency 5x/week Treatment Plan OT Treatment Plan ADL Training,Functional Mobility,Neuromuscular Re- education,Therapeutic Exercises,Patient/Family Education,Discharge Planning Discharge Recommendations OT Discharge Recommendations SNF Rehab,SNF vs Acute Rehab Transportation Needs at Discharge Stretcher/Ambulance
[2023-11-19] MEDS: TRAZODONE 50 MG TABLET 25 MG PO (22:00)
[2023-11-19] MEDS: ATORVASTATIN 20 MG TABLET 80 MG PO (22:00)
[2023-11-20] VITALS (12 sets, daily range): BP systolic 113–138; BP diastolic 74–80; PULSE 78–92; RESP 16–18; TEMP 36.1–36.6; O2SAT 93–97
[2023-11-20] MEDS: CYCLOBENZAPRINE 10 MG TABLET 5 MG PO ×2 (00:32→20:54)
[2023-11-20] MEDS: ACETAMINOPHEN 325 MG TABLET 650 MG PO (03:54)
--- NOTE | 2023-11-20 08:10 | PM.PN.1 ---
Subjective Subjective Interval history: Interval summary: 83 M admitted with a stroke. Each morning his symptoms have progressed. He has a left basal ganglia infarct that is likely evolving. Discussed with tele-stroke and unfortunately there was nothing they could do. only recommend asa and statin. Was hopeful for acute rehab but likely snf due to worsening symptoms. Also started on keppra for probable focal seizures on his R side yesterday. Repeated head CT which showed no hemorrhage 11/18. S: He was able to swallow his medication with applesauce. He denies any shortness a breath. He was unable to move his right arm or right leg. He has a dense right hemiparesis. Exam Vital Signs (past 8 hours): - 11/20/23 01:00 11/20/23 03:10 11/20/23 05:00 Temperature 97.4 F L Pulse Rate 84 Respiratory Rate 17 Blood Pressure 123/74 Pulse Oximetry 93 95 95 Oxygen Delivery Method Room Air Room Air Oxygen Flow Rate 0 0 0 Oxygen Delivery Method Room Air Oxygen Flow Rate 0 Narrative Exam Narrative: NAD, alert and oriented. Fluent speech. Lungs are clear, normal rate and effort. Heart is regular, no murmur gallop or rub. Abdomen is soft, non distended. Extremities are free of edema. He has a dense right hemiparesis. Dysarthria. Objective Labs 11/19/23 04:38 11/19/23 04:38 [facility] Medical History Depression Tear of meniscus of knee Inguinal hernia Surgical History Hx of tonsillectomy Social History household members: none Smoking Status: Former smoker alcohol intake: current Assessment & Plan Assessment & Plan narrative: 1. CVA, acute, present on admission and related focal seizure. , present on admission and active. - continue monitoring with tele, though no prior hx of afib and has had multiple prior holters without arrythmia noted. - MR showing an acute L basal ganglia infarct - Continues to decline nearly every morning since admission. Checked CT head this AM to rule out hemorrage which was negative but now showed his developing stroke. Swallow also worsening and REHABILITATION CASE COORDINATOR would like to perform an MBS but not available until 11/22. - PT/OT/REHABILITATION CASE COORDINATOR evaluations will repeat given worsening. Ideally would attempt acute rehab if he can qualify. - ESR and CRP unremarkable - A1c 5.6%. and lipid panel with TG 201, TC 182, LDL 101 and HDL 41. TSH normal. Started on statin therapy. - possible development of small seizure activity on 11/17. started low dose keppra given high likelihood of post stroke focal seizures. - confusion may have been a result of the trazodone for sleep, or in setting of seizure / stroke. He was quite tired this AM, changed to PRN, will reduce dose to 25 mg from 50 mg. 2. Hypertension, present on admission and stable. - continue to monitor, with waxing and waning symptoms neurology recommended slow initiation of antihypertensive and longer permissive HTN for now. If stable symptoms for 24 hours can start antihypertensives. 3. Macrocytosis, present on admission and stable. - b12 level normal. - continue outpatient workup, was reportedly started on oral supplementation after PCP recommendations. 4. Depression, present on admission and stable. - continue home escitalopram 5. Elevated LFT and bilirubin, present on admission and stable. - no abdominal pain, may be medication related, given mild increase continue to follow only. Repeat studies tomorrow again but slight improvement. PLAN: -not suitable for inpatient rehab. -will look for SNF. Code: Full, surrogate is patient's sister DVT: Lovenox daily Time-Based Coding :: 20 min spent with patient and on the chart (including review of chart, obtaining history, exam, reviewing outside data, placing orders, documenting exam and treatment plan, and counseling patient) on 11/19.
[2023-11-20] MEDS: SODIUM CHLORIDE 0.9% FLUSH 10 ML IV ×2 (09:06→20:56)
[2023-11-20] MEDS: ENOXAPARIN 40 MG/0.4 ML SYRINGE SUBCUT (09:06)
[2023-11-20] MEDS: levETIRAcetam 250 MG TABLET PO ×2 (09:07→20:54)
[2023-11-20] MEDS: ESCITALOPRAM 10 MG TABLET PO (09:07)
[2023-11-20] MEDS: BACLOFEN 10 MG TABLET PO ×2 (09:07→15:32)
[2023-11-20] MEDS: ASPIRIN EC 81 MG TABLET PO (09:07)
--- NOTE | 2023-11-20 11:55 | PT.IPTN ---
Current Diagnoses Cerebral infarction, unspecified (11/16/23) Physical Therapy Treatment Note M2 PT-IP Current Condition Start: 11/16/23 10:34 Freq: NEEDED Status: Active Protocol: Document 11/16/23 11:25 [facility] (Rec: 11/16/23 11:53 MB [id number]) Physical Therapy Current Condition Current Condition Evaluation Date 11/16/23 Treatment Diagnosis CVA M3 PT-IP Subjective Start: 11/16/23 10:34 Freq: NEEDED Status: Active Protocol: Document 11/20/23 11:55 [facility] (Rec: 11/20/23 13:46 AB [id number]) Subjective Physical Therapy Visit Type Type Treatment Note Visit Start Time 11:55 Visit Stop Time 12:30 Number of EARTHMOVING PLANT OPERATOR Visits 0 Physical Therapy Visit Comments Patient Comments agreeable to do PT M4 PT-IP Mobility and Gait Start: 11/16/23 10:34 Freq: NEEDED Status: Active Protocol: Document 11/20/23 11:55 [facility] (Rec: 11/20/23 13:46 AB [id number]) PT-Bed Mobility Assessment Supine to Sit Supine to Sit Maximum Assistance,2 Person Assistance,Head of Bed Elevated Scooting Scooting to Edge of Bed Maximum Assistance PT-Transfer Assessment Sit to and From Stand Sit to and from Stand Maximum Assistance,2 Person Assistance,Use of Upper Extremities Equipment Transfer Assistive Device Gait Belt,Large Based Quad Cane Orthotic/Prosthetic Devices or Brace: No Comments Mobility Comments pt supine in bed and agreeable to do PT. co-tx conducted with OT due pt's complex level of care. BP in supine: 113/75. completed supine to sit max A x 2 and max cues. initial mod A for sitting balance on EOB. min to mod A after repositioning but with max cues for correcting body position and increase midline awareness. c/o dizziness. BP checked: 107/82. pt required max A x 1-2 for scooting to EOB. completed sit to stand max A x 2 and max cues. max A x 2 for standing balance using WBQC. hemiwalker unavailable during PT session. required RLE stabilization to prevent knee from buckling. repeated x 2. pt continues to c/o dizziness. BP: 106/82. pt requested to lay back in bed. max A x 2 for side scooting towards HOB. max A x 2 for sit to supine. positioned pt on the bed. Left pt with OT. M5 PT-IP Objective Assessments Start: 11/16/23 10:34 Freq: NEEDED Status: Active Protocol: Document 11/16/23 11:25 [facility] (Rec: 11/16/23 12:01 [facility] [id number]) Orientation Orientation/Cognition Level of Alertness Alert Orientation Name,Age,Birthday,Month,Year, Place,Situation Language Function Ability No Deficits Noted Safety Awareness Understands Safety Issues Memory Description No Deficits Noted Gross Range of Motion Upper Extremity ROM Impairments Defer to OT, right arm does not swing as much with gait Lower Extremity ROM Assessment Within Functional Limits Strength Lower Extremity Strength Assessment Within Functional Limits Comments Strength Comments B LEs, strength is 5/5 in hip flexion, knee extension, ankle DF and great toe extension on evaluation date Coordination Assessment Assessment Foot Tapping Test Normal Performance Heel on Vo Test Normal Performance Coordination Comments Defer UEs to OT Sensation Assessment Sensation Gross Sensation WNL Comments Sensation Comments Defer UEs to OT Muscle Tone Muscle Tone WNL Yes M6 PT-IP Treatment Start: 11/16/23 10:34 Freq: NEEDED Status: Active Protocol: Document 11/20/23 11:55 [facility] (Rec: 11/20/23 13:46 AB [id number]) Physical Therapy Treatment Education Education Provided Safety M7 PT-IP Assessment and Plan Start: 11/16/23 10:34 Freq: NEEDED Status: Active Protocol: Document 11/20/23 11:55 [facility] (Rec: 11/20/23 13:46 AB [id number]) PT Summary Assessment and Plan Potential Rehabilitation Potential Fair Summary Impairments Pain,ROM,Strength,Balance, Coordination,Sensation,Tone, Bed Mobility,Transfers,Gait, Activity Tolerance Progress Towards Goals Slow Progress - Other Assessment Summary pt requiring max A x 2 for bed mobility and sit to stand. pt requiring max A x 2 for standing balance and max A to stabilize RLE from buckling. pt will require SNF rehab to improve overall mobility. Goals Bed Mobility Goal Minimal Assistance Transfer Goal Minimal Assistance Gait Goal Minimal Assistance,Bud Walker Gait Distance 25 Other Goals to improve bed mobility, transfers and ambulation using FWW SBA ~ 100 ft Days to Meet Goals 10 Frequency of Treatment Frequency Of Treatment Once a Day Treatment Plan Physical Therapy Treatment Plan Bed Mobility Training,Transfer Training,Gait Training, Therapeutic Exercise,Balance Retraining,Discharge Planning, Hot or Cold Pack,Neuromuscular Re-ed,Coordination Retraining ,Manual Therapy Precautions Other Precautions falls Recommendations To Nursing Amount of Assist Needed Mechanical Lift Discharge Recommendations PT Discharge Recommendations SNF Rehab Transportation Needs at Discharge Wheelchair/Cabulance,Stretcher /Ambulance
--- NOTE | 2023-11-20 12:38 | OT.IP.TRT ---
Current Diagnoses Cerebral infarction, unspecified (11/16/23) Occupational Therapy Treatment Note M2 OT-IP Current Condition Start: 11/16/23 12:31 Freq: Status: Active Protocol: Document 11/17/23 14:01 [facility] (Rec: 11/17/23 14:16 [facility] [id number]) Occupational Therapy Current Condition Current Condition Evaluation Date 11/17/23 Treatment Diagnosis MRI: Acute lacunar infarction, left basal ganglia, feet feel heavy Diagnosis Onset Date 11/16/23 M3 OT- IP Subjective and Pain Start: 11/16/23 12:31 Freq: Status: Active Protocol: Document 11/20/23 13:01 [facility] (Rec: 11/20/23 13:17 [facility] [id number]) OT- Subjective Occupational Therapy Visit Type Type Treatment Note Visit Start Time 11:58 Visit Stop Time 12:38 Occupational Therapy Visit Comments Patient Comments Pt agreed to get up, able to work with PT due to pt's extensive needs. Spoke to nursing aid regarding pt getting SCD as pt not able to move his RLE. Hospitalist states to put in orders for SCD's Patient/Caregiver Goals TO get better. M4 OT- IP ADL's Start: 11/16/23 12:31 Freq: Status: Active Protocol: Document 11/17/23 14:01 [facility] (Rec: 11/17/23 14:16 [facility] [id number]) OT [id number] Comments OT Self-Feeding Comments Pt not able to eat with his right hand and having to use his left hand. Called the kitchen to request large handled utensils for pt to use . OT ADL-Grooming Comments OT Grooming Comments Not performed. OT ADL-Oral Care Comments Oral Care Comments Not performed. OT ADL-Dressing General Eval Lower Body Dressing Ability Maximum Assistance Areas Needing Assistance Socks Comments OT Dressing Comments Pt having difficulty to grasp his socks with his right hand and needing hand over hand assist so able to use his right hand to assist to radha his socks while sitting on the edge of the bed. OT ADL-Toileting Comments OT Toileting Comments NOt performed. OT ADL-Bathing Comments OT Bathing Comments Pt will need assist. M5 OT- IP IADL's Start: 11/16/23 12:31 Freq: Status: Active Protocol: Document 11/17/23 14:01 [facility] (Rec: 11/17/23 14:16 [facility] [id number]) OT-Instrumental Activities of Daily Living Home Safety Awareness Awareness of Need for Assistance at Home Good Awareness Ability to Problem Solve Emergency Able to Problem Solve Situations Driving Driving Concerns Identified Regarding Safety M6 OT- IP Functional Cognition Start: 11/16/23 12:31 Freq: Status: Active Protocol: Document 11/20/23 13:01 [facility] (Rec: 11/20/23 13:17 [facility] [id number]) Cognitive Factors Limiting Selfcare Function Cognitive Ability Level of Alertness Alert Cognitive Comments Cognitive Assessment Comments Pt a able to follow commands well for therapy needs. M7 OT- IP Mobility and Balance Start: 11/16/23 12:31 Freq: Status: Active Protocol: Document 11/20/23 13:01 [facility] (Rec: 11/20/23 13:17 [facility] [id number]) OT- Bed Mobility Assessment Supine to Sit Supine to Sit Assist Maximum Assistance,2 Person Assistance Sit to Supine Sit to Supine Assist Total Assistance,2 Person Assistance OT-Transfer Assessment Comments Mobility Comments BP slight drop after standing down to 107/76 and seated was 111/84, pt states feeling a little woozy. Pt needing assist to block and control his RLE and having tucked his RUE in the gait belt and assist for balance and to hold the quad cane in place so able to stand. Pt able to scoot up to the head of the bed with MAX AX 2 for positioning and balance. OT- Balance Assessment Sitting Balance and Reactions Static Sitting Balance Ability Fair Dynamic Sitting Balance Ability Poor Standing Balance and Reactions Static Standing Balance Ability Poor Comments Other Balance Tests/Deviations/Treatment Pt able to sit to midline : after positioning of his right hand on the bed. Noted increased tome in his right hand and wrist. M8 OT- IP Objective Assessments Start: 11/16/23 12:31 Freq: Status: Active Protocol: Document 11/20/23 13:01 [facility] (Rec: 11/20/23 13:17 [facility] [id number]) OT Strength Upper Extremity Strength Assessment Right Impaired Shoulder 1 Elbow 1 Forearm 1 Wrist 0 Hand 0 Comments Strength Comments Noted tone in pt's right hand and wrist today. OT-Muscle Tone Assessment Muscle Tone WNL No Comments Muscle Tone Comments 1+ in pt's right hand for tone OT Sensation Assessment Comments Summary Comments Decreased sensation at right forearm and fingertips. M9 OT- IP Assessment and Plan Start: 11/16/23 12:31 Freq: Status: Active Protocol: Document 11/20/23 13:01 [facility] (Rec: 11/20/23 13:17 [facility] [id number]) OT Summary Assessment and Plan Potential Rehabilitation Potential Good Analytic Complexity at Evaluation High Summary OT Impairments Range of Motion,Strength, Balance,Coordination, Functional Mobility,Self- Feeding,Grooming,Dressing, Toileting,Bathing,Toilet Transfers,Shower Transfers, Activity Tolerance Progress Towards Goals Progressing Toward Goals Assessment Summary Pt very motivated, pleasant and aware of his deficits. Pt now NPO and to have a NG tube placed at this time. Pt actively participating in therapy today and able to stand with MAX AX 2 with quad cane. Pt would greatly benefit from acute rehab as cognitively intact and willing and motivated to get better. However pending medical needs, may need SNF. Goals Self-Feeding Goal Independent Grooming Goal Independent Dressing Goal Minimal Assistance Toileting Goal Minimal Assistance Bathing Goal Moderate Assistance Toilet Transfer Goal Minimal Assistance Shower Transfer Goal Moderate Assistance Days to Meet Goals 30 Frequency of Treatment Other frequency 5x/week Treatment Plan OT Treatment Plan ADL Training,Functional Mobility,Neuromuscular Re- education,Therapeutic Exercises,Patient/Family Education,Discharge Planning Discharge Recommendations OT Discharge Recommendations Acute Rehab,SNF vs Acute Rehab Transportation Needs at Discharge Wheelchair/Cabulance
--- NOTE | 2023-11-20 12:48 | CM.DPC ---
DCP Continued: Reviewed EMR and team rounds for pt?s medical status. Per rounds, pt more appropriate for SNF Rehab at this time. DCP entered room, discussed the recommendations by team with patient. Patient agreeable to SNF Rehab referrals being sent to pre-discussed facilities ([facility] and [facility]). Pt requested to send referrals to both while awaiting possible barium swallow test on Thursday, no stated preference for either facility. PASRR pre-completed and with pt's facesheet. Plan: Anticipating discharge to SNF Rehab in [place] ([facility] vs. [facility]), Pending SNF acceptance. CM Team will continue to follow for coordination of discharge plans. ISRRAEL Varghese
--- NOTE | 2023-11-20 13:05 | ST.IPDYTX ---
Visit Care Team Role Provider Type Quan New DO Primary Care Provider Physician Specialty: Family Practice Address: [address] [place] [address], [id number] Email: [email or web address] Emergency Provider Physician Specialty: Emergency Medicine Address: [address] [place] [address], [id number] Email: [email or web address] Admit Provider Physician Attending Provider Specialty: Internal Medicine Address: [address] [place] [address], [id number] Email: [email or web address] [email or web address] OPERATOR Dysphagia Treatment PAPER COATING MACHINE OPERATOR Dysphagia Treatment Start: 11/17/23 16:10 Freq: Status: Active Protocol: Document 11/20/23 12:22 SS (Rec: 11/20/23 13:00 SS [id number]) Dysphagia Treatment Session Time Visit Start Time 10:45 Visit Stop Time 11:40 Total Visit Minutes 55 Visit Information Visit Number 3 Setting Assessment Location Acute Care Visit Type Note Type Treatment Note Next Note Type Next Note Type Treatment Note Patient Information Identification Type Name Subjective Observations Head CT completed yesterday showing evolving L basal ganglia infarct. RN reported that pt demonstrated delayed cough with intake of medications in puree carrier as well as coughing with no PO intake and explained she was concerned for aspiration of secretions during the night. Pt reclined in bed upon PAPER COATING MACHINE OPERATOR arrival and agreeable to treatment session. Pt's family who live out of state were at bedside and expressed they will stay at least untill Thursday. Informally, cognitive function appeared to be at baseline, though mild dysarthria remains. Treatment Liquids Trialed Ice chips,Thin (IDDSI 0) Solids Trialed Purred (IDDSI 4) Administration Type Tea Spoon,Dependent Feeding Oral Strategies Upright at 90 degrees, Controlled Bite/Sip Size Pharyngeal Strategies Sitting Upright (90 deg),Small Bites and Sips Treatment Activities Consulted RN prior to entering pt?s room. She expressed that pt has had poor appetite today. Only PO intake has been medications via puree carrier with delayed cough demonstrated per RN report. Upon arrival, pt was alert and consistently responded to questions, though appeared to be fatigued. He followed single step commands well. Assisted pt in completing oral care prior to any PO trials in order to minimize bacterial accumulation in oral cavity and reduce risk of development of aspiration PNA. Provided education on the importance of through oral care prior and after and PO intake given high aspiration risk. Pt expressed understanding. Provided the following consistencies: ice chips, water via tsp, and puree via tsp. Oral phase was characterized by slow bolus manipulation and appeared disorganized. Oral clearance was complete, though small amount of labial escape noted. Pharyngeal phase cannot be objectively assessed at bedside though subjectively appeared effortful and pt required 2-3 swallows per bolus at times. Pt demonstrated consistent s/sx of aspiration with all PO re: throat clearing and prolonged coughing. Cough strength is judged to be weak increasing aspirated related complications. Currently, he presents with indications of oropharyngeal dysphagia and aspiration risk is judged to be high. Pt does not appear safe for a PO diet at this time with exception of a free water protocol to promote oral hygiene and reduce risk of swallow strength decompensation. In house MBSS scheduled for this Thursday to further assess swallow pathophysiology. Discussed observations with pt and his family. They expressed they were agreeable to NPO status with plan for daily monitoring until MBSS can be completed. Discussed evidence in support of initiating a Free Water Protocol, including systematic review revealing that the implementation of a free water protocol did not result in increased odds of lung complications (aspiration pneumonia), provided patients did not have degenerative decline and ?reasonably intact ? cognition. Explained that pt must be sitting fully upright , have completed thorough oral care immediately prior, have supervision, and consume water only via tsp to control sip size. Pt and his family agreeable to initiation of free water protocol. Order for NPO with FWP placed. Discussed re-assessment results with RN and MD, Dr. Reed. RN expressed understanding of NPO recommendation with FWP as well as recommendation for thorough oral care 3-4 times daily. discussed current swallowing function with pt and his family and placed order for NG-tube. Notified weekend on-call PAPER COATING MACHINE OPERATOR of pt?s current swallowing function and need for monitoring. The IDDSI Framework Protocol: IDDSI.1 Assessment Patient Response to Treatment Fair Rehab Potential Fair Recommendations Recommendations Downgrade Diet Order Diet Order NPO Medication Recommendations Not Recommended by Mouth Comments NPO with exception of free water protocol. NG tube ordered by MD. Additional Dietary Needs 1:1 Supervision Aspiration Precautions Recommended Precautions Upright at 90 Degrees Additional Precautions Free water protocol: water only via tsp after oral care Treatment Plan Placement Recommendation after Discharge Usp Facility, Inpatient Rehab Facility Appropriate for Continued Therapy Yes Therapy Recommendations Recommend MBSS in house to further assess swallow pathophysiology (scheduled for Wednesday 11/22). NPO with free water protocol (water only via tsp after thorough oral care, pt must sit upright and have supervision). Recommend ongoing tx to monitor swallowing function and implement safe swallowing strategies following completion of MBSS. Dysphagia Goals STG 1: Patient will utilize safe swallowing strategies in 90% of opportunities with minimal verbal cues in order to consume safest and least restrictive diet. STG 2: Patient will tolerate IDDSI 4 (puree) with no clinical s/sx of aspiration in 100% of opportunities in order to consume least restrictive diet texture. STG 3: Patient will tolerate thin liquids with no overt s/ sx of aspiration in 100% of opportunities in order to consume least restrictive diet texture. STG 4: Patient will complete MBSS to further assess swallowing pathophysiology and next steps in POC. LTG: Patient will tolerate safest and most efficient diet with no clinical s/sx of aspiration or dysphagia in 100 % of opportunities in order to consume least restrictive diet and enhance overallomfort during functional eating and drinking.
[2023-11-20] MEDS: TETRACAINE/BENZOCAINE/BUTAMBEN (CETACAINE) BOTTLE 1 SPRAY TOP (13:15)
--- NOTE | 2023-11-20 13:22 | DI.RAD.S_ITS ---
PROCEDURE: XR CHEST 1V INDICATIONS: post dobhoff placement TECHNIQUE: One view of the chest was acquired. COMPARISON: [facility], CR, XR CHEST 1V, 11/16/2023, 7:59. [facility], CR, XR CHEST 1V, 11/15/2023, 13:44. FINDINGS: Surgical changes and devices: Weighted tip feeding tube appears folded on itself and located with the tip of the fold at the esophagogastric junction. Lungs and pleura: Lungs are clear. No pleural effusions or pneumothorax. Mediastinum: Mediastinal contours appear normal. Heart size is normal. Bones and chest wall: No suspicious bony lesions. Overlying soft tissues appear unremarkable. IMPRESSION: Feeding tube should be advanced into the gastric lumen to attempt to resolve the folding of the distal aspect of the feeding tube just proximal to the weighted tip. As discussed the fold tip is at the EG junction. Dictated by: Tang Rome M.D. on 11/20/2023 at 13:57 Approved by: Tang Rome M.D. on 11/20/2023 at 13:58
--- NOTE | 2023-11-20 14:48 | DI.RAD.S_ITS ---
PROCEDURE: XR CHEST 1V INDICATIONS: dobhoff placement - repositioned ng tube for placement TECHNIQUE: One view of the chest was acquired. COMPARISON: [facility], CR, XR CHEST 1V, 11/20/2023, 13:23. FINDINGS: Surgical changes and devices: Feeding tube in the stomach Lungs and pleura: Lungs are clear. No pleural effusions or pneumothorax. Mediastinum: Mediastinal contours appear normal. Heart size is normal. Bones and chest wall: No suspicious bony lesions. Overlying soft tissues appear unremarkable. IMPRESSION: Well-positioned feeding tube in the stomach Approved by: Sabas Moscoso M.D. on 11/20/2023 at 17:17
--- NOTE | 2023-11-20 15:04 | PC.NURSE ---
dobhoff inserted to right nare; xr done and tube advanced and secured; 2nd xr done and Dr Reed verified position; stylet removed; pt tolerated well; dobhoff secured at approx 63cm
--- NOTE | 2023-11-20 15:07 | DIET.CONS2 ---
Dietary Inpatient Consultation Note Admission Date: 11/16/2023 08:45 Pt with new dense R hemiparesis r/t stroke referred to nutrition as hospitalist ordered enteral feeding via NG due to ongoing swallowing difficulty. Pt to have MBSS on Thursday with speech therapy. Recc continuous EN via NG of formula Jevity 1.2 over 24h. Goal rate 70mL/h with 175mL free water flushes q4h. Pt high risk for aspiration with bolus or cyclic EN, plan for continuous EN at lower volume with pt HOB >30 degrees at all time. Recc starting enteral feed at 20mL/h increasing by 10mL/h q6h as tolerated until reaching goal. Goal feed and flushes provide: 2500mL fluids (30ml/kg), 2,016kcals (24kcal/kg), 93g PRO (1.3g/kg). Diet: 11/20/23 11:40 NPO Diet Diet Modifications: NPO Type: NPO Free Water Protocol Nutrition Percent Meal Consumed pt ref breakfast 11/20/23 10:00 Percent Meal Consumed 50% 11/19/23 18:00 Percent Meal Consumed 10 11/19/23 09:28 Percent Meal Consumed 100% 11/18/23 18:00 Electronically Signed by: Ai Abel 11/20/23 15:07 Clinical Diet[address] [address]
--- NOTE | 2023-11-20 18:08 | PC.NURSE ---
pt failed follow up swallow eval today via speech therapy; dobhoff inserted, verified by xr, and tube feeding started; right arm and leg remain flaccid; pt was having large muscle twitching to right arm/shoulder, that was improved with Baclofen; pt has not voided and bladder scan was done w/ 425ml in bladder; pt reports only voiding 2-3 times daily at home; Dr Reed notified; will do bladder scans and straight caths prn
[2023-11-20] MEDS: ATORVASTATIN 20 MG TABLET 80 MG PO (20:54)
[2023-11-20] MEDS: TRAZODONE 50 MG TABLET 25 MG PO (20:54)
--- NOTE | 2023-11-20 22:22 | PC.NURSE ---
Addendum entered by Shaquille Medina R.N. 11/21/23 06:40: Pt groin has excoriation on both sides of groin, barrier cream applied, Pt is incontinent of urine/bowel using brief and condom cath to prevent skin break down. Addendum entered by Shaquille Medina R.N. 11/21/23 04:16: Patient NG Feeding rate adjusted to 40mL/hr, at 0355. Pt reassessed 25 minutes later and patient tolerating well. Addendum entered by Shaquille Medina R.N. 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 Repositioning required more than q2, due to patient constantly moving in bed. Original Note: veterinary hospital shift lead At 2150 NG tube feed rate adjusted to 30mL/hr. Patient reassessed 30 minutes later and is tolerating increase well.
[2023-11-21] VITALS (10 sets, daily range): BP systolic 114–123; BP diastolic 73–77; PULSE 72–80; RESP 16–20; TEMP 36.1–36.6; O2SAT 92–96
[2023-11-21] MEDS: ACETAMINOPHEN 325 MG TABLET 650 MG PO ×2 (03:33→08:42)
[2023-11-21] MEDS: BACLOFEN 10 MG TABLET PO (03:33)
[2023-11-21 05:40] LABS: BUN Creatinine Ratio 22.3 (6-22); Blood Urea Nitrogen 23 mg/dL (9-20); Calcium 9.2 mg/dL (8.4-10.2); Carbon Dioxide 21 mmol/L (22-32); Chloride 105 mmol/L (98-107); Estimated Glomerular Filt Rate > 60 mL/min (>60); Glucose 128 mg/dL (80-110); HEMOLYSIS < 15 (0-50); Potassium 4.2 mmol/L (3.4-5.1); Sodium 135 mmol/L (137-145)
[2023-11-21 06:02] LABS: Hematocrit 41.2 % (41-53); Hemoglobin 14.3 g/dL (13.5-17.5); Mean Corpuscular HGB Conc 34.6 % (30-36); Mean Corpuscular Volume 104.1 fL (80-100); Platelet Count 179 X10^3/uL (150-400); Red Blood Cell Count 3.96 X10^6/uL (4.5-5.9); Red Cell Distribution Width 15.3 % (11.6-14.8); White Blood Cell Count 7.6 X10^3/uL (4.5-11.0)
[2023-11-21 06:05] LABS: Neutrophils Absolute Manual 5016 /uL (3000-5900); Total Cells Counted 100
[2023-11-21 06:06] LABS: RBC Morphology Normal Morphology
--- NOTE | 2023-11-21 08:21 | P.PN_ITS ---
Subjective Subjective Interval history: Interval summary: 83 M admitted with a stroke. Each morning his symptoms have progressed. He has a left basal ganglia infarct that is likely evolving. Discussed with tele-stroke and unfortunately there was nothing they could do. only recommend asa and statin. Was hopeful for acute rehab but likely snf due to worsening symptoms. Also started on keppra for probable focal seizures on his R side yesterday. Repeated head CT which showed no hemorrhage 11/18. S: He was doing well today. His right arm and leg are still weak. His speaking is more clear. He did not have a swallow re-evaluation today because he was somnolent earlier today. Exam Vital Signs (past 8 hours): - 11/21/23 01:00 11/21/23 03:00 11/21/23 05:00 Temperature 97.5 F L Pulse Rate 77 Respiratory Rate 20 Blood Pressure 115/77 Pulse Oximetry 96 93 96 Oxygen Delivery Method Room Air Room Air Oxygen Delivery Method Room Air Oxygen Flow Rate 0 Narrative Exam Narrative: NAD, alert and oriented. Fluent speech. Lungs are clear, normal rate and effort. Heart is regular, no murmur gallop or rub. Abdomen is soft, non distended. Extremities are free of edema. * Dysarthria (improved) and dense right hemiparesis. Objective Labs 11/21/23 04:30 11/21/23 04:30 Labs: Laboratory Results - last 24 hr 11/21/23 04:30 WBC 7.6 RBC 3.96 L Hgb 14.3 Hct 41.2 MCV 104.1 H MCH 36.0 H MCHC 34.6 RDW 15.3 H Plt Count 179 Total Counted 100 Seg Neutrophils % 65.0 Band Neutrophils % 1.0 L Lymphocytes % (Manual) 20.0 L Monocytes % (Manual) 11.0 Eosinophils % (Manual) 3.0 Neutrophils # (Manual) 5016 RBC Morphology Normal morphology Sodium 135 L Potassium 4.2 Chloride 105 Carbon Dioxide 21 L BUN 23 H Creatinine 1.03 Estimated GFR > 60 BUN/Creatinine Ratio 22.3 H Glucose 128 H Calcium 9.2 PFSH Medical History Depression Tear of meniscus of knee Inguinal hernia Surgical History Hx of tonsillectomy Social History household members: none Smoking Status: Former smoker alcohol intake: current Assessment & Plan Assessment & Plan narrative: 1. CVA, acute, present on admission and active. - continue monitoring with tele, though no prior hx of afib and has had multiple prior holters without arrythmia noted. - MR showing an acute L basal ganglia infarct 2. Hypertension, present on admission and stable. - monitor. . 3. Macrocytosis, present on admission and stable. - no further MARQUEZ in hospital. 4. Depression, present on admission and stable. - continue home escitalopram. 5. Elevated LFT and bilirubin, present on admission and stable. - no abdominal pain, may be medication related, given mild increase continue to follow only. Repeat studies tomorrow again but slight improvement. PLAN: -not suitable for inpatient rehab. -will look for SNF. -stop Keppra -continue enteral feeding through a nasal feeding tube, reassess his swallow on a daily basis. Modified barium swallow on Thursday. Code: Full, surrogate is patient's sister DVT: Lovenox daily Time-Based Coding :: 20 min spent with patient and on the chart (including review of chart, obtaining history, exam, reviewing outside data, placing orders, documenting exam and treatment plan, and counseling patient) on 11/20.
[2023-11-21] MEDS: ASPIRIN 81 MG CHEW TAB PO (08:40)
[2023-11-21] MEDS: SODIUM CHLORIDE 0.9% FLUSH 10 ML IV ×2 (08:42→21:25)
[2023-11-21] MEDS: ENOXAPARIN 40 MG/0.4 ML SYRINGE SUBCUT (08:42)
[2023-11-21] MEDS: ESCITALOPRAM 10 MG TABLET PO (08:42)
--- NOTE | 2023-11-21 10:30 | ST.IPDYTX ---
Visit Care Team Role Provider Type Quan New DO Primary Care Provider Physician Specialty: Family Practice Address: [address] [place] [address], [id number] Email: [email or web address] DO Emergency Provider Physician Specialty: Emergency Medicine Address: [address] [place] [address], [id number] Email: [email or web address] Moreno DO Admit Provider Physician Attending Provider Specialty: Internal Medicine Address: [address] [place] [address], [id number] Email: [email or web address] ADJUNCT INSTRUCTOR CHEMISTRY Dysphagia Treatment ADJUNCT INSTRUCTOR CHEMISTRY Dysphagia Treatment Start: 11/17/23 16:10 Freq: Status: Active Protocol: Document 11/21/23 10:10 MG (Rec: 11/21/23 10:29 MG [id number]) Dysphagia Treatment Session Time Visit Start Time 09:20 Visit Stop Time 09:45 Total Visit Minutes 25 Visit Information Visit Number 4 Setting Assessment Location Acute Care Visit Type Note Type Treatment Note Next Note Type Next Note Type Treatment Note Patient Information Identification Type Name,ID Wristband Subjective Observations Pt was resting in bed upon ADJUNCT INSTRUCTOR CHEMISTRY entry. Pt was arousable to participate but was noted to doze off frequently during treatment session. Treatment Treatment Activities Due to pt's fatigue level and inability to remain alert, no PO trials were given at this time. ADJUNCT INSTRUCTOR CHEMISTRY went over questions the pt had about upcoming MBSS . ADJUNCT INSTRUCTOR CHEMISTRY conducted oral motor examination and laryngeal palpation. Pt continues to exhibit overall weakness. Discussed oral motor exercises and conducted them with the pt. Pt was receptive to practicing with ADJUNCT INSTRUCTOR CHEMISTRY and independently throughout the day. No further questions from the pt upon ADJUNCT INSTRUCTOR CHEMISTRY exit. Debriefed with RN after treatment session. The IDDSI Framework Protocol: IDDSI.1 Assessment Patient Response to Treatment Fair Rehab Potential Fair Assessment of Improvement Pt should continue to be NPO with FWP in place. MBSS will yield more information to determine safest diet and update plan of care upon discharge. Recommendations Recommendations Continue Current Diet Liquids Order Thin (IDDSI 0) Diet Order NPO Medication Recommendations Not Recommended by Mouth Comments NPO with exception of free water protocol. NG tube ordered by MD. Additional Dietary Needs 1:1 Supervision Aspiration Precautions Recommended Precautions Upright at 90 Degrees Additional Precautions Free water protocol: water only via tsp after oral care Treatment Plan Placement Recommendation after Discharge Fpc Facility, Inpatient Rehab Facility Appropriate for Continued Therapy Yes Therapy Recommendations Recommend MBSS in house to further assess swallow pathophysiology (scheduled for Wednesday 11/22). NPO with free water protocol (water only via tsp after thorough oral care, pt must sit upright and have supervision). Recommend ongoing tx to monitor swallowing function and implement safe swallowing strategies following completion of MBSS. Dysphagia Goals STG 1: Patient will utilize safe swallowing strategies in 90% of opportunities with minimal verbal cues in order to consume safest and least restrictive diet. STG 2: Patient will tolerate IDDSI 4 (puree) with no clinical s/sx of aspiration in 100% of opportunities in order to consume least restrictive diet texture. STG 3: Patient will tolerate thin liquids with no overt s/ sx of aspiration in 100% of opportunities in order to consume least restrictive diet texture. STG 4: Patient will complete MBSS to further assess swallowing pathophysiology and next steps in POC. LTG: Patient will tolerate safest and most efficient diet with no clinical s/sx of aspiration or dysphagia in 100 % of opportunities in order to consume least restrictive diet and enhance overallomfort during functional eating and drinking. Follow Up Plan Will continue to follow up.
--- NOTE | 2023-11-21 11:17 | PT-IP ANOTE ---
Per nursing pt is not appropriate for PT at this time. Pt has been sleeping all morning and is having difficulty staying awake.
--- NOTE | 2023-11-21 11:46 | PC.NURSE ---
Addendum entered by Meenu Telles R.N. 11/21/23 18:54: tube feeding set changed at 1810. continues at 40ml/hr as pt abdomen soft but mildly distended and now complaining of gas pain. notified of the same and is agreeable to keep feed rate as it is. Original Note: tube feeding 1100 tube feeding has been running at 40ml/hr. HOB maintained at 30 degrees. abdomen mildly distended. will hold off on increasing feed rate (as goal is 70ml/hr) for now. Continue to reassess.
--- NOTE | 2023-11-21 13:45 | CM.DPNOTE ---
Addendum entered by Shavon Ivan, STANTON 11/21/23 15:41: ADD: Vani at [facility] started auth through [employer] on Thursday. Vani plans to check in with this CM team Thursday re securing this auth and admission date. Original Note: DCP Cont According to Nicole at [facility], patient appears to have an [place] of [place] plan. Insurance auth has been stalled because website/portal lists [facility] as out of network. Nicole willing to call this insurance company Thursday to investigate further, potentially ask for a one time contract (?) Meanwhile, for Vani at [facility] asking for her input. MBS scheduled Thursday, if patient fails this, goals of care conversation will be needed. Medical plan of care continues to unfold. Attempting SNF placement. Likely [facility] vs [facility]. CM team following closely. SHELLI
--- NOTE | 2023-11-21 14:30 | PT.IPTN ---
Current Diagnoses Cerebral infarction, unspecified (11/16/23) Physical Therapy Treatment Note M2 PT-IP Current Condition Start: 11/16/23 10:34 Freq: NEEDED Status: Active Protocol: Document 11/16/23 11:25 MB (Rec: 11/16/23 11:53 MB [id number]) Physical Therapy Current Condition Current Condition Evaluation Date 11/16/23 Treatment Diagnosis CVA M3 PT-IP Subjective Start: 11/16/23 10:34 Freq: NEEDED Status: Active Protocol: Document 11/21/23 14:30 AB (Rec: 11/21/23 15:31 AB [id number]) Subjective Physical Therapy Visit Type Type Treatment Note Visit Start Time 14:30 Visit Stop Time 14:57 Number of PASSPORT APPLICATION EXAMINER Visits 0 Physical Therapy Visit Comments Patient Comments agreeable to do PT M4 PT-IP Mobility and Gait Start: 11/16/23 10:34 Freq: NEEDED Status: Active Protocol: Document 11/21/23 14:30 AB (Rec: 11/21/23 15:31 AB [id number]) PT-Bed Mobility Assessment Supine to Sit Supine to Sit Maximum Assistance,1 Person Assistance,2 Person Assistance ,Head of Bed Elevated,Bedrails PT-Transfer Assessment Sit to and From Stand Sit to and from Stand Maximum Assistance,2 Person Assistance,Use of Upper Extremities Equipment Transfer Assistive Device Gait Belt,Bud Walker Orthotic/Prosthetic Devices or Brace: No Transfers Transfer Destination Chair Transfer Technique Stand Step Pivot Transfer Ability Level of Assist Maximum Assistance,2 Person Assistance,Use of Upper Extremities Comments Mobility Comments pt supine in bed. NG tube on. pt agreeable to do PT. Nurse and NAC in room to assist. pt completed supine to sit with HOB elevated max A x 1-2 and max cues. completed sit to stand from EOB max A x 2 and max cues using hemiwalker. able to stand for ~ 20 sec max A for stability and needed max A for preventing R knee from buckling. pt able to stand for ~ 3 sec with R knee stable but unable to sustain too long to prevent knee from giving out needing max A. pt also presents with slight trunk drift to the R and needs max A to reposition and max cues to correct . pt sat back on chair. agreed to transfer to chair. positioned chair towards L side of pt. pt completed sit to stand max A x2 and max cues and step transfer to chair using hemiwalker max A x 2 and max cues. max A needed to stabilize R knee. positioned pt on the chair. call light and table placed within reach. M5 PT-IP Objective Assessments Start: 11/16/23 10:34 Freq: NEEDED Status: Active Protocol: Document 11/16/23 11:25 MB (Rec: 11/16/23 12:01 MB [id number]) Orientation Orientation/Cognition Level of Alertness Alert Orientation Name,Age,Birthday,Month,Year, Place,Situation Language Function Ability No Deficits Noted Safety Awareness Understands Safety Issues Memory Description No Deficits Noted Gross Range of Motion Upper Extremity ROM Impairments Defer to OT, right arm does not swing as much with gait Lower Extremity ROM Assessment Within Functional Limits Strength Lower Extremity Strength Assessment Within Functional Limits Comments Strength Comments B LEs, strength is 5/5 in hip flexion, knee extension, ankle DF and great toe extension on evaluation date Coordination Assessment Assessment Foot Tapping Test Normal Performance Heel on Vo Test Normal Performance Coordination Comments Defer UEs to OT Sensation Assessment Sensation Gross Sensation WNL Comments Sensation Comments Defer UEs to OT Muscle Tone Muscle Tone WNL Yes M6 PT-IP Treatment Start: 11/16/23 10:34 Freq: NEEDED Status: Active Protocol: Document 11/21/23 14:30 AB (Rec: 11/21/23 15:31 AB [id number]) Physical Therapy Treatment Education Education Provided Safety M7 PT-IP Assessment and Plan Start: 11/16/23 10:34 Freq: NEEDED Status: Active Protocol: Document 11/21/23 14:30 AB (Rec: 11/21/23 15:31 AB [id number]) PT Summary Assessment and Plan Potential Rehabilitation Potential Fair Summary Impairments Pain,ROM,Strength,Balance, Coordination,Sensation,Tone, Cognition,Bed Mobility, Transfers,Gait,Activity Tolerance Progress Towards Goals Slow Progress - Other Assessment Summary pt requiring max A x 2 with sit to stand and was able to step transfer using hemiwalker to chair max A x 2 and max cues. pt continues to require max A to stabilize R knee and prevent from buckling. pt will benefit from SNF rehab to improve overall strength and mobility. Goals Bed Mobility Goal Minimal Assistance Transfer Goal Minimal Assistance Gait Goal Minimal Assistance,Bud Walker Gait Distance 25 Other Goals to improve bed mobility, transfers and ambulation using FWW SBA ~ 100 ft Days to Meet Goals 10 Frequency of Treatment Frequency Of Treatment Once a Day Treatment Plan Physical Therapy Treatment Plan Bed Mobility Training,Transfer Training,Gait Training, Therapeutic Exercise,Balance Retraining,Discharge Planning, Hot or Cold Pack,Neuromuscular Re-ed,Coordination Retraining ,Manual Therapy Precautions Other Precautions falls Recommendations To Nursing Amount of Assist Needed Mechanical Lift Discharge Recommendations PT Discharge Recommendations SNF Rehab Transportation Needs at Discharge Wheelchair/Cabulance,Stretcher /Ambulance
--- NOTE | 2023-11-21 21:01 | PC.NURSE ---
power and recovery shift engineer Patient complained of abdominal pain, patient states he has not been able to pass gas all day. MD Green notified, verbal order to stop tube feeding until 0500, abdominal xray put in for 0500 then restart feeding at 40mL/hr. And start IV fluid of NS at 75 continues.
[2023-11-21] MEDS: SODIUM CHLORIDE 0.9% 1,000 ML 75 ML IV (21:24)
[2023-11-22] VITALS (10 sets, daily range): BP systolic 131–147; BP diastolic 63–85; PULSE 70–86; RESP 14–18; TEMP 36.2–37.1; O2SAT 92–96
--- NOTE | 2023-11-22 05:00 | DI.RAD.S_ITS ---
PROCEDURE: XR KUB INDICATIONS: retention TECHNIQUE: One view of the abdomen acquired. COMPARISON: None. FINDINGS: Surgical changes and devices: Nasogastric tube appears appropriately positioned. Bowel: Bowel gas pattern is nonobstructive. Soft tissues: No suspicious abdominal calcifications. Visualized solid organ contours appear normal in size. Bones: No suspicious bony lesions. IMPRESSION: Nonobstructive bowel gas pattern. Dictated by: Micky Mckee M.D. on 11/22/2023 at 7:56 Approved by: Micky Mckee M.D. on 11/22/2023 at 7:57
--- NOTE | 2023-11-22 05:10 | PC.NURSE ---
Addendum entered by Shaquille Medina R.N. 11/22/23 06:40: Pt had a very large BM soft/pasty consistency. Pt stated much relief and was able to fall asleep immediately after having BM. Original Note: user support analyst bladder scan, showed 490mL, patient attempted to urinate. unable to , straight cath in/out and able to with drawl 425mL. Patient tolerated very well.
[2023-11-22 05:12] LABS: Hematocrit 40.4 % (41-53); Hemoglobin 14.1 g/dL (13.5-17.5); Mean Corpuscular Hemoglobin 36.3 PG (26-34); Mean Corpuscular Volume 103.7 fL (80-100); Platelet Count 194 X10^3/uL (150-400); Red Blood Cell Count 3.89 X10^6/uL (4.5-5.9); Red Cell Distribution Width 15.5 % (11.6-14.8); White Blood Cell Count 9.1 X10^3/uL (4.5-11.0)
[2023-11-22 05:17] LABS: BUN Creatinine Ratio 21.5 (6-22); Blood Urea Nitrogen 20 mg/dL (9-20); Calcium 8.7 mg/dL (8.4-10.2); Carbon Dioxide 22 mmol/L (22-32); Chloride 104 mmol/L (98-107); Estimated Glomerular Filt Rate > 60 mL/min (>60); Glucose 101 mg/dL (80-110); HEMOLYSIS 21 (0-50); Potassium 4.3 mmol/L (3.4-5.1); Sodium 136 mmol/L (137-145)
[2023-11-22 06:10] LABS: Neutrophils Absolute Manual 5187 /uL (3000-5900); Total Cells Counted 100
[2023-11-22 06:11] LABS: Macrocytosis 1+
--- NOTE | 2023-11-22 07:55 | P.PN_ITS ---
Subjective Subjective Interval history: S: A little more depressed today. No improvement of right arm and leg paresis. Speech is still slurred in about the same as yesterday. Exam Vital Signs (past 8 hours): - 11/22/23 01:00 11/22/23 03:47 11/22/23 05:00 Temperature 98.8 F Pulse Rate 70 Respiratory Rate 18 Blood Pressure 134/63 Pulse Oximetry 93 92 95 Oxygen Delivery Method Room Air Room Air Oxygen Delivery Method Room Air Oxygen Flow Rate 0 Narrative Exam Narrative: Exam Narrative: NAD, alert and oriented. Fluent speech. Lungs are clear, normal rate and effort. Heart is regular, no murmur gallop or rub. Abdomen is soft, non distended. Extremities are free of edema. * Dysarthria (improved) and dense right hemiparesis. Objective Labs 11/22/23 04:30 11/22/23 04:30 Labs: Laboratory Results - last 24 hr 11/22/23 04:30 WBC 9.1 RBC 3.89 L Hgb 14.1 Hct 40.4 L MCV 103.7 H MCH 36.3 H MCHC 35.0 RDW 15.5 H Plt Count 194 Total Counted 100 Seg Neutrophils % 54.0 Band Neutrophils % 3.0 Lymphocytes % (Manual) 27.0 Monocytes % (Manual) 13.0 H Eosinophils % (Manual) 3.0 Neutrophils # (Manual) 5187 RBC Morphology See below Macrocytosis 1+ H Sodium 136 L Potassium 4.3 Chloride 104 Carbon Dioxide 22 BUN 20 Creatinine 0.93 Estimated GFR > 60 BUN/Creatinine Ratio 21.5 Glucose 101 Calcium 8.7 PFSH Medical History Depression Tear of meniscus of knee Inguinal hernia Surgical History Hx of tonsillectomy Social History household members: none Smoking Status: Former smoker alcohol intake: current Assessment & Plan Assessment & Plan narrative: 1. CVA, acute, present on admission and active. - continue monitoring with tele, though no prior hx of afib and has had multiple prior holters without arrythmia noted. - MR showing an acute L basal ganglia infarct - persistant weakness. 2. Hypertension, present on admission and stable. - monitor. 3. Macrocytosis, present on admission and stable. - no further MARQUEZ in hospital. 4. Depression, present on admission and stable. - continue home escitalopram. 5. Elevated LFT and bilirubin, present on admission and stable. - no abdominal pain, may be medication related, given mild increase continue to follow only. Repeat studies tomorrow again but slight improvement. PLAN: -looking for SNF. -stopped Keppra 11/20. -continue enteral feeding through a nasal feeding tube, reassess his swallow on a daily basis. Modified barium swallow on Thursday. Code: Full, surrogate is patient's sister DVT: Lovenox daily Time-Based Coding :: 20 min spent with patient and on the chart (including review of chart, obtaining history, exam, reviewing outside data, placing orders, documenting exam and treatment plan, and counseling patient) on 11/21.
[2023-11-22] MEDS: ESCITALOPRAM 10 MG TABLET PO (10:26)
[2023-11-22] MEDS: ASPIRIN 81 MG CHEW TAB PO (10:26)
[2023-11-22] MEDS: TAMSULOSIN 0.4 MG CAPSULE PO (10:27)
[2023-11-22] MEDS: SODIUM CHLORIDE 0.9% FLUSH 10 ML IV ×2 (10:27→21:23)
[2023-11-22] MEDS: ENOXAPARIN 40 MG/0.4 ML SYRINGE SUBCUT (10:28)
--- NOTE | 2023-11-22 11:34 | PT.IPTN ---
Current Diagnoses Cerebral infarction, unspecified (11/16/23) Physical Therapy Treatment Note M2 PT-IP Current Condition Start: 11/16/23 10:34 Freq: NEEDED Status: Active Protocol: Document 11/16/23 11:25 MB (Rec: 11/16/23 11:53 MB [id number]) Physical Therapy Current Condition Current Condition Evaluation Date 11/16/23 Treatment Diagnosis CVA M3 PT-IP Subjective Start: 11/16/23 10:34 Freq: NEEDED Status: Active Protocol: Document 11/22/23 11:00 KS (Rec: 11/22/23 12:45 KS [id number]) Subjective Physical Therapy Visit Type Type Treatment Note Visit Start Time 11:00 Visit Stop Time 11:34 Number of QUALITY IMPROVEMENT ANALYST Visits 1 Physical Therapy Visit Comments Patient Comments agreeable to do PT Therapy Pain Assessment Pain When Pain Assessed At Rest Pain Present Pain Present Denied Pain M4 PT-IP Mobility and Gait Start: 11/16/23 10:34 Freq: NEEDED Status: Active Protocol: Document 11/22/23 11:00 KS (Rec: 11/22/23 12:45 KS [id number]) PT-Bed Mobility Assessment Supine to Sit Supine to Sit Moderate Assistance,1 Person Assistance,Head of Bed Elevated Sit to Supine Sit to Supine Moderate Assistance Scooting Scooting to Edge of Bed Moderate Assistance PT-Transfer Assessment Sit to and From Stand Sit to and from Stand Maximum Assistance,2 Person Assistance,Use of Upper Extremities Equipment Transfer Assistive Device Gait Belt,Bud Walker Orthotic/Prosthetic Devices or Brace: No Transfers Transfer Destination Bed Transfer Technique sit<>stand Transfer Ability Level of Assist Maximum Assistance,2 Person Assistance,Use of Upper Extremities Comments Mobility Comments Pt in bed w/ NG tube upon arrival. No use of RUE and RLE . Mod A for sup<>sit, pt able to use LLE to lift andpivot RLE out of bed. Mod A for scooting EOB and pt able to use handle on L to assist. BRANCH ACCOUNT MANAGER arrived for additional assistance. Max A x2 for sit<> stand, pt c/o dizziness and needed adjustment of BLE for better base of support. After seated rest break and repositioning pt denied dizziness and sit<>Stand Max A x2 again. Pt performed 3rd sit<>stand w/ FWW and stood ~ 15 seconds but only able to keep R knee from buckling for short intervals 2-3 seconds. Pt felt urge for bowel movement and required Mod A for sit<>sup/repositioning. Left w/ BRANCH ACCOUNT MANAGER. Gait Assessment Comments Gait Comments unable at this time. PT-Balance Assessment Sitting Balance and Reactions Static Sitting Balance Ability Good Dynamic Sitting Balance Ability Fair Standing Balance and Reactions Static Standing Balance Ability Poor Dynamic Standing Balance Ability Poor M5 PT-IP Objective Assessments Start: 11/16/23 10:34 Freq: NEEDED Status: Active Protocol: Document 11/16/23 11:25 MB (Rec: 11/16/23 12:01 MB [id number]) Orientation Orientation/Cognition Level of Alertness Alert Orientation Name,Age,Birthday,Month,Year, Place,Situation Language Function Ability No Deficits Noted Safety Awareness Understands Safety Issues Memory Description No Deficits Noted Gross Range of Motion Upper Extremity ROM Impairments Defer to OT, right arm does not swing as much with gait Lower Extremity ROM Assessment Within Functional Limits Strength Lower Extremity Strength Assessment Within Functional Limits Comments Strength Comments B LEs, strength is 5/5 in hip flexion, knee extension, ankle DF and great toe extension on evaluation date Coordination Assessment Assessment Foot Tapping Test Normal Performance Heel on Vo Test Normal Performance Coordination Comments Defer UEs to OT Sensation Assessment Sensation Gross Sensation WNL Comments Sensation Comments Defer UEs to OT Muscle Tone Muscle Tone WNL Yes M6 PT-IP Treatment Start: 11/16/23 10:34 Freq: NEEDED Status: Active Protocol: Document 11/22/23 11:00 KS (Rec: 11/22/23 12:45 OR [id number]) Physical Therapy Treatment Education Education Provided Safety M7 PT-IP Assessment and Plan Start: 11/16/23 10:34 Freq: NEEDED Status: Active Protocol: Document 11/22/23 11:00 KS (Rec: 11/22/23 12:45 OR [id number]) PT Summary Assessment and Plan Potential Rehabilitation Potential Fair Summary Impairments Pain,ROM,Strength,Balance, Coordination,Sensation,Tone, Cognition,Bed Mobility, Transfers,Gait,Activity Tolerance Progress Towards Goals Slow Progress - Other Assessment Summary Pt very motivated but limited by results of stroke/weakness. Required less overall assist for bed mobility today, but still requires MAx A x2 for standing balance. He can keep his R knee from buckling for 2 -3 seconds at a time, but fatigues quickly. Pt very hopeful for acute rehab and would benefit greatly. Goals Bed Mobility Goal Minimal Assistance Transfer Goal Minimal Assistance Gait Goal Minimal Assistance,Bud Walker Gait Distance 25 Other Goals to improve bed mobility, transfers and ambulation using FWW SBA ~ 100 ft Days to Meet Goals 10 Frequency of Treatment Frequency Of Treatment Once a Day Treatment Plan Physical Therapy Treatment Plan Bed Mobility Training,Transfer Training,Gait Training, Therapeutic Exercise,Balance Retraining,Discharge Planning, Hot or Cold Pack,Neuromuscular Re-ed,Coordination Retraining ,Manual Therapy Precautions Other Precautions falls Recommendations To Nursing Amount of Assist Needed Mechanical Lift Discharge Recommendations PT Discharge Recommendations SNF Rehab,Acute Rehab Transportation Needs at Discharge Wheelchair/Cabulance
--- NOTE | 2023-11-22 15:32 | CM.DPC ---
DCP Cont: Per MD, pt seemed to make a little progress today and awaiting scheduled MBS tomorrow to determine about pt's ability to swallow. Per DIRECTOR INSTRUMENTATION, pt seemed to be more alert and able to participate better today and back to recommending possible Acute Rehab pending progress with swallow tomorrow Thursday. STANTON Gorman
[2023-11-22] MEDS: ATORVASTATIN 20 MG TABLET 80 MG PO (21:24)
--- NOTE | 2023-11-22 23:29 | DI.RAD.S_ITS ---
PROCEDURE: XR CHEST 1V INDICATIONS: NGT PLACEMENT TECHNIQUE: One view of the chest was acquired. COMPARISON: [facility], CR, XR CHEST 1V, 11/20/2023, 14:50. [facility], CR, XR CHEST 1V, 11/20/2023, 13:23. FINDINGS: Surgical changes and devices: Nasogastric tube with tip projecting over the expected location of the stomach. Side port is near the GE junction and advancement is recommended. Lungs and pleura: Lungs are clear. No pleural effusions or pneumothorax. Mediastinum: Mediastinal contours appear normal. Heart size is normal. Bones and chest wall: No suspicious bony lesions. Overlying soft tissues appear unremarkable. IMPRESSION: Nasogastric tube with tip projecting over the expected location of the stomach. Side port is near the GE junction and advancement is recommended. Dictated by: Noé Castelan M.D. on 11/22/2023 at 23:44 Approved by: Noé Castelan M.D. on 11/22/2023 at 23:45
[2023-11-22] MEDS: TRAZODONE 50 MG TABLET 25 MG PO (23:57)
[2023-11-23] VITALS (10 sets, daily range): BP systolic 125–136; BP diastolic 61–86; PULSE 79–91; RESP 16–19; TEMP 36.4–37.1; O2SAT 93–95
[2023-11-23] MEDS: CYCLOBENZAPRINE 10 MG TABLET 5 MG PO ×2 (00:42→20:58)
--- NOTE | 2023-11-23 03:28 | PC.NURSE ---
dobhoff obstructed and unable to clear obstruction; Dr Jolly notified; dobhoff discontinued and 14fr nasogastric tube inserted to left nare; xr done with recommendation to advance NG tube; advanced from 63 to 70cm and secured to nose; brown gastric contents aspirated and air auscultated over abdomen; tube feeding resumed; pt given trazadone via NG per request
[2023-11-23] MEDS: ACETAMINOPHEN 325 MG TABLET 650 MG PO ×2 (03:47→20:57)
--- NOTE | 2023-11-23 07:28 | P.PN_ITS ---
Subjective Subjective Interval history: Interval summary: basal ganglia stroke with dense right hemiparesis. Complicated by dysphagia. MBS today, has Dobhoff in for enteral feeding. Update: Modified barium study went well. He was cleared for a modified diet with speech safety augmentation maneuvers. S: He is otherwise doing well. No issues overnight. He denies any dyspnea or other problems. Exam Vital Signs (past 8 hours): - 11/23/23 01:00 11/23/23 03:00 11/23/23 05:00 Temperature 98.2 F Pulse Rate 91 H Respiratory Rate 18 Blood Pressure 134/71 Pulse Oximetry 93 94 94 Oxygen Delivery Method Room Air Room Air Oxygen Delivery Method Room Air Oxygen Flow Rate 0 Narrative Exam Narrative: NAD Normal speech content. Right dense paresis and facial droop. Lungs clear and normal effort CV regular, no murmur. No edema Objective Labs 11/22/23 04:30 11/22/23 04:30 [facility] Medical History Depression Tear of meniscus of knee Inguinal hernia Surgical History Hx of tonsillectomy Social History household members: none Smoking Status: Former smoker alcohol intake: current Assessment & Plan Assessment & Plan narrative: 1. CVA, acute, present on admission and active. - continue monitoring with tele, though no prior hx of afib and has had multiple prior holters without arrythmia noted. - MR showing an acute L basal ganglia infarct 2. Dysphagia, new and improved. - he was nothing by mouth over the weekend but did well with his modified barium study today. We will discontinue his nasogastric tube and he will be using swallowing maneuvers in a dysphagia diet. 2. Hypertension, present on admission and stable. - monitor. Stable. 3. Macrocytosis, present on admission and stable. - no further evaluation in hospital. 4. Depression, present on admission and stable. - continue home escitalopram. 5. Elevated LFT and bilirubin, present on admission and stable. - no abdominal pain, may be medication related, given mild increase continue to follow only. Repeat studies tomorrow again but slight improvement. PLAN: -DC Dobhoff feeding tube. -SNF, SAMIA 1-2 days. SAMIA: 8/20-. Time-Based Coding :: 25 min spent with patient and on the chart (including review of chart, obtaining history, exam, reviewing outside data, placing orders, documenting exam and treatment plan, and counseling patient) on 11/22.
[2023-11-23] MEDS: ENOXAPARIN 40 MG/0.4 ML SYRINGE SUBCUT (08:37)
[2023-11-23] MEDS: ASPIRIN 81 MG CHEW TAB PO (08:37)
[2023-11-23] MEDS: TAMSULOSIN 0.4 MG CAPSULE PO (08:37)
[2023-11-23] MEDS: ESCITALOPRAM 10 MG TABLET PO (08:37)
[2023-11-23] MEDS: SODIUM CHLORIDE 0.9% FLUSH 10 ML IV ×2 (08:37→21:00)
[2023-11-23] MEDS: BACLOFEN 10 MG TABLET PO (08:44)
--- NOTE | 2023-11-23 12:16 | DIET.PN1 ---
Dietary Progress Note Assessment: Spoke to RN this morning, pt tolerating TF at 70 ml/hr, goal rate. Per healthcare team rounds, MBSS today w/ ST. Ht: 177.8 cm Wt: 83.915 kg (weight appears to be from 12/11/20; 86.239 kg on 10/29/23) BMI: 26.5 UBW: 86.183 kg on 07/28/23 Last BM: 11/22/23 (11/22/23 18:00) MNA: Zak Score: 15 Diet: 11/20/23 Dinner Tube Feeding Diet Diet Modifications: TF Supplement type: Jevity 1.2 danuta TF mode of delivery: Continuous Starting flow rate mL/hr: 20 Flow rate goal mL/hr: 70 Titration Schedule to reach Goal Rate: increase by 10mL/h q6h as tolerated Max total daily volume in mL: 2,500 Free fluid: 175 Free Water Frequency: Q4H Nutrition Type of Feeding Tube Dobhoff 11/22/23 14:30 Labs: RBC 3.89 X10^6/uL (4.5-5.9) L 11/22/23 04:30 Hgb 14.1 g/dL (13.5-17.5) 11/22/23 04:30 Hct 40.4 % (41-53) L 11/22/23 04:30 Creatinine 0.93 mg/dL (0.66-1.25) 11/22/23 04:30 Hemoglobin A1c 5.6 % (4.0-6.0) 11/17/23 04:22 Nutrition Diagnosis: Swallowing difficulty r/t motor/mechanical causes aeb CVA, ST recc NPO status Interventions: 1. Continue enteral nutrition as tolerated. Will f/u for MBSS results and continue to assess. EER: 2000 kcals (24 kcals/kg) 90 g protein (1.3 g/kg per CVA) Electronically Signed by: Fide Lopez 11/23/23 12:16 Clinical Dietitian [address] [address]
--- NOTE | 2023-11-23 12:40 | SLP.IPNOTE ---
Attempted to see pt at 10:30 am for treatment session, though pt asleep with RN reporting he had received a muscle relaxant shortly prior. Will follow-up later in day as schedule allows. MBSS rescheduled to 13:30 this afternoon.
--- NOTE | 2023-11-23 12:56 | CM.DPC ---
DCP SNF vs Acute Cont: Per , pt to have MBS today and continues to have NGT at this time for artificial nutrition and waiting for further PT/OT today to help determine Acute vs SNF at d/c. Per Vani at [facility], auth obtained from insurance but aware pt not yet stable for d/c and attempting to r/o Acute rehab and Vani will continue to follow and keep the SNF auth in place. Per RN, pt has not been sleeping well and with some muscle spasms and medication given made pt too sedated to participate in MBS this AM and rescheduled for 1330. PT/OT plan to co-treat this afternoon with pt to determine if pt would be able to tolerate Acute Rehab vs SNF and will update SW. SW met bedside with pt, sister/DPOA Kenyetta and pt's niece Susan [phone] and explained role and they confirm that their first preference remains Acute Inpt Rehab at d/. SW discussed that Acute would have to review to determine if he meets criteria and then his insurance would have to auth as well. They acknowledge understanding and request SW make referrals to [facility] and [facility] and confirm that if both can accept then their first preference is [facility]. SW discussed need for transport to Acute Rehab if pt is accepted and insurance approves and family flies back to [place] early Wed 11/24 AM so if pt could discharge by tomorrow then family willing to transport or close friends Jarad could likely transport as well. SW also discussed private pay cabulance and family very agreeable to this option as well and so no barriers to paying privately for cabulance if needed. SW updated that [facility] can accept and have SNF auth in case pt cannot get into Acute Rehab and they remain agreeable to this and if pt goes to SNF then they plan to hire private PT to work more with pt while at SNF. Per family request, confirmed that Acute Rehab cannot accept pt with NGT in place and if pt needing artificial nutrition temporarily due to swallow then would need PEG tube placement and then Acute could accept and pt and family remain open to this option if needed. Faxed referral to [facility] and [facility] and updated both admissions with pt situation and status and they will review and await updated PT/OT notes from today when available to help determine if they can accept pt and initiate insurance auth. Both Acute rehabs have open beds this week. STANTON Gorman
--- NOTE | 2023-11-23 13:22 | OT.IP.TRT ---
Current Diagnoses Cerebral infarction, unspecified (11/16/23) Occupational Therapy Treatment Note M2 OT-IP Current Condition Start: 11/16/23 12:31 Freq: Status: Active Protocol: Document 11/17/23 14:01 [facility] (Rec: 11/17/23 14:16 [facility] [id number]) Occupational Therapy Current Condition Current Condition Evaluation Date 11/17/23 Treatment Diagnosis MRI: Acute lacunar infarction, left basal ganglia, feet feel heavy Diagnosis Onset Date 11/16/23 M3 OT- IP Subjective and Pain Start: 11/16/23 12:31 Freq: Status: Active Protocol: Document 11/23/23 13:25 [facility] (Rec: 11/23/23 13:33 [facility] [id number]) OT- Subjective Occupational Therapy Visit Type Type Treatment Note Visit Start Time 12:59 Visit Stop Time 13:22 OT Pain Assessment Pain When Pain Assessed At Rest Pain Present Pain Present Denied Pain M4 OT- IP ADL's Start: 11/16/23 12:31 Freq: Status: Active Protocol: Document 11/17/23 14:01 [facility] (Rec: 11/17/23 14:16 [facility] [id number]) OT [id number] Comments OT Self-Feeding Comments Pt not able to eat with his right hand and having to use his left hand. Called the kitchen to request large handled utensils for pt to use . OT ADL-Grooming Comments OT Grooming Comments Not performed. OT ADL-Oral Care Comments Oral Care Comments Not performed. OT ADL-Dressing General Eval Lower Body Dressing Ability Maximum Assistance Areas Needing Assistance Socks Comments OT Dressing Comments Pt havign difficulty to grasp his socks with his right hand and needing hand over hand asisst so able to use his right hand to assist to radha his socks while sitting on the edge of the bed. OT ADL-Toileting Comments OT Toileting Comments NOt performed. OT ADL-Bathing Comments OT Bathing Comments Pt will need assist. M5 OT- IP IADL's Start: 11/16/23 12:31 Freq: Status: Active Protocol: Document 11/17/23 14:01 [facility] (Rec: 11/17/23 14:16 [facility] [id number]) OT-Instrumental Activities of Daily Living Home Safety Awareness Awareness of Need for Assistance at Home Good Awareness Ability to Problem Solve Emergency Able to Problem Solve Situations Driving Driving Concerns Identified Regarding Safety M6 OT- IP Functional Cognition Start: 11/16/23 12:31 Freq: Status: Active Protocol: Document 11/20/23 13:01 [facility] (Rec: 11/20/23 13:17 [facility] [id number]) Cognitive Factors Limiting Selfcare Function Cognitive Ability Level of Alertness Alert Cognitive Comments Cognitive Assessment Comments Pt a able to follow comands well for therapy needs. M7 OT- IP Mobility and Balance Start: 11/16/23 12:31 Freq: Status: Active Protocol: Document 11/23/23 13:25 [facility] (Rec: 11/23/23 13:33 [facility] [id number]) OT- Bed Mobility Assessment Supine to Sit Supine to Sit Assist Moderate Assistance,1 Person Assistance,Head of Bed Elevated Scooting Scooting to Edge of Bed Maximum Assistance,1 Person Assistance OT-Transfer Assessment Sit to and From Stand Sit to and from Stand Moderate Assistance,Maximum Assistance,2 Person Assistance Technique Transfer Destination Bed Devices Transfer Assistive Devices Gait Belt,Bud Walker Comments Mobility Comments Pt performed sit to stand x2. First stand ~30 seconds with mod x 2. Then rested sitting EOB and again stood with max x 2 for ~20 seconds while bed was moved up. OT- Balance Assessment Sitting Balance and Reactions Static Sitting Balance Ability Good Dynamic Sitting Balance Ability Good Comments Other Balance Tests/Deviations/Treatment Pt sat EOB for core/balance : exercises and performed trunk forward flexing x5, and lateral to R and L x5 wtih good control throughout. M8 OT- IP Objective Assessments Start: 11/16/23 12:31 Freq: Status: Active Protocol: Document 11/20/23 13:01 [facility] (Rec: 11/20/23 13:17 [facility] [id number]) OT Strength Upper Extremity Strength Assessment Right Impaired Shoulder 1 Elbow 1 Forearm 1 Wrist 0 Hand 0 Comments Strength Comments Noted tone in pt's right hand and wrist today. OT-Muscle Tone Assessment Muscle Tone WNL No Comments Muscle Tone Comments 1+ in pt's right hand for tone OT Sensation Assessment Comments Summary Comments Decreased senssation at right forearm and fingertips. M9 OT- IP Assessment and Plan Start: 11/16/23 12:31 Freq: Status: Active Protocol: Document 11/23/23 13:25 [facility] (Rec: 11/23/23 13:33 [facility] [id number]) OT Summary Assessment and Plan Potential Rehabilitation Potential Excellent Analytic Complexity at Evaluation High Summary OT Impairments Range of Motion,Strength, Balance,Coordination, Functional Mobility,Self- Feeding,Grooming,Dressing, Toileting,Bathing,Toilet Transfers,Shower Transfers, Activity Tolerance Progress Towards Goals Progressing Toward Goals Assessment Summary Pt very motivated, pleasant and aware of his deficits. Pt now NPO and to have a NG tube placed at this time. Pt actively participating in therapy today. Pt performed sitting balance and core activities sitting EOB then was able to stand with MOD then MAX X 2 with quad cane. Increased movement to the RLE. Attempted RUE therex but pt is unable to show active movement, possible trace when pt is focusing. Pt would greatly benefit form acute rehab as cognitively intact and willing and motivated to get better. Goals Self-Feeding Goal Independent Grooming Goal Independent Dressing Goal Minimal Assistance Toileting Goal Minimal Assistance Bathing Goal Moderate Assistance Toilet Transfer Goal Minimal Assistance Shower Transfer Goal Moderate Assistance Days to Meet Goals 30 Frequency of Treatment Frequency Of Treatment Discharge Other frequency 5x/week Treatment Plan OT Treatment Plan ADL Training,Functional Mobility,Neuromuscular Re- education,Therapeutic Exercises,Patient/Family Education,Discharge Planning Discharge Recommendations OT Discharge Recommendations Acute Rehab,SNF vs Acute Rehab Transportation Needs at Discharge Wheelchair/Cabulance
--- NOTE | 2023-11-23 13:30 | DI.RAD.S_ITS ---
PROCEDURE: FL BARIUM SWALLOW W SPEECH INDICATIONS: worsening swallow COMPARISON: None. TECHNIQUE: Examination was conducted in conjunction with speech pathology per standard protocol. In the lateral projection, filming was performed of the patient swallowing. AP projection filming may also be performed with patient swallowing. FINDINGS: Nasogastric tube is in place. Function: The oral propulsive phase is mildly diminished. Oral containment is sufficient. No convincing laryngotracheal penetration or aspiration. Vallecular and piriform sinus pooling. Morphology: No cricopharyngeal bar is identified. No cervical esophageal webs. No Zenker's diverticulum. No strictures. IMPRESSION: No aspiration. Please see separately dictated speech pathologist's report. Dictated by: Heraclio Carter M.D. on 11/23/2023 at 17:40 Approved by: Heraclio Carter M.D. on 11/23/2023 at 17:42
--- NOTE | 2023-11-23 13:31 | PT.IPTN ---
Current Diagnoses Cerebral infarction, unspecified (11/16/23) Physical Therapy Treatment Note M2 PT-IP Current Condition Start: 11/16/23 10:34 Freq: NEEDED Status: Active Protocol: Document 11/16/23 11:25 MB (Rec: 11/16/23 11:53 MB [id number]) Physical Therapy Current Condition Current Condition Evaluation Date 11/16/23 Treatment Diagnosis CVA M3 PT-IP Subjective Start: 11/16/23 10:34 Freq: NEEDED Status: Active Protocol: Document 11/23/23 13:10 MB (Rec: 11/23/23 13:31 MB [id number]) Subjective Physical Therapy Visit Type Type Treatment Note Visit Start Time 13:10 Visit Stop Time 13:23 Number of SENIOR CREDIT ANALYST Visits 0 Physical Therapy Visit Comments Patient Comments Pt agreeable to PT. M4 PT-IP Mobility and Gait Start: 11/16/23 10:34 Freq: NEEDED Status: Active Protocol: Document 11/23/23 13:10 MB (Rec: 11/23/23 13:31 MB [id number]) PT-Transfer Assessment Sit to and From Stand Sit to and from Stand Moderate Assistance,Maximum Assistance,2 Person Assistance ,Use of Upper Extremities Equipment Transfer Assistive Device Gait Belt,Bud Walker Orthotic/Prosthetic Devices or Brace: No Transfer Ability Level of Assist Moderate Assistance,Maximum Assistance,2 Person Assistance ,Use of Upper Extremities Comments Mobility Comments Pt sitting EOB with OT upon arrival. Pt with no active movement right hip and he requires max A to scoot right hip out to EOB. Pt's static sitting balance is good and without lean or pushing. His right eye appears mildly droopy today. Two STS with left hand support on hemiwalker. Mod A first STS and max A second STS with assist of two people. Standing balance 30 sec, then 20 sec and pt fatigued at second rep. PT-Balance Assessment Sitting Balance and Reactions Static Sitting Balance Ability Good Dynamic Sitting Balance Ability Fair Standing Balance and Reactions Static Standing Balance Ability Poor Dynamic Standing Balance Ability Poor Device Used Left hemiwalker M5 PT-IP Objective Assessments Start: 11/16/23 10:34 Freq: NEEDED Status: Active Protocol: Document 11/16/23 11:25 MB (Rec: 11/16/23 12:01 MB [id number]) Orientation Orientation/Cognition Level of Alertness Alert Orientation Name,Age,Birthday,Month,Year, Place,Situation Language Function Ability No Deficits Noted Safety Awareness Understands Safety Issues Memory Description No Deficits Noted Gross Range of Motion Upper Extremity ROM Impairments Defer to OT, right arm does not swing as much with gait Lower Extremity ROM Assessment Within Functional Limits Strength Lower Extremity Strength Assessment Within Functional Limits Comments Strength Comments B LEs, strength is 5/5 in hip flexion, knee extension, ankle DF and great toe extension on evaluation date Coordination Assessment Assessment Foot Tapping Test Normal Performance Heel on Vo Test Normal Performance Coordination Comments Defer UEs to OT Sensation Assessment Sensation Gross Sensation WNL Comments Sensation Comments Defer UEs to OT Muscle Tone Muscle Tone WNL Yes M6 PT-IP Treatment Start: 11/16/23 10:34 Freq: NEEDED Status: Active Protocol: Document 11/23/23 13:10 MB (Rec: 11/23/23 13:31 MB [id number]) Physical Therapy Treatment Education Education Provided Safety M7 PT-IP Assessment and Plan Start: 11/16/23 10:34 Freq: NEEDED Status: Active Protocol: Document 11/23/23 13:10 MB (Rec: 11/23/23 13:31 [id number]) PT Summary Assessment and Plan Potential Rehabilitation Potential Good Status of Condition at Evaluation Evolving Summary Impairments ROM,Strength,Balance, Coordination,Sensation,Tone, Bed Mobility,Transfers,Gait, Activity Tolerance Progress Towards Goals Progressing Toward Goals Assessment Summary Pt was very I at baseline and his is improving with PT after basal ganglia stroke and right hemiplegia. Better sitting, transfer and standing today. Pt will benefit from acute rehab at d/c to maximize I. Goals Bed Mobility Goal Minimal Assistance Transfer Goal Minimal Assistance Gait Goal Minimal Assistance,Bud Walker Gait Distance 25 Other Goals to improve bed mobility, transfers and ambulation using FWW SBA ~ 100 ft Days to Meet Goals 10 Frequency of Treatment Frequency Of Treatment Once a Day Treatment Plan Physical Therapy Treatment Plan Bed Mobility Training,Transfer Training,Gait Training, Therapeutic Exercise,Balance Retraining,Discharge Planning, Hot or Cold Pack,Neuromuscular Re-ed,Coordination Retraining ,Manual Therapy Precautions Other Precautions Falls, right hemiplegia, NG and PEG Recommendations To Nursing Amount of Assist Needed Mechanical Lift Discharge Recommendations PT Discharge Recommendations Acute Rehab Transportation Needs at Discharge Wheelchair/Cabulance,Stretcher /Ambulance
--- NOTE | 2023-11-23 16:05 | ST.SWALLOW ---
Visit Care Team Role Provider Type Quan New DO Primary Care Provider Physician Specialty: Family Practice Address: [address] [place] [address], [id number] Email: [email or web address] Darlyn Keith DO Emergency Provider Physician Specialty: Emergency Medicine Address: [address] [place] [address], [id number] Email: [email or web address] Pierre Moreno DO Admit Provider Physician Attending Provider Specialty: Internal Medicine Address: [address] [place] [address], [id number] Email: [email or web address] ST Modified Barium Swallow Study JAZZ MUSICIAN Modified Barium Swallow Study Start: 11/23/23 10:20 Freq: Status: Active Protocol: Document 11/23/23 14:18 LNK (Rec: 11/23/23 16:04 LNK [id number]) Modified Barium Swallow Study Total Time Visit Start Time 01:30 Visit Stop Time 02:00 Total Visit Minutes [address] Moreno Reason for Referral dysphagia ; CVA Setting Setting Acute Care Patient Information Identification Type Name,Date of ,ID Wristband Patient History Pt was admitted to on 2023 with left basal ganglia CVA. Pt initially presented with mild s/sx, which progressed from NIH 0-1 to 5. He developed R numbness, weakness, facial droop and slurred speech though he still is able to keep his R arm and leg elevated. ST assessed cognition as well as swallow. Pt demonstrated swallowing WNL initially. Pt overall swallow condition deteriorated and pt was made NPO with NG tube on 11/20/2023, pending MBSS. Subjective Observations Pt was seated in the fluoroscopy chair via Zoran lift and brought to the flouroscopy room. Directions and procedures were described for him. He indicated he understood and agreed to proceed. Patient Positioning Position View Lateral Imaging Lateral View Textures Administered Trials Presented Thin Liquid via Spoon (IDDSI 0 ),Thin Liquid via Cup (IDDSI 0 ),Thin Liquid via Straw (IDDSI 0),Soft & Bite-sized (IDDSI Barium Tablet No The IDDSI Framework Protocol: IDDSI.1 Oral Impairment Source: The Modified Barium Swallow Impairment Profile (MBSImP??) Lip Closure Escape progressing to mid-chin Tongue Control During Bolus Hold Escape to lateral buccal cavity/floor of mouth (FOM) Bolus Preparation/Mastication Disorganized chewing/mashing with solid pieces of bolus unchewed Bolus Transport/Lingual Motion Repetitive/disorganized tongue motion Oral Residue Complete oral clearance, Residue collection on oral structures Location Floor of mouth,Lateral sulci Initiation of Pharyngeal Swallow Bolus head at pyriforms Additional Oral Impairment Observations *OME indicated reduced strength and ROM for facial, labial, lingual and velar structures. *Partial lingual movement observed to right; able to perform partial lingual sweep to right *Velar asymetry noted with right side; no overt hypernasality noted *Asymetric smile; however pt was able to puff cheeks without air leakage *Dentition adequate for mastication Pharyngeal Impairment Source: The Modified Barium Swallow Impairment Profile (MBSImP??) Soft Palate Elevation No bolus between soft palate & pharyngeal wall Laryngeal Elevation Comp.sup.move.thyroid cart.w/ comp.approx.arytenoids to epiglot petiole Anterior Hyoid Excursion Partial anterior movement Epiglottic Movement Partial inversion Laryngeal Vestibular Closure Incomplete; narrow column air/ contrast in laryngeal vestibule Pharyngeal Stripping Wave Present - diminished Pharyngoesophageal Segment Opening Complete distention & complete duration; no obstruction of flow Tongue Base Retraction Wide column of contrast/air betwn tongue base & post. pharyngeal wall Pharyngeal Residue Collection of residue within/ on pharyngeal structures Location Diffuse (>3 areas) Additional Pharyngeal Impairment *Difficult to accurately Observations assess stripping of posterior pharyngeal wall and tongue base strength due to presence of NG tube *Base of tongue weakness noted *Reduction of posterior pharyngeal wall stripping noted * NG tube also interfered with complete epiglottal inversion resulting in penetration of contrast into the laryngeal vestibule *Strong reflexive cough observed which cleared the laryngeal vestibule *No aspiration observed A/P View The IDDSI Framework Protocol: IDDSI.1 A/P View Observations Additional A-P Observations AP not attempted Clinical Impressions Dysphagia Type Oral,Pharyngeal Findings Pt presented with overall improvement per nursing and ST. Pt was alert. Speech was noted to be mild-moderately dysarthric. *MBSS results indicated overall improvement from 2023 when NG tube placed. *Pt demonstrated mildly reduced coordination of oral structures for mastication and oral retention. *Pharyngeally, pt demonstrated laryngeal penetration and tongue base weakness, likely related to NG tube interference. No aspiration was observed across all trials. *Pt was able to safely tolerate thin liquids with a chin tuck and one sip at a time. Pt was able to safely masticate and tolerate a soft and bite-sized trial of peaches (strained). *Recommend diet upgrade to soft and bite-sized (IDDSI 6) and thin liquids (IDDSI 0) with chin tuck. *Pt appears to be an excellent candidate for Acute Rehab Rehabilitation Potential Excellent Patient Appropriate for Therapy Yes: Recommend Acute Rehab setting Recommendations Diet Liquids Order Thin (IDDSI 0) Diet Order Soft & Bite-sized (IDDSI 6) Medication Recommendation As Tolerated,Whole in Carrier, Crushed in Carrier Additional Dietary Needs Controlled Sips,Encourage to Self-Feed,Reminders to Use Strategies Aspiration Precautions Recommended Precautions Upright at 90 Degrees,Frequent Rest Periods,Small Bites/Sips ,Chin Tuck,Lingual Sweep,Check for Pocketing,Liquids from Cup Additional Precautions Single sips with chin tuck Treatment Plan Therapy Recommendations Oral Motor Exercises,Base of Tongue Exercises Therapy Strategy Recommendations Sitting Upright (90 deg),Chin Tuck,Check for Pocket,Liquids from Cup,Liquids from Straw, Small Bites and Sips Placement Recommendation After Discharge Inpatient Rehab Facility
[2023-11-23] MEDS: ATORVASTATIN 20 MG TABLET 80 MG PO (20:57)
[2023-11-24] VITALS (13 sets, daily range): BP systolic 106–141; BP diastolic 63–88; PULSE 75–91; RESP 16–19; TEMP 35.7–37; O2SAT 91–95
[2023-11-24] MEDS: MAGNESIUM OXIDE 400 MG TABLET PO ×2 (00:10→20:42)
[2023-11-24] MEDS: TRAZODONE 50 MG TABLET 25 MG PO (02:18)
[2023-11-24] MEDS: ENOXAPARIN 40 MG/0.4 ML SYRINGE SUBCUT (08:23)
[2023-11-24] MEDS: TAMSULOSIN 0.4 MG CAPSULE PO (08:23)
[2023-11-24] MEDS: ASPIRIN 81 MG CHEW TAB PO (08:23)
[2023-11-24] MEDS: ESCITALOPRAM 10 MG TABLET PO (08:23)
[2023-11-24] MEDS: SODIUM CHLORIDE 0.9% FLUSH 10 ML IV ×2 (08:24→20:43)
--- NOTE | 2023-11-24 10:10 | OT.IP.TRT ---
Current Diagnoses Cerebral infarction, unspecified (11/16/23) Occupational Therapy Treatment Note M2 OT-IP Current Condition Start: 11/16/23 12:31 Freq: Status: Active Protocol: Document 11/17/23 14:01 [facility] (Rec: 11/17/23 14:16 [facility] [id number]) Occupational Therapy Current Condition Current Condition Evaluation Date 11/17/23 Treatment Diagnosis MRI: Acute lacunar infarction, left basal ganglia, feet feel heavy Diagnosis Onset Date 11/16/23 M3 OT- IP Subjective and Pain Start: 11/16/23 12:31 Freq: Status: Active Protocol: Document 11/24/23 10:12 [facility] (Rec: 11/24/23 10:46 [facility] [id number]) OT- Subjective Occupational Therapy Visit Type Type Treatment Note Visit Start Time 09:10 Visit Stop Time 10:10 Occupational Therapy Visit Comments Patient Comments Pt agreed to do OT today. Patient/Caregiver Goals To do the rehab that would be the most beneficial to him. M4 OT- IP ADL's Start: 11/16/23 12:31 Freq: Status: Active Protocol: Document 11/24/23 10:12 [facility] (Rec: 11/24/23 10:46 [facility] [id number]) OT OCW-Rvfq-[place] General Evaluation Self-Feeding Ability Standby Assistance,Total Assistance Areas Needing Assistance Cutting Food,Loading Utensil, Opening Containers Comments OT Self-Feeding Comments Pt needing hand over hand assist and to support his RUE in order to use his RUE for self feeding needs. Pt needing assist for all set-up so able to eat with his left hand - which in nondominant. Pt was very mindful and aware that the correct diet was not sent up to him. OT ADL-Grooming General Evaluation Grooming Ability Maximum Assistance Areas Needing Assistance Face Washing Comments OT Grooming Comments Pt [place] assist and able to feel activation in his shoulder to assist to wash his face at this time. OT ADL-Oral Care Comments Oral Care Comments Not performed. OT ADL-Dressing General Eval Lower Body Dressing Ability Total Assistance Areas Needing Assistance Socks Comments OT Dressing Comments Works on pre-cursor to putting his socks on by sitting on the edge of the bed to midline with right hand on the bed for weight bearing and for sitting to midline. At the beginning, pt needing assist to place his right hand on the bed and heavily relies on his LUE for midline and balance. At the end of the session pt able to cross his LLE over with close SBA and slight CGA for balance to midline. Pt also able to keep his midline while seated at edge of bed while lifting his LLE up and assist with RLE so therapist able to radha socks over his feet. OT ADL-Toileting Comments OT Toileting Comments Not performed. OT ADL-Bathing Bathing Type Bathing Type Sponge Bath General Evaluation Bathing Ability Maximal Assistance Comments OT Bathing Comments [place] assist for pt able to use his RUE to wash his face and armpits. M5 OT- IP IADL's Start: 11/16/23 12:31 Freq: Status: Active Protocol: Document 11/17/23 14:01 [facility] (Rec: 11/17/23 14:16 [facility] [id number]) OT-Instrumental Activities of Daily Living Home Safety Awareness Awareness of Need for Assistance at Home Good Awareness Ability to Problem Solve Emergency Able to Problem Solve Situations Driving Driving Concerns Identified Regarding Safety M6 OT- IP Functional Cognition Start: 11/16/23 12:31 Freq: Status: Active Protocol: Document 11/24/23 10:12 [facility] (Rec: 11/24/23 10:46 [facility] [id number]) Cognitive Factors Limiting Selfcare Function Cognitive Ability Level of Alertness Alert Cognitive Comments Cognitive Assessment Comments INtact, very aware of his needs. Pt very motivated to get better. M7 OT- IP Mobility and Balance Start: 11/16/23 12:31 Freq: Status: Active Protocol: Document 11/24/23 10:12 [facility] (Rec: 11/24/23 10:46 [facility] [id number]) OT- Bed Mobility Assessment Supine to Sit Supine to Sit Assist Moderate Assistance,1 Person Assistance,Head of Bed Elevated Scooting Scooting to Edge of Bed Maximum Assistance,1 Person Assistance OT-Transfer Assessment Comments Mobility Comments MODA to help get his trunk upright and able to tell pt trying to push with his RUE to get upright. MAX AX 1 to assist to scoot his right hip forwards and still having difficulty to coordinate his movements of his right hip versus whole body. Pt feeling woozy BP stable and agreed to do more. Worked on anterior tilt to be able to scoot forwards with assist up to the head of the bed. Pt initially leaning to the left and then after practice and positioning able to gauge better of midline control and able to come up to squatting position better so able to scoot to the head of the bed. MAX A to get back into bed. Pt while in supine able to get his hips up better to assist with his positioning in bed. OT- Balance Assessment Sitting Balance and Reactions Static Sitting Balance Ability Good Dynamic Sitting Balance Ability Good Comments Other Balance Tests/Deviations/Treatment ABle to work on core : strengthening for LB dressing needs. M8 OT- IP Objective Assessments Start: 11/16/23 12:31 Freq: Status: Active Protocol: Document 11/24/23 10:12 [facility] (Rec: 11/24/23 10:46 [facility] [id number]) OT Strength Upper Extremity Strength Assessment Right Impaired Shoulder 3- Elbow 1 Forearm 1 Wrist 0 Hand 0 Comments Strength Comments More active movement with his right shoulder and today able to retract and elevate his shoulders. OT-Muscle Tone Assessment Comments Muscle Tone Comments slight increased tone in right hand. M9 OT- IP Assessment and Plan Start: 11/16/23 12:31 Freq: Status: Active Protocol: Document 11/24/23 10:12 [facility] (Rec: 11/24/23 10:46 [facility] [id number]) OT Summary Assessment and Plan Potential Rehabilitation Potential Excellent Analytic Complexity at Evaluation High Summary OT Impairments Range of Motion,Strength, Balance,Coordination, Functional Mobility,Self- Feeding,Grooming,Dressing, Toileting,Bathing,Toilet Transfers,Shower Transfers, Activity Tolerance Progress Towards Goals Progressing Toward Goals Assessment Summary Pt now off NG tube and able to eat. Pt was mindful and able to tell therapist that he feels that the straw causes him more difficulty with drinking water. Able to try without and pt able to monitor the rate better and no coughing noted. Able to touch base with nursing and [employer] OFFICER regarding pt seems to do better with small sips versus use of straw at this time. Pt able to participate in one hour of OT today and work on midline and core control so able to be precursor to LB dressing needs, use of RUE for grooming and assist to sponge off. Noted increased movement/ control in his right shoulder and activation in his elbow. Pt states now able to actively feel that his RUE is assisting in weight bearing while seated on the edge of the bed. Pt is an excellent candidate for acute rehab as pt is responding well to education and therapy session. Pt is very aware of his needs and highly motivated to get better. Pt does need rest breaks but able to tolerate the session well. Pt feels that he will just get stronger as he just started to be able to eat again as prior having NG tube placed. Pt is a excellent candidate for acute rehab as his body in responding well to therapy and will continue to need skilled intervention so able to improve with incorporation, coordination, efficiency, smoothness of his right side. It would be greatly beneficial for pt to go to acute rehab at this time as pt has great potential and great mindset to be able to recovery. Goals Self-Feeding Goal Independent Grooming Goal Independent Dressing Goal Minimal Assistance Toileting Goal Minimal Assistance Bathing Goal Moderate Assistance Toilet Transfer Goal Minimal Assistance Shower Transfer Goal Moderate Assistance OT-Other Goals Goals based on incorporation of his RUE. Days to Meet Goals 30 Frequency of Treatment Other frequency 5x/week Treatment Plan OT Treatment Plan ADL Training,Functional Mobility,Neuromuscular Re- education,Therapeutic Exercises,Patient/Family Education,Discharge Planning Discharge Recommendations OT Discharge Recommendations Acute Rehab,SNF vs Acute Rehab Transportation Needs at Discharge Wheelchair/Cabulance
--- NOTE | 2023-11-24 10:30 | PT.IPTN ---
Current Diagnoses Cerebral infarction, unspecified (11/16/23) Physical Therapy Treatment Note M2 PT-IP Current Condition Start: 11/16/23 10:34 Freq: NEEDED Status: Active Protocol: Document 11/16/23 11:25 MB (Rec: 11/16/23 11:53 MB [id number]) Physical Therapy Current Condition Current Condition Evaluation Date 11/16/23 Treatment Diagnosis CVA M3 PT-IP Subjective Start: 11/16/23 10:34 Freq: NEEDED Status: Active Protocol: Document 11/24/23 10:30 AB (Rec: 11/24/23 12:29 AB [id number]) Subjective Physical Therapy Visit Type Type Treatment Note Visit Start Time 10:30 Visit Stop Time 11:16 Number of THERMITE WELDER Visits 0 Physical Therapy Visit Comments Patient Comments agreeable to do PT; stated that he is tired today M4 PT-IP Mobility and Gait Start: 11/16/23 10:34 Freq: NEEDED Status: Active Protocol: Document 11/24/23 10:30 AB (Rec: 11/24/23 12:29 AB [id number]) PT-Bed Mobility Assessment Supine to Sit Supine to Sit Moderate Assistance,Maximum Assistance,Head of Bed Elevated,Bedrails PT-Transfer Assessment Sit to and From Stand Sit to and from Stand Maximum Assistance,2 Person Assistance,Use of Upper Extremities Equipment Transfer Assistive Device Gait Belt,Bud Walker Orthotic/Prosthetic Devices or Brace: No Transfers Transfer Destination Chair Transfer Technique Stand Pivot Transfer Ability Level of Assist Maximum Assistance,2 Person Assistance,Use of Upper Extremities Comments Mobility Comments pt supine in bed and agreeable to do PT. completed AAROM on RLE. pt able to complete heel slide with assist; able to keep RLE in hooklying position with occasional assist to prevent RLE from falling to the side. pt completed supine to sit mod to max A and max cues. able to sit on EOB SBA to occaional CGA for positioning. completed sit to stand from EOB max A x 2 and stand pivot transfer using hemiwalker max A x 2 and max cues. needed assist to stabilize RLE and to move RLE during transfers. positioned pt on the chair. completed knee extension but only able to move ~ 2-3 inches up but not consistent. facilitation techniques conducted to activate R quads. also attempted towel slides using RLE. pt needed rests breaks in between tasks. completed sit to partial stand with midway hold in partial squat position and pt only able to hold 5 sec needing max A to maintain position and RLe positioning to be able to push and use RLE for sit to partial stand. pt used hemiwalker for transfer. pt stated that he is tired and becoming dizzy and refused further activities. repositioning pt on chair. initially wants to go back to bed but encouraged to stay on the chair and agreed. no c/o dizziness afterwards. call light and table placed within reach. M5 PT-IP Objective Assessments Start: 11/16/23 10:34 Freq: NEEDED Status: Active Protocol: Document 11/16/23 11:25 MB (Rec: 11/16/23 12:01 MB [id number]) Orientation Orientation/Cognition Level of Alertness Alert Orientation Name,Age,Birthday,Month,Year, Place,Situation Language Function Ability No Deficits Noted Safety Awareness Understands Safety Issues Memory Description No Deficits Noted Gross Range of Motion Upper Extremity ROM Impairments Defer to OT, right arm does not swing as much with gait Lower Extremity ROM Assessment Within Functional Limits Strength Lower Extremity Strength Assessment Within Functional Limits Comments Strength Comments B LEs, strength is 5/5 in hip flexion, knee extension, ankle DF and great toe extension on evaluation date Coordination Assessment Assessment Foot Tapping Test Normal Performance Heel on Vo Test Normal Performance Coordination Comments Defer UEs to OT Sensation Assessment Sensation Gross Sensation WNL Comments Sensation Comments Defer UEs to OT Muscle Tone Muscle Tone WNL Yes M6 PT-IP Treatment Start: 11/16/23 10:34 Freq: NEEDED Status: Active Protocol: Document 11/24/23 10:30 AB (Rec: 11/24/23 12:29 AB [id number]) Physical Therapy Treatment Education Education Provided Safety Other Treatments Other Treatment Performed pls refer to mobility section for details M7 PT-IP Assessment and Plan Start: 11/16/23 10:34 Freq: NEEDED Status: Active Protocol: Document 11/24/23 10:30 AB (Rec: 11/24/23 12:29 AB [id number]) PT Summary Assessment and Plan Potential Rehabilitation Potential Fair Summary Impairments ROM,Strength,Balance, Coordination,Sensation,Tone, Cognition,Bed Mobility, Transfers,Gait,Activity Tolerance Progress Towards Goals Slow Progress due to Activity Tolerance,Slow Progress - Other Assessment Summary pt improving slowly with mobility but continues to require max A x 2 for stand pivot transfer using hemiwalker. pt needing rests breaks in between tasks and continues to have decrease activity tolerance. pt improving with ability to move RLE but continues to be weak and buckling during standing. Pt will benefit from further PT: SNF vs acute rehab Goals Bed Mobility Goal Minimal Assistance Transfer Goal Minimal Assistance Gait Goal Minimal Assistance,Bud Walker Gait Distance 25 Other Goals to improve bed mobility, transfers and ambulation using FWW SBA ~ 100 ft Days to Meet Goals 10 Frequency of Treatment Frequency Of Treatment Once a Day Treatment Plan Physical Therapy Treatment Plan Bed Mobility Training,Transfer Training,Gait Training, Therapeutic Exercise,Balance Retraining,Discharge Planning, Hot or Cold Pack,Neuromuscular Re-ed,Coordination Retraining ,Manual Therapy Recommendations To Nursing Amount of Assist Needed Mechanical Lift Discharge Recommendations PT Discharge Recommendations SNF vs Acute Rehab Transportation Needs at Discharge Wheelchair/Cabulance
--- NOTE | 2023-11-24 11:42 | DIET.PN1 ---
Dietary Progress Note Assessment: Pt off tube feeds, eating orally per diet orders from ST. Garcia RN, pt eating breakfast this morning. Will monitor po intakes and support meals with ONS as tolerated. Ht: 177.8 cm Wt: 83.915 kg BMI: 26.5 Last BM: 11/22/23 (11/22/23 18:00) MNA: Zak Score: 17 Diet: 11/23/23 Dinner Dysphagia Diet Diet Modifications: Chin Tuck Food Texture: Level 6-Soft & Bite-sized Liquid Consistency: Level 0 - Thin Nutrition Percent Meal Consumed 10 11/23/23 17:40 Type of Feeding Tube Dobhoff 11/22/23 14:30 Labs: RBC 3.89 X10^6/uL (4.5-5.9) L 11/22/23 04:30 Hgb 14.1 g/dL (13.5-17.5) 11/22/23 04:30 Hct 40.4 % (41-53) L 11/22/23 04:30 Creatinine 0.93 mg/dL (0.66-1.25) 11/22/23 04:30 Hemoglobin A1c 5.6 % (4.0-6.0) 11/17/23 04:22 Electronically Signed by: Fide Lopez 11/24/23 11:42 Clinical Dietitian [address] [id number]
--- NOTE | 2023-11-24 14:28 | ST.IPDYTX ---
Visit Care Team Role Provider Type Quan New DO Primary Care Provider Physician Specialty: Family Practice Address: [address] [place] [address], [id number] Email: [email or web address] Darlyn Keith DO Emergency Provider Physician Specialty: Emergency Medicine Address: [address] [place] [address], [id number] Email: [email or web address] Moreno DO Admit Provider Physician Attending Provider Specialty: Internal Medicine Address: [address] [place] [address], [id number] Email: [email or web address] SCENERY BUILDER Dysphagia Treatment SCENERY BUILDER Dysphagia Treatment Start: 11/17/23 16:10 Freq: Status: Active Protocol: Document 11/24/23 14:07 SS (Rec: 11/24/23 14:27 SS [id number]) Dysphagia Treatment Session Time Visit Start Time 13:35 Visit Stop Time 14:05 Total Visit Minutes 30 Visit Information Visit Number 5 Setting Assessment Location Acute Care Visit Type Note Type Treatment Note Next Note Type Next Note Type Treatment Note Patient Information Identification Type Name,ID Wristband Subjective Observations Pt wassitting upright in armchair upon SCENERY BUILDER arrival. He was alert and motivated to participate in session. Family members present during session. Treatment Liquids Trialed Thin (IDDSI 0) Solids Trialed Purred (IDDSI 4),Soft & Bite- sized (IDDSI 6) Administration Type Tea Spoon,Cup Single Sip,Straw ,Self-Feeding Oral Strategies Upright at 90 degrees, Controlled Bite/Sip Size Pharyngeal Strategies Sitting Upright (90 deg), Effortful Swallow,Small Bites and Sips Treatment Activities SCENERY BUILDER provided education re: normal swallow anatomy and physiology and the results of the MBSS. Utilized a visual diagram to improve pt's understanding. He expressed understanding re: results. Reviewed recommendations for soft and bite-sized diet texture, thin liquids, and crushed medications in puree carrier. Educated pt re: recommended safe swallow precautions to reduce the risk of aspiration, including small bites/sips, slow rate, upright positioning during PO intake, limiting distractions, and avoiding talking while eating. Pt verbalized understanding. Additionally, reviewed importance of thorough oral care TID to minimize risk of aspiration PNA and colonization of oral pathogens . Facilitated discussion re: pt' s swallowing in the past day. Pt reported occasional reflexive coughing with thin liquids, though occuring with less frequency when sitting upright and taking small single sips via cup edge. He reported increased appetite as well as ability to self-feed. Introduced rehabilitative exercises on this date to target oropharyngeal dysphagia characterized by base of tongue weakness and reduced stripping of posterior pharyngeal wall as visualized on MBSS for improved swallowing safety and efficiency. Instructed patient in the Effortful Swallow to improve tongue to palate contact, base of tongue retraction, hyolaryngeal elevation and excursion, pharyngeal constriction, and opening of the upper esophageal sphincter for improved swallowing safety and efficiency. Provided education re: form and goal of the exercise for decreased pharyngeal residue. Bolus-driven effortful swallows completed with the following consistencies: 5 ml thin: 9/10 successful swallows; average of 1 swallow per bolus. Strong reflexive post-swallow cough x1. 5 ml puree: 10/10 successful swallows; average of 1 swallow per bolus. No s/sx of aspiration noted. Patient benefited from clinician cueing and modeling during the exercise to slow his rate and press his tongue against the roof of his mouth. SCENERY BUILDER provided education in utilizing 2 swallows if needed , however, patient completed most trials with 1 swallow, though he did express the feeling of residue occasionally. Utilized visual diagram on this date to explain how residue could build and the impotence of clearing materials prior to taking another bite. SCENERY BUILDER to continue education re: utilizing multiple swallows to clear residue if needed in following sessions. Reviewed HEP at the conclusion of the session, with patient verbalizing understanding. HEP Recommendation: effortful swallow 30-50 reps with thin liquid, NTL, and/or puree. Patient participated well in the treatment session on this date. Extensive education re: MBSS results, recommendations, and rehabilitative exercises provided. Patient expressed understanding and motivation to participate in HEP. Plan for patient to implement HEP and report back progress in the following session. The IDDSI Framework Protocol: IDDSI.1 Assessment Patient Response to Treatment Excellent Rehab Potential Excellent Assessment of Improvement Pt demonstrates increased swallowing safety and efficiency with soft and bite- sized diet texture and thin liquids. He would benefit from continued participation in rehabilitative exercises in order to return to consumption of regular textures and thin liquids with minimal to no overt s/sx of aspiration. Recommendations Recommendations Continue Current Diet Liquids Order Thin (IDDSI 0) Diet Order Soft & Bite-sized (IDDSI 6) Medication Recommendations Crushed in Carrier Comments NPO with exception of free water protocol. NG tube ordered by MD. Additional Dietary Needs Single Sips,Controlled Sips,No Straws,Encourage to Self-Feed ,Reminders to Use Strategies Aspiration Precautions Recommended Precautions Upright at 90 Degrees,Small Bites/Sips,Chin Tuck,Liquids from Cup Additional Precautions Single sips with chin tuck Treatment Plan Placement Recommendation after Discharge Inpatient Rehab Facility Appropriate for Continued Therapy Yes Therapy Recommendations Recommend ongoing tx to monitor swallowing function and implement rehabilitative exercises on to target improved swallowing safety and efficiency Dysphagia Goals STG 1: Patient will utilize safe swallowing strategies in 90% of opportunities with minimal verbal cues in order to consume safest and least restrictive diet. STG 2: Patient will tolerate IDDSI 7 (regular) with no clinical s/sx of aspiration in 100% of opportunities in order to consume least restrictive diet texture. STG 3: Patient will tolerate thin liquids with no overt s/ sx of aspiration in 100% of opportunities in order to consume least restrictive diet texture. LTG: Patient will tolerate safest and most efficient diet with no clinical s/sx of aspiration or dysphagia in 100 % of opportunities in order to consume least restrictive diet and enhance overallomfort during functional eating and drinking. Follow Up Plan Will continue to follow up.
--- NOTE | 2023-11-24 14:46 | CM.DPC ---
DCP Acute Inpt Rehab Cont: SW requested PT/OT to prioritize pt for today and SW faxed updated PT/OT note from today and MBS/ST note from yesterday to both [facility] and [facility] and called both admissions and requested review to determine if they could accept. Return call from Adilson at [facility] and he confirms that due to pt's progress today he feels they can justify submitting insurance auth for Acute Rehab but need family to confirm they have a plan for 24/7 care for pt for one month post discharge from their facility. SHMUEL met bedside with pt, sister, and niece and updated on above and they confirm preference remains [facility] and that between family and local friends they can commit to 24/7 for pt at d/c from rehab and that pt had already toured [facility] for possible Respite Stay if needed and they would cover the cost of this if pt needing more than family can provide. SW and family updated Adilson via phone and he is awaiting confirmation from their Supervisor Twisting Department that pt is accepted and then he will submit insurance auth. SHMUEL called Vani at [facility] and updated on above and she will submit for auth to be switched to Acute Inpt Rehab auth but will continue to follow and accept pt if Acute Rehab denied. Pt and family confirm their preference for transport to [facility] would be private pay cabulance and SW provided estimated quote from [facility] for around $330 and family aware it could be a little more and only an estimate and they confirm they are agreeable to privately paying this cost. Plan: SW to follow for confirmation [facility] accepts and then they will submit auth today towards plan of d/c to Acute Rehab via [facility] transport cabulance private pay. STANTON Gorman
--- NOTE | 2023-11-24 17:12 | PM.PN.1 ---
Subjective Subjective Interval history: Interval summary: Cleared for diet with speech. Attempting to get approval for acute rehab. He waxes and wanes but has been stable / slowly improving. Keppra was stopped, no jerky movements noted last night. Baclofen made him very sleepy yesterday. Exam Vital Signs (past 8 hours): - 11/24/23 12:00 11/24/23 13:00 11/24/23 16:00 Temperature 98.1 F 98.6 F Pulse Rate 88 77 Respiratory Rate 16 16 Blood Pressure 106/63 110/73 Pulse Oximetry 91 95 94 Oxygen Delivery Method Room Air Oxygen Flow Rate 0 0 0 Oxygen Delivery Method Room Air Oxygen Flow Rate 0 Narrative Exam Narrative: NAD Normal speech content. Right dense paresis and facial droop. Lungs clear and normal effort CV regular, no murmur. No edema Objective Labs 11/22/23 04:30 11/22/23 04:30 [facility] Medical History Depression Tear of meniscus of knee Inguinal hernia Surgical History Hx of tonsillectomy Social History household members: none Smoking Status: Former smoker alcohol intake: current Assessment & Plan Assessment & Plan narrative: 1. CVA, acute, present on admission and active. - continue monitoring with tele, though no prior hx of afib and has had multiple prior holters without arrythmia noted. - MR showing an acute L basal ganglia infarct 2. Dysphagia, new and improved. - he was nothing by mouth over the weekend but did well with his modified barium study. Now on soft diet with thin liquids though need to follow chin tuck recommendations. 2. Hypertension, present on admission and stable. - monitor. Stable. 3. Macrocytosis, present on admission and stable. - no further evaluation in hospital. 4. Depression, present on admission and stable. - continue home escitalopram. 5. Elevated LFT and bilirubin, present on admission and stable. - no abdominal pain, may be medication related, given mild increase continue to follow only. Repeat studies tomorrow again but slight improvement. PLAN: - repeat CMP tomorrow to confirm improving LFTs. Otherwise plan for acute rehab with backup SNF if not approved. Code: DNR, surrogate is sister, and power of attalyssa Jewell Time-Based Coding :: [TOTAL MINUTES] spent with patient and on the chart (including review of chart, obtaining history, exam, reviewing outside data, placing orders, documenting exam and treatment plan, and counseling patient) on [DATE].
[2023-11-24] MEDS: BACLOFEN 10 MG TABLET PO (20:42)
[2023-11-24] MEDS: ATORVASTATIN 20 MG TABLET 80 MG PO (20:42)
[2023-11-24] MEDS: ACETAMINOPHEN 325 MG TABLET 650 MG PO (23:48)
[2023-11-24] MEDS: CYCLOBENZAPRINE 10 MG TABLET 5 MG PO (23:49)
[2023-11-25] VITALS (14 sets, daily range): BP systolic 108–140; BP diastolic 63–97; PULSE 68–108; RESP 14–18; TEMP 36–37.7; O2SAT 94–100
[2023-11-25] MEDS: TRAZODONE 50 MG TABLET 25 MG PO ×2 (02:05→20:37)
[2023-11-25] MEDS: TETRACAINE/BENZOCAINE/BUTAMBEN (CETACAINE) BOTTLE 1 SPRAY TOP (02:16)
[2023-11-25] MEDS: diazePAM 10 MG/2 ML SYRINGE 2 MG IV (02:55)
--- NOTE | 2023-11-25 05:08 | PC.NURSE ---
Pt was given meds in pudding and applesauce per diet however it seems that he is still aspirating based on continual coughing. Fine crackles in lung bases. Required 1-2L NC overnight. Throat spray seemed to help. Pt was also extremely restless and moaning in regards to restless legs. He was given baclofen, flexeril, tyelnol, and trazadone to help rest without any effect. Got a one time order for 2 mg Valium which allowed pt to rest comfortably for several hours.
[2023-11-25 06:03] LABS: Alanine Aminotransferase 86 IU/L (<50); Albumin Globulin Ratio 1.3 (1.0-2.8); Alkaline Phosphatase 42 U/L (38-126); Aspartate Aminotransferase 68 IU/L (17-59); BUN Creatinine Ratio 26.5 (6-22); Bilirubin Total 1.4 mg/dL (0.2-1.3); Blood Urea Nitrogen 26 mg/dL (9-20); Calcium 8.7 mg/dL (8.4-10.2); Carbon Dioxide 26 mmol/L (22-32); Chloride 99 mmol/L (98-107); Estimated Glomerular Filt Rate > 60 mL/min (>60); Globulin 3.1 g/dL (1.7-4.1); Glucose 97 mg/dL (80-110); HEMOLYSIS < 15 (0-50); Sodium 134 mmol/L (137-145); Total Protein 7.1 g/dL (6.3-8.2)
[2023-11-25] MEDS: ASPIRIN 81 MG CHEW TAB PO (09:39)
[2023-11-25] MEDS: ESCITALOPRAM 10 MG TABLET PO (09:39)
[2023-11-25] MEDS: TAMSULOSIN 0.4 MG CAPSULE PO (09:39)
[2023-11-25] MEDS: ENOXAPARIN 40 MG/0.4 ML SYRINGE SUBCUT (09:39)
[2023-11-25] MEDS: MAGNESIUM OXIDE 400 MG TABLET PO ×2 (09:39→20:38)
[2023-11-25] MEDS: SODIUM CHLORIDE 0.9% FLUSH 10 ML IV ×2 (09:40→22:20)
--- NOTE | 2023-11-25 10:15 | PT.IPTN ---
Current Diagnoses Cerebral infarction, unspecified (11/16/23) Physical Therapy Treatment Note M2 PT-IP Current Condition Start: 11/16/23 10:34 Freq: NEEDED Status: Active Protocol: Document 11/16/23 11:25 MB (Rec: 11/16/23 11:53 MB [id number]) Physical Therapy Current Condition Current Condition Evaluation Date 11/16/23 Treatment Diagnosis CVA M3 PT-IP Subjective Start: 11/16/23 10:34 Freq: NEEDED Status: Active Protocol: Document 11/25/23 10:45 TS (Rec: 11/25/23 10:58 TS [id number]) Subjective Physical Therapy Visit Type Type Treatment Note Visit Start Time 10:15 Visit Stop Time 10:44 Notes Orthostatics- 133/79 supine, 137/85 sitting, standing 108/ 88. Number of FUEL RETROFITTING TECHNICIAN Visits 1 Physical Therapy Visit Comments Patient Comments Pt found resting in bed, reports not feeling well today and had difficulty eating his breakfast. Pt is agreeable to PT. M4 PT-IP Mobility and Gait Start: 11/16/23 10:34 Freq: NEEDED Status: Active Protocol: Document 11/25/23 10:45 TS (Rec: 11/25/23 10:58 TS [id number]) PT-Bed Mobility Assessment Rolling Type of Rolling Roll to Right Level of Assist Maximal Assistance,1 Person Assistance Supine to Sit Supine to Sit Maximum Assistance,1 Person Assistance Sit to Supine Sit to Supine Maximum Assistance,2 Person Assistance Scooting Scooting to Edge of Bed Maximum Assistance Scooting Up and Down in Bed Maximum Assistance PT-Transfer Assessment Sit to and From Stand Sit to and from Stand Maximum Assistance,2 Person Assistance,Use of Upper Extremities Equipment Transfer Assistive Device Gait Belt,Bud Walker Orthotic/Prosthetic Devices or Brace: No Comments Mobility Comments BP in supine 133/79. Logroll to R side MaxA x1, pt required cues for handrails. Supine to sit MaxA x1 for uprighting trunk, pt maintained sitting balance with single UE support . BP in sitting 137/85. Pt had x1LOB in sitting when scooting to EOB. STS x3 MaxA x2 with hemiwalker, pt requires blocking of R knee. BP in standing 108/88, pt reports some nausea, required back to bed. Sit to supine MaxA x2. Pt was left with nursing tending to needs. Gait Assessment Comments Gait Comments unable PT-Balance Assessment Sitting Balance and Reactions Static Sitting Balance Ability Fair Dynamic Sitting Balance Ability Fair Standing Balance and Reactions Static Standing Balance Ability Poor Dynamic Standing Balance Ability Poor Device Used Left hemiwalker M5 PT-IP Objective Assessments Start: 11/16/23 10:34 Freq: NEEDED Status: Active Protocol: Document 11/16/23 11:25 MB (Rec: 11/16/23 12:01 MB [id number]) Orientation Orientation/Cognition Level of Alertness Alert Orientation Name,Age,Birthday,Month,Year, Place,Situation Language Function Ability No Deficits Noted Safety Awareness Understands Safety Issues Memory Description No Deficits Noted Gross Range of Motion Upper Extremity ROM Impairments Defer to OT, right arm does not swing as much with gait Lower Extremity ROM Assessment Within Functional Limits Strength Lower Extremity Strength Assessment Within Functional Limits Comments Strength Comments B LEs, strength is 5/5 in hip flexion, knee extension, ankle DF and great toe extension on evaluation date Coordination Assessment Assessment Foot Tapping Test Normal Performance Heel on Vo Test Normal Performance Coordination Comments Defer UEs to OT Sensation Assessment Sensation Gross Sensation WNL Comments Sensation Comments Defer UEs to OT Muscle Tone Muscle Tone WNL Yes M6 PT-IP Treatment Start: 11/16/23 10:34 Freq: NEEDED Status: Active Protocol: Document 11/25/23 10:45 TS (Rec: 11/25/23 10:58 TS [id number]) Physical Therapy Treatment Education Education Provided Safety M7 PT-IP Assessment and Plan Start: 11/16/23 10:34 Freq: NEEDED Status: Active Protocol: Document 11/25/23 10:45 TS (Rec: 11/25/23 10:58 TS [id number]) PT Summary Assessment and Plan Potential Rehabilitation Potential Fair Summary Impairments ROM,Strength,Balance, Coordination,Sensation,Tone, Cognition,Bed Mobility, Transfers,Gait,Activity Tolerance Progress Towards Goals Slow Progress due to Activity Tolerance,Slow Progress - Other Assessment Summary Fantasma continues to make slow progress with his mobility. He requires MaxA x1-2PA for all mobility. He continues to have some slurred speech and RUE seems most impacted by his stroke. RLE shows some improvement in mobility. He has some dizziness/ lightheadedness in standing for BP. He did not transfer to chair this session due to fatigue and poor balance. PT continues to recommend acute vs SNF rehab. Goals Bed Mobility Goal Minimal Assistance Transfer Goal Minimal Assistance Gait Goal Minimal Assistance,Bud Walker Gait Distance 25 Other Goals to improve bed mobility, transfers and ambulation using FWW SBA ~ 100 ft Days to Meet Goals 10 Frequency of Treatment Frequency Of Treatment Once a Day Treatment Plan Physical Therapy Treatment Plan Bed Mobility Training,Transfer Training,Gait Training, Therapeutic Exercise,Balance Retraining,Discharge Planning, Hot or Cold Pack,Neuromuscular Re-ed,Coordination Retraining ,Manual Therapy Precautions Other Precautions Falls, right hemiplegia, Recommendations To Nursing Amount of Assist Needed Mechanical Lift Discharge Recommendations PT Discharge Recommendations SNF vs Acute Rehab Transportation Needs at Discharge Wheelchair/Cabulance
--- NOTE | 2023-11-25 11:54 | CM.DPNOTE ---
Addendum entered by STANTON Jang 11/25/23 15:34: TELEPHONE SOLICITOR SUPERVISOR updated Vani at [facility], she reports auth is good until 11/29. WIll check in on DCP updates tomorrow SL Original Note: DCP Note TELEPHONE SOLICITOR SUPERVISOR reviewed EMR. Per Adilson at [facility] Acute Inpt Rehab, need 48HR JUN, 11/23 PN, and orthostatics. TELEPHONE SOLICITOR SUPERVISOR faxed those and today's PT treatment note. Per Adilson, their medical parasitologist reports unable to accept due to orthostatics. Willing to re-review tomorrow. TELEPHONE SOLICITOR SUPERVISOR updated provider. TELEPHONE SOLICITOR SUPERVISOR met with pt, family, and family Best via phone. Updated them on barriers to acceptance and plan moving forward. In agreement with plan, in agreement with [facility] transport. In agreement with [facility] and [facility] as backup plans. ADRIEN Nirmala kindly agreed to send initial ref information to [facility] for review. TELEPHONE SOLICITOR SUPERVISOR left a vm with Aziza from [facility] updating on situation. P: acute inpt rehab when able to get accepting facility, transport via [facility], and ins auth pending. Backup plan at [facility]. CM team will continue to follow closely. STANTON Jang
[2023-11-25] MEDS: SODIUM CHLORIDE 0.9% 500 ML 1000 ML IV (13:02)
--- NOTE | 2023-11-25 13:17 | PC.NURSE ---
Pt continues to cough after taking anything by mouth. Contacted speech therapy to come and re-evaluate Pt. Held lunch tray.
--- NOTE | 2023-11-25 13:52 | P.PN_ITS ---
Subjective Subjective Interval history: Interval summary: Feels a bit more weak today. He was orthostatic with PT. Ordered for 500 cc bolus. He also did a bit worse with speech therapy today. Exam Vital Signs (past 8 hours): - 11/25/23 08:00 11/25/23 09:00 11/25/23 10:45 Temperature Pulse Rate 69 Pulse Rate [Orthostatic Lying] 84 Pulse Rate [Orthostatic Sitting] 94 H Pulse Rate [Orthostatic Standing] 108 H Respiratory Rate 14 Blood Pressure 127/74 Blood Pressure [Orthostatic Lying] 133/97 H Blood Pressure [Orthostatic Sitting] 137/85 Blood Pressure [Orthostatic Standing] 108/88 Pulse Oximetry 97 96 Oxygen Delivery Method Nasal Cannula Oxygen Flow Rate 2 2 11/25/23 12:00 11/25/23 13:00 Temperature 97.9 F Pulse Rate 81 Pulse Rate [Orthostatic Lying] Pulse Rate [Orthostatic Sitting] Pulse Rate [Orthostatic Standing] Respiratory Rate 16 Blood Pressure 119/63 Blood Pressure [Orthostatic Lying] Blood Pressure [Orthostatic Sitting] Blood Pressure [Orthostatic Standing] Pulse Oximetry 94 94 Oxygen Delivery Method Room Air Oxygen Flow Rate 0 Fraction of Inspired Oxygen 28 SaO2/FiO2 Ratio 339 Oxygen Delivery Method Room Air Oxygen Flow Rate 0 Narrative Exam Narrative: NAD Normal speech content. Right dense paresis and facial droop. Lungs clear and normal effort CV regular, no murmur. No edema Objective Labs 11/22/23 04:30 11/25/23 04:25 Labs: Laboratory Results - last 24 hr 11/25/23 04:25 Sodium 134 L Potassium 4.0 Chloride 99 Carbon Dioxide 26 BUN 26 H Creatinine 0.98 Estimated GFR > 60 BUN/Creatinine Ratio 26.5 H Glucose 97 Calcium 8.7 Total Bilirubin 1.4 H AST 68 H ALT 86 H Alkaline Phosphatase 42 Total Protein 7.1 Albumin 4.0 Globulin 3.1 Albumin/Globulin Ratio 1.3 PFSH Medical History Depression Tear of meniscus of knee Inguinal hernia Surgical History Hx of tonsillectomy Social History household members: none Smoking Status: Former smoker alcohol intake: current Assessment & Plan Assessment & Plan narrative: 1. CVA, acute, present on admission and active. - continue monitoring with tele, though no prior hx of afib and has had multiple prior holters without arrythmia noted. - MR showing an acute L basal ganglia infarct - continue asa and statin therapy. 2. Dysphagia, new and improved. - he was nothing by mouth over the weekend but did well with his modified barium study. Now on soft diet with thin liquids though need to follow chin tuck recommendations. - discussed with speech pathologist today, they are continuing to monitor, re- discussed with patient techniques to reduce aspiration risk. 2. Hypertension, present on admission and stable. - continue monitor. Stable and controlled. 3. Macrocytosis, present on admission and stable. - no further evaluation in hospital. 4. Depression, present on admission and stable. - continue home escitalopram. 5. Elevated LFT and bilirubin, present on admission and stable. - no abdominal pain, may be medication related, given mild increase continue to follow only. Repeat studies today again with improvement. 6. Orthostatic hypotension - give 500 cc bolus, check orthostatics qshift. Consider midodrine depending on response to fluids. Dispo: - Otherwise plan for acute rehab with backup SNF if not approved. Acute rehab would like improved orthostatic prior to re-review. Code: DNR, surrogate is sister, and nicky Jewell Time-Based Coding :: [TOTAL MINUTES] spent with patient and on the chart (including review of chart, obtaining history, exam, reviewing outside data, placing orders, documenting exam and treatment plan, and counseling patient) on [DATE].
--- NOTE | 2023-11-25 14:47 | OT.IP.TRT ---
Current Diagnoses Cerebral infarction, unspecified (11/16/23) Occupational Therapy Treatment Note M2 OT-IP Current Condition Start: 11/16/23 12:31 Freq: Status: Active Protocol: Document 11/17/23 14:01 [facility] (Rec: 11/17/23 14:16 [facility] [id number]) Occupational Therapy Current Condition Current Condition Evaluation Date 11/17/23 Treatment Diagnosis MRI: Acute lacunar infarction, left basal ganglia, feet feel heavy Diagnosis Onset Date 11/16/23 M3 OT- IP Subjective and Pain Start: 11/16/23 12:31 Freq: Status: Active Protocol: Document 11/25/23 14:33 JASON (Rec: 11/25/23 14:47 JASON [id number]) OT- Subjective Occupational Therapy Visit Type Type Treatment Note Visit Start Time 10:55 Visit Stop Time 11:30 Occupational Therapy Visit Comments Patient Comments Pt reported being tired and having a difficult night, but agreed to participate in therapy Patient/Caregiver Goals Pt is eager to go to rehab for continued therapy. OT Pain Assessment Pain When Pain Assessed At Rest Pain Present Pain Present Denied Pain M5 OT- IP IADL's Start: 11/16/23 12:31 Freq: Status: Active Protocol: Document 11/17/23 14:01 [facility] (Rec: 11/17/23 14:16 [facility] [id number]) OT-Instrumental Activities of Daily Living Home Safety Awareness Awareness of Need for Assistance at Home Good Awareness Ability to Problem Solve Emergency Able to Problem Solve Situations Driving Driving Concerns Identified Regarding Safety M6 OT- IP Functional Cognition Start: 11/16/23 12:31 Freq: Status: Active Protocol: Document 11/24/23 10:12 [facility] (Rec: 11/24/23 10:46 [facility] [id number]) Cognitive Factors Limiting Selfcare Function Cognitive Ability Level of Alertness Alert Cognitive Comments Cognitive Assessment Comments INtact, very aware of his needs. Pt very motivated to get better. M7 OT- IP Mobility and Balance Start: 11/16/23 12:31 Freq: Status: Active Protocol: Document 11/25/23 14:33 JASON (Rec: 11/25/23 14:47 JASON [id number]) OT- Bed Mobility Assessment Supine to Sit Supine to Sit Assist Moderate Assistance,1 Person Assistance,Head of Bed Elevated Scooting Scooting to Edge of Bed Moderate Assistance,1 Person Assistance OT-Transfer Assessment Comments Mobility Comments Logroll to R side Mod A x1. Supine to sit MaxA x1 for uprighting trunk, pt maintained sitting balance with single UE support. Pt declined sit<>stand due to not feeling well. Pt performs sit >supine with Max A x1. Sit to supine MaxA x2.Pt moves to midline of the bed with min A. OT- Balance Assessment Sitting Balance and Reactions Static Sitting Balance Ability Good Dynamic Sitting Balance Ability Good Comments Other Balance Tests/Deviations/Treatment Pt sat EOB for core/balance : exercises. Pt performs trunk forward and backward leaning x 10 reps and lateral to R and to L x 10 reps while OT maintains R hand on mattress for WB. Pt with good control throughout. Pt performs SROM for shoulder abd/add with min vcs from OT for approximately 20 reps maintaining good EOB balance. M8 OT- IP Objective Assessments Start: 11/16/23 12:31 Freq: Status: Active Protocol: Document 11/25/23 14:33 JASON (Rec: 11/25/23 14:47 [facility] [id number]) OT Strength Upper Extremity Strength Assessment Right Impaired Shoulder 3- Elbow 1 Forearm 1 Wrist 0 Hand 0 Comments Strength Comments In reclined position, pt assisted in small shoulder abd and add while OT supported the weight of his UE M9 OT- IP Assessment and Plan Start: 11/16/23 12:31 Freq: Status: Active Protocol: Document 11/25/23 14:33 JASON (Rec: 11/25/23 14:47 [facility] [id number]) OT Summary Assessment and Plan Potential Rehabilitation Potential Excellent Analytic Complexity at Evaluation High Summary OT Impairments Range of Motion,Strength, Balance,Coordination, Functional Mobility,Self- Feeding,Grooming,Dressing, Toileting,Bathing,Toilet Transfers,Shower Transfers, Activity Tolerance Progress Towards Goals Progressing Toward Goals Assessment Summary Pt was eager to participate in OT, despite reporting that he had a difficult night and was feeling tired today. Pt had some activation of shoulder abd/add in gravity decreased position. Pt tolerated extended EOB activity to improve overall activity tolerance and core strength. Pt performs weight shifting tasks and weight bearing while EOB with good overall balance. This is a good precursor for EOB ADLs. Pt is an excellent candidate for acute rehab as pt is responding well to education and therapy session. Pt is very aware of his needs and highly motivated to get better. Pt remains appropriate for skilled OT services, cont per established POC. Pt left reclined in bed, with HOB at 30 degrees, and all needs met and in reach. Goals Self-Feeding Goal Independent Grooming Goal Independent Dressing Goal Minimal Assistance Toileting Goal Minimal Assistance Bathing Goal Moderate Assistance Toilet Transfer Goal Minimal Assistance Shower Transfer Goal Moderate Assistance OT-Other Goals Golas based on incorporation of his RUE. Frequency of Treatment Frequency Of Treatment Once a Day Other frequency 5x/week Treatment Plan OT Treatment Plan ADL Training,Functional Mobility,Neuromuscular Re- education,Therapeutic Exercises,Patient/Family Education,Discharge Planning Discharge Recommendations OT Discharge Recommendations Acute Rehab,SNF vs Acute Rehab Transportation Needs at Discharge Wheelchair/Cabulance
--- NOTE | 2023-11-25 14:58 | ST.IPDYTX ---
Visit Care Team Role Provider Type Quan New DO Primary Care Provider Physician Specialty: Family Practice Address: [address] [place] [address], [id number] Email: [email or web address] Darlyn Keith DO Emergency Provider Physician Specialty: Emergency Medicine Address: [address] [place] [address], [id number] Email: [email or web address] Pierre Moreno DO Admit Provider Physician Attending Provider Specialty: Internal Medicine Address: [address] [place] [address], [address] Email: [email or web address] [facility] Dysphagia Treatment [facility] Dysphagia Treatment Start: 11/17/23 16:10 Freq: Status: Active Protocol: Document 11/25/23 14:36 SS (Rec: 11/25/23 14:57 SS [id number]) Dysphagia Treatment Session Time Visit Start Time 13:25 Visit Stop Time 13:56 Total Visit Minutes 31 Visit Information Visit Number 6 Setting Assessment Location Acute Care Visit Type Note Type Treatment Note Next Note Type Next Note Type Treatment Note Patient Information Identification Type Name,ID Wristband Subjective Observations Pt was sitting upright in bed upon [facility] arrival. He was alert and motivated to participate in session. Family member present during session. Treatment Liquids Trialed Ice chips,Thin (IDDSI 0) Solids Trialed Purred (IDDSI 4),Soft & Bite- sized (IDDSI 6) Administration Type Tea Spoon,Cup Single Sip,Self- Feeding Oral Strategies Upright at 90 degrees, Controlled Bite/Sip Size Pharyngeal Strategies Sitting Upright (90 deg),Chin Tuck,Effortful Swallow,Small Bites and Sips Treatment Activities Per RN, report pt with increased coughing on both solids and liquids since attempting breakfast this morning, with lunch tray held until [facility] session. Pt explained that he was using recommended safe swallow precautions to reduce the risk of aspiration, including small bites/sips, slow rate, upright positioning, and chin tuck, though without decrease in overt s/sx of aspiration. As pt expressed he had not completed oral care on this date, provided set-up assist for oral care. Reviewed importance of thorough oral care TID to minimize risk of aspiration PNA and colonization of oral pathogens . Pt expressed understanding of education. [facility] provided the following consistencies: thin liquids, ice chips, puree, and soft and bite-sized textures. Oral phase was characterized by slow bolus manipulation and appeared disorganized. Pharyngeal phase cannot be objectively assessed at bedside though subjectively appeared timely. Pt demonstrated consistent s/sx of aspiration with thin liquids only re: reflexive coughing. Provided education and modeling of use of chin tuck and effortful swallow. Pt demonstrated no overt s/sx of aspiration given use of these compensatory strategies. No overt s/sx of aspiration noted with ice chips and solids. Recommended continuation of soft and bite-sized diet and crushed medications in puree carrier with ongoing use of strategies as educated. Recommend pt consistently utilize chin tuck and effortful swallow during single small sips of thin liquids. Pt agreeable to recommendations. Will continue to follow up. If no clinical improvements are made, recommend MBSS in house to re- assess swallow pathophysiology given observations at bedside . Reviewed HEP at the conclusion of the session, with patient verbalizing understanding and expressing he has been completing 30 effortful swallows with puree textures every day. HEP Recommendation: effortful swallow 30-50 reps with thin liquid and/or puree. Pt participated well in the treatment session on this date . Plan for pt to implement use of chin tuck and effortful swallow when drinking thin liquids. Recommend MBSS to re- assess pathophysiology if no clinical improvements made in next session. RN and MD notified of current swallowing function as well as recommended compensatory strategies and TID oral care. Continued recommending acute rehab discharge location vs. SNF. The IDDSI Framework Protocol: IDDSI.1 Assessment Patient Response to Treatment Fair Rehab Potential Fair Assessment of Improvement Pt demonstrates reduced swallowing safety and efficiency with soft and bite- sized diet texture and thin liquids on this date, though with reduction in s/sx of aspiration given use of trained strategies. He would benefit from continued participation in rehabilitative exercises in order to return to consumption of regular textures and thin liquids with minimal to no overt s/sx of aspiration. Recommendations Recommendations Continue Current Diet Liquids Order Thin (IDDSI 0) Diet Order Soft & Bite-sized (IDDSI 6) Medication Recommendations Crushed in Carrier Additional Dietary Needs Single Sips,Controlled Sips,No Straws,1:1 Supervision, Encourage to Self-Feed, Reminders to Use Strategies Aspiration Precautions Recommended Precautions Upright at 90 Degrees,Small Bites/Sips,Chin Tuck,Liquids from Cup Additional Precautions Single sips with chin tuck Treatment Plan Placement Recommendation after Discharge Inpatient Rehab Facility Appropriate for Continued Therapy Yes Therapy Recommendations Recommend ongoing tx to monitor swallowing function and implement rehabilitative exercises on to target improved swallowing safety and efficiency. Dysphagia Goals STG 1: Patient will utilize safe swallowing strategies in 90% of opportunities with minimal verbal cues in order to consume safest and least restrictive diet. STG 2: Patient will tolerate IDDSI 6 (soft and bite-sized) with no clinical s/sx of aspiration in 100% of opportunities in order to consume least restrictive diet texture. STG 3: Patient will tolerate thin liquids with no overt s/ sx of aspiration in 100% of opportunities in order to consume least restrictive diet texture. LTG: Patient will tolerate safest and most efficient diet with no clinical s/sx of aspiration or dysphagia in 100 % of opportunities in order to consume least restrictive diet and enhance overallomfort during functional eating and drinking. Follow Up Plan Will continue to follow up.
[2023-11-25] MEDS: ATORVASTATIN 20 MG TABLET 80 MG PO (20:37)
[2023-11-25] MEDS: CYCLOBENZAPRINE 10 MG TABLET 5 MG PO (20:38)
[2023-11-26] VITALS (8 sets, daily range): BP systolic 68–136; BP diastolic 51–78; PULSE 73–93; RESP 16–20; TEMP 36.4–36.8; O2SAT 92–94
[2023-11-26] MEDS: ACETAMINOPHEN 325 MG TABLET 650 MG PO (00:15)
[2023-11-26] MEDS: BACLOFEN 10 MG TABLET PO ×2 (00:15→20:57)
[2023-11-26] MEDS: TETRACAINE/BENZOCAINE/BUTAMBEN (CETACAINE) BOTTLE 1 SPRAY TOP (02:49)
[2023-11-26 08:01] LABS: Alanine Aminotransferase 73 IU/L (<50); Albumin Globulin Ratio 1.4 (1.0-2.8); Alkaline Phosphatase 44 U/L (38-126); Aspartate Aminotransferase 59 IU/L (17-59); BUN Creatinine Ratio 25.8 (6-22); Bilirubin Total 1.4 mg/dL (0.2-1.3); Blood Urea Nitrogen 24 mg/dL (9-20); Calcium 8.6 mg/dL (8.4-10.2); Carbon Dioxide 22 mmol/L (22-32); Chloride 103 mmol/L (98-107); Estimated Glomerular Filt Rate > 60 mL/min (>60); Globulin 2.8 g/dL (1.7-4.1); Glucose 96 mg/dL (80-110); HEMOLYSIS 15 (0-50); Potassium 4.1 mmol/L (3.4-5.1); Sodium 135 mmol/L (137-145); Total Protein 6.8 g/dL (6.3-8.2)
--- NOTE | 2023-11-26 09:00 | PT.IPTN ---
Current Diagnoses Cerebral infarction, unspecified (11/16/23) Physical Therapy Treatment Note M2 PT-IP Current Condition Start: 11/16/23 10:34 Freq: NEEDED Status: Active Protocol: Document 11/16/23 11:25 MB (Rec: 11/16/23 11:53 MB [id number]) Physical Therapy Current Condition Current Condition Evaluation Date 11/16/23 Treatment Diagnosis CVA M3 PT-IP Subjective Start: 11/16/23 10:34 Freq: NEEDED Status: Active Protocol: Document 11/26/23 09:24 TS (Rec: 11/26/23 09:41 TS [id number]) Subjective Physical Therapy Visit Type Type Treatment Note Visit Start Time 09:00 Visit Stop Time 09:24 Number of FRENCH TEACHER Visits 2 Physical Therapy Visit Comments Patient Comments Pt found resting in bed, continues to have little movement in R side, he is agreeable to PT. M4 PT-IP Mobility and Gait Start: 11/16/23 10:34 Freq: NEEDED Status: Active Protocol: Document 11/26/23 09:24 TS (Rec: 11/26/23 09:41 TS [id number]) PT-Bed Mobility Assessment Supine to Sit Supine to Sit Maximum Assistance,1 Person Assistance Scooting Scooting to Edge of Bed Maximum Assistance PT-Transfer Assessment Sit to and From Stand Sit to and from Stand Maximum Assistance,2 Person Assistance,Use of Upper Extremities Equipment Transfer Assistive Device Gait Belt,Bud Walker Orthotic/Prosthetic Devices or Brace: No Transfers Transfer Destination Chair Transfer Technique Stand Pivot Transfer Ability Level of Assist Maximum Assistance,2 Person Assistance,Use of Upper Extremities Comments Mobility Comments BP in supine 133/78. Supine to sit MaxA x1 with cues for use of handrail. Pt sat EOB with no UE support, BP in sitting 129/65, pt reports some dizziness. STS with hemiwalker MaxA x2, pt requires blocking of R foot. Pt became more lightheaded in standing, BP in standing 68/51, pt required to sit back EOB. He agreed to transfer to the chair. Stand pivot to chair with no AD MaxA x1. Pt was left in chair, all needs met. Gait Assessment Comments Gait Comments unable PT-Balance Assessment Sitting Balance and Reactions Static Sitting Balance Ability Good Dynamic Sitting Balance Ability Good Standing Balance and Reactions Static Standing Balance Ability Poor Dynamic Standing Balance Ability Poor Device Used Left hemiwalker M5 PT-IP Objective Assessments Start: 11/16/23 10:34 Freq: NEEDED Status: Active Protocol: Document 11/16/23 11:25 MB (Rec: 11/16/23 12:01 MB [id number]) Orientation Orientation/Cognition Level of Alertness Alert Orientation Name,Age,Birthday,Month,Year, Place,Situation Language Function Ability No Deficits Noted Safety Awareness Understands Safety Issues Memory Description No Deficits Noted Gross Range of Motion Upper Extremity ROM Impairments Defer to OT, right arm does not swing as much with gait Lower Extremity ROM Assessment Within Functional Limits Strength Lower Extremity Strength Assessment Within Functional Limits Comments Strength Comments B LEs, strength is 5/5 in hip flexion, knee extension, ankle DF and great toe extension on evaluation date Coordination Assessment Assessment Foot Tapping Test Normal Performance Heel on Vo Test Normal Performance Coordination Comments Defer UEs to OT Sensation Assessment Sensation Gross Sensation WNL Comments Sensation Comments Defer UEs to OT Muscle Tone Muscle Tone WNL Yes M6 PT-IP Treatment Start: 11/16/23 10:34 Freq: NEEDED Status: Active Protocol: Document 11/26/23 09:24 TS (Rec: 11/26/23 09:41 TS [id number]) Physical Therapy Treatment Education Education Provided Safety M7 PT-IP Assessment and Plan Start: 11/16/23 10:34 Freq: NEEDED Status: Active Protocol: Document 11/26/23 09:24 TS (Rec: 11/26/23 09:41 TS [id number]) PT Summary Assessment and Plan Potential Rehabilitation Potential Fair Summary Impairments ROM,Strength,Balance, Coordination,Sensation,Tone, Cognition,Bed Mobility, Transfers,Gait,Activity Tolerance Progress Towards Goals Slow Progress due to Activity Tolerance,Slow Progress - Other Assessment Summary Fantasma continues to make slow progress with his mobility. He continues to have weakness and little movement of R side especially with RUE. He requires MaxA for bed mobility and for STS with hemiwalker. He did not progress to ambulation this morning. He continues to have symptoms of dizziness/lightheadedness in sitting and standing. PT continues to recommend SNF vs Acute. Pt's activity tolerance is low at this time but he is motivated to participate. Goals Bed Mobility Goal Minimal Assistance Transfer Goal Minimal Assistance Gait Goal Minimal Assistance,Bud Walker Gait Distance 25 Other Goals to improve bed mobility, transfers and ambulation using FWW SBA ~ 100 ft Days to Meet Goals 10 Frequency of Treatment Frequency Of Treatment Once a Day Treatment Plan Physical Therapy Treatment Plan Bed Mobility Training,Transfer Training,Gait Training, Therapeutic Exercise,Balance Retraining,Discharge Planning, Hot or Cold Pack,Neuromuscular Re-ed,Coordination Retraining ,Manual Therapy Precautions Other Precautions Falls, right hemiplegia, Recommendations To Nursing Amount of Assist Needed Mechanical Lift Discharge Recommendations PT Discharge Recommendations SNF vs Acute Rehab Transportation Needs at Discharge Wheelchair/Cabulance
[2023-11-26] MEDS: MAGNESIUM OXIDE 400 MG TABLET PO ×2 (09:55→20:43)
[2023-11-26] MEDS: ESCITALOPRAM 10 MG TABLET PO (09:55)
[2023-11-26] MEDS: SODIUM CHLORIDE 0.9% FLUSH 10 ML IV ×2 (09:55→20:43)
[2023-11-26] MEDS: ENOXAPARIN 40 MG/0.4 ML SYRINGE SUBCUT (09:55)
[2023-11-26] MEDS: ASPIRIN 81 MG CHEW TAB PO (09:55)
[2023-11-26] MEDS: MIDODRINE HCL 5 MG TABLET PO ×3 (10:47→18:14)
--- NOTE | 2023-11-26 13:15 | DI.RAD.S_ITS ---
PROCEDURE: XR CHEST 1V INDICATIONS: low BP, poss aspiration (recent CVA) TECHNIQUE: One view of the chest was acquired. COMPARISON: [facility], CR, XR CHEST 1V, 11/22/2023, 23:30. FINDINGS: Surgical changes and devices: None. Lungs and pleura: Lungs are clear. No pleural effusions or pneumothorax. Mediastinum: Mediastinal contours appear normal. Heart size is prominent. Bones and chest wall: No suspicious bony lesions. Overlying soft tissues appear unremarkable. IMPRESSION: No acute pulmonary process. Dictated by: Minerva Torres M.D. on 11/26/2023 at 16:46 Approved by: Minerva Torres M.D. on 11/26/2023 at 16:46
--- NOTE | 2023-11-26 13:17 | P.PN_ITS ---
Subjective Subjective Interval history: Interval summary: Still orthostatic, continues to feel weak. Started midodrine this morning. Will also check UA and CXR to rule out possible infection contributing to weakness. Swallow is a bit worse likely due to diffuse worsening weakness reported. Exam Vital Signs (past 8 hours): - 11/26/23 08:00 11/26/23 09:00 11/26/23 09:00 Temperature 97.9 F Pulse Rate 78 Respiratory Rate 16 Blood Pressure 136/75 Blood Pressure [Orthostatic Lying] 133/78 Blood Pressure [Orthostatic Sitting] 129/65 Blood Pressure [Orthostatic Standing] 68/51 L Pulse Oximetry 92 Oxygen Delivery Method Room Air Oxygen Flow Rate 0 11/26/23 12:00 Temperature 97.8 F Pulse Rate 93 H Respiratory Rate 20 Blood Pressure 111/65 Blood Pressure [Orthostatic Lying] Blood Pressure [Orthostatic Sitting] Blood Pressure [Orthostatic Standing] Pulse Oximetry 93 Oxygen Delivery Method Oxygen Flow Rate Fraction of Inspired Oxygen 28 SaO2/FiO2 Ratio 339 Oxygen Delivery Method Room Air Oxygen Flow Rate 0 Narrative Exam Narrative: NAD Normal speech content. Right dense paresis and facial droop. Lungs clear and normal effort CV regular, no murmur. No edema Affect is very flat today Objective Labs 11/22/23 04:30 11/26/23 07:15 Labs: Laboratory Results - last 24 hr 11/26/23 07:15 Sodium 135 L Potassium 4.1 Chloride 103 Carbon Dioxide 22 BUN 24 H Creatinine 0.93 Estimated GFR > 60 BUN/Creatinine Ratio 25.8 H Glucose 96 Calcium 8.6 Total Bilirubin 1.4 H AST 59 ALT 73 H Alkaline Phosphatase 44 Total Protein 6.8 Albumin 4.0 Globulin 2.8 Albumin/Globulin Ratio 1.4 PFSH Medical History Depression Tear of meniscus of knee Inguinal hernia Surgical History Hx of tonsillectomy Social History household members: none Smoking Status: Former smoker alcohol intake: current Assessment & Plan Assessment & Plan narrative: 1. CVA, acute, present on admission and active. - stopped tele as no events had occurred during his hospital stay, no arrythmia was detected. - MR showing an acute L basal ganglia infarct - continue asa and statin therapy. - continue PT/ OT / Speech therapies. 2. Dysphagia, ne - he was nothing by mouth over the weekend but did well with his modified barium study. Now on soft diet with thin liquids though need to follow chin tuelida recommendations. - discussed with speech pathologist today, they are continuing to monitor, re- discussed with patient techniques to reduce aspiration risk. 2. Hypertension, present on admission and stable. - continue monitor. Stable and controlled. 3. Macrocytosis, present on admission and stable. - no further evaluation in hospital. 4. Depression, present on admission and stable. - continue home escitalopram. 5. Elevated LFT and bilirubin, present on admission and stable. - no abdominal pain, may be medication related, given mild increase continue to follow only. Repeat studies today again with improvement. 6. Orthostatic hypotension - given 500 cc bolus, continue check orthostatics qshift. Consider midodrine depending on response to fluids. - will add midodrine TID today for persistent positive orthostatics today - will rule out contributing infectious etiology with UA and chest xray as well. Had stopped daily CBC but will recheck again tomorrow AM to make sure no leukocytosis as well. Dispo: - Otherwise plan for acute rehab with backup SNF if not approved. Acute rehab would like improved orthostatic prior to re-review. Will see after above evaluation if his orthostatics improve. Likely 1-2 more days. Code: DNR, surrogate is sister, and ivy of gwyn [place] Discussed with case management, PT/OT/GRANULATOR OPERATOR providers today to formulate the above assessment and plan. Time-Based Coding :: [TOTAL MINUTES] spent with patient and on the chart (including review of chart, obtaining history, exam, reviewing outside data, placing orders, documenting exam and treatment plan, and counseling patient) on [DATE].
--- NOTE | 2023-11-26 13:22 | SLP.IPNOTE ---
Addendum entered and electronically signed by Heidy Thornton 11/26/23 16:02: Session attempted again at 16:00. RN reported pt has slept most of the day. Attempted to wake pt with voice and gentle tap on shoulder, though he continued to sleep. Plan to follow-up tomorrow. Original Note: Session attempted at 13:15. Pt expressed he was feeling very tired and politely declined participation, stating he wanted to return to sleep. Per verbal RN report, pt with low blood pressure today. She reported observing x2 instances of coughing, though no consistent overt s/sx of aspiration with PO intake. Plan to follow up later in afternoon if schedule allows and pt is more alert.
--- NOTE | 2023-11-26 15:15 | OT.IP.TRT ---
Current Diagnoses Cerebral infarction, unspecified (11/16/23) Occupational Therapy Treatment Note M2 OT-IP Current Condition Start: 11/16/23 12:31 Freq: Status: Active Protocol: Document 11/17/23 14:01 [facility] (Rec: 11/17/23 14:16 [facility] [id number]) Occupational Therapy Current Condition Current Condition Evaluation Date 11/17/23 Treatment Diagnosis MRI: Acute lacunar infarction, left basal ganglia, feet feel heavy Diagnosis Onset Date 11/16/23 M3 OT- IP Subjective and Pain Start: 11/16/23 12:31 Freq: Status: Active Protocol: Document 11/26/23 15:15 [facility] (Rec: 11/26/23 15:27 [facility] [id number]) OT- Subjective Occupational Therapy Visit Type Type Treatment Note Visit Start Time 14:55 Visit Stop Time 15:15 Occupational Therapy Visit Comments Patient Comments Pt very tired and states not moving as well today but agreed to try OT. Patient/Caregiver Goals Pt is eager to go to rehab for continued therapy. M4 OT- IP ADL's Start: 11/16/23 12:31 Freq: Status: Active Protocol: Document 11/26/23 15:16 [facility] (Rec: 11/26/23 15:25 [facility] [id number]) OT ADL-Oral Care General Eval Oral Care Ability Standby Assistance Areas of Assistance Brushing Teeth,Retrieving/Set- Up of Items Comments Oral Care Comments Pt not able to use his RUE for needs and use of left hand today for oral care needs. OT ADL-Dressing General Eval Lower Body Dressing Ability Total Assistance Areas Needing Assistance Socks OT ADL-Bathing Bathing Type Bathing Type Sponge Bath Comments OT Bathing Comments SPonge bath or use of rolling shower chair more appropriate at this time. M5 OT- IP IADL's Start: 11/16/23 12:31 Freq: Status: Active Protocol: Document 11/17/23 14:01 [facility] (Rec: 11/17/23 14:16 [facility] [id number]) OT-Instrumental Activities of Daily Living Home Safety Awareness Awareness of Need for Assistance at Home Good Awareness Ability to Problem Solve Emergency Able to Problem Solve Situations Driving Driving Concerns Identified Regarding Safety M6 OT- IP Functional Cognition Start: 11/16/23 12:31 Freq: Status: Active Protocol: Document 11/26/23 15:16 [facility] (Rec: 11/26/23 15:25 [facility] [id number]) Cognitive Factors Limiting Selfcare Function Cognitive Ability Level of Alertness Alert Patient Orientation Name,Age,Birthday,Month,Date, Year,Day of Week,Place, Situation Attention Span Ability Capable of Focused Attention, Capable of Sustained Attention Cognitive Comments Cognitive Assessment Comments Pt intact and aware today that he is not moving as well in hypotensive and orthostatic today 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 M9 OT- IP Assessment and Plan Start: 11/16/23 12:31 Freq: Status: Active Protocol: Document 11/26/23 15:16 [facility] (Rec: 11/26/23 15:25 [facility] [id number]) OT Summary Assessment and Plan Potential Rehabilitation Potential Good Analytic Complexity at Evaluation High Summary OT Impairments Range of Motion,Strength, Balance,Coordination, Functional Mobility,Self- Feeding,Grooming,Dressing, Toileting,Bathing,Toilet Transfers,Shower Transfers, Activity Tolerance Assessment Summary Pt not feeling well today and still able to participate in therapy but very tired and having orthostatic reading today. Pt right shoulder now trace movements versus 3-/5 a couple days ago. Pt ideally to go to acute rehab however at this time may be more appropriate for skilled rehab. Goals Self-Feeding Goal Independent Grooming Goal Independent Dressing Goal Minimal Assistance Toileting Goal Minimal Assistance Bathing Goal Moderate Assistance Toilet Transfer Goal Minimal Assistance Shower Transfer Goal Moderate Assistance OT-Other Goals Goals based on incorporation of his RUE. Frequency of Treatment Other frequency 5x/week Treatment Plan OT Treatment Plan ADL Training,Functional Mobility,Neuromuscular Re- education,Therapeutic Exercises,Patient/Family Education,Discharge Planning Discharge Recommendations OT Discharge Recommendations SNF vs Acute Rehab Transportation Needs at Discharge Wheelchair/Cabulance,Stretcher /Ambulance
--- NOTE | 2023-11-26 15:25 | CM.DPNOTE ---
DCP Note STEAM CLEANER reviewed EMR. STEAM CLEANER spoke with Aziza from [facility] able [place] pt Thursday vs Sat, auth pending now. Faxed over additional referral information for auth. STEAM CLEANER updated Adilson from [facility] on alternative accepting facility, Adilson canceled referral. STEAM CLEANER updated Vani at [facility], agreed to hold onto referral as backup in case ins does not auth inpt rehab. STEAM CLEANER updated provider/RN on accepting facility. STEAM CLEANER updated pt in room. In agreement with plan. STEAM CLEANER updated sister/POMere Kumari (p [phone]). In agreement with plan as well. Agreed to update family Best on this skin diving teacher behalf. P: discharge to [facility] pending medical stability and ins auth. Transport via [employer] private pay. CM team will continue to follow closely. STANTON Jang
[2023-11-26 17:49] LABS: Appearance Urine UA CLEAR; Bilirubin Urine UA NEGATIVE (NEGATIVE); Color Urine UA YELLOW; Glucose Urine UA NEGATIVE (Negative); Ketones Urine UA TRACE (NEGATIVE); Leukocyte Esterase Urine UA TRACE (NEGATIVE); Nitrite Urine UA NEGATIVE (Negative); Occult Blood Urine UA TRACE-INTACT (Negative); Protein Urine UA 1+ (Negative); Specific Gravity Urine UA >=1.030 (1.000-1.035)
[2023-11-26 18:00] LABS: Amorphous Sediment Urine 1+; Bacteria Urine Many (>30); Culture Indicated Urine Specimen Cultured; RBC Urine None Seen (0-5/HPF); Squamous Epithelial Cell Urine None Seen (0-5/HPF); Urine Volume 10mL (spun); WBC Urine 5-10/HPF (0-5/HPF)
[2023-11-26] MEDS: cefTRIAXone 1,000 MG in SODIUM CHLORIDE 0.9% 100 ML 200 MG IV (18:51)
[2023-11-26] MEDS: ATORVASTATIN 20 MG TABLET 80 MG PO (20:43)
[2023-11-26] MEDS: CYCLOBENZAPRINE 10 MG TABLET 5 MG PO (20:57)
[2023-11-26] MEDS: TRAZODONE 50 MG TABLET 25 MG PO (20:57)
[2023-11-27] VITALS: BP 111/56; PULSE 74; RESP 19; TEMP 36; O2SAT 94
[2023-11-27 04:00] VITALS: BP 106/51; PULSE 74; RESP 19; TEMP 35.7; O2SAT 93
[2023-11-27 04:44] LABS: Add Manual Diff / Slide Review NO; Basophils Absolute Auto 100 /uL (0-100); Basophils Percent Auto 1.2 % (0-2); Eosinophils Absolute Auto 200 /uL (0-450); Eosinophils Percent Auto 1.5 % (2-4); Hematocrit 38.1 % (41-53); Hemoglobin 13.1 g/dL (13.5-17.5); Lymphocytes Absolute Auto 1700 /uL (1100-4500); Lymphocytes Percent Auto 15.3 % (25-40); Mean Corpuscular HGB Conc 34.5 % (30-36); Mean Corpuscular Hemoglobin 35.5 PG (26-34); Mean Corpuscular Volume 103.2 fL (80-100); Monocytes Absolute Auto 1900 /uL (0-900); Monocytes Percent Auto 17.1 % (3-14); Neutrophils Absolute Auto 7100 /uL (1500-7000); Neutrophils Percent Auto 64.9 % (50-75); Platelet Count 245 X10^3/uL (150-400); Red Blood Cell Count 3.69 X10^6/uL (4.5-5.9); Red Cell Distribution Width 15.7 % (11.6-14.8)
[2023-11-27 05:02] LABS: Alanine Aminotransferase 63 IU/L (<50); Albumin 3.9 g/dL (3.5-5.0); Albumin Globulin Ratio 1.3 (1.0-2.8); Alkaline Phosphatase 45 U/L (38-126); Aspartate Aminotransferase 50 IU/L (17-59); BUN Creatinine Ratio 27.4 (6-22); Bilirubin Total 1.1 mg/dL (0.2-1.3); Blood Urea Nitrogen 26 mg/dL (9-20); Calcium 8.6 mg/dL (8.4-10.2); Carbon Dioxide 23 mmol/L (22-32); Chloride 103 mmol/L (98-107); Estimated Glomerular Filt Rate > 60 mL/min (>60); Glucose 100 mg/dL (80-110); HEMOLYSIS < 15 (0-50); Potassium 4.2 mmol/L (3.4-5.1); Sodium 136 mmol/L (137-145); Total Protein 6.9 g/dL (6.3-8.2)
[2023-11-27] MEDS: MIDODRINE HCL 5 MG TABLET PO ×3 (06:41→18:26)
[2023-11-27 08:00] VITALS: BP 143/87; PULSE 103; RESP 16
--- NOTE | 2023-11-27 08:53 | PT.IPTN ---
Current Diagnoses Cerebral infarction, unspecified (11/16/23) Physical Therapy Treatment Note M2 PT-IP Current Condition Start: 11/16/23 10:34 Freq: NEEDED Status: Active Protocol: Document 11/16/23 11:25 MB (Rec: 11/16/23 11:53 MB [id number]) Physical Therapy Current Condition Current Condition Evaluation Date 11/16/23 Treatment Diagnosis CVA M3 PT-IP Subjective Start: 11/16/23 10:34 Freq: NEEDED Status: Active Protocol: Document 11/27/23 09:48 TS (Rec: 11/27/23 10:08 TS [id number]) Subjective Physical Therapy Visit Type Type Treatment Note Visit Start Time 08:53 Visit Stop Time 09:40 Number of [facility] Visits 3 Physical Therapy Visit Comments Patient Comments Pt found resting in bed, reports feeling well rested today. He is agreeable to PT. M4 PT-IP Mobility and Gait Start: 11/16/23 10:34 Freq: NEEDED Status: Active Protocol: Document 11/27/23 09:48 TS (Rec: 11/27/23 10:08 TS [id number]) PT-Bed Mobility Assessment Supine to Sit Supine to Sit Maximum Assistance,1 Person Assistance Scooting Scooting to Edge of Bed Maximum Assistance PT-Transfer Assessment Sit to and From Stand Sit to and from Stand Maximum Assistance,2 Person Assistance,Use of Upper Extremities Equipment Transfer Assistive Device Gait Belt,Bud Walker Orthotic/Prosthetic Devices or Brace: No Transfers Transfer Destination Chair Transfer Technique Stand Pivot Transfer Ability Level of Assist Maximum Assistance,2 Person Assistance,Use of Upper Extremities Comments Mobility Comments BP in supine 140/82. Pt performed heel slides, ankle pumps PROM on R side and shoulder flex PROM on R side. Supine to sit MaxA x2 for uprighting trunk. He sat EOB, BP in sitting 143/87, pt denies any lightheadedness. Pt sat EOB for brushing of teeth and sponge bath with OT. STS x1 with hemiwalker MaxA x2, pt could not complete BP in standing do to dizziness. BP back in sitting 113/83. Pt agreed to get to chair. Stand pivot to chair MaxA x2 with no AD. PT was left in chair, all needs met. Gait Assessment Comments Gait Comments unable PT-Balance Assessment Sitting Balance and Reactions Static Sitting Balance Ability Good Dynamic Sitting Balance Ability Fair Standing Balance and Reactions Static Standing Balance Ability Poor Dynamic Standing Balance Ability Poor Device Used Left hemiwalker M5 PT-IP Objective Assessments Start: 11/16/23 10:34 Freq: NEEDED Status: Active Protocol: Document 11/16/23 11:25 MB (Rec: 11/16/23 12:01 MB [id number]) Orientation Orientation/Cognition Level of Alertness Alert Orientation Name,Age,Birthday,Month,Year, Place,Situation Language Function Ability No Deficits Noted Safety Awareness Understands Safety Issues Memory Description No Deficits Noted Gross Range of Motion Upper Extremity ROM Impairments Defer to OT, right arm does not swing as much with gait Lower Extremity ROM Assessment Within Functional Limits Strength Lower Extremity Strength Assessment Within Functional Limits Comments Strength Comments B LEs, strength is 5/5 in hip flexion, knee extension, ankle DF and great toe extension on evaluation date Coordination Assessment Assessment Foot Tapping Test Normal Performance Heel on Vo Test Normal Performance Coordination Comments Defer UEs to OT Sensation Assessment Sensation Gross Sensation WNL Comments Sensation Comments Defer UEs to OT Muscle Tone Muscle Tone WNL Yes M6 PT-IP Treatment Start: 11/16/23 10:34 Freq: NEEDED Status: Active Protocol: Document 11/27/23 09:48 TS (Rec: 11/27/23 10:08 TS [id number]) Physical Therapy Treatment Education Education Provided Safety M7 PT-IP Assessment and Plan Start: 11/16/23 10:34 Freq: NEEDED Status: Active Protocol: Document 11/27/23 09:48 TS (Rec: 11/27/23 10:08 TS [id number]) PT Summary Assessment and Plan Potential Rehabilitation Potential Fair Summary Impairments ROM,Strength,Balance, Coordination,Sensation,Tone, Cognition,Bed Mobility, Transfers,Gait,Activity Tolerance Progress Towards Goals Slow Progress due to Activity Tolerance,Slow Progress - Other Assessment Summary Pt continues to make slow progress with his mobility. He continues to have R sided weakness with little ability to move his limbs. He continues to require MaxA for most mobility. He sits EOB SBA with some minor cues for midline. He is unable to progress to gait today, requires stand pivots to chair . PT continues to recommend SNF vs Acute. Goals Bed Mobility Goal Minimal Assistance Transfer Goal Minimal Assistance Gait Goal Minimal Assistance,Bud Walker Gait Distance 25 Other Goals to improve bed mobility, transfers and ambulation using FWW SBA ~ 100 ft Days to Meet Goals 10 Frequency of Treatment Frequency Of Treatment Once a Day Treatment Plan Physical Therapy Treatment Plan Bed Mobility Training,Transfer Training,Gait Training, Therapeutic Exercise,Balance Retraining,Discharge Planning, Hot or Cold Pack,Neuromuscular Re-ed,Coordination Retraining ,Manual Therapy Precautions Other Precautions Falls, right hemiplegia, Recommendations To Nursing Amount of Assist Needed Mechanical Lift Discharge Recommendations PT Discharge Recommendations SNF vs Acute Rehab Transportation Needs at Discharge Wheelchair/Cabulance
[2023-11-27] MEDS: ESCITALOPRAM 10 MG TABLET PO (08:56)
[2023-11-27] MEDS: ASPIRIN 81 MG CHEW TAB PO (08:57)
[2023-11-27] MEDS: TAMSULOSIN 0.4 MG CAPSULE PO (08:57)
[2023-11-27] MEDS: SODIUM CHLORIDE 0.9% FLUSH 10 ML IV ×2 (08:57→20:42)
[2023-11-27] MEDS: MAGNESIUM OXIDE 400 MG TABLET PO ×2 (08:57→20:39)
[2023-11-27] MEDS: ENOXAPARIN 40 MG/0.4 ML SYRINGE SUBCUT (08:57)
--- NOTE | 2023-11-27 09:00 | OT.IP.TRT ---
Current Diagnoses Cerebral infarction, unspecified (11/16/23) Occupational Therapy Treatment Note M2 OT-IP Current Condition Start: 11/16/23 12:31 Freq: Status: Active Protocol: Document 11/17/23 14:01 [facility] (Rec: 11/17/23 14:16 [facility] [id number]) Occupational Therapy Current Condition Current Condition Evaluation Date 11/17/23 Treatment Diagnosis MRI: Acute lacunar infarction, left basal ganglia, feet feel heavy Diagnosis Onset Date 11/16/23 M3 OT- IP Subjective and Pain Start: 11/16/23 12:31 Freq: Status: Active Protocol: Document 11/27/23 11:50 [facility] (Rec: 11/27/23 12:03 [facility] [id number]) OT- Subjective Occupational Therapy Visit Type Type Treatment Note Visit Start Time 09:00 Visit Stop Time 09:43 Occupational Therapy Visit Comments Patient Comments Pt agreed to get up. Patient/Caregiver Goals To go home. OT Pain Assessment Pain When Pain Assessed At Rest Pain Present Pain Present Denied Pain M4 OT- IP ADL's Start: 11/16/23 12:31 Freq: Status: Active Protocol: Document 11/27/23 11:50 [facility] (Rec: 11/27/23 12:03 [facility] [id number]) OT ADL-Grooming Comments OT Grooming Comments Pt able to sit on the edge of the bed with weight bearing on his right hand. OT ADL-Oral Care Comments Oral Care Comments Able to do with left hands while sitting at the edge of the bed with weight bearing to right hand. OT ADL-Dressing General Eval Upper Body Dressing Ability Maximum Assistance Lower Body Dressing Ability Total Assistance Areas Needing Assistance Socks Comments OT Dressing Comments Pt able to do shoulder extension to get his right hand out of the gown. OT ADL-Bathing Bathing Type Bathing Type Sponge Bath Comments OT Bathing Comments [place] assist with right hand to be able to wash under his armpits. M5 OT- IP IADL's Start: 11/16/23 12:31 Freq: Status: Active Protocol: Document 11/17/23 14:01 [facility] (Rec: 11/17/23 14:16 [facility] [id number]) OT-Instrumental Activities of Daily Living Home Safety Awareness Awareness of Need for Assistance at Home Good Awareness Ability to Problem Solve Emergency Able to Problem Solve Situations Driving Driving Concerns Identified Regarding Safety M6 OT- IP Functional Cognition Start: 11/16/23 12:31 Freq: Status: Active Protocol: Document 11/27/23 11:50 [facility] (Rec: 11/27/23 12:03 [facility] [id number]) Cognitive Factors Limiting Selfcare Function Cognitive Comments Cognitive Assessment Comments Intact and motivated to get better. M7 OT- IP Mobility and Balance Start: 11/16/23 12:31 Freq: Status: Active Protocol: Document 11/27/23 11:50 [facility] (Rec: 11/27/23 12:03 [facility] [id number]) OT- Bed Mobility Assessment Supine to Sit Supine to Sit Assist Maximum Assistance,1 Person Assistance,Head of Bed Elevated Scooting Scooting to Edge of Bed Maximum Assistance,2 Person Assistance OT-Transfer Assessment Sit to and From Stand Sit to and from Stand Maximum Assistance,2 Person Assistance Transfers Transfer Ability Maximum Assistance,2 Person Assistance Technique Transfer Destination Bed,Chair Transfer Technique Stand Step Pivot Devices Transfer Assistive Devices None,Gait Belt Comments Mobility Comments MAX to assist to help get his RLE to the edge of the bed and trunk upright. MAXAx2 to stand and assist to hold his RUE and to block his right knee so able to stand. BP supine 140/82, sitting 143/87, and after standing dropped to 113/83 and feeling very woozy . OT- Balance Assessment Sitting Balance and Reactions Static Sitting Balance Ability Good Dynamic Sitting Balance Ability Fair Standing Balance and Reactions Static Standing Balance Ability Poor Dynamic Standing Balance Ability Poor M8 OT- IP Objective Assessments Start: 11/16/23 12:31 Freq: Status: Active Protocol: Document 11/27/23 11:50 [facility] (Rec: 11/27/23 12:03 [facility] [id number]) OT Strength Upper Extremity Strength Assessment Right Impaired Shoulder 3- Elbow 1+ Forearm 1 M9 OT- IP Assessment and Plan Start: 11/16/23 12:31 Freq: Status: Active Protocol: Document 11/27/23 11:50 [facility] (Rec: 11/27/23 12:03 [facility] [id number]) OT Summary Assessment and Plan Potential Rehabilitation Potential Excellent Analytic Complexity at Evaluation High Summary OT Impairments Range of Motion,Strength, Balance,Coordination, Functional Mobility,Self- Feeding,Grooming,Dressing, Toileting,Bathing,Toilet Transfers,Shower Transfers, Activity Tolerance Progress Towards Goals Progressing Toward Goals Assessment Summary Pt feeling better today and able to sit on the edge of the bed with right hand weight bearing for balance while doing grooming and sponging off with left hand. Pt able to transfer with MAX AX 2 and noted more activation on his RLE while transferring today. Pt still a little orthostatic while standing but quickly recovers after sitting back down. Pt will greatly benefit from acute rehab. Goals Self-Feeding Goal Independent Grooming Goal Independent Dressing Goal Minimal Assistance Toileting Goal Minimal Assistance Bathing Goal Moderate Assistance Toilet Transfer Goal Minimal Assistance Shower Transfer Goal Moderate Assistance OT-Other Goals Goals based on incorporation of his RUE. Frequency of Treatment Other frequency 5x/week Treatment Plan OT Treatment Plan ADL Training,Functional Mobility,Neuromuscular Re- education,Therapeutic Exercises,Patient/Family Education,Discharge Planning Discharge Recommendations OT Discharge Recommendations Acute Rehab Transportation Needs at Discharge Wheelchair/Cabulance
[2023-11-27 09:56] VITALS: BP 113/83; BP 120/78; BP 143/87; PULSE 103; PULSE 109; PULSE 119
--- NOTE | 2023-11-27 11:38 | ST.IPDYTX ---
Visit Care Team Role Provider Type Quan New DO Primary Care Provider Physician Specialty: Family Practice Address: [address] [place] [address], [id number] Email: [email or web address] Darlyn Keith DO Emergency Provider Physician Specialty: Emergency Medicine Address: [address] [place] [address], [id number] Email: [email or web address] Moreno DO Admit Provider Physician Attending Provider Specialty: Internal Medicine Address: [address] [place] [address], [address] Email: [email or web address] Dysphagia Treatment [employer] Dysphagia Treatment Start: 11/17/23 16:10 Freq: Status: Active Protocol: Document 11/27/23 10:51 SS (Rec: 11/27/23 11:01 SS [id number]) Dysphagia Treatment Session Time Visit Start Time 10:10 Visit Stop Time 10:42 Total Visit Minutes 32 Visit Information Visit Number 7 Insurance Information [facility] Setting Assessment Location Acute Care Visit Type Note Type Treatment Note Next Note Type Next Note Type Treatment Note Patient Information Identification Type Name,ID Wristband Subjective Observations Pt was sitting upright in armchair upon MANAGER [employer] arrival. He was alert and motivated to participate in session. He expressed he felt less fatigued than yesterday and stated he had slept well. Facilitated discussion re: swallowing since previous session. Pt expressed that he has noted increased need to cough phlegm today. Additionally, he noted no difficulty with swallowing, though had difficulty chewing his pancakes this morning, attributing it to overall fatigue and weakness. Treatment Liquids Trialed Ice chips,Thin (IDDSI 0) Solids Trialed Purred (IDDSI 4),Soft & Bite- sized (IDDSI 6) Administration Type Tea Spoon,Cup Single Sip,Self- Feeding Oral Strategies Upright at 90 degrees, Controlled Bite/Sip Size Pharyngeal Strategies Sitting Upright (90 deg),Chin Tuck,Effortful Swallow,Small Bites and Sips Treatment Activities Per RN verbal report, occasional coughing noted, though not with PO intake. Pt reported that has noticed occasional coughing with SB6 textures, though very occasionally. He reported no difficulty with thin liquids or ice chips. Reviewed education re: safe swallowing strategies and thorough oral care. Pt with good recall of prior education and reported he has been completing oral care consistently and utilizing strategies, though decreased appetite continues. [employer] provided the following consistencies: thin liquids, ice chips, puree, and soft and bite-sized textures. Oral phase was characterized by slow bolus manipulation and appeared disorganized, though functional. Pharyngeal phase cannot be objectively assessed at bedside though subjectively appeared timely. Pt demonstrated single instance of reflexive cough with ice chips. delayed cough noted with soft and bite-sized texture about 20 seconds post -swallow, though pt expressed that he had phlegm buildup. Given education re: diet levels and pt report of increased fatigue with mastication, recommended diet downgrade to minced and moist for ease of mastication and increased PO intake. Continued recommending thin liquids and crushed medications in puree carrier with ongoing use of strategies as educated. Pt agreeable to recommendations. Will continue to follow up, though pt likely to discharge to [facility] today or Thursday. Pt participated well in the treatment session on this date . Recommend ongoing treatment for swallowing at next level of care to increase swallowing safety and efficiency while advancing diet. RN notified of current swallowing function as well as recommended compensatory strategies. Continued recommending SNF vs. acute care. The IDDSI Framework Protocol: IDDSI.1 Assessment Patient Response to Treatment Good Rehab Potential Good Assessment of Improvement Pt demonstrates increased overall swallowing safety and efficiency, though decreased ability to consume SB6 diet secondary to fatigue and weakness. Diet downgrade to MM5 completed. He would benefit from continued participation in rehabilitative treatment at the next level of care in order to return to consumption of regular textures and thin liquids with no overt s/sx of aspiration. Recommendations Recommendations Downgrade Diet Order Liquids Order Thin (IDDSI 0) Diet Order Minced & Moist (IDDSI 5) Medication Recommendations Crushed in Carrier Comments NPO with exception of free water protocol. NG tube ordered by . Additional Dietary Needs Single Sips,Controlled Sips,No Straws,1:1 Supervision, Encourage to Self-Feed, Reminders to Use Strategies Aspiration Precautions Recommended Precautions Upright at 90 Degrees,Small Bites/Sips,Chin Tuck,Liquids from Cup Additional Precautions Single sips with chin tuck Treatment Plan Placement Recommendation after Discharge Correction Facility, Inpatient Rehab Facility Appropriate for Continued Therapy Yes Therapy Recommendations Recommend ongoing tx to monitor swallowing function and implement rehabilitative exercises on to target improved swallowing safety and efficiency. Dysphagia Goals STG 1: Patient will utilize safe swallowing strategies in 90% of opportunities with minimal verbal cues in order to consume safest and least restrictive diet. MET. STG 2: Patient will tolerate IDDSI 6 (soft and bite-sized) with no clinical s/sx of aspiration in 100% of opportunities in order to consume least restrictive diet texture. CONTINUE GOAL. STG 3: Patient will tolerate thin liquids with no overt s/ sx of aspiration in 100% of opportunities in order to consume least restrictive diet texture. CONTINUE GOAL. LTG: Patient will tolerate safest and most efficient diet with no clinical s/sx of aspiration or dysphagia in 100 % of opportunities in order to consume least restrictive diet and enhance overallomfort during functional eating and drinking. CONTINUE GOAL. Follow Up Plan Will continue to follow up pending discharge plan.
--- NOTE | 2023-11-27 12:33 | CM.DPNOTE ---
Addendum entered by STANTON Jang 11/27/23 15:11: From Aziza at [facility], ins had intent to deny inpt acute rehab treatment. Dr. Oh very graciously agreed to complete peer to peer review. Per Adriano, inpt acute rehab approved. AIRCRAFT ENGINE SPECIALIST updated Aziza. Per pt, not able to get ahold of anyone from [facility] for payment. AIRCRAFT ENGINE SPECIALIST spoke with Missy at [facility], no contact from pt or family. With pt's permission, gave [facility] friend Vangie's number to confirm payment. AIRCRAFT ENGINE SPECIALIST spoke with friend Vangie (p [phone]) she confirmed she was able to pay. P: dc tomorrow to [facility]. [facility] transport for 11am. CM team will continue to follow clsoely. SL Original Note: DCP Note AIRCRAFT ENGINE SPECIALIST reviewed EMR. Per Aziza at [facility], auth remains pending. Likely get this afternoon. Proceed with planning as if dc tomorrow, Sat. RN report number is [phone]. Requested report be given before pt leaves. ADRIEN Silvestre called [facility] transport and scheduled for 11am Thursday. AIRCRAFT ENGINE SPECIALIST met with pt and family Vangie in room. In agreement with plan. Gave phone number to call to pay for transport, Vangie agreed to assist. Vangie agreed to call and update sister/additional family. AIRCRAFT ENGINE SPECIALIST answered questions to best of ability. AIRCRAFT ENGINE SPECIALIST updated RN and provider. In agreement with plan. P: dc tomorrow to [facility], auth pending. [facility] transport for 11am. CM team will continue to follow closely. STANTON Jang
--- NOTE | 2023-11-27 13:19 | DIET.PN1 ---
Dietary Progress Note Assessment: Met w/ pt at bedside. Addressed and coordinated pt's meal preferences with unit host/kitchen. Pt reports normal appetite before admission to hospital. Has noticed decrease in po intakes during admission. Recorded po intakes avg <50% for last 3-4 days. Reports UBW 180-187 lb. Is tolerating Ensure/protein supplements. Lunch tray at visit had empty cup of Ensure and 1/4 of protein smoothie gone. Had ice cream shake from [employer] brought in with lunch tray that was 90% consumed. Per BONE DRIER OPERATOR diet order from level 6 to 5 -minced and moist today. Note reviewed, minced and moist may help improve po intakes d/t fatigue and weakness. NFPE performed (limited to face only): -mild loss temporalis -moderate loss buccal and orbital fat pads Ht: 177.8 cm Wt: 83.915 kg (weight appears to be from 12/11/20; 86.239 kg on 10/29/23) BMI: 26.5 UBW: 86.183 kg on 07/28/23 Last BM: 11/22/23 (11/22/23 18:00) MNA: Zak Score: 17 Diet: 11/27/23 Lunch Dysphagia Diet Diet Modifications: Food Texture: Level 5 - Minced & Moist Liquid Consistency: Level 0 - Thin Nutrition Percent Meal Consumed 25% 11/26/23 18:00 Percent Meal Consumed 50% 11/26/23 17:59 Percent Meal Consumed 25% 11/26/23 08:00 Labs: RBC 3.69 X10^6/uL (4.5-5.9) L 11/27/23 04:22 Hgb 13.1 g/dL (13.5-17.5) L 11/27/23 04:22 Hct 38.1 % (41-53) L 11/27/23 04:22 Creatinine 0.95 mg/dL (0.66-1.25) 11/27/23 04:22 Hemoglobin A1c 5.6 % (4.0-6.0) 11/17/23 04:22 Nutrition Diagnosis: Inadequate energy intake r/t difficulty swallowing aeb recorded oral intakes <50% for 3-4 days, dysphagia diet Interventions: 1. ONS- changed to Enlive over Original for increased kcal/protein, ONS/protein supplement TID 2. Coordinated with unit host for pt preferences EER: 2000 kcals (24 kcals/kg) 90 g protein (1.3 g/kg per CVA) Monitoring/Evaluations: po intakes Electronically Signed by: Fide Lopez 11/27/23 13:19 Clinical Dietitian [address] [address]
--- NOTE | 2023-11-27 14:10 | PM.PN.1 ---
Subjective Subjective Date Patient Seen: 11/27/23 Time Patient Seen: 09:10 Interval history: The patient has no complaints. He notes persistent severe right-sided weakness. He is anticipating discharge to inpatient rehabilitation tomorrow. Exam Vital Signs (past 8 hours): - 11/27/23 07:00 11/27/23 08:00 11/27/23 09:56 Pulse Rate 103 H Pulse Rate [Orthostatic Lying] 103 H Pulse Rate [Orthostatic Sitting] 109 H Pulse Rate [Orthostatic Standing] 119 H Respiratory Rate 16 Blood Pressure 143/87 H Blood Pressure [Orthostatic Lying] 143/87 H Blood Pressure [Orthostatic Sitting] 120/78 Blood Pressure [Orthostatic Standing] 113/83 Oxygen Delivery Method Room Air Fraction of Inspired Oxygen 28 SaO2/FiO2 Ratio 339 Oxygen Delivery Method Room Air Oxygen Flow Rate 0 Narrative Exam Narrative: NAD Normal speech content. Right dense paresis and facial droop. Lungs clear and normal effort CV regular, no murmur. No edema Affect is improved and more interactive today. Objective Labs 11/27/23 04:22 11/27/23 04:22 Labs: Laboratory Results - last 24 hr 11/26/23 11/27/23 17:36 04:22 WBC 11.0 RBC 3.69 L Hgb 13.1 L Hct 38.1 L MCV 103.2 H MCH 35.5 H MCHC 34.5 RDW 15.7 H Plt Count 245 Neut % (Auto) 64.9 Lymph % (Auto) 15.3 L [place] % (Auto) 17.1 H Eos % (Auto) 1.5 L Baso % (Auto) 1.2 Neut # (Auto) 7100 H Lymph # (Auto) 1700 [place] # (Auto) 1900 H Eos # (Auto) 200 Baso # (Auto) 100 Sodium 136 L Potassium 4.2 Chloride 103 Carbon Dioxide 23 BUN 26 H Creatinine 0.95 Estimated GFR > 60 BUN/Creatinine Ratio 27.4 H Glucose 100 Calcium 8.6 Total Bilirubin 1.1 AST 50 ALT 63 H Alkaline Phosphatase 45 Total Protein 6.9 Albumin 3.9 Globulin 3.0 Albumin/Globulin Ratio 1.3 Urine Color Yellow Urine Appearance Clear Urine pH 6.0 Ur Specific [place] >=1.030 H Urine Protein 1+ H Urine Glucose (UA) Negative Urine Ketones Trace H Urine Occult Blood Trace-intact Urine Nitrate Negative Urine Bilirubin Negative Urine Urobilinogen 1.0 Ur Leukocyte Esterase Trace H Urine RBC None seen Urine WBC 5-10/hpf H Ur Squamous Epith Cells None seen Amorphous Sediment 1+ Urine Bacteria Many (>30) H Ur Culture Indicated? Specimen cultured Vol Urine Centrifuged 10ml (spun) [facility] Medical History Depression Tear of meniscus of knee Inguinal hernia Surgical History Hx of tonsillectomy Social History household members: none Smoking Status: Former smoker alcohol intake: current Assessment & Plan Assessment & Plan narrative: 1. CVA, acute, present on admission and active. - stopped tele as no events had occurred during his hospital stay, no arrythmia was detected. - MR showing an acute L basal ganglia infarct - continue asa and statin therapy. - continue PT/ OT / Speech therapies. - anticipate discharge to inpatient rehabilitation tomorrow 2. Dysphagia, - he was nothing by mouth over the weekend but did well with his modified barium study. Now on soft diet with thin liquids though need to follow chin tuck recommendations. - speech pathologist continuing to monitor, discussed with patient techniques to reduce aspiration risk. 2. Hypertension, present on admission and stable. - continue monitor. Stable and controlled. 3. Macrocytosis, present on admission and stable. - no further evaluation in hospital. 4. Depression, present on admission and stable. - continue home escitalopram. 5. Elevated LFT and bilirubin, present on admission and stable. - no abdominal pain, may be medication related, given mild increase continue to follow only. Repeat studies today again and almost normal. 6. Orthostatic hypotension - continue midodrine TID today for persistent positive orthostatics - ruled out contributing infectious etiology with normal UA, WBC and chest xray Dispo: - Otherwise plan for acute rehab likely tomorrow. Code: DNR, surrogate is sister, and power of litigation attorney associate Best Discussed with case management, PT/OT/ONLINE MARKETER providers today to formulate the above assessment and plan. Time-Based Coding :: [TOTAL MINUTES] spent with patient and on the chart (including review of chart, obtaining history, exam, reviewing outside data, placing orders, documenting exam and treatment plan, and counseling patient) on [DATE]. PROFEE Charge codes Subsequent inpatient/observation care: 49917
[2023-11-27 15:30] VITALS: BP 133/78; PULSE 86; RESP 16; TEMP 36; O2SAT 97
[2023-11-27] MEDS: cefTRIAXone 1,000 MG in SODIUM CHLORIDE 0.9% 100 ML 200 MG IV (18:26)
[2023-11-27 19:00] VITALS: BP 141/88; PULSE 87; RESP 18; TEMP 36.3; O2SAT 98
[2023-11-27] MEDS: ATORVASTATIN 20 MG TABLET 80 MG PO (20:39)
[2023-11-27] MEDS: TRAZODONE 50 MG TABLET 25 MG PO (20:40)
[2023-11-27] MEDS: CYCLOBENZAPRINE 10 MG TABLET 5 MG PO (20:42)
[2023-11-27] MEDS: BACLOFEN 10 MG TABLET PO (22:55)
[2023-11-28] VITALS: BP 110/67; PULSE 78; RESP 13; TEMP 36.2; O2SAT 95
[2023-11-28 04:00] VITALS: BP 100/65; PULSE 78; RESP 17; TEMP 35.7; O2SAT 94
[2023-11-28 04:55] LABS: Add Manual Diff / Slide Review NO; Basophils Absolute Auto 100 /uL (0-100); Basophils Percent Auto 0.6 % (0-2); Eosinophils Absolute Auto 300 /uL (0-450); Eosinophils Percent Auto 2.5 % (2-4); Hematocrit 36.6 % (41-53); Hemoglobin 12.7 g/dL (13.5-17.5); Lymphocytes Absolute Auto 1700 /uL (1100-4500); Mean Corpuscular HGB Conc 34.7 % (30-36); Mean Corpuscular Hemoglobin 35.2 PG (26-34); Mean Corpuscular Volume 101.6 fL (80-100); Monocytes Absolute Auto 1800 /uL (0-900); Monocytes Percent Auto 17.1 % (3-14); Neutrophils Absolute Auto 6600 /uL (1500-7000); Neutrophils Percent Auto 63.8 % (50-75); Platelet Count 263 X10^3/uL (150-400); Red Cell Distribution Width 15.4 % (11.6-14.8); White Blood Cell Count 10.3 X10^3/uL (4.5-11.0)
[2023-11-28] MEDS: MIDODRINE HCL 5 MG TABLET PO (06:32)
[2023-11-28 07:56] VITALS: BP 113/64; PULSE 79; RESP 16; TEMP 36.2; O2SAT 92
[2023-11-28] MEDS: ASPIRIN 81 MG CHEW TAB PO (08:22)
[2023-11-28] MEDS: MAGNESIUM OXIDE 400 MG TABLET PO (08:22)
[2023-11-28] MEDS: ENOXAPARIN 40 MG/0.4 ML SYRINGE SUBCUT (08:22)
[2023-11-28] MEDS: BISACODYL 10 MG SUPP PR (08:23)
[2023-11-28] MEDS: TAMSULOSIN 0.4 MG CAPSULE PO (08:23)
[2023-11-28] MEDS: ESCITALOPRAM 10 MG TABLET PO (08:23)
--- NOTE | 2023-11-28 08:51 | PM.DS.1 ---
History of Present Illness History of Present Illness Date Patient Seen: 11/28/23 Time Patient Seen: 08:00 Date of Onset of Symptoms: 11/14/23 Chief complaint: Worsening weakness, TIA yesterday Narrative: This is an 83 year old male with PMH of depression who presented yesterday with Right sided weakness and imbalance. Had taken a CBD gummy the prior evening, and improved so the though it was related to that. He had recurrence of imbalance, weakness, and possible R facial droop so returned to the ER. He had not improved back to baseline totally after his initial symptoms he thinks. He has been hypertensive as an outpatient but not requiring medication. He has a follow up for later this week with PCP for futher BP monitoring. In the ER he was hypertensive, but the remainder of his vitals were unremarkable. Lab evaluation was notable for macrocytosis, with normal TSH, B12, ESR/CRP and normal troponin. He was admitted for further evaluation. MR performed shortly after admission which showed a L basal ganglia infarct. Discharge Providers Provider Date of admission: 11/16/23 08:45 Discharge Date: 11/28/23 Primary care physician: Quan New DO Consults: 11/16/23 08:33 Consult to Speech Therapy Evaluate & Treat Comment: Physician Instructions: Evaluate and treat 11/16/23 09:08 Consult to Occupational Therapy Evaluate & Treat Comment: Physician Instructions: Evaluate and treat Consult to Physical Therapy Evaluate & Treat Comment: Physician Instructions: Evaluate and Treat 11/17/23 11:52 Consult to Occupational Therapy Evaluate & Treat Comment: Physician Instructions: Evaluate and treat 11/20/23 12:02 Consult to Dietitian, Adult Routine Comment: Reason For Exam: tube feed 11/20/23 12:04 Consult to Dietitian, Adult Routine Comment: npo for failed swallow eval s/p cva Reason For Exam: tube feeding 11/23/23 11:04 Consult to Physical Therapy Evaluate & Treat Comment: OOB as tolerated Physician Instructions: Evaluate and Treat 11/23/23 15:05 Consult to Physical Therapy Evaluate & Treat Comment: Physician Instructions: Evaluate and Treat Discharge provider: Jon Oh MD Summary Hospital Course Discharge Diagnosis: 1. Acute left basal ganglia cerebrovascular accident 2. Hypertension, resolved 3. Orthostatics hypotension, likely due to autonomic insufficiency from stroke 4. Dysphagia due to stroke 5. Dense right hemiparesis due to stroke 6. Depression 7. Abnormal liver function tests, resolved 8. Macrocytosis with negative workup 9. Left apical pulmonary nodule incidentally noted on 11/15/2023 head/neck CT angiography, with 6 month follow-up chest CT advised Hospital Course: The patient was admitted for further management evaluation. MRI of brain showed an acute left basal ganglia infarct. He was monitor on telemetry with no evidence of arrhythmias. He was started on aspirin and high-intensity statin therapy. Physical, Occupational and speech therapy services provided care throughout the hospitalization. He was initially maintained on nothing by mouth status with tube feeds though performed well on a modified barium swallow study and diet was advanced. He experienced orthostatic hypotension and was started on midodrine 3 times daily, with negative infectious workup including white blood count, urinalysis and chest x-ray. Case management worked with the patient toward the goal of intensive inpatient rehabilitation. Arrangements were made for transfer to a facility that could provide these services at the time of discharge. no other issues arose. MBSS 11/23/2023: Findings Pt presented with overall improvement per nursing and ST. Pt was alert. Speech was noted to be mild-moderately dysarthric. *MBSS results indicated overall improvement from 2023 when NG tube placed. *Pt demonstrated mildly reduced coordination of oral structures for mastication and oral retention. *Pharyngeally, pt demonstrated laryngeal penetration and tongue base weakness, likely related to NG tube interference. No aspiration was observed across all trials. *Pt was able to safely tolerate thin liquids with a chin tuck and one sip at a time. Pt was able to safely masticate and tolerate a soft and bite-sized trial of peaches (strained). *Recommend diet upgrade to soft and bite-sized (IDDSI 6) and thin liquids (IDDSI 0) with chin tuck. *Pt appears to be an excellent candidate for Acute Rehab Status at Discharge Cognitive/behavioral status at discharge: oriented Functional status at discharge: bed bound Overall status at discharge: patient is not back to baseline Time Spent with Patient Time spent: Greater than 30 minutes Exam Vital Signs (past 8 hours): - 11/28/23 04:00 11/28/23 07:56 Temperature 96.3 F L 97.1 F L Pulse Rate 78 79 Respiratory Rate 17 16 Blood Pressure 100/65 113/64 Pulse Oximetry 94 92 Oxygen Flow Rate 0 0 Fraction of Inspired Oxygen 28 SaO2/FiO2 Ratio 339 Oxygen Delivery Method Room Air Oxygen Flow Rate 0 Narrative Exam Narrative: NAD Normal speech content. Right dense paresis and facial droop. Lungs clear and normal effort CV regular, no murmur. No edema Affect is improved and interactive. Objective Imaging Multiple:: Radiologist's impression: Chest x-ray 11/15/2023: No acute cardiopulmonary abnormality is seen. Head CT 11/15/2023: No acute intracranial pathology. Head and neck CTA 11/15/2023: No significant intracranial arterial abnormality is seen. No significant abnormality is seen within the arteries of the neck. Left apical pulmonary nodule which is mildly suspicious. Recommend follow-up chest CT in 6 months of no priors can be found to document stability. Brain MRI 11/16/2023: 1. 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 2. Age-related volume loss and relatively mild, age-appropriate small-vessel ischemic change. Chest x-ray 11/16/2023: No acute cardiopulmonary abnormality is seen. Head CT 11/16/2023: No acute intracranial pathology. Head CT 11/19/2023: Developing left-sided infarction. There is a developing infarction within the left right lobe deep white matter, continuing into the left basal ganglia. No hemorrhagic transformation can be seen. Chest x-ray 11/20/2023: Feeding tube should be advanced into the gastric lumen to attempt to resolve the folding of the distal aspect of the feeding tube just proximal to the weighted tip. As discussed the fold tip is at the EG junction. Chest x-ray 11/20/2023: Well-positioned feeding tube in the stomach KUB x-ray 11/22/2023: Nonobstructive bowel gas pattern. Chest x-ray 11/22/2023: Nasogastric tube with tip projecting over the expected location of the stomach. Side port is near the GE junction and advancement is recommended. Modified barium swallow 11/23/2023: No aspiration. Please see separately dictated speech pathologist's report. Chest x-ray 11/26/2023: No acute pulmonary process. Labs 11/28/23 04:23 11/27/23 04:22 Labs: Laboratory Results - last 24 hr 11/28/23 04:23 WBC 10.3 RBC 3.60 L Hgb 12.7 L Hct 36.6 L MCV 101.6 H MCH 35.2 H MCHC 34.7 RDW 15.4 H Plt Count 263 Neut % (Auto) 63.8 Lymph % (Auto) 16.0 L [place] % (Auto) 17.1 H Eos % (Auto) 2.5 Baso % (Auto) 0.6 Neut # (Auto) 6600 Lymph # (Auto) 1700 [place] # (Auto) 1800 H Eos # (Auto) 300 Baso # (Auto) 100 PFSH Medical History Depression Tear of meniscus of knee Inguinal hernia Surgical History Hx of tonsillectomy Social History household members: none Smoking Status: Former smoker alcohol intake: current Discharge Plan Discharge Plan Patient Disposition: Xfer Inpatient Rehab Other facility: [facility] rehabilitation Consult as needed: Dental, Hearing, Mental health, Podiatry and Vision Discharge orders & Medications Discharge Orders: Discharge (Order); Ordered 11/28/23 Ordered By: Jon Oh Prescriptions: New acetaminophen 325 mg Tablet 650 mg PO Q6H PRN (Reason: Fever/Mild Pain (1-3)) Qty: 30 0RF trazodone 50 mg Tablet 25 mg PO BEDTIME PRN (Reason: insomnia) Qty: 30 0RF Cetacaine Anesthetic 2-2-14 % Liquid 1 applic topical PRN PRN (Reason: Sore Throat) Qty: 14 0RF magnesium oxide 400 mg (241.3 mg magnesium) Tablet 400 mg PO BID Qty: 60 0RF baclofen 10 mg Tablet 10 mg PO BEDTIME PRN (Reason: leg spasm) Qty: 30 0RF midodrine 5 mg Tablet 5 mg PO 0600,1200,1800 Qty: 90 0RF aspirin 81 mg capsule 81 mg PO DAILY Qty: 30 0RF enoxaparin [Lovenox] 40 mg/0.4 mL Syringe 40 mg SUBCUT DAILY Qty: 30 0RF tamsulosin [Flomax] 0.4 mg Capsule 0.4 mg PO DAILY Qty: 30 0RF atorvastatin 80 mg tablet 80 mg PO BEDTIME Qty: 30 0RF Continued cyclobenzaprine 5 mg tablet 5 mg PO ONCE PM PRN (Reason: muscle spasm) Qty: 30 3RF escitalopram oxalate [Lexapro] 10 mg tablet 10 mg PO DAILY Follow up/Referrals: Quan New, [Primary Care Provider] - Diet/Activity/Treatments Diet: Low-sodium and Low-cholesterol Liquid consistency: Normal/Thin Food texture: Soft Special Rehabilitation Services Rehab type: Physical therapy, Occupational therapy and Speech therapy Discharge Data Primary Care Provider: Quan New Quality Stroke Contraindication Not Initiating IV-Tpa: Not indicated Onset of Symptoms Date: 11/14/23 Symptom Onset Unknown: Yes Contraindication Antithromb by Day Two: Not indicated Reason for No Anticoagulant at DC: Not indicated Rehab Services Assessed: Stroke rehabilitation MIPS - Admit I confirm the patient?s Advance Care Plan is present, Code status is documented, Surrogate decision maker is in patient?s record [If Yes, STOP here]: Yes MIPS - Meds 'Current medications' to include all prescriptions, [id number] products, herbals, cannabis/cannabidiol products, and vitamin/mineral/dietary (nutritional) supplements. I have utilized all available resources to obtain, update, or review the patient?s current medications. [If Yes, STOP here]: Yes MIPS - DC The patient has a history of heart transplant or Left Ventricular Assist Device (LVAD). If yes, STOP here.: No The patient has current or prior documentation of left ventricular ejection fraction (LVEF) less than or equal to 40%, or moderate or severely depressed left ventricular systolic function.: No A. The patient was prescribed or already taking an Angiotensin-Converting Enzyme (WILLIAMS) Inhibitor, or Angiotensin Receptor Guerita (ARB).: No B. The patient was prescribed or already taking a beta-guerita. [If Yes to Both A & B, STOP here]: No Patient not prescribed/taking WILLIAMS or ARB, no reason given.: No Patient not prescribed/taking beta-guerita, no reason given.: No PROFEE Charge Codes Discharge inpatient/observation: [id number]
--- NOTE | 2023-11-28 09:20 | PT.IPTN ---
Current Diagnoses Cerebral infarction, unspecified (11/16/23) Physical Therapy Treatment Note M2 PT-IP Current Condition Start: 11/16/23 10:34 Freq: NEEDED Status: Active Protocol: Document 11/16/23 11:25 MB (Rec: 11/16/23 11:53 MB [id number]) Physical Therapy Current Condition Current Condition Evaluation Date 11/16/23 Treatment Diagnosis CVA M3 PT-IP Subjective Start: 11/16/23 10:34 Freq: NEEDED Status: Active Protocol: Document 11/28/23 09:53 TS (Rec: 11/28/23 10:04 TS [id number]) Subjective Physical Therapy Visit Type Type Treatment Note Visit Start Time 09:20 Visit Stop Time 09:53 Number of DATA TECHNICIAN Visits 4 Physical Therapy Visit Comments Patient Comments Pt found resting in bed, he is agreeable to PT. M4 PT-IP Mobility and Gait Start: 11/16/23 10:34 Freq: NEEDED Status: Active Protocol: Document 11/28/23 09:53 TS (Rec: 11/28/23 10:04 TS [id number]) PT-Bed Mobility Assessment Supine to Sit Supine to Sit Maximum Assistance,1 Person Assistance Scooting Scooting to Edge of Bed Maximum Assistance PT-Transfer Assessment Sit to and From Stand Sit to and from Stand Maximum Assistance,1 Person Assistance Equipment Transfer Assistive Device None,Gait Belt,Bud Walker Orthotic/Prosthetic Devices or Brace: No Transfers Transfer Destination Chair Transfer Technique Stand Pivot Transfer Ability Level of Assist Maximum Assistance,2 Person Assistance,Use of Upper Extremities Comments Mobility Comments Pt performed heel slides and ankle pumps prior to mobility. Supine to sit MaxA x1 for uprighting trunk and RLE assist. Pt sits EOB maintaining midline. Stand pivot to commode MaxA with no AD. Pt attempted to have a bowel movement but was unsuccessful. Stand pivot to chair with no AD MaxA x1. Pt was left in chair, nursing tending to needs. Gait Assessment Comments Gait Comments unable PT-Balance Assessment Sitting Balance and Reactions Static Sitting Balance Ability Good Dynamic Sitting Balance Ability Fair Standing Balance and Reactions Static Standing Balance Ability Poor Dynamic Standing Balance Ability Poor Device Used Left hemiwalker M5 PT-IP Objective Assessments Start: 11/16/23 10:34 Freq: NEEDED Status: Active Protocol: Document 11/16/23 11:25 MB (Rec: 11/16/23 12:01 MB [id number]) Orientation Orientation/Cognition Level of Alertness Alert Orientation Name,Age,Birthday,Month,Year, Place,Situation Language Function Ability No Deficits Noted Safety Awareness Understands Safety Issues Memory Description No Deficits Noted Gross Range of Motion Upper Extremity ROM Impairments Defer to OT, right arm does not swing as much with gait Lower Extremity ROM Assessment Within Functional Limits Strength Lower Extremity Strength Assessment Within Functional Limits Comments Strength Comments B LEs, strength is 5/5 in hip flexion, knee extension, ankle DF and great toe extension on evaluation date Coordination Assessment Assessment Foot Tapping Test Normal Performance Heel on Vo Test Normal Performance Coordination Comments Defer UEs to OT Sensation Assessment Sensation Gross Sensation WNL Comments Sensation Comments Defer UEs to OT Muscle Tone Muscle Tone WNL Yes M6 PT-IP Treatment Start: 11/16/23 10:34 Freq: NEEDED Status: Active Protocol: Document 11/28/23 09:53 TS (Rec: 11/28/23 10:04 TS [id number]) Physical Therapy Treatment Education Education Provided Safety M7 PT-IP Assessment and Plan Start: 11/16/23 10:34 Freq: NEEDED Status: Active Protocol: Document 11/28/23 09:53 TS (Rec: 11/28/23 10:04 TS [id number]) PT Summary Assessment and Plan Potential Rehabilitation Potential Fair Summary Impairments ROM,Strength,Balance, Coordination,Sensation,Tone, Cognition,Bed Mobility, Transfers,Gait,Activity Tolerance Progress Towards Goals Slow Progress due to Activity Tolerance,Slow Progress - Other Assessment Summary Fantasma continues to make slow progress with his mobility. He continues to have significant R sided weakness. He requires MaxA 1-2PA for all mobility. He continues to have have lightheadedness in standing. PT continues to recommend SNF vs Acute. Goals Bed Mobility Goal Minimal Assistance Transfer Goal Minimal Assistance Gait Goal Minimal Assistance,Bud Walker Gait Distance 25 Other Goals to improve bed mobility, transfers and ambulation using FWW SBA ~ 100 ft Days to Meet Goals 10 Frequency of Treatment Frequency Of Treatment Once a Day Treatment Plan Physical Therapy Treatment Plan Bed Mobility Training,Transfer Training,Gait Training, Therapeutic Exercise,Balance Retraining,Discharge Planning, Hot or Cold Pack,Neuromuscular Re-ed,Coordination Retraining ,Manual Therapy Precautions Other Precautions Falls, right hemiplegia, Recommendations To Nursing Amount of Assist Needed Mechanical Lift Discharge Recommendations PT Discharge Recommendations SNF vs Acute Rehab Transportation Needs at Discharge Wheelchair/Cabulance
--- NOTE | 2023-11-28 11:01 | CM.DPNOTE ---
Addendum entered by STANTON Jang 11/28/23 12:41: Add to previous note: INSURANCE CLAIMS SPECIALIST notified Vani at [facility] that pt discharged to [facility]. Appreciative of update. SL Original Note: DCP Note INSURANCE CLAIMS SPECIALIST reviewed EMR. Per hospitalist, cleared to dc to [facility] today. INSURANCE CLAIMS SPECIALIST spoke with Aziza at [facility], cleared to take him. only need dc sum and med list, asked they were faxed and sent in a physical packet. INSURANCE CLAIMS SPECIALIST gave RN report number. RN called report around 10am. INSURANCE CLAIMS SPECIALIST met with pt in room. In agreement with plan. Deny other CM needs. INSURANCE CLAIMS SPECIALIST placed signed med list, dc summary, and other dc packet in red fold. INSURANCE CLAIMS SPECIALIST faxed signed med list and dc sum to [facility]. P: dc today at 11am via [facility] transport. No other CM needs at this time. CM team will continue to follow as needed STANTON Jang
--- NOTE | 2023-11-28 11:23 | PC.NURSE ---
Pt A/O denies any discomfort. Continues sw/ right sided arm and leg weakness w/ some right sided facial droop noted. Today pt able to move right leg. D/C to rehab today. Transportation here at 1100 to take to Rehab. Pt escorted by staff via W/C to waiting vehicle. D/C in stable condition.
== END 2023-11-28 11:20 | DRG 64 ==
LOC: ED 07:46 → AC 09:10
PROVIDERS: Hospitalist; Admitting Provider Internal Medicine; Emergency Provider Emergency Medicine; PCP Family Medicine; Visit Provider Internal Medicine
DX: I63.9 Cerebral infarction, unspecified (principal); G93.41 Metabolic encephalopathy; G81.91 Hemiplegia, unspecified affecting right dominant side; R29.810 Facial weakness; I10 Essential (primary) hypertension; T50.905A Adverse effect of unspecified drugs, medicaments and biological substances, initial encounter; D75.89 Other specified diseases of blood and blood-forming organs; F32.A Depression, unspecified; R47.81 Slurred speech; R29.701 NIHSS score 1; R29.705 NIHSS score 5; R56.9 Unspecified convulsions; R74.01 Elevation of levels of liver transaminase levels; E80.6 Other disorders of bilirubin metabolism; R13.10 Dysphagia, unspecified; I95.1 Orthostatic hypotension; R91.1 Solitary pulmonary nodule; Z87.891 Personal history of nicotine dependence
CPT/HCPCS: 36415; 70450; 70496; 70498; 70551; 71045; 74018; 74230; 80048; 80053; 80061; 80305; 81001; 81003; 82550; 82607; 83036; 83690; 83735; 84443; 84484; 85025; 85610; 85651; 85730; 86140; 87077; 87086; 87186; 92507; 92526; 92610; 92611; 93005; 93010; 94760; 97110; 97116; 97129; 97161; 97165; 97166; 97530; 97535; 99284; 99285; J0696; J1650; J3360; Q9967

== ENCOUNTER 2024-02-12 16:31 | Inpatient (IN) | payer MEDICARE, SELFPAY ==
[2023-11-16 09:25] VITALS: BMI 26.5
[2024-02-12] VITALS (18 sets, daily range): BP systolic 104–132; BP diastolic 57–73; PULSE 77–97; RESP 11–40; TEMP 37.2–38.5; O2SAT 89–95; BMI 26.4
--- NOTE | 2024-02-12 16:35 | DI.RAD.S_ITS ---
PROCEDURE: XR CHEST 1V INDICATIONS: Shortness of breath TECHNIQUE: One view of the chest was acquired. COMPARISON: [facility], , XR CHEST 1V, 11/26/2023, 13:15. FINDINGS: Surgical changes and devices: None. Lungs and pleura: Lungs are mildly hyperinflated and hyperlucent clear. No pleural effusions or pneumothorax. Mediastinum: Mediastinal contours appear normal. Heart size is normal. Bones and chest wall: No suspicious bony lesions. Overlying soft tissues appear unremarkable. IMPRESSION: No acute cardiopulmonary abnormality is seen. Chronic findings of mild emphysema. Dictated by: Deidre Gibson M.D. on 02/12/2024 at 17:04 Approved by: Deidre Gibson M.D. on 02/12/2024 at 17:05
--- NOTE | 2024-02-12 16:44 | EKG_ITS ---
[address] [address] Test Date: 2024-02-12 Pat Name: Olayinka Mclean Department: [facility] Room: Gender: Male Digital Assistant: CLAIRE : 1940 Requested By: Order Number: [id number] Reading MD: Davey Richard MD Measurements Intervals [place] Rate: 93 P: 26 [place]: 176 QRS: 36 QRSD: 90 T: 55 QT: 370 QTc: 460 Interpretive Statements Normal sinus rhythm Septal infarct , age undetermined Electronically Signed On 02-12-2024 16:51:04 PST by Davey Richard MD
[2024-02-12 17:01] LABS: Add Manual Diff / Slide Review NO; Basophils Absolute Auto 0 /uL (0-100); Basophils Percent Auto 0.1 % (0-2); Eosinophils Absolute Auto 100 /uL (0-450); Eosinophils Percent Auto 0.6 % (2-4); Hematocrit 40.4 % (41-53); Hemoglobin 13.6 g/dL (13.5-17.5); Lymphocytes Absolute Auto 1300 /uL (1100-4500); Lymphocytes Percent Auto 6.8 % (25-40); Mean Corpuscular HGB Conc 33.7 % (30-36); Mean Corpuscular Hemoglobin 35.1 PG (26-34); Mean Corpuscular Volume 104.1 fL (80-100); Monocytes Absolute Auto 1400 /uL (0-900); Monocytes Percent Auto 6.9 % (3-14); Neutrophils Absolute Auto 17000 /uL (1500-7000); Neutrophils Percent Auto 85.6 % (50-75); Platelet Count 207 X10^3/uL (150-400); Red Blood Cell Count 3.88 X10^6/uL (4.5-5.9); Red Cell Distribution Width 15.5 % (11.6-14.8); White Blood Cell Count 19.9 X10^3/uL (4.5-11.0)
[2024-02-12 17:10] LABS: INR 1.1 (0.9-1.3); Prothrombin Time 12.3 SECONDS (9.4-12.5)
[2024-02-12 17:13] LABS: Lactate (Lactic Acid) 2.7 mmol/L (0.7-2.1)
[2024-02-12 17:14] LABS: Alanine Aminotransferase 28 IU/L (<50); Albumin 4.4 g/dL (3.5-5.0); Albumin Globulin Ratio 1.6 (1.0-2.8); Alkaline Phosphatase 67 U/L (38-126); Aspartate Aminotransferase 36 IU/L (17-59); BUN Creatinine Ratio 20.2 (6-22); Bilirubin Total 1.8 mg/dL (0.2-1.3); Blood Urea Nitrogen 19 mg/dL (9-20); Calcium 9.2 mg/dL (8.4-10.2); Carbon Dioxide 24 mmol/L (22-32); Chloride 103 mmol/L (98-107); Estimated Glomerular Filt Rate > 60 mL/min (>60); Globulin 2.8 g/dL (1.7-4.1); Glucose 109 mg/dL (80-110); HEMOLYSIS < 15 (0-50); Sodium 137 mmol/L (137-145); Total Protein 7.2 g/dL (6.3-8.2)
[2024-02-12 17:26] LABS: NT-proBNP (BNP-Adult 18+) 320 pg/mL (<450); Troponin I < 0.012 ng/mL (0.01-0.034)
[2024-02-12 17:50] LABS: Adenovirus Not Detected (Not Detect); B. parapertussis Not Detected (Not Detecte); Bordetella pertussis Not Detected (Not Detect); Chlamydophila pneumoniae Not Detected (Not Detect); Coronavirus 229E Not Detected (Not Detect); Coronavirus HKU1 Not Detected (Not Detect); Coronavirus NL 63 Not Detected (Not Detect); Coronavirus OC43 Not Detected (Not Detect); Human Metapneumovirus Not Detected (Not Detect); Human Rhinovirus/Enterovirus Not Detected (Not Detect); Influenza A Not Detected (Not Detect); Influenza B Not Detected (Not Detect); Mycoplasma pneumoniae Not Detected (Not Detect); Parainfluenza Virus 1 Not Detected (Not Detect); Parainfluenza Virus 2 Not Detected (Not Detect); Parainfluenza Virus 3 Not Detected (Not Detect); Parainfluenza Virus 4 Not Detected (Not Detect); Respiratory Syncytial Virus Not Detected (Not Detect); SARS- CoV-2 Not Detected (Not Detecte)
[2024-02-12 18:28] LABS: Procalcitonin 0.097 ng/mL (<0.5)
[2024-02-12 18:33] LABS: Reflexed Lactate in 2 Hours Y
--- NOTE | 2024-02-12 18:40 | ED_ITS ---
HPI - SOB/Dyspnea General Chief Complaint: Shortness of Breath/Dyspnea Stated Complaint: Shaky, Cold, Cough Time Seen by Provider: 02/12/24 18:40 Source: patient and EMS Mode of arrival: EMS History of Present Illness HPI Narrative: Patient is a 84-year-old male history hyperlipidemia comes into the ED from home for evaluation of multiple complaints. Patient recently had a stroke approximately 3 months ago has been at rehab doing fine, states that he recently transitioned to normal food, however presents with his family for evaluation of flu-like symptoms, cough and shortness of breath. At time of evaluation patient requiring 2 L nasal cannula he is coughing but is protecting his airway. Patient does not require oxygen at baseline. According to family they visited him today and he was complaining of body aches, cough shortness of breath. Patient denies any recent trauma or falls. Not on any blood thinners. States that he may or may not have drank/8 something that might have ?gone down the wrong tube. Related Data Previous Rx's Medication Instructions Recorded cyclobenzaprine 5 mg tablet 5 mg PO ONCE PM PRN muscle spasm 12/09/23 #30 tabs acetaminophen 325 mg tablet 650 mg (2 x 325 mg) PO Q6H PRN 01/07/24 Fever/Mild Pain (1-3) #30 tabs aspirin 81 mg capsule 81 mg PO DAILY #30 caps 01/07/24 atorvastatin 80 mg tablet 80 mg PO BEDTIME #30 tabs 01/07/24 baclofen 10 mg tablet 10 mg PO BEDTIME PRN leg spasm #30 01/07/24 tabs [id number]-brgzchwydc 2 1 applic topical PRN PRN Sore 01/07/24 %-2 %-14 % topical liquid Throat #14 grams (Cetacaine Anesthetic) magnesium oxide 400 mg (241.3 mg 400 mg PO BID #60 tabs 01/07/24 magnesium) tablet midodrine 5 mg tablet 5 mg PO 0600,1200,1800 #90 tabs 01/07/24 tamsulosin 0.4 mg capsule (Flomax) 0.4 mg PO DAILY #30 caps 01/07/24 escitalopram oxalate 10 mg tablet 10 mg PO DAILY #90 tabs 01/11/24 (Lexapro) trazodone 50 mg tablet 50 mg PO BEDTIME PRN insomnia #30 01/21/24 tabs Allergies Allergy/AdvReac Type Severity Reaction Status Date / Time shellfish derived Allergy Severe anaphylatic Verified 10/29/23 15:33 [SHELLFISH DERIVED] Review of Systems Review of Systems Narrative: General: Positive chills, fever, myalgias HEENT: Denies headache, eye drainage, eye irritation, head trauma, sore throat, voice change Cardiovascular: Denies any chest pain, palpitations, shortness of breath, tachycardia Respiratory: Positive cough GI/: Denies any abdominal pain, nausea, vomiting, diarrhea, bright red blood per rectum, melanotic stools, urinary frequency, urinary retention, dysuria, hematuria MSK: Denies any joint pain, muscle pains, swelling Skin: Denies any rashes, lesions, discoloration Neuro: Denies any headache, lightheadedness, dizziness, fainting, weakness Psych: Denies SI/HI Patient History Medical History (Updated 02/10/24 @ 09:54 by Quan New DO) BPH (benign prostatic hyperplasia) Insomnia Depression Tear of meniscus of knee Inguinal hernia Surgical History Hx of tonsillectomy Social History household members: none Smoking Status: Former smoker alcohol intake: current Smoking Status: Former smoker alcohol intake frequency: a few times a month Substance Use Type: does not use Exam Narrative Exam Narrative: General: Cooperative, comfortable, well-developed, not in acute distress HEENT: Normocephalic, atraumatic, PERRLA, normal sclera, eyelids normal, Neck: Active full range of motion, atraumatic Chest: Normal to inspection, negative crepitus, no overlying erythema ecchymosis Respiratory: Patient requiring 2 L nasal cannula, coughing, however patient is speaking in full sentences protecting airway but does appear slightly dyspneic with conversation Cardiology: Regular rate rhythm negative gallop, murmur, rubs GI/: Normal to inspection, soft, nonrigid, no tenderness to palpation, exam deferred MSK: Full range of active range of motion of all 4 extremities, atraumatic Skin: No rashes lesions noted Neuro: Alert awake oriented x3, moves all 4 extremities spontaneously, cranial nerves intact, able to answer all questions appropriately follows commands appropriately Psych: Cooperative, negative suicidal or homicidal ideations Initial Vital Signs Initial Vital Signs: Vital Signs Temperature 98.9 F 02/12/24 16:34 Pulse Rate 93 H 02/12/24 16:34 Respiratory Rate 28 H 02/12/24 16:34 Blood Pressure 132/73 02/12/24 16:34 Pulse Oximetry 89 L 02/12/24 16:34 Oxygen Delivery Method Room Air 02/12/24 16:34 Course Orders Ordered: ED Orders 02/12/24 16:35 XR chest 1V Stat EKG-12 Lead Stat Measure peak expiratory flow ONCE RT Consult Eval and Treat NOW 02/12/24 16:37 Respiratory Panel (Film Array) Stat 02/12/24 16:49 Complete Blood Count AUTO DIFF Stat Comprehensive Metabolic Panel Stat Lactate (Lactic Acid) Stat NT-proBNP (BNP-Adult 18+) Stat Prothrombin Time INR Stat Troponin I Stat 02/12/24 17:42 Procalcitonin Stat 02/12/24 17:50 Blood Culture Stat Sodium Chloride (Normal Saline 0.9%) 1,000 mls @ 500 mls/hr IV BOLUS ONE Stop: 02/12/24 20:48 Last Admin: 02/12/24 19:00 Dose: 500 mls/hr Documented By: SONYA Vancomycin HCl (Vancomycin) 1,000 mg in 200 mls @ 200 mls/hr IV NOW ONE Stop: 02/12/24 19:48 Discontinued Medications Piperacillin Sod/Tazobactam (Sod 4.5 gm/ Sodium Chloride) 100 mls @ 200 mls/hr IV NOW ONE Stop: 02/12/24 18:50 Last Admin: 02/12/24 19:01 Dose: 200 mls/hr Documented By: SONYA Vital Signs Vital signs: Vital Signs - 8 hr 02/12/24 16:34 02/12/24 16:36 02/12/24 16:36 Temperature 98.9 F Pulse Rate 93 H 95 H Respiratory Rate 28 H 32 H Blood Pressure 132/73 132/73 Pulse Oximetry 89 L 93 Oxygen Delivery Method Room Air Nasal Cannula Oxygen Flow Rate 2 02/12/24 16:50 02/12/24 16:50 02/12/24 17:00 Temperature Pulse Rate 92 H Respiratory Rate 25 H Blood Pressure 123/68 108/65 Pulse Oximetry 94 Oxygen Delivery Method Nasal Cannula Oxygen Flow Rate 2 02/12/24 17:00 02/12/24 17:11 02/12/24 17:11 Temperature Pulse Rate 92 H 91 H Respiratory Rate 28 H 22 Blood Pressure 120/66 Pulse Oximetry 93 91 Oxygen Delivery Method Nasal Cannula Oxygen Flow Rate 2 02/12/24 17:20 02/12/24 17:20 02/12/24 17:30 Temperature Pulse Rate 93 H 97 H Respiratory Rate 11 L 22 Blood Pressure 114/63 Pulse Oximetry 92 92 Oxygen Delivery Method Nasal Cannula Oxygen Flow Rate 2 02/12/24 17:30 02/12/24 18:00 02/12/24 18:09 Temperature 101.3 F H Pulse Rate 94 H Respiratory Rate 23 Blood Pressure 104/60 Pulse Oximetry Oxygen Delivery Method Nasal Cannula Oxygen Flow Rate 2 02/12/24 18:30 02/12/24 19:00 Temperature Pulse Rate 92 H 90 Respiratory Rate 40 H 25 H Blood Pressure Pulse Oximetry 94 93 Oxygen Delivery Method Oxygen Flow Rate MDM - SOB/Dyspnea Differential Diagnosis Differential diagnosis: Likely congestive heart failure, community acquired pneumonia, asthma with exacerbation and other (COVID, flu, electrolyte abnormality) Lab Data 02/12/24 16:49 02/12/24 16:49 Labs: Lab Results 02/12/24 02/12/24 02/12/24 Range/Units 16:37 16:49 17:42 WBC 19.9 H (4.5-11.0) X10^3/uL RBC 3.88 L (4.5-5.9) X10^6/uL Hgb 13.6 (13.5-17.5) g/dL Hct 40.4 L (41-53) % MCV 104.1 H (80-100) fL MCH 35.1 H (26-34) PG MCHC 33.7 (30-36) % RDW 15.5 H (11.6-14.8) % Plt Count 207 (150-400) X10^3/uL Neut % (Auto) 85.6 H (50-75) % Lymph % (Auto) 6.8 L (25-40) % [place] % (Auto) 6.9 (3-14) % Eos % (Auto) 0.6 L (2-4) % Baso % (Auto) 0.1 (0-2) % Neut # (Auto) 55575 H (5128-0588) /uL Lymph # (Auto) 1300 (5197-6152) /uL [place] # (Auto) 1400 H (0-900) /uL Eos # (Auto) 100 (0-450) /uL Baso # (Auto) 0 (0-100) /uL PT 12.3 (9.4-12.5) SECONDS INR 1.1 (0.9-1.3) Sodium 137 (137-145) mmol/L Potassium 4.0 (3.4-5.1) mmol/L Chloride 103 (98-107) mmol/L Carbon Dioxide 24 (22-32) mmol/L BUN 19 (9-20) mg/dL Creatinine 0.94 (0.66-1.25) mg/dL Estimated GFR > 60 (>60) mL/min BUN/Creatinine Ratio 20.2 (6-22) Glucose 109 (80-110) mg/dL Lactate 2.7 H (0.7-2.1) mmol/L Calcium 9.2 (8.4-10.2) mg/dL Total Bilirubin 1.8 H (0.2-1.3) mg/dL AST 36 (17-59) IU/L ALT 28 (<50) IU/L Alkaline Phosphatase 67 (38-126) U/L Troponin I < 0.012 (0.01-0.034) ng/mL NT-Pro-B Natriuret Pep 320 (<450) pg/mL Total Protein 7.2 (6.3-8.2) g/dL Albumin 4.4 (3.5-5.0) g/dL Globulin 2.8 (1.7-4.1) g/dL Albumin/Globulin Ratio 1.6 (1.0-2.8) Procalcitonin 0.097 (<0.5) ng/mL Chlamy pneumoniae PCR Not detected (Not Detect) Adenovirus (PCR) Not detected (Not Detect) B. pertussis DNA (PCR) Not detected (Not Detect) B.parapertussis DNA PCR Not detected (Not Detecte) Coronavirus OC43 (PCR) Not detected (Not Detect) Coronavirus HKU1 (PCR) Not detected (Not Detect) Coronavirus 229E (PCR) Not detected (Not Detect) SARS-CoV-2 (PCR) Not detected (Not Detecte) Coronavirus NL63 (PCR) Not detected (Not Detect) Human Metapneumovir PCR Not detected (Not Detect) Influenza Type A (PCR) Not detected (Not Detect) Influenza Type B (PCR) Not detected (Not Detect) M. pneumoniae (PCR) Not detected (Not Detect) Parainfluenza 1 (PCR) Not detected (Not Detect) Parainfluenza 2 (PCR) Not detected (Not Detect) Parainfluenza 3 (PCR) Not detected (Not Detect) Parainfluenza 4 (PCR) Not detected (Not Detect) RSV (PCR) Not detected (Not Detect) Entero/Rhino (PCR) Not detected (Not Detect) 02/12/24 Range/Units 19:01 WBC (4.5-11.0) X10^3/uL RBC (4.5-5.9) X10^6/uL Hgb (13.5-17.5) g/dL Hct (41-53) % MCV (80-100) fL MCH (26-34) PG MCHC (30-36) % RDW (11.6-14.8) % Plt Count (150-400) X10^3/uL Neut % (Auto) (50-75) % Lymph % (Auto) (25-40) % [place] % (Auto) (3-14) % Eos % (Auto) (2-4) % Baso % (Auto) (0-2) % Neut # (Auto) (5941-7844) /uL Lymph # (Auto) (1176-8651) /uL [place] # (Auto) (0-900) /uL Eos # (Auto) (0-450) /uL Baso # (Auto) (0-100) /uL PT (9.4-12.5) SECONDS INR (0.9-1.3) Sodium (137-145) mmol/L Potassium (3.4-5.1) mmol/L Chloride (98-107) mmol/L Carbon Dioxide (22-32) mmol/L BUN (9-20) mg/dL Creatinine (0.66-1.25) mg/dL Estimated GFR (>60) mL/min BUN/Creatinine Ratio (6-22) Glucose (80-110) mg/dL Lactate 1.0 (0.7-2.1) mmol/L Calcium (8.4-10.2) mg/dL Total Bilirubin (0.2-1.3) mg/dL AST (17-59) IU/L ALT (<50) IU/L Alkaline Phosphatase (38-126) U/L Troponin I (0.01-0.034) ng/mL NT-Pro-B Natriuret Pep (<450) pg/mL Total Protein (6.3-8.2) g/dL Albumin (3.5-5.0) g/dL Globulin (1.7-4.1) g/dL Albumin/Globulin Ratio (1.0-2.8) Procalcitonin (<0.5) ng/mL Chlamy pneumoniae PCR (Not Detect) Adenovirus (PCR) (Not Detect) B. pertussis DNA (PCR) (Not Detect) B.parapertussis DNA PCR (Not Detecte) Coronavirus OC43 (PCR) (Not Detect) Coronavirus HKU1 (PCR) (Not Detect) Coronavirus 229E (PCR) (Not Detect) SARS-CoV-2 (PCR) (Not Detecte) Coronavirus NL63 (PCR) (Not Detect) Human Metapneumovir PCR (Not Detect) Influenza Type A (PCR) (Not Detect) Influenza Type B (PCR) (Not Detect) M. pneumoniae (PCR) (Not Detect) Parainfluenza 1 (PCR) (Not Detect) Parainfluenza 2 (PCR) (Not Detect) Parainfluenza 3 (PCR) (Not Detect) Parainfluenza 4 (PCR) (Not Detect) RSV (PCR) (Not Detect) Entero/Rhino (PCR) (Not Detect) Imaging Data Chest x-ray: Radiologist's Impression: [address] [address] XRay Report Signed Patient: Olayinka Mclean MR#: [id number] : 1940 Acct:[id number] Age/Sex: 84 / M Date of Service: 02/12/24 Loc: ED Accession Number: [id number] Procedure: XR chest 1V Ordering Provider: Zhane John D.O. PROCEDURE: XR CHEST 1V INDICATIONS: Shortness of breath TECHNIQUE: One view of the chest was acquired. COMPARISON: [facility], CR, XR CHEST 1V, 11/26/2023, 13:15. FINDINGS: Surgical changes and devices: None. Lungs and pleura: Lungs are mildly hyperinflated and hyperlucent clear. No pleural effusions or pneumothorax. Mediastinum: Mediastinal contours appear normal. Heart size is normal. Bones and chest wall: No suspicious bony lesions. Overlying soft tissues appear unremarkable. IMPRESSION: No acute cardiopulmonary abnormality is seen. Chronic findings of mild emphysema. ECG Data Interpretation: EKG interpreted ED physician, sinus at 93 beats per minute, QTC 460, normal axis, nonspecific ST changes, no STEMI MDM Narrative Medical decision making narrative: Patient is a 84-year-old male history of recent CVA with right-sided residual deficits, hyperlipidemia, presents to the ED for flu-like symptoms, cough, shortness of breath. Patient is from rehab center, states he was recently transitioned to normal food, states he may have eaten/drink something that went down the wrong tube, states that family visited him he was complaining of muscle aches cough shortness of breath. Patient requiring 2 L nasal cannula here in the emergency department which is new for him. Lab work is remarkable for a leukocytosis of 19.9, patient with elevated lactate of 2.7. Patient's presentation as well as physical exam most likely secondary to aspiration pneumonia. Patient will be given broad-spectrum antibiotics, given new requirement of oxygen and meeting sepsis criteria patient will be admitted. 1940: The patient's management plan was discussed Dr. Mcgill, who agrees to admit the patient to their service and assumes care of this patient at this time. Full admission orders will be placed by the primary team. Discharge Plan Departure Prescriptions: No Action cyclobenzaprine 5 mg tablet 5 mg PO ONCE PM PRN (Reason: muscle spasm) Qty: 30 3RF midodrine 5 mg tablet 5 mg PO 0600,1200,1800 Qty: 90 0RF acetaminophen 325 mg tablet 650 mg PO Q6H PRN (Reason: Fever/Mild Pain (1-3)) Qty: 30 0RF atorvastatin 80 mg tablet 80 mg PO BEDTIME Qty: 30 0RF aspirin 81 mg capsule 81 mg PO DAILY Qty: 30 0RF baclofen 10 mg tablet 10 mg PO BEDTIME PRN (Reason: leg spasm) Qty: 30 0RF Cetacaine Anesthetic 2-2-14 % liquid 1 applic topical PRN PRN (Reason: Sore Throat) Qty: 14 0RF magnesium oxide 400 mg (241.3 mg magnesium) tablet 400 mg PO BID Qty: 60 0RF tamsulosin [Flomax] 0.4 mg capsule 0.4 mg PO DAILY Qty: 30 0RF escitalopram oxalate [Lexapro] 10 mg tablet 10 mg PO DAILY Qty: 90 2RF trazodone 50 mg tablet 50 mg PO BEDTIME PRN (Reason: insomnia) Qty: 30 0RF Referrals: Quan New DO [Primary Care Provider] -
[2024-02-12] MEDS: SODIUM CHLORIDE 0.9% 1,000 ML 500 ML IV (19:00)
[2024-02-12] MEDS: PIPERACILLIN/TAZO 4.5 GM in SODIUM CHLORIDE 0.9% 100 ML IV (19:01)
--- NOTE | 2024-02-12 19:55 | PC.NURSE ---
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
[2024-02-12] MEDS: VANCOMYCIN 1,000 MG/200 ML PIGGYBACK 200 MG IV (20:19)
--- NOTE | 2024-02-12 20:30 | PM.HP.1 ---
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 CXR non-revealing. He was on regular diet, thin liquids, but it seems that he aspirated while drinking. Started on Zosyn and admitted with aspiration pneumonia and acute hypoxemic respiratory failure, as he requires 2 L of oxygen to maintain saturation above 90%. [facility] Medical History BPH (benign prostatic hyperplasia) Insomnia Depression Tear of meniscus of knee Inguinal hernia Surgical History Hx of tonsillectomy Social History household members: none Smoking Status: Former smoker alcohol intake: current Meds Home Medications and Allergies Home Medications Medication Instructions Recorded Confirmed Type aspirin 81 mg capsule 81 mg PO DAILY #30 caps 01/07/24 02/12/24 Rx atorvastatin 80 mg tablet 80 mg PO BEDTIME #30 tabs 01/07/24 02/12/24 Rx magnesium oxide 400 mg (241.3 mg 400 mg PO BID #60 tabs 01/07/24 02/12/24 Rx magnesium) tablet midodrine 5 mg tablet 5 mg PO 0600,1200,1800 #90 tabs 01/07/24 02/12/24 Rx tamsulosin 0.4 mg capsule (Flomax) 0.4 mg PO DAILY #30 caps 01/07/24 02/12/24 Rx escitalopram oxalate 10 mg tablet 10 mg PO DAILY #90 tabs 01/11/24 02/12/24 Rx (Lexapro) Allergies Allergy/AdvReac Type Severity Reaction Status Date / Time shellfish derived Allergy Severe anaphylatic Verified 10/29/23 15:33 [SHELLFISH DERIVED] Review of Systems Constitutional Comments: fever, chills, generalized weakness Cardiovascular Comments: w/o chest pain or palpitations Respiratory Comments: cough Genitourinary Comments: w/o dysuria Neurologic Comments: severe right arm weakness, improved right leg strength Psychiatric Comments: insomnia Exam Vital Signs (past 8 hours): - 02/12/24 16:34 02/12/24 16:36 02/12/24 16:36 Temperature 98.9 F Pulse Rate 93 H 95 H Respiratory Rate 28 H 32 H Blood Pressure 132/73 132/73 Pulse Oximetry 89 L 93 Oxygen Delivery Method Room Air Nasal Cannula Oxygen Flow Rate 2 02/12/24 16:50 02/12/24 16:50 02/12/24 17:00 Temperature Pulse Rate 92 H Respiratory Rate 25 H Blood Pressure 123/68 108/65 Pulse Oximetry 94 Oxygen Delivery Method Nasal Cannula Oxygen Flow Rate 2 02/12/24 17:00 02/12/24 17:11 02/12/24 17:11 Temperature Pulse Rate 92 H 91 H Respiratory Rate 28 H 22 Blood Pressure 120/66 Pulse Oximetry 93 91 Oxygen Delivery Method Nasal Cannula Oxygen Flow Rate 2 02/12/24 17:20 02/12/24 17:20 02/12/24 17:30 Temperature Pulse Rate 93 H 97 H Respiratory Rate 11 L 22 Blood Pressure 114/63 Pulse Oximetry 92 92 Oxygen Delivery Method Nasal Cannula Oxygen Flow Rate 2 02/12/24 17:30 02/12/24 18:00 02/12/24 18:09 Temperature 101.3 F H Pulse Rate 94 H Respiratory Rate 23 Blood Pressure 104/60 Pulse Oximetry Oxygen Delivery Method Nasal Cannula Oxygen Flow Rate 2 02/12/24 18:30 02/12/24 19:00 02/12/24 19:12 Temperature Pulse Rate 92 H 90 86 Respiratory Rate 40 H 25 H 23 Blood Pressure Pulse Oximetry 94 93 93 Oxygen Delivery Method Oxygen Flow Rate 02/12/24 19:12 02/12/24 19:20 02/12/24 19:20 Temperature Pulse Rate 87 Respiratory Rate 21 Blood Pressure 115/61 116/60 Pulse Oximetry 93 Oxygen Delivery Method Oxygen Flow Rate 02/12/24 19:30 02/12/24 19:30 02/12/24 19:40 Temperature Pulse Rate 87 Respiratory Rate 24 Blood Pressure 108/58 L 111/57 L Pulse Oximetry 94 Oxygen Delivery Method Oxygen Flow Rate 02/12/24 19:40 02/12/24 19:50 02/12/24 19:50 Temperature Pulse Rate 83 83 Respiratory Rate 21 24 Blood Pressure 113/57 L Pulse Oximetry 93 94 Oxygen Delivery Method Oxygen Flow Rate Oxygen Delivery Method Nasal Cannula Oxygen Flow Rate 2 Const Other: in no distress HENMT Other: normocephalic, O2 via NC Eyes Other: eomi, equal pupils Neck Other: supple Resp Other: crackles over right base Cardio Other: RRR, w/o murmurs Neuro Other: Rt arm weakness 3/5, Rt leg weakness 3+/4/5, dysphagia Extrem Other: not swollen Psych Other: lucid, appropriate mood and affect Objective ECG Impression: NSR, w/o acute ischemic or arrhythmic changes Labs 02/12/24 16:49 02/12/24 16:49 Labs: Laboratory Results - last 24 hr 02/12/24 02/12/24 02/12/24 16:37 16:49 17:42 WBC 19.9 H RBC 3.88 L Hgb 13.6 Hct 40.4 L MCV 104.1 H MCH 35.1 H MCHC 33.7 RDW 15.5 H Plt Count 207 Neut % (Auto) 85.6 H Lymph % (Auto) 6.8 L [place] % (Auto) 6.9 Eos % (Auto) 0.6 L Baso % (Auto) 0.1 Neut # (Auto) 20807 H Lymph # (Auto) 1300 [place] # (Auto) 1400 H Eos # (Auto) 100 Baso # (Auto) 0 PT 12.3 INR 1.1 Sodium 137 Potassium 4.0 Chloride 103 Carbon Dioxide 24 BUN 19 Creatinine 0.94 Estimated GFR > 60 BUN/Creatinine Ratio 20.2 Glucose 109 Lactate 2.7 H Calcium 9.2 Total Bilirubin 1.8 H AST 36 ALT 28 Alkaline Phosphatase 67 Troponin I < 0.012 NT-Pro-B Natriuret Pep 320 Total Protein 7.2 Albumin 4.4 Globulin 2.8 Albumin/Globulin Ratio 1.6 Procalcitonin 0.097 Chlamy pneumoniae PCR Not detected Adenovirus (PCR) Not detected B. pertussis DNA (PCR) Not detected B.parapertussis DNA PCR Not detected Coronavirus OC43 (PCR) Not detected Coronavirus HKU1 (PCR) Not detected Coronavirus 229E (PCR) Not detected SARS-CoV-2 (PCR) Not detected Coronavirus NL63 (PCR) Not detected Human Metapneumovir PCR Not detected Influenza Type A (PCR) Not detected Influenza Type B (PCR) Not detected M. pneumoniae (PCR) Not detected Parainfluenza 1 (PCR) Not detected Parainfluenza 2 (PCR) Not detected Parainfluenza 3 (PCR) Not detected Parainfluenza 4 (PCR) Not detected RSV (PCR) Not detected Entero/Rhino (PCR) Not detected 02/12/24 19:01 WBC RBC Hgb Hct MCV MCH MCHC RDW Plt Count Neut % (Auto) Lymph % (Auto) [place] % (Auto) Eos % (Auto) Baso % (Auto) Neut # (Auto) Lymph # (Auto) [place] # (Auto) Eos # (Auto) Baso # (Auto) PT INR Sodium Potassium Chloride Carbon Dioxide BUN Creatinine Estimated GFR BUN/Creatinine Ratio Glucose Lactate 1.0 Calcium Total Bilirubin AST ALT Alkaline Phosphatase Troponin I NT-Pro-B Natriuret Pep Total Protein Albumin Globulin Albumin/Globulin Ratio Procalcitonin Chlamy pneumoniae PCR Adenovirus (PCR) B. pertussis DNA (PCR) B.parapertussis DNA PCR Coronavirus OC43 (PCR) Coronavirus HKU1 (PCR) Coronavirus 229E (PCR) SARS-CoV-2 (PCR) Coronavirus NL63 (PCR) Human Metapneumovir PCR Influenza Type A (PCR) Influenza Type B (PCR) M. pneumoniae (PCR) Parainfluenza 1 (PCR) Parainfluenza 2 (PCR) Parainfluenza 3 (PCR) Parainfluenza 4 (PCR) RSV (PCR) Entero/Rhino (PCR) Assessment & Plan Assessment and plan (1) Aspiration pneumonia: Qualifiers: Aspiration pneumonia type: unspecified Laterality: unspecified laterality Lung location: unspecified part of lung Qualified Code(s): J69.0 - Pneumonitis due to inhalation of food and vomit Status: Acute (2) Acute hypoxic respiratory failure: Status: Acute (3) History of stroke with residual effects: Status: Acute (4) BPH (benign prostatic hyperplasia): Qualifiers: Lower urinary tract symptom presence: symptoms present Lower urinary tract symptom detail: nocturia Qualified Code(s): N40.1 - Benign prostatic hyperplasia with lower urinary tract symptoms; R35.1 - Nocturia Status: Acute (5) Depression: Qualifiers: Depression Type: major depressive disorder Major depression recurrence: recurrent Active/Remission status: currently active Major depression episode severity: mild Qualified Code(s): 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 Mucinex. PRN albuterol. Acute Hypoxemic Respiratory Failure - oxygen prn Recent Lt MCA Ischemic Stroke / Rt Hemiparesis / Dysphagia / HLD - most recent echocardiogram - 12/14/2023 in [facility] - essentially completely normal apart from mild MR, there was no evidence of A-fib or LVO. - he was on 3 weeks of DAPT, now on ASA and high intensity statin. - not hypertensive, he was having difficulties with orthostatic hypotension after the stroke - getting PT/OT in SNF with improved Rt leg strength so able to walk with a walker, still severe Rt arm weakness and apparently ongoing dysphagia / aspiration - ASA, statin BPH - Flomax Depression - Lexapro Insomnia - Trazodone prn DVT prophylaxis - Lovenox Disposition - SNF in 2-3 days Time-Based Coding :: [TOTAL MINUTES] spent with patient and on the chart (including review of chart, obtaining history, exam, reviewing outside data, placing orders, documenting exam and treatment plan, and counseling patient) on [DATE].
[2024-02-12] MEDS: ATORVASTATIN 20 MG TABLET 80 MG PO (21:11)
[2024-02-12] MEDS: guaiFENesin ER 600 MG TAB PO (21:11)
--- NOTE | 2024-02-12 21:36 | PC.NURSE ---
PULLED TO BED BY SHEET,RIGHT SIDE WEAK ,PT STATES RIGHT ARM MOVING A LITTLE,RIGHT LEG WORKING PRETTY WELL. HAS BEEN IN REHAB [facility] RECOVERING. COUGHING, STATES USING THE URINAL AT NIGHT.BOLUS 1L FROM ER COMPLETED, ASLO COMPLETED VANCO.CALL LIGHT IN HAND.
[2024-02-12 22:54] LABS: Acinetobacter calcoa-baumannii Not Detected (Not Detect); Bacteroides fragilis Not Detected (Not Detect); Candida albicans Not Detected (Not Detect); Candida auris Not Detected (Not Detect); Candida glabrata Not Detected (Not Detect); Candida krusei Not Detected (Not Detect); Candida parapsilosis Not Detected (Not Detect); Candida tropicalis Not Detected (Not Detect); Cryptococcus neoformans/gatti Not Detected (Not Detect); Enterobacter cloacae complex Not Detected (Not Detect); Enterobacterales Not Detected (Not Detect); Enterococcus faecalis Not Detected (Not Detect); Enterococcus faecium Not Detected (Not Detect); Haemophilus influenzae Not Detected (Not Detect); Klebsiella aerogenes Not Detected (Not Detect); Listeria monocytogenes Not Detected (Not Detect); Neisseria meningitidis Not Detected (Not Detect); Proteus species Not Detected (Not Detect); Pseudomonas aeruginosa Not Detected (Not Detect); Salmonella species Not Detected (Not Detect); Serratia marcescens Not Detected (Not Detect); Staphylococcus epidermidis Not Detected (Not Detect); Staphylococcus lugdunensis Not Detected (Not Detect); Staphylococcus species Not Detected (Not Detect); Stenotrophomonas maltophilia Not Detected (Not Detect); Streptococcus agalactiae (Gr B Not Detected (Not Detect); Streptococcus pneumonia Not Detected (Not Detect); Streptococcus pyogenes (Gr A) Not Detected (Not Detect); Streptococcus species Not Detected (Not Detect)
[2024-02-12] MEDS: TRAZODONE 50 MG TABLET 100 MG PO (23:04)
[2024-02-13] MEDS: BACLOFEN 10 MG TABLET PO ×2 (01:19→21:18)
[2024-02-13] MEDS: ACETAMINOPHEN 325 MG TABLET 975 MG PO (04:15)
[2024-02-13 05:28] LABS: Add Manual Diff / Slide Review NO; Basophils Absolute Auto 0 /uL (0-100); Basophils Percent Auto 0.2 % (0-2); Eosinophils Absolute Auto 0 /uL (0-450); Eosinophils Percent Auto 0.1 % (2-4); Hemoglobin 11.7 g/dL (13.5-17.5); Lymphocytes Absolute Auto 1300 /uL (1100-4500); Lymphocytes Percent Auto 9.1 % (25-40); Mean Corpuscular HGB Conc 33.6 % (30-36); Mean Corpuscular Hemoglobin 34.7 PG (26-34); Mean Corpuscular Volume 103.5 fL (80-100); Monocytes Absolute Auto 1500 /uL (0-900); Monocytes Percent Auto 10.3 % (3-14); Neutrophils Absolute Auto 11800 /uL (1500-7000); Neutrophils Percent Auto 80.3 % (50-75); Platelet Count 172 X10^3/uL (150-400); Red Blood Cell Count 3.38 X10^6/uL (4.5-5.9); Red Cell Distribution Width 15.8 % (11.6-14.8); White Blood Cell Count 14.6 X10^3/uL (4.5-11.0)
[2024-02-13 05:32] LABS: BUN Creatinine Ratio 16.8 (6-22); Blood Urea Nitrogen 18 mg/dL (9-20); Calcium 8.4 mg/dL (8.4-10.2); Carbon Dioxide 24 mmol/L (22-32); Chloride 104 mmol/L (98-107); Estimated Glomerular Filt Rate > 60 mL/min (>60); Glucose 99 mg/dL (80-110); HEMOLYSIS < 15 (0-50); Potassium 3.7 mmol/L (3.4-5.1); Sodium 135 mmol/L (137-145)
[2024-02-13] MEDS: PIPERACILLIN/TAZO 4.5 GM in SODIUM CHLORIDE 0.9% 100 ML IV (06:16)
--- NOTE | 2024-02-13 08:09 | P.PN_ITS ---
Subjective Subjective Interval history: Summary: 84 y/o with PMH of recent ischemic Lt MCA stroke with Rt hemiparesis, facial droop and dysphagia, presented from SNF with fever, chills, malaise, generalized weakness, with leukocytosis, left shift, elevated lactate. CXR was non-revealing. He was on regular diet, thin liquids, but it seems that he aspirated while drinking. Started on Zosyn and admitted with aspiration pneumonia and acute hypoxemic respiratory failure, as he requires 2 L of oxygen to maintain saturation above 90%. He was feeling fine yesterday until he developed rigors and AMS. He also notes some diarrhea yesterday. He was had 3-4 diarrheal episodes this morning. S: Feels better, no confusion. No chest pain, he does have a dry cough which is new. He denies dyspnea, or abdominal pain. No nausea. His concerns are restless legs syndrome and insomnia. Exam Vital Signs (past 8 hours): Fraction of Inspired Oxygen 28 SaO2/FiO2 Ratio 339 Oxygen Delivery Method Nasal Cannula Oxygen Flow Rate 2 Narrative Exam Narrative: NAD, alert and oriented. Fluent speech. Lungs are clear, normal rate and effort. Heart is regular, no murmur gallop or rub. Abdomen is soft, non distended. Extremities are free of edema. Right arm is paretic, but he can lift it up off from the gurney. Objective Imaging Chest x-ray: Radiologist's impression: No acute infiltrates. Labs 02/13/24 04:10 02/13/24 04:10 Labs: Laboratory Results - last 24 hr 02/12/24 02/12/24 02/12/24 16:37 16:49 17:42 WBC 19.9 H RBC 3.88 L Hgb 13.6 Hct 40.4 L MCV 104.1 H MCH 35.1 H MCHC 33.7 RDW 15.5 H Plt Count 207 Neut % (Auto) 85.6 H Lymph % (Auto) 6.8 L [place] % (Auto) 6.9 Eos % (Auto) 0.6 L Baso % (Auto) 0.1 Neut # (Auto) 24259 H Lymph # (Auto) 1300 [place] # (Auto) 1400 H Eos # (Auto) 100 Baso # (Auto) 0 PT 12.3 INR 1.1 Sodium 137 Potassium 4.0 Chloride 103 Carbon Dioxide 24 BUN 19 Creatinine 0.94 Estimated GFR > 60 BUN/Creatinine Ratio 20.2 Glucose 109 Lactate 2.7 H Calcium 9.2 Total Bilirubin 1.8 H AST 36 ALT 28 Alkaline Phosphatase 67 Troponin I < 0.012 NT-Pro-B Natriuret Pep 320 Total Protein 7.2 Albumin 4.4 Globulin 2.8 Albumin/Globulin Ratio 1.6 Procalcitonin 0.097 A.calcoaceticus-baumannii cmplx PCR Chlamy pneumoniae PCR Not detected Adenovirus (PCR) Not detected Bacteroides fragilis B. pertussis DNA (PCR) Not detected B.parapertussis DNA PCR Not detected [place]ia albicans (PCR) Kenia auris (PCR) C. glabrata (PCR) C. krusei (PCR) C. parapsilosis (PCR) C. tropicalis (PCR) Coronavirus OC43 (PCR) Not detected Coronavirus HKU1 (PCR) Not detected Coronavirus 229E (PCR) Not detected SARS-CoV-2 (PCR) Not detected Coronavirus NL63 (PCR) Not detected C. neoform/gattii (PCR) Enterobacterales (PCR) E. cloacae complex PCR Enterococc faecalis PCR Enterococc faecium PCR E. coli (PCR) H. influenzae (PCR) Human Metapneumovir PCR Not detected Influenza Type A (PCR) Not detected Influenza Type B (PCR) Not detected Klebsiella aerogenes (PCR) Klebsiella oxytoca PCR Klebsiella pneumoniae List. monocytogenes PCR M. pneumoniae (PCR) Not detected N. meningitidis (PCR) Parainfluenza 1 (PCR) Not detected Parainfluenza 2 (PCR) Not detected Parainfluenza 3 (PCR) Not detected Parainfluenza 4 (PCR) Not detected Proteus species (PCR) RSV (PCR) Not detected Entero/Rhino (PCR) Not detected Salmonella spp. (PCR) Serratia marcescens PCR Staphylococcus sp PCR Staph aureus (PCR) mecA/C & MREJ Resist Gene mecA/C-Methicil Resis Gene mcr-1 Colistin Res Gene PCR Staph epidermidis (PCR) Staph lugdunensis PCR S. maltophilia (PCR) Streptococcus sp PCR Group A Strep (PCR) Strep agalactiae (PCR) Strep pneumoniae (PCR) P. aeruginosa (PCR) Beltran/B-Vanco Res Genes blaIMP Car res Gene PCR KPC-Carbap Res Gene PCR blaNDM Car Res Gene PCR OXA-48 Carbapenem Resis Gene (PCR) blaVIM Car Res Gene PCR CTX-M Gene Resistance (PCR) 02/12/24 02/12/24 02/13/24 19:01 21:43 04:10 WBC 14.6 H RBC 3.38 L Hgb 11.7 L Hct 35.0 L MCV 103.5 H MCH 34.7 H MCHC 33.6 RDW 15.8 H Plt Count 172 Neut % (Auto) 80.3 H Lymph % (Auto) 9.1 L [place] % (Auto) 10.3 Eos % (Auto) 0.1 L Baso % (Auto) 0.2 Neut # (Auto) 23725 H Lymph # (Auto) 1300 [place] # (Auto) 1500 H Eos # (Auto) 0 Baso # (Auto) 0 PT INR Sodium 135 L Potassium 3.7 Chloride 104 Carbon Dioxide 24 BUN 18 Creatinine 1.07 Estimated GFR > 60 BUN/Creatinine Ratio 16.8 Glucose 99 Lactate 1.0 Calcium 8.4 Total Bilirubin AST ALT Alkaline Phosphatase Troponin I NT-Pro-B Natriuret Pep Total Protein Albumin Globulin Albumin/Globulin Ratio Procalcitonin A.calcoaceticus-baumannii cmplx PCR Not detected Chlamy pneumoniae PCR Adenovirus (PCR) Bacteroides fragilis Not detected B. pertussis DNA (PCR) B.parapertussis DNA PCR Kenia albicans (PCR) Not detected Kenia auris (PCR) Not detected C. glabrata (PCR) Not detected C. krusei (PCR) Not detected C. parapsilosis (PCR) Not detected C. tropicalis (PCR) Not detected Coronavirus OC43 (PCR) Coronavirus HKU1 (PCR) Coronavirus 229E (PCR) SARS-CoV-2 (PCR) Coronavirus NL63 (PCR) C. neoform/gattii (PCR) Not detected Enterobacterales (PCR) Not detected E. cloacae complex PCR Not detected Enterococc faecalis PCR Not detected Enterococc faecium PCR Not detected E. coli (PCR) Not detected H. influenzae (PCR) Not detected Human Metapneumovir PCR Influenza Type A (PCR) Influenza Type B (PCR) Klebsiella aerogenes (PCR) Not detected Klebsiella oxytoca PCR Not detected Klebsiella pneumoniae Not detected List. monocytogenes PCR Not detected M. pneumoniae (PCR) N. meningitidis (PCR) Not detected Parainfluenza 1 (PCR) Parainfluenza 2 (PCR) Parainfluenza 3 (PCR) Parainfluenza 4 (PCR) Proteus species (PCR) Not detected RSV (PCR) Entero/Rhino (PCR) Salmonella spp. (PCR) Not detected Serratia marcescens PCR Not detected Staphylococcus sp PCR Not detected Staph aureus (PCR) Not detected mecA/C & MREJ Resist Gene Not applicable mecA/C-Methicil Resis Gene Not applicable mcr-1 Colistin Res Gene PCR Not applicable Staph epidermidis (PCR) Not detected Staph lugdunensis PCR Not detected S. maltophilia (PCR) Not detected Streptococcus sp PCR Not detected Group A Strep (PCR) Not detected Strep agalactiae (PCR) Not detected Strep pneumoniae (PCR) Not detected P. aeruginosa (PCR) Not detected Beltran/B-Vanco Res Genes Not applicable blaIMP Car res Gene PCR Not applicable KPC-Carbap Res Gene PCR Not applicable blaNDM Car Res Gene PCR Not applicable OXA-48 Carbapenem Resis Gene (PCR) Not applicable blaVIM Car Res Gene PCR Not applicable CTX-M Gene Resistance (PCR) Not applicable [facility] Medical History BPH (benign prostatic hyperplasia) Insomnia Depression Tear of meniscus of knee Inguinal hernia Surgical History Hx of tonsillectomy Social History household members: none Smoking Status: Former smoker alcohol intake: current Assessment & Plan Assessment & Plan narrative: Aspiration Pneumonia, present on admission and active. - covered with Zosyn and vancomycin in the ER, continue with Zosyn. Mucinex. PRN albuterol. Acute Hypoxemic Respiratory Failure, present on admission and active. - oxygen prn Recent Lt MCA Ischemic Stroke / Rt Hemiparesis / Dysphagia / HLD, present on admission and active. - most recent echocardiogram - 12/14/2023 in [facility] - essentially completely normal apart from mild MR, there was no evidence of A-fib or LVO. - he was on 3 weeks of DAPT, now on ASA and high intensity statin. - not hypertensive, he was having difficulties with orthostatic hypotension after the stroke - getting PT/OT in SNF with improved Rt leg strength so able to walk with a walker, still severe Rt arm weakness and apparently ongoing dysphagia / aspiration - ASA, statin BPH, present on admission and active. - Flomax Depression, present on admission and active. - Lexapro Insomnia, present on admission and active. - Trazodone prn Restless legs, present on admission and active. PLAN: -continue Abx , stop vancomycin. -evaluate swallow. Speech feels he was doing all right and we will follow clinically. -wean oxygen as able. -follow up blood cultures. -stool PCR. -ropinirole trial. DVT prophylaxis - Lovenox Disposition - SNF in 2-3 days Time-Based Coding :: [TOTAL MINUTES] spent with patient and on the chart (including review of chart, obtaining history, exam, reviewing outside data, placing orders, documenting exam and treatment plan, and counseling patient) on [DATE].
[2024-02-13] MEDS: ESCITALOPRAM 10 MG TABLET PO (08:47)
[2024-02-13] MEDS: guaiFENesin ER 600 MG TAB PO ×2 (08:47→21:17)
[2024-02-13] MEDS: TAMSULOSIN 0.4 MG CAPSULE PO (08:47)
[2024-02-13] MEDS: ASPIRIN 81 MG CHEW TAB PO (08:47)
[2024-02-13] MEDS: ENOXAPARIN 40 MG/0.4 ML SYRINGE SUBCUT (08:47)
[2024-02-13 10:00] VITALS: O2SAT 93
--- NOTE | 2024-02-13 11:08 | ST.IPCSEOM ---
Visit Care Team Role Provider Type Quan New DO Primary Care Provider Physician Specialty: Family Practice Address: [address] [place] [address], [phone] Email: [email or web address] Pierre Garvey DO Emergency Provider Physician Referring Provider Specialty: Emergency Medicine Address: [address] [place] [address], [id number] Fax: Email: [email or web address] Darius Acosta MD Admit Provider Physician Attending Provider Specialty: Internal Medicine Address: [address] [place] [address], [facility] Email: [email or web address] Current Diagnoses Hyperlipidemia, unspecified (02/12/24) Major depressive disorder, recurrent, mild (02/12/24) Primary insomnia (02/12/24) Unspecified sequelae of cerebral infarction (02/12/24) Pneumonitis due to inhalation of food and vomit (02/12/24) Acute respiratory failure with hypoxia (02/12/24) Benign prostatic hyperplasia with lower urinary tract symptoms (02/12/24) Nocturia (02/12/24) Past Medical History (Last Reviewed 02/13/24 @ 08:10 by Garret Reed MD) BPH (benign prostatic hyperplasia) (Medical) Depression (Medical) Inguinal hernia (Medical) repaired Insomnia (Medical) Tear of meniscus of knee (Medical) repaired Speech-Language Pathology Swallow 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 BOARD WORKER Clinical Swallow Evaluation Start: 02/13/24 10:13 Freq: Status: Active Protocol: Document 02/13/24 10:29 MG (Rec: 02/13/24 11:08 MG [id number]) Clinical Swallow Evaluation Session Time Visit Start Time 09:25 Visit Stop Time 09:55 Visit Information Visit Number Initial Evaluation Setting Assessment Location Acute Care Visit Type Note Type Initial evaluation Next Note Type Next Note Type Treatment Note Patient Information Identification Type Name,Wristband History Per H&P: 84 y/o with PMH of recent ischemic Lt MCA stroke with Rt hemiparesis, facial droop and dysphagia, presented from SNF with fever, chills, malaise, generalized weakness, with leukocytosis, left shift , elevated lactate. CXR non- revealing. He was on regular diet, thin liquids, but it seems that he aspirated while drinking. Started on Zosyn and admitted with aspiration pneumonia and acute hypoxemic respiratory failure, as he requires 2 L of oxygen to maintain saturation above 90%. Of note - the pt was admitted in November of this year for a stroke and a MBSS was completed at that time which recommended the pt be on a thin liquid (0) and soft and bite sized (6) diet. Pt then went to [facility] for rehab and worked with a speech therapist there. Pt does not currently see a speech therapist at this time. Pt reports he has no dietary restrictions at his current residence of [facility] but is aware of foods that are harder for him to eat (i.e., chicken that is overcooked). Pt notes that he has had an unintentional weight loss of 18 pounds. 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 Subjective Observations Pt was sitting upright in bed with meal tray presented upon BOARD WORKER entry. Nurse and PAPERHANGER SUPERVISOR present after providing care for the pt. Per nurse, the pt took all medication in single pills with water; no overt aspiration or choking noted. Nurse reports intermittent coughing prior to PO trials. Pt is agreeable to speech evaluation and compliant in therapeutic activities. Reported by Patient/Caregiver Current Diet Easy to Chew (IDDSI 7) Baseline Feeding Method Independent in self-feeding The IDDSI Framework Protocol: IDDSI.1 Objective Assessment Mental Status Responsive,Cooperative, Lethargic Oral Integrity WFL Dentition Within normal limits Lip Function Mild impairment Observation of Lips at Rest Right sided weakness/Drooping Pucker Within normal limits Lip Retraction Within normal limits Alternating Pucker/Lip Retraction Within normal limits Tongue Function Mild impairment Observations of Tongue at Rest Within normal limits Tongue Protrusion Within normal limits Tongue Retraction Within normal limits Tongue Lateralization Reduced strength Jaw Function Within normal limits Observation of Jaw at Rest Within normal limits Jaw Opening Within normal limits Jaw Closing Within normal limits Jaw Lateralization Within normal limits Jaw Protrusion Within normal limits Jaw Retraction Within normal limits Hard/Soft Palate Function Within normal limits Observations of Hard/Soft Palate Within normal limits Comment Overall pt presents with some weakness in the oral structure . Very mild right sided weakness noted. Pt followed all directions without difficulty. Of note - the pt reported to this BOARD WORKER specific exercises he does (i.e., lip puckering/retracting) every day from his previous speech therapy. Food and Liquid Trials Position During Assessment Upright (90 degrees) Liquids Trialed Ice chips,Thin (IDDSI 0) Solid Trials Minced & Moist (IDDSI 5),Soft & Bite-sized (IDDSI 6),Easy to Chew (IDDSI 7) Administration Type Straw,Self-feeding Oral Impairment Mildly impaired Oral Phase Comments Pt consumed brazilian toast, oatmeal and milk. Mild oral residue noted after solid trials but cleared with a liquid wash. No pocketing noted at this time. Pt did perform a chin tuck when requested to. Mastication time was within normal limits. Pharyngeal Phase Comments Laryngeal palpation indicated hyolaryngeal movement and anterior hyoid excursion that was within functional limits at this time. Coughing was present prior to PO trials per nurse and intermittently during PO trials of solids and liquids with this BOARD WORKER. Pt reported to this BOARD WORKER that he does not feel like the solids/ liquids were going the wrong way but that the pneumonia was irritating his cough. Pt reports he does not usually cough while eating/drinking. Spontaneous double swallow was noted on some trials of solids. Fatigue/Endurance Mild fatigue Comment Pt only consumed a ~10 bites of the meal before stating he was feeling full and tired. Oral trials were stopped due to pt fatigue and request to be done. Strategies Attempted Chin tuck,Effortful swallow, Other Response/Comments Pt reports to use a chin tuck when eating which he learned from his previous speech therapists. BOARD WORKER required to prompt him to utilize during meal intermittently. No coughing was noted on chin tuck trials. The IDDSI Framework Protocol: IDDSI.1 Findings Swallowing Function Oropharyngeal phase dysphagia Severity of Swallow Impairment Mildly impaired Contributing Factors to Swallow Reduced alertness or attention Impairment ,Reduced oral strength/ coordination/sensation, Impaired oral-pharyngeal transport,Delayed swallow initiation,Reduced laryngeal excursion Prognosis Good Based on Cognitive status,Other ( comment) Comment Pt continues to have some weaknesses noted which could impact swallowing abilities at this time. Pt appears to be following through with exercises and strategies which will help his functioning and is able to report what he is able to consume safely which is beneficial to overall rehab potential. Recommend diet downgrade in order to help the pt consume more meals to build strength and is more in line with MBSS recommendations . Impact on Safety and Functioning Risk for aspiration,Risk for inadequate nutrition/hydration Recommendations Instrumental Assessment Yes Swallowing Treatment Yes Frequency 1x daily upon hospital stay Recommended Solids Soft & Bite-sized (IDDSI 6) Recommended Liquids Thin (IDDSI 0) Other Recommendations Given the pt's medical history , a repeat MBSS may be warranted if the pt has a change in abilities and/or pnemonia does not appear to be resolving with medication. Safety Precautions/Swallowing Feed only when alert,Reduce Recommendations distractions,Remain upright ( 90 degrees) during all oral intake,Needs verbal cues to use recommended strategies, Small bites and sips when eating,Slow rate; swallow between bites,Multiple swallows,Alternate liquids and solids Medication Recommendations One at a Time Discharge Recommendations Home Referrals Recommended Referrals Dietary Education Patient/Caregiver Education Described results of evaluation,Patient expressed understanding of evaluation, Patient expressed agreement with goals & treatment plans, Patient expressed understanding of safety precautions,Patient expressed understanding of feeding recommendations Goals Short-term Goals STG 1: Patient will utilize safe swallowing strategies in 90% of opportunities with minimal verbal cues in order to consume safest and least restrictive diet. STG 2: Patient will tolerate IDDSI 7 (easy to chew)with no clinical s/sx of aspiration in 100% of opportunities in order to consume least restrictive diet texture. STG 3: Patient will tolerate thin liquids with no overt s/ sx of aspiration in 100% of opportunities in order to consume least restrictive diet texture. Long-term Goals LTG: Patient will tolerate safest and most efficient diet with no clinical s/sx of aspiration or dysphagia in 100 % of opportunities in order to consume least restrictive diet and enhance overall comfort during functional eating and drinking.
[2024-02-13 12:00] VITALS: BP 102/62; PULSE 65; RESP 18; TEMP 36.3; O2SAT 96
[2024-02-13 12:23] LABS: Adenovirus F 40/41 Not Detected (Not Detect); Astrovirus Not Detected (Not Detect); Campylobacter Not Detected (Not Detect); Clostridium difficile toxin AB Not Detected (Not Detect); Cryptosporidium Not Detected (Not Detect); Cyclospora cayetanensis Not Detected (Not Detect); Entamoeba histolytica Not Detected (Not Detect); Enteroaggregative E.coli Not Detected (Not Detect); Enteropathogenic E.coli Not Detected (Not Detect); Enterotoxigenic E.coli It/st Not Detected (Not Detect); Giardia lamblia Not Detected (Not Detect); Norovirus GI/GII Not Detected (Not Detect); Plesiomonsa shigelloides Not Detected (Not Detect); Rotavirus A Not Detected (Not Detect); Salmonella Not Detected (Not Detect); Sapovirus Not Detected (Not Detect); Shiga-like toxin-prod E.coli Not Detected (Not Detect); Shigella/Enteroinvasive E.coli Not Detected (Not Detect); Vibrio Not Detected (Not Detect); Vibrio cholerae Not Detected (Not Detect); Yersinia enterocolitica Not Detected (Not Detect)
--- NOTE | 2024-02-13 12:41 | CM.DPNOTE ---
Patient aphasic s/p stroke, permission given to speak with his next of kin listed. Left VM with Kenyetta Rivera and nichele Davis [phone]. Notes states patient transferred from rehab, but unclear where he was prior to admission. Will need f/u. Patient has Lan Kahn. PABLO Pozo
[2024-02-13] MEDS: ROPINIROLE 0.25 MG TABLET PO ×2 (14:32→21:17)
[2024-02-13] MEDS: PIPERACILLIN/TAZO 3.375 GM in SODIUM CHLORIDE 0.9% 100 ML IV ×2 (14:32→22:25)
[2024-02-13] MEDS: LOPERAMIDE 2 MG CAPSULE PO ×2 (14:32→16:34)
--- NOTE | 2024-02-13 17:40 | PC.NURSE ---
GI: 4 liquid bm's today. MD Reed made aware. See orders for gi panel and then later immodium. Received 2 dose of immodium, so far no firther loose stools this shift.
[2024-02-13 20:00] VITALS: BP 119/65; PULSE 59; RESP 14; TEMP 36.5; O2SAT 95
[2024-02-13] MEDS: TRAZODONE 50 MG TABLET 100 MG PO (21:18)
[2024-02-13] MEDS: ATORVASTATIN 20 MG TABLET 80 MG PO (21:18)
[2024-02-14 00:52] LABS: Appearance Urine UA CLEAR; Bilirubin Urine UA NEGATIVE (NEGATIVE); Color Urine UA YELLOW; Glucose Urine UA NEGATIVE (Negative); Ketones Urine UA TRACE (NEGATIVE); Leukocyte Esterase Urine UA NEGATIVE (NEGATIVE); Nitrite Urine UA NEGATIVE (Negative); Occult Blood Urine UA NEGATIVE (Negative); Protein Urine UA NEGATIVE (Negative); Specific Gravity Urine UA 1.025 (1.000-1.035); Urobilinogen Urine UA 0.2 E.U./dL (0.2); pH Urine UA 5.5 (4.5-8.0)
[2024-02-14 00:55] LABS: Urine Volume 10mL (spun)
[2024-02-14 00:59] LABS: RBC Urine 0-1/HPF (0-5/HPF); Squamous Epithelial Cell Urine 0-1 /HPF (0-5/HPF); WBC Urine 0-1/HPF (0-5/HPF)
[2024-02-14 01:00] LABS: Bacteria Urine Occasional (0-1); Culture Indicated Urine Cult Not Indicated
[2024-02-14] MEDS: PIPERACILLIN/TAZO 3.375 GM in SODIUM CHLORIDE 0.9% 100 ML IV ×3 (06:17→22:37)
--- NOTE | 2024-02-14 07:34 | PM.PN.1 ---
Subjective Subjective Interval history: Recap: Summary: 84 y/o with PMH of recent ischemic Lt MCA stroke with Rt hemiparesis, facial droop and dysphagia, presented from SNF with fever, chills, malaise, generalized weakness, with leukocytosis, left shift, elevated lactate. CXR was non-revealing. He was on regular diet, thin liquids, but it seems that he aspirated while drinking. Started on Zosyn and admitted with aspiration pneumonia and acute hypoxemic respiratory failure, as he requires 2 L of oxygen to maintain saturation above 90%. 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 He also notes some diarrhea yesterday. He was had 3-4 diarrheal episodes this morning. S: He feels improved today, but is very sleepy. He slept most of the morning in his just waking up this afternoon. He does have 2 positive blood cultures with Gram-positive cocci. No fevers overnight. Exam Vital Signs (past 8 hours): Fraction of Inspired Oxygen 28 SaO2/FiO2 Ratio 339 Oxygen Delivery Method Nasal Cannula Oxygen Flow Rate 1.5 Narrative Exam Narrative: NAD, alert and oriented. Fluent speech. Lungs are wheezy and rhonchorous, normal rate and effort. Heart is regular, no murmur gallop or rub. Abdomen is soft, non distended. Extremities are free of edema. Paretic right upper extremity Objective Imaging Chest x-ray: Radiologist's impression: Negative. Labs 02/13/24 04:10 02/13/24 04:10 Labs: Laboratory Results - last 24 hr 02/13/24 02/14/24 09:30 00:40 Urine Color Yellow Urine Appearance Clear Urine pH 5.5 Ur Specific [place] 1.025 Urine Protein Negative Urine Glucose (UA) Negative Urine Ketones Trace H Urine Occult Blood Negative Urine Nitrate Negative Urine Bilirubin Negative Urine Urobilinogen 0.2 Ur Leukocyte Esterase Negative Urine RBC 0-1/hpf Urine WBC 0-1/hpf Ur Squamous Epith Cells 0-1 /hpf Urine Bacteria Occasional (0-1) D Ur Culture Indicated? Cult not indicated Vol Urine Centrifuged 10ml (spun) Stl C. cayetanensis PCR Not detected Stool Rotavirus (PCR) Not detected Stool Adenovirus (PCR) Not detected Stool Astrovirus (PCR) Not detected Stool Cryptosporidium PCR Not detected Stl E.coli Shiga Tox PCR Not detected St Sh/Enteroin Ecoli PCR Not detected Stl Enterotoxigenic E PCR Not detected Stool EPEC (PCR) Not detected Stl E. histolytica PCR Not detected Stool Giardia Lamblia PCR Not detected Stool Sapovirus (PCR) Not detected Stl P. shigelloides PCR Not detected St Y.enterocolitica PCR Not detected Stool Vibrio (PCR) Not detected Stl Vibrio cholerae PCR Not detected Stl Enteroaggr Ecoli PCR Not detected Stl Norovirus GI/GII PCR Not detected Campylobacter (PCR) Not detected C. difficile Tox (PCR) Not detected Salmonella (PCR) Not detected PFSH Medical History BPH (benign prostatic hyperplasia) Insomnia Depression Tear of meniscus of knee Inguinal hernia Surgical History Hx of tonsillectomy Social History household members: none Smoking Status: Former smoker alcohol intake: current Assessment & Plan Assessment & Plan narrative: 1. Aspiration Pneumonia, present on admission and active. - covered with Zosyn and vancomycin in the ER, continue with Zosyn. Mucinex. PRN albuterol. 2. GPC bacteremia, new and active. 3. Acute Hypoxemic Respiratory Failure, present on admission and resolved. - oxygen prn 4. Recent Lt MCA Ischemic Stroke / Rt Hemiparesis / Dysphagia / HLD, present on admission and active. - getting PT/OT in SNF with improved Rt leg strength so able to walk with a walker, still severe Rt arm weakness and apparently ongoing dysphagia / aspiration - ASA, statin 5. BPH, present on admission and active. - Flomax 6. Depression, present on admission and active. - Lexapro 7. Insomnia, present on admission and active. - Trazodone prn 8. Restless legs, present on admission and active. 9. Sepsis secondary to pneumonia. Initial pulse 95, respiratory rate 28, WBC 19.9. Patient was hypoxemic with respiratory failure. Present on admission any improved. PLAN: -continue Abx (Zosyn) , RESTART VANCO. -evaluated swallow. Speech feels he was doing all right and we will follow clinically. -follow up blood cultures for final ID and sensitivity. -ropinirole trial. Blood cx POS (2/2 GPC), stool pcr and resp pcr negative. SAMIA: 01/15, POPPY Chavez. Time-Based Coding :: [TOTAL MINUTES] spent with patient and on the chart (including review of chart, obtaining history, exam, reviewing outside data, placing orders, documenting exam and treatment plan, and counseling patient) on [DATE].
[2024-02-14 08:00] VITALS: BP 133/83; PULSE 63; RESP 14; TEMP 36.1; O2SAT 95
[2024-02-14] MEDS: guaiFENesin ER 600 MG TAB PO ×2 (08:18→20:53)
[2024-02-14] MEDS: ESCITALOPRAM 10 MG TABLET PO (08:18)
[2024-02-14] MEDS: TAMSULOSIN 0.4 MG CAPSULE PO (08:18)
[2024-02-14] MEDS: ASPIRIN 81 MG CHEW TAB PO (08:18)
[2024-02-14] MEDS: ENOXAPARIN 40 MG/0.4 ML SYRINGE SUBCUT (08:18)
[2024-02-14] MEDS: ROPINIROLE 0.25 MG TABLET PO ×2 (08:18→20:53)
[2024-02-14 09:53] VITALS: O2SAT 92
--- NOTE | 2024-02-14 13:16 | PT.IIE ---
Current Diagnoses Hyperlipidemia, unspecified (02/12/24) Major depressive disorder, recurrent, mild (02/12/24) Primary insomnia (02/12/24) Unspecified sequelae of cerebral infarction (02/12/24) Pneumonitis due to inhalation of food and vomit (02/12/24) Acute respiratory failure with hypoxia (02/12/24) Benign prostatic hyperplasia with lower urinary tract symptoms (02/12/24) Nocturia (02/12/24) Surgical History (Last Reviewed 02/13/24 @ 08:10 by Garret Reed MD) Hx of tonsillectomy Medical History (Last Reviewed 02/13/24 @ 08:10 by Garret Reed MD) BPH (benign prostatic hyperplasia) Depression Inguinal hernia Insomnia Tear of meniscus of knee Physical Therapy Inpatient Evaluation/Re-Eval M1 PT/OT-IP Prior Functional Status Start: 02/14/24 12:33 Freq: NEEDED Status: Active Protocol: Document 02/14/24 12:35 MB (Rec: 02/14/24 13:16 MB [id number]) Medical Review Prior Functional Status Medical History Reviewed Yes Communication Unsure baseline diet after stroke, adm with aspiration PNA, communicates needs well Mobility and Gait D/cd to [facility] area in [facility] after stroke 11/14/23. Pt d/cd to acute rehab and then transitioned to [place] with HH. He reports mod I with w/c, transferred I, stood at hallway rail and walked in hallway with rail Activities of Daily Living and IADL's I dressing and superv bathing, expected to be cleared for I this week and to transition to therapy services at [facility] Social History Household Members none Living Arrangements Assisted Living Number of Stairs To Enter/Railing? Accessible access at [facility] Home Environment Standard Height Toilet,Walk in Shower Home Equipment Four Wheel Walker,Manual Wheelchair,Raised Toilet Seat w/Armrests,Shower Seat without Backrest,Hand Held Shower, Grab Bars In Shower Employment Status Retired Additional Social History Comment Did not use the armrest connector over commode d/t right arm weakness M2 PT-IP Current Condition Start: 02/14/24 12:33 Freq: NEEDED Status: Active Protocol: Document 02/14/24 12:35 MB (Rec: 02/14/24 13:16 MB [id number]) Physical Therapy Current Condition Current Condition Evaluation Date 02/14/24 Treatment Diagnosis Aspiration PNA M3 PT-IP Subjective Start: 02/14/24 12:33 Freq: NEEDED Status: Active Protocol: Document 02/14/24 12:35 MB (Rec: 02/14/24 13:16 [id number]) Subjective Physical Therapy Visit Type Type Initial Evaluation Visit Start Time 12:35 Visit Stop Time 12:55 Number of HOT STAMP OPERATOR Visits 0 Physical Therapy Visit Comments Patient Comments Pt states he does feel weaker. Therapy Pain Assessment Pain When Pain Assessed At Rest Pain Present Pain Present Denied Pain M4 PT-IP Mobility and Gait Start: 02/14/24 12:33 Freq: NEEDED Status: Active Protocol: Document 02/14/24 12:35 MB (Rec: 02/14/24 13:16 [id number]) PT-Bed Mobility Assessment Rolling Type of Rolling Roll to Right Level of Assist Contact Guard Assistance Supine to Sit Supine to Sit Contact Guard Assistance,Head of Bed Elevated,Bedrails Scooting Scooting to Edge of Bed Contact Guard Assistance PT-Transfer Assessment Sit to and From Stand Sit to and from Stand Minimal Assistance,1 Person Assistance,Use of Upper Extremities Equipment Transfer Assistive Device Gait Belt,Front Wheeled Walker Orthotic/Prosthetic Devices or Brace: No Transfers Transfer Destination Chair Transfer Technique Stepping Transfer Ability Level of Assist Moderate Assistance,1 Person Assistance,Use of Upper Extremities Comments Mobility Comments O2 sats on RA remain 93% in sitting and only drop once when up and recover to 93%. PT holds right hand on RW for STS and pt pushes up with left hand and small steps to chair , pt reports AFO at [facility], step-to steps with foot drop on the right Gait Assessment Gait Gait Assistance Required: Moderate Assistance,1 Person Assist Distance (Feet) 2 Able to Maintain Weight Bearing Status Yes During Gait Assistive Devices Assistive Device Gait Belt,Front Wheeled Walker Orthotic/Prosthetic Devices or Brace: No Gait Deviations General Gait Pattern Decreased Stride Length, Decreased Feet Clearance, Flexed Trunk,Narrow Based Gait ,Step-to Gait Factors Limiting Gait Function Factors Limiting Gait Function Abnormal Tonal Influences, Decreased Strength, Incoordination,Limited Range of Motion,Poor Balance Comments Gait Comments See comments under mobility PT-Balance Assessment Sitting Balance and Reactions Static Sitting Balance Ability Good Dynamic Sitting Balance Ability Fair Standing Balance and Reactions Static Standing Balance Ability Fair Dynamic Standing Balance Ability Fair Device Used RW M5 PT-IP Objective Assessments Start: 02/14/24 12:33 Freq: NEEDED Status: Active Protocol: Document 02/14/24 12:35 MB (Rec: 02/14/24 13:16 [id number]) Orientation Orientation/Cognition Level of Alertness Alert Orientation Name,Age,Birthday,Month,Date, Year,Day of Week,Place, Situation Language Function Ability No Deficits Noted Safety Awareness Understands Safety Issues Memory Description No Deficits Noted Gross Range of Motion Upper Extremity ROM Assessment Right Impaired Impairments Defer to OT Lower Extremity ROM Assessment Right Impaired Impairments Functional foot drop, limited toe and ankle movement and knee movement also impaired Strength Upper Extremity Strength Assessment Right Impaired Lower Extremity Strength Assessment Right Impaired Comments Strength Comments MMT deferred and functional foot drop on the right Coordination Assessment Gross Coordination Gross Coordination Impaired Sensation Assessment Comments Sensation Comments Mild decreased awareness right UE as far as proprioception today Muscle Tone Muscle Tone WNL No Comments Muscle Tone Comments Mild tension tone right PFs M7 PT-IP Assessment and Plan Start: 02/14/24 12:33 Freq: NEEDED Status: Active Protocol: Document 02/14/24 12:35 MB (Rec: 02/14/24 13:16 [id number]) PT Summary Assessment and Plan Potential Rehabilitation Potential Good Status of Condition at Evaluation Evolving Summary Impairments ROM,Strength,Balance, Coordination,Sensation,Tone, Bed Mobility,Transfers,Gait, Activity Tolerance Progress Towards Goals Progressing Toward Goals Assessment Summary Pt is a gentleman presenting with right sided weakness s/p stroke in November of 2023. He was adm with aspiration PNA. O2 sats on RA remain 93% at rest in sitting and only drop with transfer and redonning of pulse ox with quick recovery to 93%. Pt requires CGA for bed mobility, min A for transfer and mod A to step with RW to the chair. He reports feeling weaker this adm but he is not far from his recent baseline at [facility] where he was transferring. [facility] with HHPT vs SNF at this time. Goals Bed Mobility Goal Independent Transfer Goal Standby Assistance,Front Wheeled Walker Gait Goal Standby Assistance,Front Wheel Walker Gait Distance 25 Other Goals Pt will perform w/c<>bed<> toilet with mod I. Days to Meet Goals 5 Frequency of Treatment Frequency Of Treatment Once a Day Treatment Plan Physical Therapy Treatment Plan Bed Mobility Training,Transfer Training,Gait Training, Therapeutic Exercise,Balance Retraining,Discharge Planning, Hot or Cold Pack,Neuromuscular Re-ed,Coordination Retraining ,Manual Therapy Precautions Other Precautions R hemiplegia, functional foot drop on the right foot Recommendations To Nursing Amount of Assist Needed 1 Person Assist Discharge Recommendations PT Discharge Recommendations Home vs SNF Other Discharge Recommendations Return to [facility] with HHPT vs SNF Transportation Needs at Discharge Private Vehicle,Wheelchair/ Cabulance
--- NOTE | 2024-02-14 14:54 | PC.NURSE ---
patient has not had any urine output since midnight of 02/13. Bladder scan shows 365mL, Patient was helped up to BSC to aid in some urinary output. Pt had 350mL out. Provider is aware, awaiting response at this time
--- NOTE | 2024-02-14 15:12 | CM.DPNOTE ---
DCP Cont Reviewed chart. Patient discussed in multidisciplinary rounds. PT ordered and recommending Home w/HHPT Met w/patient and his sister Kenyetta (visiting from [place]), reviewed discharge plan. Patient confirms that he has a condo in [place] that he hopes to eventually return to. Patient had been living alone in this condo before his stroke. He discharged from to [facility], eventually discharged from [facility] to [facility] while he awaited a bed at [facility]. Patient does not plan on living at [facility] indefinitely though plans to discharge to [facility] with resumption of [facility] services upon discharge. Plan: Discharge back to [facility] is anticipated, with resumption of [facility] HH (new order required?), therapies have cleared patient for this plan. CM team following closely for coordination. SHELLI
[2024-02-14] MEDS: SODIUM CHLORIDE 0.9% 1,000 ML 100 ML IV (15:57)
[2024-02-14 16:47] VITALS: BP 122/75; PULSE 60; RESP 15; TEMP 36.6; O2SAT 95
[2024-02-14] MEDS: VANCOMYCIN 2,000 MG/400 ML PIGGYBACK 200 MG IV (18:30)
[2024-02-14] MEDS: LOPERAMIDE 2 MG CAPSULE PO (18:54)
[2024-02-14 20:00] VITALS: BP 124/69; PULSE 72; RESP 18; TEMP 36.6; O2SAT 95
[2024-02-14] MEDS: ATORVASTATIN 20 MG TABLET 80 MG PO (20:53)
[2024-02-15] MEDS: PIPERACILLIN/TAZO 3.375 GM in SODIUM CHLORIDE 0.9% 100 ML IV ×3 (05:36→23:24)
[2024-02-15 06:05] LABS: BUN Creatinine Ratio 17.4 (6-22); Blood Urea Nitrogen 16 mg/dL (9-20); Calcium 8.4 mg/dL (8.4-10.2); Carbon Dioxide 24 mmol/L (22-32); Chloride 108 mmol/L (98-107); Estimated Glomerular Filt Rate > 60 mL/min (>60); Glucose 85 mg/dL (80-110); HEMOLYSIS < 15 (0-50); Potassium 3.8 mmol/L (3.4-5.1); Sodium 138 mmol/L (137-145)
--- NOTE | 2024-02-15 07:33 | PM.PN.1 ---
Subjective Subjective Interval history: Summary: 84 y/o with PMH of recent ischemic Lt MCA stroke with Rt hemiparesis, facial droop and dysphagia, presented from SNF with fever, chills, malaise, generalized weakness, with leukocytosis, left shift, elevated lactate. CXR was non-revealing. He was on regular diet, thin liquids, but it seems that he aspirated while drinking. Started on Zosyn and admitted with aspiration pneumonia and acute hypoxemic respiratory failure, as he requires 2 L of oxygen to maintain saturation above 90%. 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 He also notes some diarrhea yesterday. He was had 3-4 diarrheal episodes this02/12. Positive blood culture 02/13. Subjective: He feels better today. Minimal cough. He did well with speech therapy. More energized, no fevers overnight. No nausea or pain issues. He denies any dyspnea. Blood culture sensitivities and final ID are pending. Exam Vital Signs (past 8 hours): Fraction of Inspired Oxygen 28 SaO2/FiO2 Ratio 339 Oxygen Delivery Method Nasal Cannula Oxygen Flow Rate 0 Narrative Exam Narrative: NAD, alert and oriented. Fluent speech. Lungs are clear, normal rate and effort. Heart is regular, no murmur gallop or rub. Abdomen is soft, non distended. Extremities are free of edema. Right arm paresis Objective Labs 02/15/24 05:35 02/15/24 05:35 Labs: Laboratory Results - last 24 hr 02/15/24 05:35 Sodium 138 Potassium 3.8 Chloride 108 H Carbon Dioxide 24 BUN 16 Creatinine 0.92 Estimated GFR > 60 BUN/Creatinine Ratio 17.4 Glucose 85 Calcium 8.4 [facility] Medical History BPH (benign prostatic hyperplasia) Insomnia Depression Tear of meniscus of knee Inguinal hernia Surgical History Hx of tonsillectomy Social History household members: none Smoking Status: Former smoker alcohol intake: current Assessment & Plan Assessment & Plan narrative: 1. Aspiration Pneumonia, present on admission and imroved. - covered with Zosyn and vancomycin in the ER, continue with Zosyn. Mucinex. PRN albuterol. 2. GPC bacteremia, new and active. - vanco and await cultures. 3. Acute Hypoxemic Respiratory Failure, present on admission and resolved. - off O2. 4. Recent Lt MCA Ischemic Stroke / Rt Hemiparesis / Dysphagia / HLD, present on admission and active. - getting PT/OT in SNF with improved Rt leg strength so able to walk with a walker, still severe Rt arm weakness and apparently ongoing dysphagia / aspiration - ASA, statin - physical strength is good, did well with physical therapy. 5. BPH, present on admission and active. - Flomax 6. Depression, present on admission and active. - Lexapro 7. Insomnia, present on admission and active. - Trazodone prn 8. Restless legs, present on admission and active. 9. Sepsis secondary to pneumonia. Initial pulse 95, respiratory rate 28, WBC 19.9. Patient was hypoxemic with respiratory failure. Present on admission any improved. PLAN: -continue Abx (Zosyn) , RESTARTED VANCO. -evaluated swallow. Speech feels he was doing all right and we will follow clinically. -follow up blood cultures for final ID and sensitivity. -ropinirole trial. Second set of blood cultures today to prove sterility. He is clinically improved and we are waiting for final cultures to her post so we can make an antibiotic plan. Blood cx POS (2/2 GPC), stool pcr and resp pcr negative. SAMIA: 01/16, POPPY Chavez. Time-Based Coding :: [TOTAL MINUTES] spent with patient and on the chart (including review of chart, obtaining history, exam, reviewing outside data, placing orders, documenting exam and treatment plan, and counseling patient) on [DATE].
[2024-02-15 07:48] LABS: Hemoglobin 11.8 g/dL (13.5-17.5); Mean Corpuscular HGB Conc 33.7 % (30-36); Mean Corpuscular Hemoglobin 34.7 PG (26-34); Mean Corpuscular Volume 103.2 fL (80-100); Platelet Count 170 X10^3/uL (150-400); Red Blood Cell Count 3.39 X10^6/uL (4.5-5.9); Red Cell Distribution Width 15.6 % (11.6-14.8); White Blood Cell Count 6.4 X10^3/uL (4.5-11.0)
--- NOTE | 2024-02-15 08:14 | PT.IPTN ---
Current Diagnoses Hyperlipidemia, unspecified (02/12/24) Major depressive disorder, recurrent, mild (02/12/24) Primary insomnia (02/12/24) Unspecified sequelae of cerebral infarction (02/12/24) Pneumonitis due to inhalation of food and vomit (02/12/24) Acute respiratory failure with hypoxia (02/12/24) Benign prostatic hyperplasia with lower urinary tract symptoms (02/12/24) Nocturia (02/12/24) Bacteremia (02/12/24) Physical Therapy Treatment Note M2 PT-IP Current Condition Start: 02/14/24 12:33 Freq: NEEDED Status: Active Protocol: Document 02/15/24 07:45 SP (Rec: 02/15/24 10:47 SP [id number]) Physical Therapy Current Condition Current Condition Evaluation Date 02/14/24 Treatment Diagnosis Aspiration PNA M3 PT-IP Subjective Start: 02/14/24 12:33 Freq: NEEDED Status: Active Protocol: Document 02/15/24 07:45 SP (Rec: 02/15/24 10:47 SP [id number]) Subjective Physical Therapy Visit Type Type Treatment Note Visit Start Time 07:45 Visit Stop Time 08:14 Notes Vitals L UE automoated: supine: BP 133/73 HR 65 SaO2 93% RA post mobility: BP 149/85 HR 69 SaO2 94% onRA Number of ARCHEOLOGY FACULTY MEMBER Visits 1 Physical Therapy Visit Comments Patient Comments 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 Therapy Pain Assessment Pain When Pain Assessed During Mobility Pain Present Pain Present Denied Pain M4 PT-IP Mobility and Gait Start: 02/14/24 12:33 Freq: NEEDED Status: Active Protocol: Document 02/15/24 07:45 SP (Rec: 02/15/24 10:47 SP [id number]) PT-Bed Mobility Assessment Rolling Type of Rolling Roll to Right Level of Assist Standby Assistance Supine to Sit Supine to Sit Contact Guard Assistance, Minimal Assistance,1 Person Assistance,Head of Bed Elevated Scooting Scooting to Edge of Bed Standby Assistance PT-Transfer Assessment Sit to and From Stand Sit to and from Stand Contact Guard Assistance, Minimal Assistance,1 Person Assistance,Use of Upper Extremities Equipment Transfer Assistive Device Gait Belt,Front Wheeled Walker Orthotic/Prosthetic Devices or Brace: No Transfers Transfer Destination Chair Transfer Technique pt walking in room /c FWW Transfer Ability Level of Assist Contact Guard Assistance, Minimal Assistance,1 Person Assistance,Use of Upper Extremities Comments Mobility Comments Pt stable vitals throughout tx , see above. Pt required Min A pull from ARCHEOLOGY FACULTY MEMBER hand transition to semi reclined to Sit. Max A don socks and B sneakers with RLE AFO. CG-Min A STS and gait around room /c FWW, assist for wt shift at times for RLE foot clearance and slight sway, IV pole mgt. Gait around room 30 ft, trialed 4WW but to fast and Pt couldn' t manage brake onR so discussed continue use FWW at this time. Pt was up in chair before left. Call light in reach before left. Gait Assessment Gait Gait Assistance Required: Contact Guard Assist,Minimum Assistance,1 Person Assist Distance (Feet) 30 Able to Maintain Weight Bearing Status Yes During Gait Assistive Devices Assistive Device Gait Belt,Front Wheeled Walker Orthotic/Prosthetic Devices or Brace: No Gait Deviations General Gait Pattern Antalgic,Decreased Stride Length,Decreased Feet Clearance,Narrow Based Gait, Step-to Gait Factors Limiting Gait Function Factors Limiting Gait Function Abnormal Tonal Influences, Decreased Strength, Incoordination,Limited Range of Motion,Poor Balance Comments Gait Comments step to gait lead RLE, assist trunk stability during RLE swing phase when needed. Stair Climbing Assessment Comments Stair Climbing Comments no stairs need to assess. PT-Balance Assessment Sitting Balance and Reactions Static Sitting Balance Ability Normal Dynamic Sitting Balance Ability Good Standing Balance and Reactions Static Standing Balance Ability Good Dynamic Standing Balance Ability Fair Device Used FWW M5 PT-IP Objective Assessments Start: 02/14/24 12:33 Freq: NEEDED Status: Active Protocol: Document 02/14/24 12:35 MB (Rec: 02/14/24 13:16 MB [id number]) Orientation Orientation/Cognition Level of Alertness Alert Orientation Name,Age,Birthday,Month,Date, Year,Day of Week,Place, Situation Language Function Ability No Deficits Noted Safety Awareness Understands Safety Issues Memory Description No Deficits Noted Gross Range of Motion Upper Extremity ROM Assessment Right Impaired Impairments Defer to OT Lower Extremity ROM Assessment Right Impaired Impairments Functional foot drop, limited toe and ankle movement and knee movement also impaired Strength Upper Extremity Strength Assessment Right Impaired Lower Extremity Strength Assessment Right Impaired Comments Strength Comments MMT deferred and functional foot drop on the right Coordination Assessment Gross Coordination Gross Coordination Impaired Sensation Assessment Comments Sensation Comments Mild decreased awareness right UE as far as proprioception today Muscle Tone Muscle Tone WNL No Comments Muscle Tone Comments Mild tension tone right PFs M7 PT-IP Assessment and Plan Start: 02/14/24 12:33 Freq: NEEDED Status: Active Protocol: Document 02/15/24 07:45 SP (Rec: 02/15/24 10:47 SP [id number]) PT Summary Assessment and Plan Potential Rehabilitation Potential Good Status of Condition at Evaluation Evolving Summary Impairments ROM,Strength,Balance, Coordination,Sensation,Tone, Bed Mobility,Transfers,Gait, Activity Tolerance Progress Towards Goals Progressing Toward Goals Assessment Summary Pt requires Min A completed trunk right full sit from semireclined. CG- Min during transfers and gait using FWW 30 ft at this time most stable , little sway support at trunk for stability support during swing phase RLE. Discussed with pt, nurse and care mgt recommend SNF vs acute Rehab get stronger for increased independence before return to assisted living at [facility] due to Min A when needed for all mobility and use of FWW at this time. Pt agreeableto recommendation. Goals Bed Mobility Goal Independent Transfer Goal Standby Assistance,Front Wheeled Walker Gait Goal Standby Assistance,Front Wheel Walker Gait Distance 25 Other Goals Pt will perform w/c<>bed<> toilet with mod I. Days to Meet Goals 5 Frequency of Treatment Frequency Of Treatment Once a Day Treatment Plan Physical Therapy Treatment Plan Bed Mobility Training,Transfer Training,Gait Training, Therapeutic Exercise,Balance Retraining,Discharge Planning, Hot or Cold Pack,Neuromuscular Re-ed,Coordination Retraining ,Manual Therapy Other Recommendations and Next Treatment Continue further gait /c FWW, Focus progres 4WW when safe, able. Balance activities. STS for strength. Precautions Other Precautions R hemiplegia, functional foot drop on the right foot Recommendations To Nursing Amount of Assist Needed 1 Person Assist Discharge Recommendations PT Discharge Recommendations SNF Rehab,Home vs SNF Other Discharge Recommendations SNF for strength and increase mobililty I before returnto [facility] Transportation Needs at Discharge Private Vehicle,Wheelchair/ Cabulance
[2024-02-15] MEDS: TAMSULOSIN 0.4 MG CAPSULE PO (08:39)
[2024-02-15] MEDS: LACTOBACILLUS ACIDOPHILUS TABLET 1 EACH PO (08:39)
[2024-02-15] MEDS: guaiFENesin ER 600 MG TAB PO ×2 (08:40→21:36)
[2024-02-15] MEDS: ESCITALOPRAM 10 MG TABLET PO (08:40)
[2024-02-15] MEDS: ROPINIROLE 0.25 MG TABLET PO ×2 (08:40→21:36)
[2024-02-15] MEDS: ENOXAPARIN 40 MG/0.4 ML SYRINGE SUBCUT (08:40)
[2024-02-15] MEDS: ASPIRIN 81 MG CHEW TAB PO (08:40)
--- NOTE | 2024-02-15 09:20 | DIET.CONS ---
Dietary Consultation Note Admission Date: 02/12/2024 19:50 Assessment: 84 y M admitted for aspiration pneumonia. RD screened for low MNA score. PMH of Lt MCA ischemic stroke, rt hemiparesis, dysphagia. Met w/ pt at bedside. Reports normal appetite and eating meals provided at [facility] 3x/day before admission, but decreased appetite during hospitalization. Has been drinking 1 ensure daily during admission - only tolerating 1 over the entire day. UBW of 180-187 lb. Weight noted at admission 183 lb. NFPE performed- -mild muscle loss temporalis -suspected to be age related -mild subcutaneous fat loss buccal and orbital fat pads -no significant losses in deltoid, clavicle region, interosseous, or triceps Ht: 177.8 cm Wt: 83.37 kg BMI: 26.4 UBW: 86.239 kg on 10/29/23 (-3% weight loss in 3.5 months, non-severe) Last BM: 02/14/24 (02/14/24 18:43) MNA: 8 Zak Score: 20 Diet: 02/13/24 Lunch Dysphagia Diet Diet Modifications: Food Texture: Level 6-Soft & Bite-sized Liquid Consistency: Level 0 - Thin Nutrition Percent Meal Consumed 50% 02/15/24 08:48 Percent Meal Consumed 100% 02/14/24 18:00 Percent Meal Consumed 10 02/14/24 09:11 Percent Meal Consumed 25% 02/13/24 18:00 Percent Meal Consumed 25% 02/13/24 13:23 Labs: RBC 3.39 X10^6/uL (4.5-5.9) L 02/15/24 05:35 Hgb 11.8 g/dL (13.5-17.5) L 02/15/24 05:35 Hct 35.0 % (41-53) L 02/15/24 05:35 Creatinine 0.92 mg/dL (0.66-1.25) 02/15/24 05:35 Lactate 1.0 mmol/L (0.7-2.1) 02/12/24 19:01 NT-Pro-B Natriuret Pep 320 pg/mL (<450) 02/12/24 16:49 Nutrition Diagnosis: Inadequate oral intake r/t decreased appetite aeb recorded PO intakes average <50% Interventions: -Daily ONS to Enlive vanilla over original EER: [id number] kcals (23-25 kcals/kg per BMI) 80 g protein (1 g/kg per age) Monitoring/Evaluations: PO intakes Electronically Signed by: Fide Lopez 02/15/24 09:20 Clinical Dietitian [address] [address]
--- NOTE | 2024-02-15 10:08 | OT.IP.EVAL ---
Current Diagnoses Hyperlipidemia, unspecified (02/12/24) Major depressive disorder, recurrent, mild (02/12/24) Primary insomnia (02/12/24) Unspecified sequelae of cerebral infarction (02/12/24) Pneumonitis due to inhalation of food and vomit (02/12/24) Acute respiratory failure with hypoxia (02/12/24) Benign prostatic hyperplasia with lower urinary tract symptoms (02/12/24) Nocturia (02/12/24) Bacteremia (02/12/24) Past Medical History (Last Reviewed 02/15/24 @ 07:34 by Garret Reed MD) BPH (benign prostatic hyperplasia) Depression Inguinal hernia Insomnia Tear of meniscus of knee Surgical History (Last Reviewed 02/15/24 @ 07:34 by Garret Reed MD) Hx of tonsillectomy Occupational Therapy Inpatient Evaluation/Re-Eval M1 PT/OT-IP Prior Functional Status Start: 02/14/24 12:33 Freq: NEEDED Status: Active Protocol: Document 02/15/24 10:14 CGR (Rec: 02/15/24 10:31 CGR [id number]) Medical Review Prior Functional Status Medical History Reviewed Yes Communication Unsure baseline diet after stroke, adm with aspiration PNA, communicates needs well Mobility and Gait D/cd to [facility] area in [facility] after stroke 11/14/23. Pt d/cd to acute rehab and then transitioned to [place] with HH. He reports mod I with w/c, transferred I, stood at hallway rail and walked in hallway with rail Activities of Daily Living and IADL's I dressing and superv bathing, expected to be cleared for I this week and to transition to therapy services at [facility] Social History Household Members none Living Arrangements Assisted Living Number of Stairs To Enter/Railing? Accessible access at [facility] Home Environment Standard Height Toilet,Walk in Shower Home Equipment Four Wheel Walker,Manual Wheelchair,Raised Toilet Seat w/Armrests,Shower Seat without Backrest,Hand Held Shower, Grab Bars In Shower Employment Status Retired Additional Social History Comment Did not use the armrest connector over commode d/t right arm weakness M2 OT-IP Current Condition Start: 02/15/24 10:14 Freq: Status: Active Protocol: Document 02/15/24 10:14 CGR (Rec: 02/15/24 10:31 CGR [id number]) Occupational Therapy Current Condition Current Condition Evaluation Date 02/15/24 Treatment Diagnosis aspiration PNA, Hypoxia, recent L MCA CVA Diagnosis Onset Date 02/12/24 M3 OT- IP Subjective and Pain Start: 02/15/24 10:14 Freq: Status: Active Protocol: Document 02/15/24 10:14 CGR (Rec: 02/15/24 10:31 CGR [id number]) OT- Subjective Occupational Therapy Visit Type Type Initial Evaluation Visit Start Time 09:29 Visit Stop Time 10:08 Notes Pt requesting to get up to bathroom OT Pain Assessment Pain When Pain Assessed At Rest Pain Present Pain Present Denied Pain M4 OT- IP ADL's Start: 02/15/24 10:14 Freq: Status: Active Protocol: Document 02/15/24 10:14 CGR (Rec: 02/15/24 10:31 CGR [id number]) OT [id number] Comments OT Self-Feeding Comments not meal time OT ADL-Grooming Comments OT Grooming Comments not performed OT ADL-Oral Care Comments Oral Care Comments not performed OT ADL-Dressing Comments OT Dressing Comments not performed OT ADL-Toileting General Evaluation Toileting Ability Standby Assistance Comments OT Toileting Comments Pt had diarrhea seated on toielt and performed his own pericare but was given wet wipes. OT ADL-Bathing Comments OT Bathing Comments not performed M5 OT- IP IADL's Start: 02/15/24 10:14 Freq: Status: Active Protocol: Document 02/15/24 10:14 CGR (Rec: 02/15/24 10:31 CGR [id number]) OT-Instrumental Activities of Daily Living Deficits IADL Deficits Identified No Deficits Home Safety Awareness Awareness of Need for Assistance at Home Good Awareness Ability to Problem Solve Emergency Able to Problem Solve Situations Medication Management Medication Management Caregiver Administers Money Management Money Management Caregiver Provides Assistance Meal Preparation Meal Preparation Caregiver Provides Assist Agricultural Appraiser Agricultural Appraiser Caregiver Provides Assist Driving Driving Comments Pt does not drive at this time . M6 OT- IP Functional Cognition Start: 02/15/24 10:14 Freq: Status: Active Protocol: Document 02/15/24 10:14 CGR (Rec: 02/15/24 10:31 CGR [id number]) Cognitive Factors Limiting Selfcare Function Cognitive Ability Level of Alertness Alert Patient Orientation Name,Age,Birthday,Month,Date, Year,Day of Week,Place, Situation Attention Span Ability Capable of Focused Attention, Capable of Sustained Attention Ability to Follow Commands Able to Follow Multi-Step Commands OT- Vision and Hearing OT- Hearing Assessment OT- Hearing Assessment WFL OT- Vision Assessment Visual Acuity Glasses All The Time Visual Attentiveness WFL Occular Pursuits WFL Visual Convergence WFL M7 OT- IP Mobility and Balance Start: 02/15/24 10:14 Freq: Status: Active Protocol: Document 02/15/24 10:14 CGR (Rec: 02/15/24 10:31 CGR [id number]) OT-Transfer Assessment Sit to and From Stand Sit to and from Stand Minimal Assistance Transfers Transfer Ability Minimal Assistance Technique Transfer Destination Chair,Toilet Transfer Technique Stand Step Pivot Devices Transfer Assistive Devices Gait Belt,Front Wheeled Walker Comments Mobility Comments Pt stood from chair and ambualted to toielt for BM. Pt also urinated into urinal for urine sample, nusing notified . OT- Gait Assessment Gait Gait Assistance Required: Minimum Assistance Assistive Devices Assistive Device Gait Belt,Front Wheeled Walker OT- Balance Assessment Sitting Balance and Reactions Static Sitting Balance Ability Good Dynamic Sitting Balance Ability Good M8 OT- IP Objective Assessments Start: 02/15/24 10:14 Freq: Status: Active Protocol: Document 02/15/24 10:14 CGR (Rec: 02/15/24 10:31 CGR [id number]) OT Gross Range of Motion Upper Extremity Range of Motion Assessment Right Impaired OT Strength Comments Strength Comments R shld 1+/5, arm, 3-/5, forearm 3-/5, hand 3+/5 fx but 2/5 ext. LUE 5/5 OT- Coordination Assessment Upper Extremity Finger to Nose Test Right UE Impaired Finger Tapping Test Right UE Impaired OT-Muscle Tone Assessment Muscle Tone WNL No Muscle Tone Location Right Upper Extremity Type of Tone Hypotonicity Severity of Tone Mild Comments Muscle Tone Comments cogwheeling with wrist ext OT Sensation Assessment Edema Edema Present Edema Comments R hand edema present, educated on the lymphatic system and ways to decrease edema. M9 OT- IP Assessment and Plan Start: 02/15/24 10:14 Freq: Status: Active Protocol: Document 02/15/24 10:14 CGR (Rec: 02/15/24 10:31 CGR [id number]) OT Summary Assessment and Plan Potential Rehabilitation Potential Excellent Analytic Complexity at Evaluation Moderate Summary OT Impairments Range of Motion,Strength, Balance,Coordination,Tone, Functional Cognition, Functional Mobility,Grooming, Dressing,Toileting,Bathing, Toilet Transfers,Shower Transfers,Activity Tolerance Progress Towards Goals Progressing Toward Goals Assessment Summary Pt presents as a moderate complexity evaluation s/p admit for aspiration PNA. Pt has recent hx of CVA and is still making improvements. Pt is requesting to return to [facility] with increased assist and states that except for the diarrhea, he was able to get as much assist as he is currently getting from the hospital staff. He would like to avoid returning to SNF. Pt is likely safe to return to [facility] with increased assist when medically stable. Goals Grooming Goal Independent Dressing Goal Independent Toileting Goal Independent Bathing Goal Independent Toilet Transfer Goal Independent Shower Transfer Goal Independent Days to Meet Goals 15 Frequency of Treatment Frequency Of Treatment Once a Day Treatment Plan OT Treatment Plan ADL Training,Functional Mobility,Neuromuscular Re- education,Therapeutic Exercises,Patient/Family Education,Discharge Planning Other Treatment Recommendations and Next Shower Treatment Focus Discharge Recommendations OT Discharge Recommendations Home with 24/7 Assist Available Other Discharge Recommendations Home being [facility] Transportation Needs at Discharge Private Vehicle
[2024-02-15 10:17] LABS: Urine Volume 10mL (spun)
[2024-02-15 10:22] LABS: Bacteria Urine None Seen; Culture Indicated Urine Cult Not Indicated; RBC Urine None Seen (0-5/HPF); Squamous Epithelial Cell Urine None Seen (0-5/HPF); WBC Urine None Seen (0-5/HPF)
--- NOTE | 2024-02-15 11:03 | CM.DPC ---
Addendum entered by STANTON Gorman 02/15/24 11:26: ADD: Spoke to Val at [facility] and updated on pt status and she will review to confirm if pt d/c on PO meds that they can accept him back. Val states she will be out of the office Tues and Wed this week but will have her staff aware of pt status by end of today. SHMUEL confirmed with [facility] that if pt discharges back to Assisted rather than SNF and if pt discharges prior to 02/20/24 then they only need Resumption Orders. If pt discharges after 02/20/24 then they would need new referral and new F2F and orders. BF Original Note: [facility] vs SNF Per MD, pt making some progress but still waiting for cultures to return to determine PO vs IV antibiotics at discharge which would impact pt's discharge needs and destination. Per OT/PT, pt could benefit from daily SNF rehab but also feel pt could likely d/c back to [facility] with assist as this is pt's preference still and pt would like to avoid SNF if possible. SHMUEL faxed clinicals to both [facility] Val to review to confirm pt can return if on PO meds and also to [facility] in case SNF needed as they had accepted pt and his insurance a couple months ago when admitted for Stroke but pt went to Acute Stroke Rehab instead. Plan: SW to follow closely for cultures to determine PO vs IV at discharge which would determine return to Assisted vs SNF at discharge. STANTON Gorman
[2024-02-15] MEDS: LOPERAMIDE 2 MG CAPSULE PO (11:47)
--- NOTE | 2024-02-15 13:34 | ST.IPDYTX ---
Visit Care Team Role Provider Type Quan New DO Primary Care Provider Physician Specialty: Family Practice Address: [address] [place] [address], [phone] Email: [email or web address] DO Emergency Provider Physician Referring Provider Specialty: Emergency Medicine Address: [address] [place] [address], [phone] Fax: Email: [email or web address] Darius Acosta MD Admit Provider Physician Attending Provider Specialty: Internal Medicine Address: [address] [place] [address], [phone] Email: [email or web address] SHIP'S MASTER Dysphagia Treatment SHIP'S MASTER Dysphagia Treatment Start: 02/15/24 12:39 Freq: Status: Active Protocol: Document 02/15/24 12:39 CG (Rec: 02/15/24 12:48 CG [id number]) Dysphagia Treatment Session Time Visit Start Time 11:40 Visit Stop Time 12:00 Total Visit Minutes 20 Visit Information Visit Number 2 Insurance Information [facility] Setting Assessment Location Acute Care Patient Information Subjective Observations Pt was sitting upright in hospital chair. Per nurse, the pt took all medication in single pills with applesauce earlier with no s/sx aspiration. Nurse reports no significant coughing noted with PO intake. Pt had water and Ensure, both with straws, on table at his chair. Pt reported intermittent difficulty with water, but not every time. SWIFT TENDER brought tray into pt room partway through session, and pt lunch of mac and cheese and cut-up green beans were used for PO trials of solids. Treatment Liquids Trialed Thin (IDDSI 0),Mildly Thick ( IDDSI 2) Solids Trialed Soft & Bite-sized (IDDSI 6) Administration Type Cup Single Sip,Straw,Self- Feeding Oral Strategies Upright at 90 degrees, Controlled Bite/Sip Size Pharyngeal Strategies Sitting Upright (90 deg),Chin Tuck,Small Bites and Sips Treatment Activities PO trials of water, Ensure, macaroni, and green benas. Observed PO trial of meds presented by RN (whole in applesauce). 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 The IDDSI Framework Protocol: IDDSI.1 Assessment Patient Response to Treatment Good Assessment of Improvement Pt demonstrated immediate cough on initial sip of water via large straw with hospital cup. He stated that he occasionally has trouble with water. Straw was removed and pt completed trials of water via cup sip x5, which did not result in any overt s/sx aspiration apparently related to the swallow. Pt did demonstrate intermittent cough throughout session 2/ PNA. Pt demonstrated independent use of chin tuck throughout PO trials. PO trials of Ensure (mildly thick liquids/IDDSI 2) and soft/bite sized solids ( macaroni, chopped green beans) demonstrated no overt s/sx aspiration. 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 Wells in [place]. He states he has not had this done since the summer. SHIP'S MASTER advised this may have contributed to recent aspiration event and recommend ENT visit [facility] for updated Botox if needed. Pt believes he was forgetting to utilize chin tuck strategy at [facility]. 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 SHIP'S MASTER discussed how either of these, along with spasmodic dysphonia, may all have contributed to pt aspirating and developing PNA. As long as pt consistently utilizes strategies (chin tuck, no straw, reduce distractions), he is able to swallow safely. Recommend d/c on current diet and follow with ST at next level of care to ensure carryover of safe swallow strategies. Additionally, recommend pt follow up with ENT for updated Botox for spasmodic dysphonia if needed. Recommendations Recommendations Continue Current Diet Liquids Order Thin (IDDSI 0) Diet Order Soft & Bite-sized (IDDSI 6) Medication Recommendations One at a Time Comments New precaution: No straws Additional Dietary Needs Single Sips,Controlled Sips,No Straws,1:1 Supervision, Encourage to Self-Feed, Reminders to Use Strategies Aspiration Precautions Additional Precautions Single sips with chin tuck, no straws, reduce distraction Treatment Plan Placement Recommendation after Discharge [facility]dc Facility, Inpatient Rehab Facility Appropriate for Continued Therapy Yes Therapy Recommendations Recommend monitoring for compliance with and carrover of swallow precautions. Pt is able to tolerate meds PO, so dysphagia is not a barrier to discharge at this time. Continue precautions: chin tuck, no straws, reduce distractions. 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 Dysphagia Goals STG 1: Patient will utilize safe swallowing strategies in 90% of opportunities with minimal verbal cues in order to consume safest and least restrictive diet. MET. STG 2: Patient will tolerate IDDSI 6 (soft and bite-sized) with no clinical s/sx of aspiration in 100% of opportunities in order to consume least restrictive diet texture. CONTINUE GOAL. STG 3: Patient will tolerate thin liquids with no overt s/ sx of aspiration in 100% of opportunities in order to consume least restrictive diet texture. CONTINUE GOAL. LTG: Patient will tolerate safest and most efficient diet with no clinical s/sx of aspiration or dysphagia in 100 % of opportunities in order to consume least restrictive diet and enhance overallomfort during functional eating and drinking. CONTINUE GOAL. Follow Up Plan Will continue to follow up pending discharge plan.
[2024-02-15 19:00] VITALS: BP 120/67; PULSE 84; RESP 18; TEMP 36.7; O2SAT 95
[2024-02-15] MEDS: VANCOMYCIN 1,500 MG/300 ML PIGGYBACK 200 MG IV (21:24)
[2024-02-15] MEDS: BACLOFEN 10 MG TABLET PO (21:36)
[2024-02-15] MEDS: ATORVASTATIN 20 MG TABLET 80 MG PO (21:36)
[2024-02-15] MEDS: TRAZODONE 50 MG TABLET 100 MG PO (21:36)
[2024-02-16] MEDS: PIPERACILLIN/TAZO 3.375 GM in SODIUM CHLORIDE 0.9% 100 ML IV (06:17)
[2024-02-16 07:00] VITALS: BP 123/61; PULSE 63; RESP 17; TEMP 36.6; O2SAT 93
[2024-02-16 07:02] LABS: Hematocrit 34.9 % (41-53); Mean Corpuscular HGB Conc 34.4 % (30-36); Mean Corpuscular Hemoglobin 35.5 PG (26-34); Mean Corpuscular Volume 103.2 fL (80-100); Platelet Count 185 X10^3/uL (150-400); Red Blood Cell Count 3.38 X10^6/uL (4.5-5.9); Red Cell Distribution Width 15.9 % (11.6-14.8); White Blood Cell Count 5.8 X10^3/uL (4.5-11.0)
--- NOTE | 2024-02-16 07:11 | PM.PN.1 ---
Subjective Subjective Interval history: S: Exam Vital Signs (past 8 hours): Fraction of Inspired Oxygen 28 SaO2/FiO2 Ratio 339 Oxygen Delivery Method Nasal Cannula Oxygen Flow Rate 0 Narrative Exam Narrative: NAD, alert and oriented. Fluent speech. Lungs are clear, normal rate and effort. Heart is regular, no murmur gallop or rub. Abdomen is soft, non distended. Extremities are free of edema. Objective Labs 02/16/24 06:20 02/15/24 05:35 Labs: Laboratory Results - last 24 hr 02/15/24 02/15/24 02/16/24 05:35 09:45 06:20 WBC 6.4 5.8 RBC 3.39 L 3.38 L Hgb 11.8 L 12.0 L Hct 35.0 L 34.9 L MCV 103.2 H 103.2 H MCH 34.7 H 35.5 H MCHC 33.7 34.4 RDW 15.6 H 15.9 H Plt Count 170 185 Urine RBC None seen Urine WBC None seen Ur Squamous Epith Cells None seen Urine Bacteria None seen Ur Culture Indicated? Cult not indicated Vol Urine Centrifuged 10ml (spun) PFSH Medical History BPH (benign prostatic hyperplasia) Insomnia Depression Tear of meniscus of knee Inguinal hernia Surgical History Hx of tonsillectomy Social History household members: none Smoking Status: Former smoker alcohol intake: current Assessment & Plan Assessment & Plan narrative: 1. Aspiration Pneumonia, present on admission and imroved. - covered with Zosyn and vancomycin in the ER, continue with Zosyn. Mucinex. PRN albuterol. 2. GPC bacteremia, new and active. - vanco and await cultures. 3. Acute Hypoxemic Respiratory Failure, present on admission and resolved. - off O2. 4. Recent Lt MCA Ischemic Stroke / Rt Hemiparesis / Dysphagia / HLD, present on admission and active. - getting PT/OT in SNF with improved Rt leg strength so able to walk with a walker, still severe Rt arm weakness and apparently ongoing dysphagia / aspiration - ASA, statin - physical strength is good, did well with physical therapy. 5. BPH, present on admission and active. - Flomax 6. Depression, present on admission and active. - Lexapro 7. Insomnia, present on admission and active. - Trazodone prn 8. Restless legs, present on admission and active. 9. Sepsis secondary to pneumonia. Initial pulse 95, respiratory rate 28, WBC 19.9. Patient was hypoxemic with respiratory failure. Present on admission any improved. Time-Based Coding :: [TOTAL MINUTES] spent with patient and on the chart (including review of chart, obtaining history, exam, reviewing outside data, placing orders, documenting exam and treatment plan, and counseling patient) on [DATE].
[2024-02-16 07:19] LABS: BUN Creatinine Ratio 13.7 (6-22); Blood Urea Nitrogen 13 mg/dL (9-20); Calcium 8.8 mg/dL (8.4-10.2); Carbon Dioxide 24 mmol/L (22-32); Chloride 110 mmol/L (98-107); Estimated Glomerular Filt Rate > 60 mL/min (>60); Glucose 86 mg/dL (80-110); HEMOLYSIS 26 (0-50); Potassium 3.7 mmol/L (3.4-5.1); Sodium 138 mmol/L (137-145)
[2024-02-16] MEDS: ROPINIROLE 0.25 MG TABLET PO (09:22)
[2024-02-16] MEDS: ESCITALOPRAM 10 MG TABLET PO (09:22)
[2024-02-16] MEDS: LACTOBACILLUS ACIDOPHILUS TABLET 1 EACH PO (09:22)
[2024-02-16] MEDS: ASPIRIN 81 MG CHEW TAB PO (09:22)
[2024-02-16] MEDS: TAMSULOSIN 0.4 MG CAPSULE PO (09:22)
[2024-02-16] MEDS: ENOXAPARIN 40 MG/0.4 ML SYRINGE SUBCUT (09:22)
[2024-02-16] MEDS: guaiFENesin ER 600 MG TAB PO (09:22)
--- NOTE | 2024-02-16 10:33 | PT.IPTN ---
Current Diagnoses Hyperlipidemia, unspecified (02/12/24) Major depressive disorder, recurrent, mild (02/12/24) Primary insomnia (02/12/24) Unspecified sequelae of cerebral infarction (02/12/24) Pneumonitis due to inhalation of food and vomit (02/12/24) Acute respiratory failure with hypoxia (02/12/24) Benign prostatic hyperplasia with lower urinary tract symptoms (02/12/24) Nocturia (02/12/24) Bacteremia (02/12/24) Physical Therapy Treatment Note M2 PT-IP Current Condition Start: 02/14/24 12:33 Freq: NEEDED Status: Active Protocol: Document 02/15/24 07:45 SP (Rec: 02/15/24 10:47 SP [id number]) Physical Therapy Current Condition Current Condition Evaluation Date 02/14/24 Treatment Diagnosis Aspiration PNA M3 PT-IP Subjective Start: 02/14/24 12:33 Freq: NEEDED Status: Active Protocol: Document 02/16/24 11:16 TS (Rec: 02/16/24 11:27 TS [id number]) Subjective Physical Therapy Visit Type Type Treatment Note Visit Start Time 10:33 Visit Stop Time 11:00 Number of GROUNDS FOREMAN Visits 2 Physical Therapy Visit Comments Patient Comments Pt continues to have R sided weakness, especially in RUE. He is agreeable to PT. M4 PT-IP Mobility and Gait Start: 02/14/24 12:33 Freq: NEEDED Status: Active Protocol: Document 02/16/24 11:16 TS (Rec: 02/16/24 11:27 TS [id number]) PT-Bed Mobility Assessment Supine to Sit Supine to Sit Standby Assistance,1 Person Assistance,Head of Bed Elevated Scooting Scooting to Edge of Bed Standby Assistance PT-Transfer Assessment Sit to and From Stand Sit to and from Stand Contact Guard Assistance, Minimal Assistance,1 Person Assistance Equipment Transfer Assistive Device Gait Belt,Front Wheeled Walker Orthotic/Prosthetic Devices or Brace: No Comments Mobility Comments Supine to sit SBA with HOB elevated. STS with FWW CGa/ Chris, pt places RUE on FWW, has a slight posterior lean coming into standing. He ambulates in the room ~50'SBA with FWW, has some lightheadedness. Pt ambulates back to the chair, performs knee flex/ext and seated march . Pt recalls exercises for RUE . Pt was left in the chair, all needs met. Gait Assessment Gait Gait Assistance Required: Standby Assistance,Contact Guard Assist Distance (Feet) 50 Able to Maintain Weight Bearing Status Yes During Gait Assistive Devices Assistive Device Gait Belt,Front Wheeled Walker Gait Deviations General Gait Pattern Antalgic,Decreased Stride Length,Decreased Feet Clearance,Narrow Based Gait, Step-to Gait Factors Limiting Gait Function Factors Limiting Gait Function Abnormal Tonal Influences, Decreased Strength, Incoordination,Limited Range of Motion,Poor Balance PT-Balance Assessment Sitting Balance and Reactions Static Sitting Balance Ability Good Dynamic Sitting Balance Ability Good Standing Balance and Reactions Static Standing Balance Ability Good Dynamic Standing Balance Ability Fair Device Used FWW M5 PT-IP Objective Assessments Start: 02/14/24 12:33 Freq: NEEDED Status: Active Protocol: Document 02/14/24 12:35 MB (Rec: 02/14/24 13:16 MB [id number]) Orientation Orientation/Cognition Level of Alertness Alert Orientation Name,Age,Birthday,Month,Date, Year,Day of Week,Place, Situation Language Function Ability No Deficits Noted Safety Awareness Understands Safety Issues Memory Description No Deficits Noted Gross Range of Motion Upper Extremity ROM Assessment Right Impaired Impairments Defer to OT Lower Extremity ROM Assessment Right Impaired Impairments Functional foot drop, limited toe and ankle movement and knee movement also impaired Strength Upper Extremity Strength Assessment Right Impaired Lower Extremity Strength Assessment Right Impaired Comments Strength Comments MMT deferred and functional foot drop on the right Coordination Assessment Gross Coordination Gross Coordination Impaired Sensation Assessment Comments Sensation Comments Mild decreased awareness right UE as far as proprioception today Muscle Tone Muscle Tone WNL No Comments Muscle Tone Comments Mild tension tone right PFs M7 PT-IP Assessment and Plan Start: 02/14/24 12:33 Freq: NEEDED Status: Active Protocol: Document 02/16/24 11:16 TS (Rec: 02/16/24 11:27 TS [id number]) PT Summary Assessment and Plan Potential Rehabilitation Potential Good Summary Impairments ROM,Strength,Balance, Coordination,Sensation,Tone, Bed Mobility,Transfers,Gait, Activity Tolerance Progress Towards Goals Progressing Toward Goals Assessment Summary Fantasma is making some progress with his mobility. He ambulates ~50's in the SBA/CG with FWW. He performs all bed mobility. He has difficulty with his balance coming into standing this session. He braces of the bakc of legs against to bed for balance. He had some lightheadedness with ambulation. PT is recommending Home vs SNF. He couldn't benefit from daily PT before rturngint ot [facility]. If he is to go home he may need some light assistance with his mobility. Goals Bed Mobility Goal Independent Transfer Goal Standby Assistance,Front Wheeled Walker Gait Goal Standby Assistance,Front Wheel Walker Gait Distance 25 Other Goals Pt will perform w/c<>bed<> toilet with mod I. Days to Meet Goals 5 Frequency of Treatment Frequency Of Treatment Once a Day Treatment Plan Physical Therapy Treatment Plan Bed Mobility Training,Transfer Training,Gait Training, Therapeutic Exercise,Balance Retraining,Discharge Planning, Hot or Cold Pack,Neuromuscular Re-ed,Coordination Retraining ,Manual Therapy Precautions Other Precautions R hemiplegia, functional foot drop on the right foot Recommendations To Nursing Amount of Assist Needed 1 Person Assist Discharge Recommendations PT Discharge Recommendations Home vs SNF Other Discharge Recommendations SNF for strength and increase mobililty I before returnto [facility] Transportation Needs at Discharge Private Vehicle,Wheelchair/ Cabulance
--- NOTE | 2024-02-16 11:47 | ST.IPDYTX ---
Visit Care Team Role Provider Type Quan New DO Primary Care Provider Physician Specialty: Family Practice Address: [address] [place] [address], [phone] Email: [email or web address] Pierre Garvey DO Emergency Provider Physician Referring Provider Specialty: Emergency Medicine Address: [address] [place] [address], [address] Fax: Email: [email or web address] Darius Acosta MD Admit Provider Physician Attending Provider Specialty: Internal Medicine Address: [address] [place] [address], [address] Email: [email or web address] PROCUREMENT ANALYST Dysphagia Treatment PROCUREMENT ANALYST Dysphagia Treatment Start: 02/15/24 12:39 Freq: Status: Active Protocol: Document 02/16/24 11:36 CG (Rec: 02/16/24 11:47 CG [id number]) Dysphagia Treatment Session Time Visit Start Time 11:07 Visit Stop Time 11:37 Total Visit Minutes 30 Visit Information Visit Number 3 Insurance Information [facility] Setting Assessment Location Acute Care Patient Information Subjective Observations Pt was sitting upright in hospital chair after working with PT. Per nurse, the pt took all medication this morning without difficulty and no coughing was noted with breakfast. Pt had water present on his table, and had independently removed the straw. 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 Treatment Liquids Trialed Thin (IDDSI 0) Solids Trialed Soft & Bite-sized (IDDSI 6) Administration Type Cup Single Sip,Straw,Self- Feeding Oral Strategies Upright at 90 degrees, Controlled Bite/Sip Size Pharyngeal Strategies Sitting Upright (90 deg),Chin Tuck,Small Bites and Sips Treatment Activities PO trials of water and chewy granola bar. Reviewed safe swallow strategies to check for pt understanding. Discussed strategies to relieve bolus sensation and discussed gentle throat clear technique (exhale + throat clear) to reduce vocal fold irritation with throat clear. PROCUREMENT ANALYST consulted with MD re discharge plan and recommendations. The IDDSI Framework Protocol: IDDSI.1 Assessment Patient Response to Treatment Good Assessment of Improvement Pt demonstrated intermittent cough throughout session, including before PO trials were initiated, unrelated to aspiration/dysphagia (likely 2 / PNA). During PO trials of water and chewy bar, pt demonstrated independent use of chin tuck, small bites/sips , and no straws. Upon PROCUREMENT ANALYST probes, pt was able to state 4 out of 5 compensatory strategies independently (chin tuck, small bites/sips, concetrate/reduce distractions , use effortful swallow). He was able to recall additional precaution (no straws) given min cues from PROCUREMENT ANALYST. Carryover knowledge of compensatory strategies/precautions is excellent. Pt did need one min verbal cue to remember not to talk while eating during trials of chewy bar. PROCUREMENT ANALYST and pt further discussed strategies to reduce social distractions during meals. No overt s/sx aspiration across trials, though silent aspiration cannot be ruled out without an instrumental assessment. Continue to recommend pt d/c on current diet, continue swallow precautions, and follow with ST upon discharge. Additionally, recommend pt follow up with ENT. Given complaints of bolus sensation, recommend PCP order a follow- up MBS on an outpatient basis, though non-emergent. PROCUREMENT ANALYST communicated these recommendations to hospitalist , Dr. Garret Reed. Recommendations Recommendations Continue Current Diet Liquids Order Thin (IDDSI 0) Diet Order Soft & Bite-sized (IDDSI 6) Medication Recommendations One at a Time Comments New precaution: No straws Additional Dietary Needs Single Sips,Controlled Sips,No Straws,1:1 Supervision, Encourage to Self-Feed, Reminders to Use Strategies Aspiration Precautions Additional Precautions Single sips with chin tuck, no straws, reduce distraction Treatment Plan Placement Recommendation after Discharge Assisted Facility, Inpatient Rehab Facility Appropriate for Continued Therapy Yes Therapy Recommendations D/c on current diet of thin liquids (IDDSI 0) and soft/ bite sized solids (IDDSI 6). Continue precautions: chin tuck, no straws, reduce distractions, small bites, effortful swallow. 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 Recommend follow up with PCP re ordering outpatient MBS to re-assess current swallow function, though not emergent. Dysphagia Goals STG 1: Patient will utilize safe swallowing strategies in 90% of opportunities with minimal verbal cues in order to consume safest and least restrictive diet. MET. STG 2: Patient will tolerate IDDSI 6 (soft and bite-sized) with no clinical s/sx of aspiration in 100% of opportunities in order to consume least restrictive diet texture. CONTINUE GOAL. STG 3: Patient will tolerate thin liquids with no overt s/ sx of aspiration in 100% of opportunities in order to consume least restrictive diet texture. CONTINUE GOAL. LTG: Patient will tolerate safest and most efficient diet with no clinical s/sx of aspiration or dysphagia in 100 % of opportunities in order to consume least restrictive diet and enhance overallomfort during functional eating and drinking. CONTINUE GOAL.
--- NOTE | 2024-02-16 12:01 | PM.DS.1 ---
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 CXR non-revealing. He was on regular diet, thin liquids, but it seems that he aspirated while drinking. Started on Zosyn and admitted with aspiration pneumonia and acute hypoxemic respiratory failure, as he requires 2 L of oxygen to maintain saturation above 90%. Discharge Providers Provider Date of admission: 02/12/24 19:50 Discharge Date: 02/16/24 Primary care physician: Quan New DO Consults: 02/12/24 19:59 Consult to Speech Therapy Evaluate & Treat Comment: recent Lt basal ganglia CVA, neurogenic dysphagia Physician Instructions: Evaluate and treat 02/14/24 12:25 Consult to Occupational Therapy Evaluate & Treat Comment: Physician Instructions: Evaluate and treat Consult to Physical Therapy Evaluate & Treat Comment: Physician Instructions: Evaluate and Treat Discharge provider: Garret Reed MD Summary Hospital Course Discharge Diagnosis: 1. Aspiration Pneumonia, present on admission and imroved. 2. Acute Hypoxemic Respiratory Failure, present on admission and resolved. 3. Recent Lt MCA Ischemic Stroke / Rt Hemiparesis / Dysphagia / HLD, present on admission and active. 4. BPH, present on admission and active. 5. Depression, present on admission and active. 6. Insomnia, present on admission and active. 7. Restless legs, present on admission and active. 8. Sepsis secondary to pneumonia. Initial pulse 95, respiratory rate 28, WBC 19.9. Patient was hypoxemic with respiratory failure. Present on admission any improved. Hospital Course: He was admitted with rigors and acute hypoxic respiratory failure with concern for aspiration pneumonia. He was treated with empiric antibiotics. Initially blood cultures posted as to for 2 with Gram-positive cocci and he was covered vancomycin. Ultimately it was learned that this result was an air and these were negative. Did improve with antibiotics for his aspiration pneumonia, did have some initial diarrhea which is related to antibiotics possibly. He did request treatment for his chronic restless legs and insomnia which is refractory to melatonin and trazodone. He was started on ropinirole in the hospital and will be given a small supply of Ambien 5 mg HS at discharge. He was seen by therapy in the day of discharge in his at his baseline and felt to be stable for resumption of his care at assisted living. Status at Discharge Cognitive/behavioral status at discharge: oriented Functional status at discharge: uses cane/walker Overall status at discharge: patient is back to baseline Time Spent with Patient Time spent: Greater than 30 minutes Exam Vital Signs (past 8 hours): - 02/16/24 07:00 Temperature 97.8 F Pulse Rate 63 Respiratory Rate 17 Blood Pressure 123/61 Pulse Oximetry 93 Oxygen Flow Rate 0 Fraction of Inspired Oxygen 28 SaO2/FiO2 Ratio 339 Oxygen Delivery Method Nasal Cannula Oxygen Flow Rate 0 Narrative Exam Narrative: NAD, alert and oriented. Fluent speech. Lungs are clear, normal rate and effort. Heart is regular, no murmur gallop or rub. Abdomen is soft, non distended. Extremities are free of edema. Right arm paresis. Objective Imaging Chest x-ray: Radiologist's impression: No acute infiltrates. Labs 02/16/24 06:20 02/16/24 06:20 Labs: Laboratory Results - last 24 hr 02/16/24 06:20 WBC 5.8 RBC 3.38 L Hgb 12.0 L Hct 34.9 L MCV 103.2 H MCH 35.5 H MCHC 34.4 RDW 15.9 H Plt Count 185 Sodium 138 Potassium 3.7 Chloride 110 H Carbon Dioxide 24 BUN 13 Creatinine 0.95 Estimated GFR > 60 BUN/Creatinine Ratio 13.7 Glucose 86 Calcium 8.8 PFSH Medical History BPH (benign prostatic hyperplasia) Insomnia Depression Tear of meniscus of knee Inguinal hernia Surgical History Hx of tonsillectomy Social History household members: none Smoking Status: Former smoker alcohol intake: current Discharge Assessment & Plan Assessment and Plan Assessment: 1. Aspiration Pneumonia, present on admission and imroved. 2. Acute Hypoxemic Respiratory Failure, present on admission and resolved. 3. Sepsis secondary to pneumonia. Initial pulse 95, respiratory rate 28, WBC 19.9. Patient was hypoxemic with respiratory failure. Present on admission any improved. Plan of Treatment: Returned to [facility]. He will be on Augmentin for 5 additional days, as given allopurinol for a month, and Ambien #15 (5mg)o use as needed HS for sleep. PCP within the next 1 week. Discharge Plan Discharge Plan Patient Disposition: Assisted Living Other facility: [facility] Provider Discharge Comment: Stable for discharge, improved and off oxygen. Discharge orders & Medications Discharge Orders: Discharge (Order); Ordered 02/16/24 Ordered By: Garret Reed Prescriptions: New ropinirole 0.25 mg Tablet 0.25 mg PO BID Qty: 60 0RF guaifenesin [Mucus Relief ER] 600 mg Tablet Extended Release 12hr 600 mg PO BID Qty: 15 0RF amoxicillin-pot clavulanate 875-125 mg tablet 1 tab PO BID Qty: 10 0RF zolpidem [Ambien] 5 mg tablet 5 mg PO BEDTIME PRN (Reason: insomnia) Qty: 15 0RF Continued midodrine 5 mg tablet 5 mg PO 0600,1200,1800 Qty: 90 0RF atorvastatin 80 mg tablet 80 mg PO BEDTIME Qty: 30 0RF aspirin 81 mg capsule 81 mg PO DAILY Qty: 30 0RF magnesium oxide 400 mg (241.3 mg magnesium) tablet 400 mg PO BID Qty: 60 0RF tamsulosin [Flomax] 0.4 mg capsule 0.4 mg PO DAILY Qty: 30 0RF escitalopram oxalate [Lexapro] 10 mg tablet 10 mg PO DAILY Qty: 90 2RF Follow up/Referrals: Quan New DO [Primary Care Provider] - Discharge Health Status Multidrug resistant organism: No MDRO Diet/Activity/Treatments Diet: Regular Liquid consistency: Normal/Thin Skin/Wound/Dressing Care Report to your healthcare provider any signs of infection, such as:: chills, fever and night sweats Special Rehabilitation Services Reason for rehabilitation: Recovery r/t decondition Rehab type: Physical therapy and Occupational therapy Visit Report/Discharge Packet Instructions: DI for Aspiration Pneumonia Stand Alone Forms: Patient Portal/API Discharge Data Primary Care Provider: Quan New
--- NOTE | 2024-02-16 12:10 | CM.DPC ---
DCP Cont. Reviewed EMR and team rounds for status updates. Pt has been medically cleared for d/c back to [facility], they will pick him up at the main entrance today at 1:20pm. His oral antibiotics have been called in to [facility]'s pharmacy. Called and updated [facility] of d/c plan.
--- NOTE | 2024-02-16 13:18 | PC.NURSE ---
Patient A&OX4, VSS, afebrile on RA. He tolerates breakfast well without difficulty. MD at bedside after PT evaluation this a.m. and clears him for discharge back to [facility]. Per CM patient transportation will picker meds at [facility] en route. Patient verbalizes understanding of meds and plan of care. He is escorted to main entrance via w/ch by [employer] at 1315 for picker by facility transportation at 1320.
== END 2024-02-16 13:20 | DRG 871 ==
LOC: ED 19:12 → AC 19:50
PROVIDERS: Emergency Medicine; Hospitalist; Admitting Provider Internal Medicine; Emergency Provider Student in an Organized Health Care Education/Training Program; PCP Family Medicine; Referring Provider Student in an Organized Health Care Education/Training Program; Visit Provider Internal Medicine
DX: A41.9 Sepsis, unspecified organism (principal); J18.9 Pneumonia, unspecified organism; J69.0 Pneumonitis due to inhalation of food and vomit; J96.01 Acute respiratory failure with hypoxia; I69.351 Hemiplegia and hemiparesis following cerebral infarction affecting right dominant side; F33.0 Major depressive disorder, recurrent, mild; R13.10 Dysphagia, unspecified; N40.1 Benign prostatic hyperplasia with lower urinary tract symptoms; R35.1 Nocturia; E78.5 Hyperlipidemia, unspecified; F51.01 Primary insomnia; G25.81 Restless legs syndrome; R65.20 Severe sepsis without septic shock; I69.391 Dysphagia following cerebral infarction; I69.392 Facial weakness following cerebral infarction; Z87.891 Personal history of nicotine dependence
CPT/HCPCS: 36415; 71045; 80048; 80053; 81001; 81015; 83605; 83880; 84145; 84484; 85025; 85027; 85610; 87040; 87154; 87507; 87633; 92526; 92610; 93005; 93010; 94762; 96365; 96375; 97116; 97161; 97166; 97530; 97535; 99285; J1650; J2543

== ENCOUNTER → 2024-06-07 12:25 | Outpatient (CLI) | payer MEDICARE, SELFPAY ==
[2024-02-12 21:21] VITALS: BMI 26.4
--- NOTE | 2024-06-07 12:27 | DI.ECHO.S_ITS ---
[facility] +---------+ [facility] : : [address] : : [place] : : [id number] : : Phone: [phone] Echocardiogram Report + + :Name: RADHA JESUS Study Date: 06/07/2024 Height: 70 in : :[facility] ReadingLocation: Weight: 170 lb : : Gender: Male BSA: 1.9 m2 : :: 1940 Age: 84 yrs BP: 140/83 mmHg: :Reason For Study: PERSISTENT HYPOTENSION : :Ordering Physician: ROBBY, : :CARON Performed By: Pippa Lira : :Referring: CARON BUSTAMANTE : + + Interpretation Summary 1. The left ventricular contractility is normal. Estimate ejection fraction is greater than 60% with no segmental wall motion abnormalities. Mild concentric LVH. Grade 1 diastolic dysfunction. 2. The right ventricular contractility is normal. 3. All cardiac chambers are of normal size. 4. Mild to moderate mitral regurgitation. 5. No obvious intracardiac shunts. 6. No obvious intracardiac masses nor thrombi. 7. No hemodynamically significant pericardial effusion. Conclusion: Normal biventricular systolic function with mild to moderate mitral regurgitation. Procedure: A two-dimensional transthoracic echocardiogram with color flow and Doppler was performed. The study quality was technically adequate. There is no prior echocardiogram noted for this patient. The patient was in sinus rhythm with heart rates between 60-67 bpm during the exam. Left Ventricle: The left ventricle is normal in size. There is mild concentric left ventricular hypertrophy. The ejection fraction is estimated to be 60-65%. Right Ventricle: The right ventricle is normal in size and function. Atria: The left atrial size is normal. Right atrial size is normal. There is no Doppler evidence for an interatrial shunt. Mitral Valve: There is mild mitral annular calcification. The mitral valve leaflets appear mildly thickened, but open well. There is mild to moderate mitral regurgitation. Aortic Valve: The aortic valve is trileaflet. The aortic valve is mildly calcified. There is mildly reduced leaflet mobility. There is mild aortic valve sclerosis. There is no hemodynamically significant valvular aortic stenosis. No aortic regurgitation is present. Tricuspid Valve: The tricuspid valve leaflets are thin and pliable. There is trace tricuspid regurgitation. The right ventricular systolic pressure is estimated to be at least 24 mmHg based on an estimated right atrial pressure of 3 mm Hg. Pulmonic Valve: The pulmonic valve is not well visualized. There is trace pulmonic regurgitation. Great Vessels: The aortic root is normal size. The ascending aorta could not be visualized. The inferior vena cava was not well visualized. Pericardium/ Pleura There is no pericardial effusion. There is no pleural effusion. MMode/2D Measurements & Calculations LVIDd: 4.0 cm LVOT diam: 2.4 cm LVIDs: 2.5 cm Ao root diam: 2.9 cm FS: 36.6 % Ao Arch Diam (Prox Trans): 3.3 cm IVSd: 1.0 cm LVPWd: 1.1 cm LV stafford. diameter/BSA (cm/m^2): 2.0 LV sys. diameter/BSA (cm/m^2): 1.3 LA A2 area: 22.4 cm2 RA long axis: 4.9 cm LA A4 area: 13.9 cm2 RA area: 15.8 cm2 LA length (vol): 4.4 cm RA vol: 43.1 ml LA vol: 60.0 ml RA : 22.1 ml/m2 LA vol index: 30.8 ml/m2 RVD1 (basal): 3.5 cm RVD2 (mid): 2.9 cm TAPSE: 2.2 cm Doppler Measurements & Calculations Ao V2 max: 145.0 cm/sec LVOT Max Gilmar: 144.6 cm/sec Ao V2 mean: 102.4 cm/sec LV V1 max P.4 mmHg Ao max P.4 mmHg LV V1 VTI: 30.1 cm Ao mean P.7 mmHg NOEMI(I,D): 4.2 cm2 Ao V2 VTI: 31.8 cm NOEMI(V,D): 4.4 cm2 sev ratio: 0.95 NOEMI indexed to BSA (cm^2/m^2): 2.1 MV E max gilmar: 94.6 cm/sec TR max gilmar: 228.6 cm/sec MV A max gilmar: 84.0 cm/sec TR max P.9 mmHg MV E/A: 1.1 PA V2 max: 79.9 cm/sec Med Peak E' Gilmar: 6.1 cm/sec PA V2 mean: 57.2 cm/sec E/E' med: 15.5 PA mean P.4 mmHg Lat Peak E' Gilmar: 5.3 cm/sec PA pr(Accel): 28.9 mmHg E/E' lat: 17.9 E/e' average: 16.7 MV dec time: 0.21 sec MR ERO: 0.32 cm2 MR PISA: 4.1 cm2 SV(LVOT): 132.5 ml MR flow rate: 174.4 cm3/sec MR PISA radius: 0.81 cm Reading Physician:ELLIOT
== END ==
PROVIDERS: PCP Family Medicine; Referring Provider Family Medicine; Visit Provider Family Medicine
DX: I08.0 Rheumatic disorders of both mitral and aortic valves (principal); I95.9 Hypotension, unspecified; R01.1 Cardiac murmur, unspecified
CPT/HCPCS: 93306

== ENCOUNTER 2024-07-08 12:03 | Emergency (ER) | payer MEDICARE, SELFPAY ==
[2024-02-12 21:21] VITALS: BMI 26.4
[2024-07-08] VITALS (13 sets, daily range): BP systolic 113–141; BP diastolic 59–88; PULSE 56–88; RESP 12–20; TEMP 36.4; O2SAT 93–97
--- NOTE | 2024-07-08 12:13 | EKG_ITS ---
[address] [address] Test Date: 2024-07-08 Pat Name: Olayinka Mclean Department: Room: Gender: Male Torch Shearer: RENÉE : 1940 Requested By: Order Number: [id number] Reading MD: Pierre Moreno Measurements Intervals Harrison Rate: 60 P: 68 VT: 190 QRS: 42 QRSD: 94 T: 58 QT: 442 QTc: 442 Interpretive Statements Normal sinus rhythm Electronically Signed On 07-08-2024 19:11:28 PDT by Pierre Moreno
--- NOTE | 2024-07-08 12:37 | ED_ITS ---
HPI - Chest Pain General Chief Complaint: Chest Pain Stated Complaint: Chest Tightness Time Seen by Provider: 07/08/24 12:37 Source: EMS Mode of arrival: EMS History of Present Illness HPI narrative: 84-year-old gentleman history of CVA status post [place] residual right-sided weakness dyslipidemia was working with the OT today when he started to develop right-sided chest pain that was described as dull and intermittent 8/10 initially on arrival given 4 baby aspirin and 1 nitro. He is now /10 pain almost completely resolved in complaining of right-sided cramps in his legs. Other than what is stated 14 point review of system is negative Related Data Previous Rx's Medication Instructions Recorded guaifenesin 600 mg tablet, 600 mg PO BID #15 tabs 02/16/24 extended release 12 hr (Mucus Relief ER) aspirin 81 mg capsule 81 mg PO DAILY #90 caps 02/22/24 escitalopram oxalate 10 mg tablet 10 mg PO DAILY #90 tabs 03/18/24 (Lexapro) Disabled Parking Permint #1 ea 04/05/24 zolpidem 5 mg tablet (Ambien) 5 mg PO BEDTIME PRN insomnia #15 04/05/24 tabs atorvastatin 80 mg tablet 80 mg PO BEDTIME #90 tabs 04/19/24 midodrine 5 mg tablet 5 mg PO TID #270 tabs 04/19/24 tamsulosin 0.4 mg capsule (Flomax) 0.4 mg PO DAILY #90 caps 04/19/24 doxepin 25 mg capsule 25 mg PO BEDTIME #90 caps 05/11/24 magnesium oxide 400 mg (241.3 mg 400 mg PO BID #60 tabs 05/30/24 magnesium) tablet Allergies Allergy/AdvReac Type Severity Reaction Status Date / Time shellfish derived Allergy Severe anaphylatic Verified 04/19/24 15:46 [SHELLFISH DERIVED] Review of Systems Review of Systems ROS Unobtainable: All systems reviewed & are unremarkable except as noted in HPI and below Patient History Medical History Hypotension BPH (benign prostatic hyperplasia) Insomnia Depression Tear of meniscus of knee Inguinal hernia Surgical History Hx of tonsillectomy Social History household members: none alcohol intake: current alcohol intake frequency: a few times a week Exam Narrative Exam Narrative: GENERAL: [84] year old patient appears stated age. Well-developed patient, in mild distress. HEAD: Atraumatic. Normocephalic. EYES: Pupils equal round and reactive. Extraocular motions intact. No scleral icterus. No injection or drainage. ENT: Nose without bleeding, purulent drainage. Throat without erythema, tonsillar hypertrophy or exudate. Airway patent. NECK: Trachea midline. Non tender CARDIOVASCULAR: Regular rate and rhythm without murmurs, gallops, or rubs. RESPIRATORY: Clear to auscultation. Breath sounds equal bilaterally. No wheezes, rales, or rhonchi. GASTROINTESTINAL: Abdomen soft, non-tender, nondistended. EXTREMITIES: No edema or joint tenderness. BACK: Nontender without deformity or crepitance. No flank tenderness. NEURO: AOx3. SKIN: No rash or erythema of visible areas Initial Vital Signs Initial Vital Signs: Vital Signs Pulse Rate 61 07/08/24 12:12 Pulse Oximetry 93 07/08/24 12:12 Scores HEART Score Heart Score history: Slightly Suspicious Heart Score EKG: Normal Heart Score Age: > or = 65 years old Heart Score risk factors: > 3 risk factors or hx of atherosclerotic disease Heart Score troponin: < or = to normal limit Heart Score Total: 4 Course Orders Ordered: ED Orders 07/08/24 12:19 Complete Blood Count AUTO DIFF Stat Comprehensive Metabolic Panel Stat Lipase Stat Troponin & CK Cardiac Panel Stat 07/08/24 12:47 XR chest 1V Stat EKG-12 Lead Stat 07/08/24 14:46 Trop I [Troponin I] Stat Sodium Chloride (Normal Saline 0.9%) 1,000 mls @ 150 mls/hr IV CONT IRVIN Last Infusion: 07/08/24 14:55 Dose: Infused Documented By: Admin: 07/08/24 12:56 Dose: 150 mls/hr Documented By: GREG Discontinued Medications Cyclobenzaprine HCl (Cyclobenzaprine 10 Mg Tablet) 10 mg PO NOW ONE Stop: 07/08/24 14:40 Last Admin: 07/08/24 14:41 Dose: 10 mg Documented By: GREG Morphine Sulfate (Morphine 4 Mg/Ml Inj) 4 mg IV NOW ONE Stop: 07/08/24 12:51 Last Admin: 07/08/24 12:55 Dose: 4 mg Documented By: GREG Nitroglycerin (Nitroglycerin Oint 1 Inch/Gm Oint...G.) 1 inch TOP NOW ONE Stop: 07/08/24 12:49 Last Admin: 07/08/24 12:55 Dose: 1 inch Documented By: GREG Vital Signs Vital signs: Vital Signs - 8 hr 07/08/24 12:12 07/08/24 12:16 07/08/24 12:16 Temperature Pulse Rate 61 56 L Respiratory Rate Blood Pressure 116/59 L Pulse Oximetry 93 95 Oxygen Delivery Method 07/08/24 12:17 07/08/24 12:30 07/08/24 12:30 Temperature 97.6 F Pulse Rate 88 57 L Respiratory Rate 20 16 Blood Pressure 120/77 115/65 Pulse Oximetry 97 95 Oxygen Delivery Method Room Air 07/08/24 12:55 07/08/24 13:00 07/08/24 13:30 Temperature Pulse Rate 60 81 61 Respiratory Rate 18 13 Blood Pressure 117/88 133/76 Pulse Oximetry 94 95 Oxygen Delivery Method 07/08/24 13:30 07/08/24 14:00 07/08/24 14:00 Temperature Pulse Rate 64 Respiratory Rate Blood Pressure 113/65 116/66 Pulse Oximetry 94 Oxygen Delivery Method 07/08/24 14:30 07/08/24 14:30 07/08/24 15:00 Temperature Pulse Rate 65 Respiratory Rate 15 Blood Pressure 118/65 127/68 Pulse Oximetry 96 Oxygen Delivery Method 07/08/24 15:00 Temperature Pulse Rate 60 Respiratory Rate Blood Pressure Pulse Oximetry 96 Oxygen Delivery Method MDM - Chest Pain Lab Data 07/08/24 12:19 07/08/24 12:19 Labs: Lab Results 07/08/24 07/08/24 Range/Units 12:19 14:46 WBC 7.0 (4.5-11.0) X10^3/uL RBC 3.78 L (4.5-5.9) X10^6/uL Hgb 13.4 L (13.5-17.5) g/dL Hct 38.7 L (41-53) % MCV 102.3 H (80-100) fL MCH 35.4 H (26-34) PG MCHC 34.6 (30-36) % RDW 15.7 H (11.6-14.8) % Plt Count 196 (150-400) X10^3/uL Neut % (Auto) 40.5 L (50-75) % Lymph % (Auto) 42.2 H (25-40) % Canadian % (Auto) 13.5 (3-14) % Eos % (Auto) 3.2 (2-4) % Baso % (Auto) 0.6 (0-2) % Neut # (Auto) 2800 (5870-1068) /uL Lymph # (Auto) 2900 (4381-8690) /uL Canadian # (Auto) 900 (0-900) /uL Eos # (Auto) 200 (0-450) /uL Baso # (Auto) 0 (0-100) /uL Sodium 138 (137-145) mmol/L Potassium 4.5 (3.4-5.1) mmol/L Chloride 104 (98-107) mmol/L Carbon Dioxide 27 (22-32) mmol/L BUN 27 H (9-20) mg/dL Creatinine 0.92 (0.66-1.25) mg/dL Estimated GFR > 60 (>60) mL/min BUN/Creatinine Ratio 29.3 H (6-22) Glucose 109 (80-110) mg/dL Calcium 9.3 (8.4-10.2) mg/dL Total Bilirubin 2.0 H (0.2-1.3) mg/dL AST 43 (17-59) IU/L ALT 33 (<50) IU/L Alkaline Phosphatase 51 (38-126) U/L Total Creatine Kinase 164 (55-170) U/L Troponin I < 0.012 < 0.012 (0.01-0.034) ng/mL Total Protein 7.1 (6.3-8.2) g/dL Albumin 4.4 (3.5-5.0) g/dL Globulin 2.7 (1.7-4.1) g/dL Albumin/Globulin Ratio 1.6 (1.0-2.8) Lipase 132 (23-300) U/L Imaging Data Chest x-ray: Radiologist's Impression: [address] [address] XRay Report Signed Patient: Olayinka Mclean MR#: [id number] : 1940 Acct:[id number] Age/Sex: 84 / M Date of Service: 07/08/24 Loc: ED Accession Number: [id number] Procedure: XR chest 1V Ordering Provider: Davey Graham D.O. PROCEDURE: XR CHEST 1V INDICATIONS: chest pain TECHNIQUE: One view of the chest was acquired. COMPARISON: [facility], CR, XR CHEST 1V, 02/12/2024, 16:33. [facility], CR, XR CHEST 1V, 11/26/2023, 13:15. FINDINGS: Surgical changes and devices: None. Lungs and pleura: Lungs are clear. No pleural effusions or pneumothorax. Mediastinum: Mediastinal contours appear normal. Heart size is normal. Bones and chest wall: No suspicious bony lesions. Overlying soft tissues appear unremarkable. IMPRESSION: No acute cardiopulmonary abnormality is seen. ECG Data Attestation: I personally reviewed and interpreted this ECG as follows: Interpretation: NSR NO st-t wave change HR 60 KY 190 QRS 94 QT 442 Unchanged from 02/12/24 MDM Narrative Medical decision making narrative: All lab work EKG blood work all reviewed includes nurse triage note, medication list, previous ER visits, vital signs all reviewed. Differential diagnosis includes NSTEMI STEMI unstable angina PE anxiety GERD. Heart score is 4 patient will follow up with his PCP next week. He is chest pain-free he was given nitro paste 1 in here. Return with new or worsening symptoms. Discharge Plan Departure Patient Disposition: Home Clinical Impression: Chest pain Instructions: DI for Chest Pain Activity Restrictions/Additional Instructions: Return with new or worsening symptoms follow up with PCP on Thursday. Prescriptions: No Action aspirin 81 mg capsule 81 mg PO DAILY Qty: 90 3RF escitalopram oxalate [Lexapro] 10 mg tablet 10 mg PO DAILY Qty: 90 2RF (DME) Disabled Parking Permint See Rx Instructions .ROUTE .MEDSUPPLY Qty: 1 0RF Rx Instructions: I find this patient to be medically disabled and qualified for Disabled Parking as indicated and signed on the Accompanying Disabled Parking Application for individuals. zolpidem [Ambien] 5 mg tablet 5 mg PO BEDTIME PRN (Reason: insomnia) Qty: 15 0RF magnesium oxide 400 mg (241.3 mg magnesium) tablet 400 mg PO BID Qty: 60 2RF atorvastatin 80 mg tablet 80 mg PO BEDTIME Qty: 90 3RF midodrine 5 mg tablet 5 mg PO TID Qty: 270 1RF tamsulosin [Flomax] 0.4 mg capsule 0.4 mg PO DAILY Qty: 90 3RF doxepin 25 mg capsule 25 mg PO BEDTIME Qty: 90 1RF guaifenesin [Mucus Relief ER] 600 mg Tablet Extended Release 12hr 600 mg PO BID Qty: 15 0RF Referrals: Quan New, [Primary Care Provider] - Stand Alone Forms: Patient Portal/API/Survey
--- NOTE | 2024-07-08 12:47 | DI.RAD.S_ITS ---
PROCEDURE: XR CHEST 1V INDICATIONS: chest pain TECHNIQUE: One view of the chest was acquired. COMPARISON: [facility], CR, XR CHEST 1V, 02/12/2024, 16:33. [facility], CR, XR CHEST 1V, 11/26/2023, 13:15. FINDINGS: Surgical changes and devices: None. Lungs and pleura: Lungs are clear. No pleural effusions or pneumothorax. Mediastinum: Mediastinal contours appear normal. Heart size is normal. Bones and chest wall: No suspicious bony lesions. Overlying soft tissues appear unremarkable. IMPRESSION: No acute cardiopulmonary abnormality is seen. Dictated by: Noé Castelan M.D. on 07/08/2024 at 13:28 Approved by: Noé Castelan M.D. on 07/08/2024 at 13:28
[2024-07-08] MEDS: NITROGLYCERIN OINT 1 INCH/GM OINT...G. TOP (12:55)
[2024-07-08] MEDS: MORPHINE 4 MG/ML INJ IV (12:55)
[2024-07-08] MEDS: SODIUM CHLORIDE 0.9% 1,000 ML 150 ML IV (12:56)
[2024-07-08 13:01] LABS: Add Manual Diff / Slide Review NO; Basophils Absolute Auto 0 /uL (0-100); Basophils Percent Auto 0.6 % (0-2); Eosinophils Absolute Auto 200 /uL (0-450); Eosinophils Percent Auto 3.2 % (2-4); Hematocrit 38.7 % (41-53); Hemoglobin 13.4 g/dL (13.5-17.5); Lymphocytes Absolute Auto 2900 /uL (1100-4500); Lymphocytes Percent Auto 42.2 % (25-40); Mean Corpuscular HGB Conc 34.6 % (30-36); Mean Corpuscular Hemoglobin 35.4 PG (26-34); Mean Corpuscular Volume 102.3 fL (80-100); Monocytes Absolute Auto 900 /uL (0-900); Monocytes Percent Auto 13.5 % (3-14); Neutrophils Absolute Auto 2800 /uL (1500-7000); Neutrophils Percent Auto 40.5 % (50-75); Platelet Count 196 X10^3/uL (150-400); Red Blood Cell Count 3.78 X10^6/uL (4.5-5.9); Red Cell Distribution Width 15.7 % (11.6-14.8)
[2024-07-08 13:14] LABS: Alanine Aminotransferase 33 IU/L (<50); Albumin 4.4 g/dL (3.5-5.0); Albumin Globulin Ratio 1.6 (1.0-2.8); Alkaline Phosphatase 51 U/L (38-126); Aspartate Aminotransferase 43 IU/L (17-59); BUN Creatinine Ratio 29.3 (6-22); Blood Urea Nitrogen 27 mg/dL (9-20); Calcium 9.3 mg/dL (8.4-10.2); Carbon Dioxide 27 mmol/L (22-32); Chloride 104 mmol/L (98-107); Creatine Kinase 164 U/L (55-170); Estimated Glomerular Filt Rate > 60 mL/min (>60); Globulin 2.7 g/dL (1.7-4.1); Glucose 109 mg/dL (80-110); HEMOLYSIS 50 (0-50); Lipase 132 U/L (23-300); Potassium 4.5 mmol/L (3.4-5.1); Sodium 138 mmol/L (137-145); Total Protein 7.1 g/dL (6.3-8.2)
[2024-07-08 13:26] LABS: Troponin I < 0.012 ng/mL (0.01-0.034)
[2024-07-08] MEDS: CYCLOBENZAPRINE 10 MG TABLET PO (14:41)
[2024-07-08 15:46] LABS: Troponin I < 0.012 ng/mL (0.01-0.034)
--- NOTE | 2024-07-08 16:45 | PC.NURSE ---
Called [facility] who state there are no rides available. Confirmed that pt was safe to travel by Taxi and they will greet him at the door and ensure that he is safe. Pt is a/o x 4 and verbalized understanding and agreement w/ plan of care.
--- NOTE | 2024-07-13 11:41 | PC.NURSE ---
called PCP office, they will reach out to patient and schedule urgent follow up.
== END 2024-07-08 16:52 | disposition home or self-care (01) ==
PROVIDERS: Emergency Provider Family Medicine; PCP Family Medicine
DX: R07.9 Chest pain, unspecified (principal)
CPT/HCPCS: 71045; 80053; 82550; 83690; 84484; 85025; 93005; 96361; 96374; 99284; J2270

== ENCOUNTER → 2025-02-14 13:52 | Outpatient (CLI) | payer MEDICARE, SELFPAY ==
[2024-02-12 21:21] VITALS: BMI 26.4
[2025-02-14 14:32] LABS: Add Manual Diff / Slide Review NO; Hematocrit 39.7 % (41-53); Hemoglobin 13.5 g/dL (13.5-17.5); Lymphocytes Absolute Auto 1700 /uL (1100-4500); Mean Corpuscular HGB Conc 34.0 % (30-36); Mean Corpuscular Hemoglobin 34.9 PG (26-34); Mean Corpuscular Volume 102.8 fL (80-100); Platelet Count 182 X10^3/uL (150-400)
[2025-02-14 14:52] LABS: Alanine Aminotransferase 23 IU/L (<50); Albumin 4.6 g/dL (3.5-5.0); Albumin Globulin Ratio 1.7 (1.0-2.8); Alkaline Phosphatase 60 U/L (38-126); Blood Urea Nitrogen 20 mg/dL (9-20); Calcium 9.0 mg/dL (8.4-10.2); Carbon Dioxide 24 mmol/L (22-32); Chloride 104 mmol/L (98-107); Cholesterol 99 mg/dL (140-199); Estimated Glomerular Filt Rate > 60 mL/min (>60); Globulin 2.7 g/dL (1.7-4.1); Glucose 90 mg/dL (70-99); HDL Cholesterol 71 mg/dL (40-60); HEMOLYSIS < 15 (0-50); Potassium 4.5 mmol/L (3.4-5.1); Sodium 140 mmol/L (137-145); Total Protein 7.3 g/dL (6.3-8.2); Triglycerides 85 mg/dL (35-150)
[2025-02-14 14:57] LABS: Iron 118 ug/dL (49-181)
[2025-02-14 15:25] LABS: TSH w/ Reflex to FT4 2.54 uIU/mL (0.47-4.68)
[2025-02-14 15:44] LABS: Vitamin B12 930 pg/mL (239-931)
== END ==
PROVIDERS: PCP Family Medicine; Referring Provider Family Medicine; Visit Provider Family Medicine
DX: E78.5 Hyperlipidemia, unspecified (principal); D64.9 Anemia, unspecified; I95.9 Hypotension, unspecified; R78.81 Bacteremia; I95.0 Idiopathic hypotension; N40.0 Benign prostatic hyperplasia without lower urinary tract symptoms
CPT/HCPCS: 36415; 80053; 80061; 82607; 83540; 84443; 85025